=== PATIENT | female | born 1950 | race Caucasian/White ===

== ENCOUNTER → 2016-06-25 | Outpatient (CLI) | payer BC ==
[2016-06-25 07:55] LABS: Basophils # (A) 0.1 k/uL (0-0.2); Basophils % (A) 1 %; CH 28.3; CHCM 32.8; Eosinophils # (A) 0.2 k/uL (0-0.7); Eosinophils % (A) 3 %; HCT 38.4 % (34.0-46.0); HDW 2.59; HGB 12.3 gm/dL (11.4-16.0); Luc # (Auto) 0.14; Luc % (Auto) 2; Lymphocytes # (A) 1.5 k/uL (1.0-4.8); Lymphocytes % (A) 19 %; MCH 27.8 pg (25.0-35.0); MCHC 32.1 g/dL (31.0-37.0); MCV 86.6 fL (80.0-100.0); Mean Platelet Volume 7.3; Monocytes # (A) 0.4 k/uL (0-1.0); Monocytes % (A) 5 %; Neutrophils # (A) 5.4 k/uL (1.3-7.7); Neutrophils % (A) 70 %; RBC 4.44 m/uL (3.80-5.40); RDW 13.5 % (11.5-15.5); WBC 7.7 k/uL (3.8-10.6); WBC (Perox) 8.51
[2016-06-25 08:09] LABS: ALT 53 U/L (9-52); AST 35 U/L (14-36); Alkaline Phosphatase 106 U/L (38-126); Anion Gap 14 mmol/L; Blood Urea Nitrogen 17 mg/dL (7-17); Calcium 9.7 mg/dL (8.4-10.2); Carbon Dioxide 25 mmol/L (22-30); Chloride 105 mmol/L (98-107); Cholesterol 190 mg/dL (<200); Glucose 137 mg/dL (74-99); HDL Cholesterol 42 mg/dL (40-60); Non-African American GFR(MDRD) >60 (>60 ml/min/1.73 sqM); Potassium 5.4 mmol/L (3.5-5.1); Sodium 144 mmol/L (137-145); Total Bilirubin 0.6 mg/dL (0.2-1.3); Total Protein 7.1 g/dL (6.3-8.2); Triglycerides 264 mg/dL (<150)
[2016-06-25 08:53] LABS: Hepatitis C Virus IgG Index 0.01
[2016-06-25 08:55] LABS: Hepatitis C Virus IgG Ab Negative (Negative)
[2016-06-26 08:24] LABS: Hemoglobin A1C 6.6 % (4.2-6.1)
== END | disposition home or self-care (01) ==
LOC: LABWHC1 07:00
PROVIDERS: ATTEND Family Medicine
DX: E11.9 Type 2 diabetes mellitus without complications (principal); Z13.9 Encounter for screening, unspecified
CPT/HCPCS: 36415; 80053; 80061; 82043; 83036; 84443; 85025; 86803

== ENCOUNTER → 2016-07-31 | Outpatient (CLI) | payer BC ==
--- NOTE | 2016-08-03 12:05 | MM ---
Reason for exam: screening (asymptomatic). Last mammogram was performed 1 year ago. History: Patient is postmenopausal. Family history of premenopausal breast cancer in paternal aunt and breast cancer in paternal grandmother. Benign stereotactic core biopsy of the right breast, September 03, 1998. Excisional biopsy of the right breast. Took estrogen for 14 years 3 months. Physical Findings: A clinical breast exam by your physician is recommended on an annual basis and results should be correlated with mammographic findings. MG 3D Screening Mammo W/Cad Bilateral CC and MLO view(s) were taken. Prior study comparison: July 30, 2015, bilateral MG 3d screening mammo w/cad. July 28, 2014, bilateral MG screening mammo w CAD. There are scattered fibroglandular densities. No significant changes when compared with prior studies. ASSESSMENT: Negative, BI-RAD 1 RECOMMENDATION: Routine screening mammogram of both breasts in 1 year.
== END | disposition home or self-care (01) ==
LOC: RADMAMWWP 16:41
PROVIDERS: ATTEND Family Medicine
DX: Z12.31 Encounter for screening mammogram for malignant neoplasm of breast (principal)
CPT/HCPCS: 77063; G0202

== ENCOUNTER → 2016-12-26 | Outpatient (CLI) | payer BC ==
[2016-12-26 09:50] LABS: ALT 56 U/L (9-52); AST 39 U/L (14-36); Alkaline Phosphatase 110 U/L (38-126); Anion Gap 12 mmol/L; Blood Urea Nitrogen 12 mg/dL (7-17); Calcium 9.6 mg/dL (8.4-10.2); Carbon Dioxide 24 mmol/L (22-30); Chloride 107 mmol/L (98-107); Cholesterol 175 mg/dL (<200); Glucose 119 mg/dL (74-99); HDL Cholesterol 37 mg/dL (40-60); Non-African American GFR(MDRD) >60 (>60 ml/min/1.73 sqM); Potassium 4.7 mmol/L (3.5-5.1); Sodium 143 mmol/L (137-145); Total Bilirubin 0.5 mg/dL (0.2-1.3); Total Protein 6.8 g/dL (6.3-8.2)
[2016-12-26 12:15] LABS: Hemoglobin A1C 6.8 % (4.2-6.1)
== END ==
LOC: LABWHC1 08:41
PROVIDERS: ATTEND Family Medicine
DX: E11.9 Type 2 diabetes mellitus without complications (principal)
CPT/HCPCS: 36415; 80053; 80061; 83036

== ENCOUNTER → 2017-07-10 | Outpatient (CLI) | payer BC ==
[2017-07-10 09:50] LABS: Basophils % (A) 0 %; Eosinophils # (A) 0.2 k/uL (0-0.7); Eosinophils % (A) 3 %; HGB 11.9 gm/dL (11.4-16.0); Lymphocytes # (A) 1.8 k/uL (1.0-4.8); Lymphocytes % (A) 23 %; MCHC 32.2 g/dL (31.0-37.0); MCV 86.9 fL (80.0-100.0); Mean Platelet Volume 6.8; Monocytes # (A) 0.3 k/uL (0-1.0); Monocytes % (A) 4 %; Neutrophils # (A) 5.2 k/uL (1.3-7.7); Neutrophils % (A) 69 %; Platelet Count 240 k/uL (150-450); RBC 4.26 m/uL (3.80-5.40); RDW 13.1 % (11.5-15.5); WBC 7.6 k/uL (3.8-10.6)
[2017-07-10 10:11] LABS: ALT 32 U/L (9-52); AST 27 U/L (14-36); Albumin 4.2 g/dL (3.5-5.0); Alkaline Phosphatase 98 U/L (38-126); Anion Gap 12 mmol/L; Blood Urea Nitrogen 17 mg/dL (7-17); Calcium 10.3 mg/dL (8.4-10.2); Carbon Dioxide 28 mmol/L (22-30); Chloride 104 mmol/L (98-107); Cholesterol 121 mg/dL (<200); Creatine Kinase 32 U/L (30-135); Glucose 147 mg/dL (74-99); HDL Cholesterol 47 mg/dL (40-60); LDL Cholesterol,Calculated 47 mg/dL (0-99); Potassium 5.6 mmol/L (3.5-5.1); Sodium 144 mmol/L (137-145); Total Bilirubin 0.4 mg/dL (0.2-1.3); Total Protein 6.7 g/dL (6.3-8.2); Triglycerides 136 mg/dL (<150)
[2017-07-10 20:05] LABS: Hemoglobin A1C 6.3 % (4.0-6.0)
== END | disposition home or self-care (01) ==
LOC: LABWHC1 08:33
PROVIDERS: ATTEND Internal Medicine Interventional Cardiology
DX: E11.9 Type 2 diabetes mellitus without complications (principal); E78.2 Mixed hyperlipidemia
CPT/HCPCS: 36415; 80053; 80061; 82043; 82550; 82570; 83036; 84443; 85025

== ENCOUNTER → 2017-07-30 | Outpatient (CLI) | payer BC ==
[2017-07-30 08:05] LABS: Potassium 4.7 mmol/L (3.5-5.1)
== END | disposition home or self-care (01) ==
LOC: LABWHC1 07:04
PROVIDERS: ATTEND Internal Medicine Interventional Cardiology
DX: E87.5 Hyperkalemia (principal)
CPT/HCPCS: 36415; 80051; 82565; 84520

== ENCOUNTER → 2017-08-23 | Outpatient (CLI) | payer BC ==
--- NOTE | 2017-08-25 08:37 | MM ---
Reason for exam: screening (asymptomatic). Last mammogram was performed 1 year and 1 month ago. History: Patient is postmenopausal. Family history of premenopausal breast cancer in paternal aunt and breast cancer in paternal grandmother. Benign stereotactic core biopsy of the right breast, September 03, 1998. Excisional biopsy of the right breast. Took estrogen for 14 years 3 months. Physical Findings: A clinical breast exam by your physician is recommended on an annual basis and results should be correlated with mammographic findings. MG 3D Screening Mammo W/Cad Bilateral CC and MLO view(s) were taken. Prior study comparison: July 31, 2016, bilateral MG 3d screening mammo w/cad. July 30, 2015, bilateral MG 3d screening mammo w/cad. There are scattered fibroglandular densities. Finding: There are faint grouped/clustered, fine calcifications in the middle, subareolar position of the left breast on MLO view, 7cm from the nipple. Previous mammotome biopsy in the right breast. New finding since July 31, 2016 and July 30, 2015. ASSESSMENT: Incomplete: need additional imaging evaluation, BI-RAD 0 RECOMMENDATION: Special view mammogram of the left breast. [facility] will attempt to contact patient to return for supplemental views.
== END | disposition home or self-care (01) ==
LOC: RADMAMWWP 16:40
PROVIDERS: ATTEND Family Medicine
DX: Z12.31 Encounter for screening mammogram for malignant neoplasm of breast (principal)
CPT/HCPCS: 77063; 77067

== ENCOUNTER → 2017-09-01 | Outpatient (CLI) | payer BC ==
--- NOTE | 2017-09-02 08:26 | MM ---
Reason for exam: additional evaluation requested from abnormal screening. Last mammogram was performed less than 1 month ago. History: Patient is postmenopausal. Family history of premenopausal breast cancer in paternal aunt and breast cancer in paternal grandmother. Benign stereotactic core biopsy of the right breast, September 03, 1998. Excisional biopsy of the right breast. Took estrogen for 14 years 3 months. Physical Findings: Nurse did not find any significant physical abnormalities on exam. MG 3D Work Up W/Cad LT CC with magnification, LM with magnification, and LM view(s) were taken of the left breast. Prior study comparison: August 23, 2017, bilateral MG 3d screening mammo w/cad. July 31, 2016, bilateral MG 3d screening mammo w/cad. There are scattered fibroglandular densities. Finding: There are two fine calcifications in the posterior position of the left breast on MLO view. No significant changes in finding since August 23, 2017. These results were verbally communicated with the patient and result sheet given to the patient on 09/01/17. ASSESSMENT: Probably benign, BI-RAD 3 RECOMMENDATION: Follow-up diagnostic mammogram of the left breast in 6 months. (with magnification views)
== END | disposition home or self-care (01) ==
LOC: RADMAMWWP 14:12
PROVIDERS: ATTEND Family Medicine
DX: R92.8 Other abnormal and inconclusive findings on diagnostic imaging of breast (principal)
CPT/HCPCS: 77065; G0279

== ENCOUNTER → 2018-01-11 | Outpatient (CLI) | payer BC ==
[2018-01-11 07:50] LABS: Albumin 4.2 g/dL (3.5-5.0); Calcium 9.8 mg/dL (8.4-10.2); Potassium 5.4 mmol/L (3.5-5.1); Total Bilirubin 0.5 mg/dL (0.2-1.3); Total Protein 6.7 g/dL (6.3-8.2)
== END | disposition home or self-care (01) ==
LOC: LABWHC1 06:47
PROVIDERS: ATTEND Internal Medicine Interventional Cardiology
DX: E11.9 Type 2 diabetes mellitus without complications (principal); E78.2 Mixed hyperlipidemia
CPT/HCPCS: 36415; 80053; 80061; 83036

== ENCOUNTER → 2018-02-22 | Outpatient (CLI) | payer BC ==
--- NOTE | 2018-02-23 09:07 | MM ---
Reason for exam: follow-up at short interval from prior study. Last mammogram was performed 6 months ago. History: Patient is postmenopausal. Family history of premenopausal breast cancer in paternal aunt and breast cancer in paternal grandmother. Benign stereotactic core biopsy of the right breast, September 03, 1998. Excisional biopsy of the right breast. Took estrogen for 14 years 3 months. Physical Findings: Nurse did not find any significant physical abnormalities on exam. MG 3D Diag Mammo W/Cad LT CC, MLO, and XCCL view(s) were taken of the left breast. Prior study comparison: September 01, 2017, left breast MG 3d work up w/cad LT. August 23, 2017, bilateral MG 3d screening mammo w/cad. There are scattered fibroglandular densities. Benign calcifications bilaterally. No significant new findings when compared with previous films. These results were verbally communicated with the patient and result sheet given to the patient on 02/22/18. ASSESSMENT: Benign, BI-RAD 2 RECOMMENDATION: Follow-up diagnostic mammogram of both breasts in 6 months.
== END | disposition home or self-care (01) ==
LOC: RADMAMWWP 15:31
PROVIDERS: ATTEND Family Medicine
DX: R92.8 Other abnormal and inconclusive findings on diagnostic imaging of breast (principal)
CPT/HCPCS: 77061; 77065

== ENCOUNTER → 2018-04-09 | Outpatient (CLI) | payer BC ==
[2018-04-09 09:01] LABS: Basophils # (A) 0.1 k/uL (0-0.2); Basophils % (A) 1 %; Eosinophils # (A) 0.2 k/uL (0-0.7); Eosinophils % (A) 3 %; HCT 39.6 % (34.0-46.0); HGB 12.8 gm/dL (11.4-16.0); Lymphocytes # (A) 1.8 k/uL (1.0-4.8); Lymphocytes % (A) 23 %; MCH 27.9 pg (25.0-35.0); MCHC 32.2 g/dL (31.0-37.0); MCV 86.7 fL (80.0-100.0); Mean Platelet Volume 6.5; Monocytes # (A) 0.3 k/uL (0-1.0); Monocytes % (A) 4 %; Neutrophils # (A) 5.6 k/uL (1.3-7.7); Neutrophils % (A) 69 %; Platelet Count 268 k/uL (150-450); RBC 4.57 m/uL (3.80-5.40); RDW 13.5 % (11.5-15.5); WBC 8.1 k/uL (3.8-10.6)
[2018-04-09 17:33] LABS: Albumin 4.8 g/dL (3.80-4.90); Albumin/Globulin Ratio 2.53 (1.20-2.10); Globulin 1.9 g/dL (2.1-3.7); LDL Cholesterol,Calculated 42.8 mg/dL (0.0-131.0); Potassium 4.7 mmol/L (3.5-5.5); Total Bilirubin 0.6 mg/dL (0.3-1.2); Total Protein 6.7 g/dL (6.2-8.2); VLDL Calculation 49.2 mg/dL (5.00-40.00)
[2018-04-09 17:50] LABS: Hemoglobin A1C 6.3 % (4.0-6.0)
== END | disposition home or self-care (01) ==
LOC: LABWHC1 08:17
PROVIDERS: ATTEND Family Medicine
DX: E11.9 Type 2 diabetes mellitus without complications (principal)
CPT/HCPCS: 36415; 80053; 80061; 82043; 82570; 83036; 84443; 85025

== ENCOUNTER → 2018-07-20 | Outpatient (CLI) | payer MEDICARE, OTHER ==
[2018-07-20 12:01] LABS: HGB 12.6 gm/dL (11.4-16.0); MCHC 32.4 g/dL (31.0-37.0); MCV 86.3 fL (80.0-100.0); Mean Platelet Volume 6.2; Platelet Count 255 k/uL (150-450); RBC 4.52 m/uL (3.80-5.40); RDW 13.9 % (11.5-15.5)
[2018-07-20 12:25] LABS: Amorphous Sediment,Urine Occasional /hpf; Appearance,Urine Clear (Clear); Bilirubin,Urine Negative (Negative); Blood,Urine Negative (Negative); Calcium Oxalate Crystals,Urine Rare /hpf; Color,Urine Yellow; Glucose,Urine (UA) Negative (Negative); Hyaline Casts,Urine 5 /lpf (0-2); Ketones,Urine Negative (Negative); Leukocyte Esterase,Urine Negative (Negative); Mucus,Urine Moderate /hpf; Nitrite,Urine Negative (Negative); PH, Urine 5.5 (5.0-8.0); Protein,Urine 1+ (Negative); RBC,Urine 1 /hpf (0-5); WBC,Urine 1 /hpf (0-5)
[2018-07-20 16:56] LABS: Albumin 4.5 g/dL (3.80-4.90); Albumin/Globulin Ratio 2.5 (1.60-3.17); Anion Gap 12.7 mmol/L (4.00-12.00); Calcium 9.4 mg/dL (8.7-10.3); Carbon Dioxide 25.3 mmol/L (21.6-31.8); Globulin 1.8 g/dL (1.6-3.3); LDL Cholesterol,Calculated 47.2 mg/dL (0.0-131.0); Potassium 4.5 mmol/L (3.5-5.5); Total Bilirubin 0.5 mg/dL (0.2-1.2); Total Protein 6.3 g/dL (6.2-8.2); VLDL Calculation 40.8 mg/dL (5.00-40.00)
[2018-07-20 18:08] LABS: Hemoglobin A1C 6.2 % (4.0-6.0)
== END | disposition home or self-care (01) ==
LOC: LABWHC1 10:11
PROVIDERS: ATTEND Family Medicine
DX: Z00.01 Encounter for general adult medical examination with abnormal findings (principal); E11.9 Type 2 diabetes mellitus without complications; R53.83 Other fatigue; E66.3 Overweight
CPT/HCPCS: 36415; 80053; 80061; 81001; 83036; 85027

== ENCOUNTER → 2018-09-02 | Outpatient (CLI) | payer MEDICARE, OTHER ==
--- NOTE | 2018-09-02 09:27 | MM ---
Reason for exam: additional evaluation requested from prior study. Last mammogram was performed 6 months ago. History: Patient is postmenopausal. Family history of premenopausal breast cancer in paternal aunt and breast cancer in paternal grandmother. Benign stereotactic core biopsy of the right breast, September 03, 1998. Excisional biopsy of the right breast. Took hormonal contraceptives beginning at age 20. Took estrogen for 14 years 3 months. Physical Findings: Nurse did not find any significant physical abnormalities on exam. MG 3D Diag Mammo W/Cad EMILIE Bilateral CC and MLO view(s) were taken. Prior study comparison: February 22, 2018, left breast MG 3d diag mammo w/cad LT. September 01, 2017, left breast MG 3d work up w/cad LT. The breast tissue is heterogeneously dense. This may lower the sensitivity of mammography. Stable benign calcifications. There is no discrete abnormality. No significant new findings when compared with previous films. These results were verbally communicated with the patient and result sheet given to the patient on 09/02/18. ASSESSMENT: Benign, BI-RAD 2 RECOMMENDATION: Routine screening mammogram of the right breast in 1 year.
== END | disposition home or self-care (01) ==
LOC: RADMAMWWP 08:11
PROVIDERS: ATTEND Family Medicine
DX: R92.8 Other abnormal and inconclusive findings on diagnostic imaging of breast (principal)
CPT/HCPCS: 77066; G0279; 77062

== ENCOUNTER → 2018-11-12 | Outpatient (CLI) | payer MEDICARE, OTHER ==
[2018-11-12 16:16] LABS: Albumin 4.4 g/dL (3.80-4.90); Albumin/Globulin Ratio 2.32 (1.60-3.17); Anion Gap 8.4 mmol/L (4.00-12.00); Calcium 9.6 mg/dL (8.7-10.3); Carbon Dioxide 29.6 mmol/L (21.6-31.8); Globulin 1.9 g/dL (1.6-3.3); LDL Cholesterol,Calculated 69.4 mg/dL (0.0-131.0); Potassium 4.6 mmol/L (3.5-5.5); Total Bilirubin 0.5 mg/dL (0.2-1.2); Total Protein 6.3 g/dL (6.2-8.2); VLDL Calculation 35.6 mg/dL (5.00-40.00)
== END | disposition home or self-care (01) ==
LOC: LABWHC1 08:48
PROVIDERS: ATTEND Internal Medicine Interventional Cardiology
DX: E78.2 Mixed hyperlipidemia (principal)
CPT/HCPCS: 36415; 80053; 80061

== ENCOUNTER 2019-02-28 01:58 | Observation (INO) | payer MEDICARE, OTHER ==
[2019-02-28] MEDS ORDERED: SODIUM CHLORIDE 0.9% 1,000 ML IV STA ×2 (01:59)
[2019-02-28] MEDS ORDERED: LIDOCAINE 1% INJ 10MG/ML (20 ML MDV) SQ ONE (02:09)
--- NOTE | 2019-02-28 02:13 | ED ---
Fall HPI - General Source: patient, EMS, RN notes reviewed, old records reviewed Mode of arrival: EMS <Rosa Duran - Last Filed: 02/28/19 04:05> <Ravi Kuo - Last Filed: 03/03/19 08:03> - General Chief Complaint: Fall Stated Complaint: Syncope Time Seen by Provider: 02/28/19 01:59 - History of Present Illness Initial Comments: Patient is a 69-year-old female presents emergency department today for chief complaint of a syncopal episode. Patient reports that this evening she started about some abdominal pain, felt that she needed to use the restroom. Patient reports that she sat onto the toilet for some time, became somewhat diaphoretic. Patient states that she's been felt better much returned to her bed. She then had a subsequent episode where she felt this needed to call back to the bathroom to try to have a bowel movement. Patient reports that when she got to the restroom she then had a syncopal episode, and hit her head on the edge of the bathtub. Patient was unconscious for unknown amount of time. Patient reports she then awoke, crawled into the bathtub and called her . She denies any cardiac history. Patient denies any recent fever, chills, shortness of breath, chest pain, back pain, nausea vomiting, numbness or tingling, dysuria or hematuria, constipation or diarrhea, headaches or visual changes, or any other current symptoms (Rosa Duran) - Related Data Home Medications Medication Instructions Recorded Confirmed Acitretin [Soriatane] 25 mg PO DAILY 05/03/14 02/28/19 Ramipril 10 mg PO DAILY 05/03/14 02/28/19 Flaxseed [Flaxseed Oil] 1,000 mg PO DAILY 08/12/15 02/28/19 Lactobacillus Acidophilus 1 tab PO DAILY 08/12/15 02/28/19 [Acidophilus] Taclonex 0.005% Lotion 1 applic TOPICAL DAILY 08/12/15 02/28/19 Zinc 50 mg PO HS 08/12/15 02/28/19 Clindamycin Phosphate [Cleocin T] 1 applic TOPICAL BID 02/28/19 02/28/19 Desonide [DesOwen .05%] 1 applic TOPICAL DAILY 02/28/19 02/28/19 Neomycin/Bacit/P-Myx/Hydrocort 1 applic BOTH EYES HS 02/28/19 02/28/19 [Wof-Wpzwa-Atsd-Hc Eye Ointment] Soolantra Cream 1 applic TOPICAL DAILY 02/28/19 02/28/19 Venlafaxine HCl ER [Effexor XR] 75 mg PO DAILY 02/28/19 02/28/19 Previous Rx's Medication Instructions Recorded Bacitracin Oint 1 applic TOPICAL BID applic 03/01/19 Allergies Allergy/AdvReac Type Severity Reaction Status Date / Time No Known Allergies Allergy Verified 02/28/19 07:11 Review of Systems ROS Other: All systems not noted in ROS Statement are negative. <Rosa Duran - Last Filed: 02/28/19 04:05> ROS Other: All systems not noted in ROS Statement are negative. <Ravi Kuo - Last Filed: 03/03/19 08:03> ROS Statement: Those systems with pertinent positive or pertinent negative responses have been documented in the HPI. 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 History of Any Multi-Drug Resistant Organisms: None Reported Past Surgical History: Section, Hernia Repair, Hysterectomy Additional Past Surgical History / Comment(s): umbilcal hernia repair, lt oophorectomy r/t 7 cysts, lt shoulder bone spur/tendon repair,rt breast bx- neg,rt hand sx for dupretyens contracture, bunionectomy Past Anesthesia/Blood Transfusion Reactions: No Reported Reaction Additional Past Anesthesia/Blood Transfusion Reaction / Comment(s): clausterphobia Past Psychological History: Depression Smoking Status: Never smoker Past Alcohol Use History: Rare Past Drug Use History: None Reported - Past Family History Mother Family Medical History: Diabetes Mellitus, Osteoarthritis (OA) Father History Unknown: Yes <Rosa Duran - Last Filed: 02/28/19 04:05> General Exam General appearance: alert, in no apparent distress Head exam: Present: atraumatic, normocephalic, normal inspection Eye exam: Present: normal appearance, PERRL, EOMI, other (Patient is a 4 cm laceration over the right eyebrow and temporal region.). Absent: scleral icterus, conjunctival injection, periorbital swelling ENT exam: Present: normal exam, mucous membranes moist Neck exam: Present: normal inspection. Absent: tenderness, meningismus, lymphadenopathy Respiratory exam: Present: normal lung sounds bilaterally. Absent: respiratory distress, wheezes, rales, rhonchi, stridor Cardiovascular Exam: Present: regular rate, normal rhythm, normal heart sounds. Absent: systolic murmur, diastolic murmur, rubs, gallop, clicks GI/Abdominal exam: Present: soft, normal bowel sounds. Absent: distended, tenderness, guarding, rebound, rigid Extremities exam: Present: normal inspection, full ROM, normal capillary refill. Absent: tenderness, pedal edema, joint swelling, calf tenderness Back exam: Present: normal inspection Neurological exam: Present: alert, oriented X3, CN II-XII intact Psychiatric exam: Present: normal affect Skin exam: Present: warm, dry, intact, normal color. Absent: rash <Rosa Duran - Last Filed: 02/28/19 04:05> - General Exam Comments Initial Comments: This is a 69-year-old female. Alert and oriented 3. No distress. (Rosa Duran) Course Vital Signs 02/28/19 02/28/19 02/28/19 02:03 03:49 06:12 Temperature 98.3 F 98 F Pulse Rate 84 88 99 Respiratory 18 18 18 Rate Blood Pressure 157/92 156/70 141/74 O2 Sat by Pulse 100 99 98 Oximetry Procedures - Laceration Laceration #1 Size (cm): 4 Description: flap, irregular Depth: simple, single layer Anesthetic Used: lidocaine 1% Anesthesia Technique: local infiltration Amount (mls): 3 Pre-repair: wound explored, irrigated extensively Type of Sutures: nylon Size of Sutures: 6-0 Number of Sutures: 7 Technique: simple, interrupted Patient Tolerated Procedure: well, no complications <Rosa Duran - Last Filed: 02/28/19 04:05> Medical Decision Making - Lab Data Result diagrams: 02/28/19 02:19 02/28/19 02:19 - Radiology Data Radiology results: report reviewed <Rosa Duran - Last Filed: 02/28/19 04:05> - Lab Data Result diagrams: 02/28/19 02:19 02/28/19 02:19 <Ravi Kuo - Last Filed: 03/03/19 08:03> - Medical Decision Making 69-year-old female presents emergency department today after syncopal episode. Patient reports that she was walking to her to the bathroom to have a bowel movement, and then passed out. She had her head on the bathtub. She has a 4 cm irregular laceration over the right eyebrow temporal area. This was cleansed and closed with 7 sutures. Patient's main complaint is some neck and shoulder pain from the fall. Patient states x-rays and CT of the brain and C-spine reviewed. This was negative for any acute process. Lab work was obtained. She does have leukocytosis with blood cell count 17,000. Chemistry panels were reviewed, the lateral remarkable. Her troponin test is negative. EKG shows normal sinus rhythm. Patient was reevaluated, states she still feels quite weak. I discussed the findings with the Patient and she states she preferred to stay for cardiac monitoring and she is concerned with her episode of severe diaphoresis. Patient will be admitted at this time, she does not have any chest pain or any other complaints. Discussed can admit her for cardiac monitoring. (Rosa Duran) I saw this patient in conjunction with the physician mechanic assistant. I performed independent history and physical exam. Agree with case management. (Ravi Kuo) - Lab Data Lab Results 02/28/19 02/28/19 02/28/19 Range/Units 02:14 02:19 02:19 WBC 17.1 H (3.8-10.6) k/uL RBC 4.58 (3.80-5.40) m/uL Hgb 12.8 (11.4-16.0) gm/dL Hct 39.9 (34.0-46.0) % MCV 87.1 (80.0-100.0) fL MCH 27.9 (25.0-35.0) pg MCHC 32.0 (31.0-37.0) g/dL RDW 13.3 (11.5-15.5) % Plt Count 259 (150-450) k/uL Neutrophils % 72 % Lymphocytes % 20 % Monocytes % 4 % Eosinophils % 2 % Basophils % 1 % Neutrophils # 12.3 H (1.3-7.7) k/uL Lymphocytes # 3.4 (1.0-4.8) k/uL Monocytes # 0.7 (0-1.0) k/uL Eosinophils # 0.4 (0-0.7) k/uL Basophils # 0.2 (0-0.2) k/uL PT (9.0-12.0) sec INR (<1.2) APTT (22.0-30.0) sec Sodium 139 (137-145) mmol/L Potassium 4.5 (3.5-5.1) mmol/L Chloride 107 (98-107) mmol/L Carbon Dioxide 18 L (22-30) mmol/L Anion Gap 14 mmol/L BUN 28 H (7-17) mg/dL Creatinine 1.04 (0.52-1.04) mg/dL Est GFR (CKD-EPI)AfAm 65 (>60 ml/min/1.73 sqM) Est GFR (CKD-EPI)NonAf 56 (>60 ml/min/1.73 sqM) Glucose 166 H (74-99) mg/dL Calcium 9.5 (8.4-10.2) mg/dL Magnesium 2.2 (1.6-2.3) mg/dL Total Bilirubin 0.7 (0.2-1.3) mg/dL AST 39 H (14-36) U/L ALT 23 (9-52) U/L Alkaline Phosphatase 125 (38-126) U/L Troponin I (0.000-0.034) ng/mL Total Protein 7.5 (6.3-8.2) g/dL Albumin 4.4 (3.5-5.0) g/dL Triglycerides 205 H (<150) mg/dL Cholesterol 150 (<200) mg/dL LDL Cholesterol, Calc 79 (0-99) mg/dL HDL Cholesterol 30 L (40-60) mg/dL 02/28/19 02/28/19 Range/Units 02:19 02:19 WBC (3.8-10.6) k/uL RBC (3.80-5.40) m/uL Hgb (11.4-16.0) gm/dL Hct (34.0-46.0) % MCV (80.0-100.0) fL MCH (25.0-35.0) pg MCHC (31.0-37.0) g/dL RDW (11.5-15.5) % Plt Count (150-450) k/uL Neutrophils % % Lymphocytes % % Monocytes % % Eosinophils % % Basophils % % Neutrophils # (1.3-7.7) k/uL Lymphocytes # (1.0-4.8) k/uL Monocytes # (0-1.0) k/uL Eosinophils # (0-0.7) k/uL Basophils # (0-0.2) k/uL PT 9.9 (9.0-12.0) sec INR 0.9 (<1.2) APTT 20.7 L (22.0-30.0) sec Sodium (137-145) mmol/L Potassium (3.5-5.1) mmol/L Chloride (98-107) mmol/L Carbon Dioxide (22-30) mmol/L Anion Gap mmol/L BUN (7-17) mg/dL Creatinine (0.52-1.04) mg/dL Est GFR (CKD-EPI)AfAm (>60 ml/min/1.73 sqM) Est GFR (CKD-EPI)NonAf (>60 ml/min/1.73 sqM) Glucose (74-99) mg/dL Calcium (8.4-10.2) mg/dL Magnesium (1.6-2.3) mg/dL Total Bilirubin (0.2-1.3) mg/dL AST (14-36) U/L ALT (9-52) U/L Alkaline Phosphatase (38-126) U/L Troponin I <0.012 (0.000-0.034) ng/mL Total Protein (6.3-8.2) g/dL Albumin (3.5-5.0) g/dL Triglycerides (<150) mg/dL Cholesterol (<200) mg/dL LDL Cholesterol, Calc (0-99) mg/dL HDL Cholesterol (40-60) mg/dL 02/28/19 02:23 EKG shows normal sinus rhythm, normal EKG. Ventricular rate of 77 bpm. Verbal is 144 ms. Stress duration is 80 ms. QT QTc is 424/479 ms. (Rosa Duran) - Radiology Data Negative left shoulder exam. No active croup on her disease on chest x-ray. Normal heart. No changes. CT of the brain shows mild atrophy. No acute intracranial normality. No changes. Mild degenerative hypertrophic disc changes and mid cervical spine. No fracture seen. There is 7.5 mm spinal stenosis at C6-C7. No changes noted. (Rosa Duran) Disposition Is patient prescribed a controlled substance at d/c from ED?: No Time of Disposition: 04:11 <Rosa Duran - Last Filed: 02/28/19 04:05> <Ravi Kuo - Last Filed: 03/03/19 08:03> Clinical Impression: Syncope, Laceration of head, Diaphoresis, Leukocytosis Disposition: ADMITTED IP TO THIS HOSP Condition: Stable
[2019-02-28 02:31] LABS: Basophils # (A) 0.2 k/uL (0-0.2); Basophils % (A) 1 %; Eosinophils # (A) 0.4 k/uL (0-0.7); Eosinophils % (A) 2 %; HCT 39.9 % (34.0-46.0); HGB 12.8 gm/dL (11.4-16.0); Lymphocytes # (A) 3.4 k/uL (1.0-4.8); Lymphocytes % (A) 20 %; MCH 27.9 pg (25.0-35.0); MCV 87.1 fL (80.0-100.0); Mean Platelet Volume 7.3; Monocytes # (A) 0.7 k/uL (0-1.0); Monocytes % (A) 4 %; Neutrophils # (A) 12.3 k/uL (1.3-7.7); Neutrophils % (A) 72 %; Platelet Count 259 k/uL (150-450); RBC 4.58 m/uL (3.80-5.40); RDW 13.3 % (11.5-15.5); WBC 17.1 k/uL (3.8-10.6)
[2019-02-28 02:43] LABS: Calcium 9.5 mg/dL (8.4-10.2)
--- NOTE | 2019-02-28 02:45 | XR ---
EXAMINATION TYPE: XR chest 1V DATE OF EXAM: 02/28/2019 COMPARISON: 08/12/2015 HISTORY: Chest pain TECHNIQUE: Single frontal view of the chest is obtained. FINDINGS: Heart and mediastinum are within normal limits. Lungs are clear. Costophrenic angles are c lear. Thoracic aorta is atheromatous. Bony thorax is intact. IMPRESSION: No active cardiopulmonary disease. Normal heart. No change.
[2019-02-28 02:49] LABS: INR 0.9 (<1.2); Prothrombin Time 9.9 sec (9.0-12.0)
--- NOTE | 2019-02-28 02:49 | CT ---
EXAMINATION TYPE: CT brain harley wo con DATE OF EXAM: 02/28/2019 COMPARISON: 05/03/2014 HISTORY: fall Headache. Neck pain. CT DLP: 1217.5 mGycm Automated exposure control for dose reduction was used. TECHNIQUE: CT scan of the head and cervical spine are performed without contrast. FINDINGS: There is some cerebral cortical atrophy. There is no mass effect nor midline shift. There is no sign of intracranial hemorrhage. Calvarium is intact. Cervical vertebra have normal alignment. There is degenerative disc space narrowing from C3 to C7. Th ere is no evidence of a fracture. Facet joints are intact. Skull base appears intact. Anterior aspect of C2 and C1 are not entirely included on the exam. IMPRESSION: Mild atrophy. No acute intracranial abnormality. No change. Mild degenerative hypertrophic disc changes in the mid cervical spine. No fracture seen. There is 7.5 mm spinal stenosis at C6-7. No change.
[2019-02-28 02:59] LABS: Partial Thromboplastin Time 20.7 sec (22.0-30.0)
[2019-02-28 03:01] LABS: Potassium 4.5 mmol/L (3.5-5.1)
[2019-02-28 03:02] LABS: Albumin 4.4 g/dL (3.5-5.0); Magnesium 2.2 mg/dL (1.6-2.3); Total Bilirubin 0.7 mg/dL (0.2-1.3); Total Protein 7.5 g/dL (6.3-8.2)
[2019-02-28] MEDS ORDERED: MORPHINE SULFATE 4 MG/ML SYRINGE IVP STA (03:11)
[2019-02-28] MEDS ORDERED: TOPICAL SKIN ADHESIVE 1 EACH AMP TOPICAL ONE (03:30)
--- NOTE | 2019-02-28 03:45 | XR ---
EXAMINATION TYPE: XR shoulder complete LT DATE OF EXAM: 02/28/2019 COMPARISON: NONE HISTORY: Shoulder pain TECHNIQUE: 3 views FINDINGS: I see no fracture nor dislocation. Joint spaces are fairly normal. There are no pathologic calcifications. IMPRESSION: Negative left shoulder exam.
[2019-02-28] MEDS ORDERED: NITROGLYCERIN SL TABS 0.4 MG TAB SUBLINGUAL PRN (04:12)
[2019-02-28] MEDS ORDERED: ERGOCALCIFEROL 50,000 UNIT CAP PO SCH (04:15)
[2019-02-28] MEDS ORDERED: ACITRETIN PO SCH (09:00)
[2019-02-28] MEDS ORDERED: METFORMIN HCL 1000 MG PO SCH (09:00)
[2019-02-28] MEDS: LISINOPRIL 20 MG TAB PO SCH (09:02)
[2019-02-28] MEDS: VENLAFAXINE HCL ER 75 MG CAP PO SCH (09:02)
[2019-02-28] MEDS: SOOLANTRA 1% TOPICAL SCH (09:15)
[2019-02-28] MEDS: CALCIPOTRIENE TOPICAL SCH (09:15)
[2019-02-28] MEDS: LACTOBACILLUS ACIDOPH & BULGAR 1 EACH PACKET PO SCH (09:15)
[2019-02-28] MEDS: CLEOCIN T TOPICAL SCH ×2 (09:15→20:17)
[2019-02-28] MEDS: BETAMETHASONE DIPROPIONATE TOPICAL SCH (09:15)
[2019-02-28] MEDS: Flaxseed Oil 1,000 MG PO SCH (09:15)
[2019-02-28 11:28] LABS: Glucose,Whole Blood 142 mg/dL (75-99)
[2019-02-28] MEDS: ACETAMINOPHEN TAB 325 MG TAB PO PRN ×3 (11:32→23:50)
[2019-02-28 13:12] LABS: Appearance,Urine Clear (Clear); Bilirubin,Urine Negative (Negative); Blood,Urine Negative (Negative); Color,Urine Yellow; Glucose,Urine (UA) Negative (Negative); Ketones,Urine Negative (Negative); Leukocyte Esterase,Urine Negative (Negative); Nitrite,Urine Negative (Negative); Protein,Urine Trace (Negative); Specific Gravity,Urine 1.017 (1.001-1.035); Urobilinogen,Urine <2.0 mg/dL (<2.0)
[2019-02-28] MEDS: ACITRETIN PO SCH (13:46)
--- NOTE | 2019-02-28 16:27 | P.CRDCN ---
History of Present Illness Consult date: 02/28/19 Requesting physician: Anirudh Hawk Consult reason: sycope Chief complaint: syncope History of present illness: This is a 69-year-old female with history of hypertension, diabetes, hyperlipidemia, nonsmoker. She follows with Dr. Chavis in the office. Who presented to the hospital after experiencing a syncopal episode. According to the patient she became quite nauseated and felt as though she needed to move her bowels, she went into the bathroom and sat down on the toilet when she became extremely diaphoretic, she then went back into her bedroom, and again felt as though she was nauseous and needed to move her bowels so she can walked back into the bathroom, before she even had a chance to sit back down onto the toilet she passed out landing in the tub. She did hit her head on the side of the tub requiring sutures on admission here. She denies any prior syncopal episodes. Her chest x-ray on presentation here did not show any active cardiopulmonary disease. CAT scan of the head and neck and spine revealed mild atrophy, no acute intracranial abnormality. Mild degenerative hypertrophic disc changes and mid apical spine changes. No evidence of fracture. There is a 7.5 mm spinal stenosis noted. Shoulder x-ray is negative. EKG on presentation here showed a normal sinus rhythm with no acute changes. Blood pressure 150/70 with a heart rate in the 80s, 98% on room air. Orthostatics were obtained, blood pressure in lying position 160/70, sitting 143/60, standing 141/60. White blood cell count 17.1, hemoglobin 12.8, platelet count 259. Sodium 139, potassium 4.5, BUN 28 and creatinine 1.0. Troponins are negative 3. At the time of my examination this morning the patient denies any dizziness or lightheadedness, no chest discomfort. She is complaining of some discomfort in her upper shoulder areas from the fall. 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 History of Any Multi-Drug Resistant Organisms: None Reported Past Surgical History: Section, Hernia Repair, Hysterectomy, Orthopedic Surgery, Tonsillectomy Additional Past Surgical History / Comment(s): Umbilical hernia repair, R oophorectomy d/t cysts, L oophorectomy d/t 7# benign tumor, L shoulder bone/spur/tendon surgery, R hand dupretyens contraction, bilateral feet bunionectomies, R breast benign bx, skin cancer removals, liver biopsy Past Anesthesia/Blood Transfusion Reactions: No Reported Reaction, Motion Sickness Additional Past Anesthesia/Blood Transfusion Reaction / Comment(s): clausterphobia Smoking Status: Never smoker - Past Family History Mother Family Medical History: Diabetes Mellitus, Osteoarthritis (OA) Additional Family Medical History / Comment(s): Mother is 88yrs old. Father History Unknown: Yes Additional Family Medical History / Comment(s): Father has L shoulder issues. He is 86yrs old. Medications and Allergies Home Medications Medication Instructions Recorded Confirmed Type Acitretin [Soriatane] 25 mg PO DAILY 05/03/14 02/28/19 History Ramipril 10 mg PO DAILY 05/03/14 02/28/19 History Flaxseed [Flaxseed Oil] 1,000 mg PO DAILY 08/12/15 02/28/19 History Lactobacillus Acidophilus 1 tab PO DAILY 08/12/15 02/28/19 History [Acidophilus] Taclonex 0.005% Lotion 1 applic TOPICAL DAILY 08/12/15 02/28/19 History Zinc 50 mg PO HS 08/12/15 02/28/19 History Clindamycin Phosphate [Cleocin T] 1 applic TOPICAL BID 02/28/19 02/28/19 History Desonide [DesOwen .05%] 1 applic TOPICAL DAILY 02/28/19 02/28/19 History Neomycin/Bacit/P-Myx/Hydrocort 1 applic BOTH EYES HS 02/28/19 02/28/19 History [Brn-Vnpjp-Retu-Hc Eye Ointment] Soolantra Cream 1 applic TOPICAL DAILY 02/28/19 02/28/19 History Venlafaxine HCl ER [Effexor XR] 75 mg PO DAILY 02/28/19 02/28/19 History Allergies Allergy/AdvReac Type Severity Reaction Status Date / Time No Known Allergies Allergy Verified 02/28/19 07:11 Physical Exam Vitals: Vital Signs Temp Pulse Pulse Resp BP BP BP 02/28/19 15:31 98.4 F 82 18 02/28/19 14:10 101 H 141/66 160/72 02/28/19 11:33 98.1 F 89 18 02/28/19 08:00 97.8 F 96 18 02/28/19 06:12 98 F 99 18 141/74 02/28/19 03:49 88 18 156/70 02/28/19 02:03 98.3 F 84 18 157/92 BP BP Pulse Ox 02/28/19 15:31 151/70 98 02/28/19 14:10 143/65 02/28/19 11:33 151/72 96 02/28/19 08:00 157/72 99 02/28/19 06:12 98 02/28/19 03:49 99 02/28/19 02:03 100 Intake and Output 02/28/19 02/28/19 02/28/19 06:59 14:59 22:59 Intake Total 480 Output Total 500 Balance -20 Intake: Oral 480 Output: Urine 500 Other: # Voids 1 Weight 62.596 kg PHYSICAL EXAMINATION: GENERAL: 69-year-old female in no acute distress at the time of my examination HEENT: Head is atraumatic, patient does have a laceration to the right forehead area, sutures and dressing in place normocephalic. Pupils equal, round. Sclera anicteric. Conjunctiva are clear. Mucous membranes of the mouth are moist. Neck is supple. There is no elevated jugular venous pressure. No carotid bruit is heard. HEART EXAMINATION: Heart S1 S2 1 systolic ejection murmur is heard. CHEST EXAMINATION: Lungs are clear to auscultation and precussion. No chest wall tenderness is noted on palpation or with deep breathing. ABDOMEN: Soft, nontender. Bowel sounds are heard. No organomegaly noted. EXTREMITIES: 2+ peripheral pulses with no evidence of peripheral edema and no calf tenderness noted. NEUROLOGIC patient is awake, alert and oriented 3 . . Results 02/28/19 02:19 02/28/19 02:19 Cardiac Enzymes 02/28/19 02/28/19 02/28/19 Range/Units 02:19 02:19 07:39 AST 39 H (14-36) U/L Troponin I <0.012 <0.012 (0.000-0.034) ng/mL 02/28/19 Range/Units 13:50 AST (14-36) U/L Troponin I <0.012 (0.000-0.034) ng/mL Coagulation 02/28/19 Range/Units 02:19 PT 9.9 (9.0-12.0) sec APTT 20.7 L (22.0-30.0) sec CBC 02/28/19 Range/Units 02:19 WBC 17.1 H (3.8-10.6) k/uL RBC 4.58 (3.80-5.40) m/uL Hgb 12.8 (11.4-16.0) gm/dL Hct 39.9 (34.0-46.0) % Plt Count 259 (150-450) k/uL Comprehensive Metabolic Panel 02/28/19 Range/Units 02:19 Sodium 139 (137-145) mmol/L Potassium 4.5 (3.5-5.1) mmol/L Chloride 107 (98-107) mmol/L Carbon Dioxide 18 L (22-30) mmol/L BUN 28 H (7-17) mg/dL Creatinine 1.04 (0.52-1.04) mg/dL Glucose 166 H (74-99) mg/dL Calcium 9.5 (8.4-10.2) mg/dL AST 39 H (14-36) U/L ALT 23 (9-52) U/L Alkaline Phosphatase 125 (38-126) U/L Total Protein 7.5 (6.3-8.2) g/dL Albumin 4.4 (3.5-5.0) g/dL Current Medications Generic Name Dose Route Start Last Admin Trade Name Freq PRN Reason Stop Dose Admin Acetaminophen 650 mg 02/28/19 11:22 02/28/19 11:32 Tylenol Tab PO 650 mg Q6HR PRN Administration Fever and/ or MILD Pain Aspirin 325 mg 03/01/19 09:00 Aspirin PO DAILY [facility] Lactobacillus Acidoph/Bulgaricus 1 each 02/28/19 09:00 02/28/19 09:15 Lactinex PO Not Given DAILY [facility] Lisinopril 40 mg 02/28/19 09:00 02/28/19 09:02 Zestril PO 40 mg DAILY ALEJA Administration Nitroglycerin 0.4 mg 02/28/19 04:12 Nitrostat SUBLINGUAL Q5M PRN Chest Pain Cleocin T ( 1 applic 02/28/19 09:00 02/28/19 09:15 Clindamycin) Lotion TOPICAL Not Given BID ALEJA Flaxseed Oil 1,000 1,000 mg 02/28/19 09:00 02/28/19 09:15 Mg PO Not Given DAILY ALEJA Taclonex 0.005% 1 applic 02/28/19 09:00 02/28/19 09:15 Lotion TOPICAL Not Given DAILY ALEJA Jsq-Hbewd-Chxl-Hc 1 each 02/28/19 21:00 Eye Ointment BOTH EYES HS ALEJA Soolantra 1% Cream 1 each 02/28/19 09:00 02/28/19 09:15 TOPICAL Not Given DAILY ALEJA Soriatane (Acitretin 25 mg 02/28/19 14:00 02/28/19 13:46 ) 25 Mg PO 25 mg DAILY ALEJA Administration Venlafaxine HCl 75 mg 02/28/19 09:00 02/28/19 09:02 Effexor Xr PO 75 mg DAILY ALEJA Administration Zinc Sulfate 220 mg 02/28/19 21:00 Orazinc PO HS ALEJA Intake and Output 02/28/19 02/28/19 02/28/19 06:59 14:59 22:59 Intake Total 480 Output Total 500 Balance -20 Intake: Oral 480 Output: Urine 500 Other: # Voids 1 Weight 62.596 kg 02/28/19 02:19 02/28/19 02:19 EKG Interpretations (text) EKG shows normal sinus rhythm with no acute changes. Assessment and Plan Plan: Assessment and plan #1 syncope, appears to be vasovagal in nature, possibly exacerbated by aortic stenosis #2 hypertension #3 hyperlipidemia #4 diabetes #5 aortic stenosis Plan We will obtain an echocardiogram with Doppler study. We will also request a d- dimer be performed, if the d-dimer is positive we will recommend patient undergo CTA of the chest to rule out possibility of pulmonary embolism. Monitor orthostatics, and continue to monitor for any possible tachycardia or bradycardia arrhythmias. DNP note has been reviewed, I agree with a documented findings and plan of care. Patient was seen and examined.
--- NOTE | 2019-02-28 16:41 | P.HPIM ---
History of Present Illness H&P Date: 02/28/19 Chief Complaint: fall History of presenting complaint: This is a pleasant 69-year-old patient of Dr. Green. Chronic stable medical conditions include diabetes mellitus, hypertension, osteoarthritis, stage II liver disease felt to be from methotrexate is, psoriasic, rosacea hemorrhoids. Yesterday patient was busy and really didn't have a breakfast or lunch. In the evening she had some oatmeal with berries. Did normally freeze the berries for the winter. In the summer. In the middle of the night patient felt really sick ill. He went to the bathroom. Set up the toilet seat. Procardia out into heavy perspiration drenching herself. To the point even the toilet seat got wet. Decided to come back to the bed and go to sleep. After sometime felt still unwell and decided to walked back to the bathroom. He then became more unwell and passed out into the bathtub.. Before that she had some abdominal discomfort. No fever no chills. Is unclear how long she was unconscious for. Patient suffered laceration on the face and got stitches in the ER. There is no fracture detected. Does no incontinence. No weakness on the screwmaker automatic side. No headache no change in speech or chest pain no palpitation. The EMS reports is that patient was found lying in the bathtub. She was able 3. With a [place] Coma Scale of 15. Other than the pain is a laceration for for a total of the symptoms. She is not sure but apparently her Accu-Cheks was around 150s. Patient does state that she had gone on to [facility] for diabetes type 2 that she lost a lot of weight. Subsequently she's gone off the oral medications. Currently lying in bed. Up to the bathroom. No chest pain no palpitation. Telemetry has been negative. Patient also had surgery of the left shoulder point Dr. Nair. Patient is having some pain in the left shoulder. Some trouble lifting it up. Also some numbness in the left thumb. Review of systems: GEN.: Tired EYES: None HEENT: Right forehead laceration NECK: None RESPIRATORY: None CARDIOVASCULAR: None GASTROINTESTINAL: As above GENITOURINARY: None MUSCULOSKELETAL: As above LYMPHATICS: None HEMATOLOGICAL: None PSYCHIATRY: None NEUROLOGICAL: None Social history: Does not smoke or drink alcohol. . 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 Physical examination: VITAL SIGNS: 98.3, 84, 18, 157/92, 100% room air GENERAL: 23.7 BMI laying in bed awake. EYES: Pupils equal. Conjunctiva normal. HEENT: External appearance of nose and ears normal, oral cavity grossly normal, dressing over right forehead and some superficial scratches on the face.. NECK: JVD not raised; masses not palpable. HEART: First and second heart sounds are normal; no edema. LUNGS: Respiratory rate normal; clear to auscultation. ABDOMEN: Soft, nontender, liver spleen not palpable, no masses palpable. PSYCH: Alert and oriented x3; mood and affect normal. NEUROLOGICAL: Cranial nerves grossly intact; no facial asymmetry, power and sensation grossly intact. LYMPHATICS: No lymph nodes palpable in the axilla and neck INVESTIGATIONS, reviewed in the clinical context: White count 17.1 hemoglobin 12.8 platelets 259 potassium 4.5 creatinine 1.04 Troponin I 3 negative Glucose 166 Assessment: -This is a patient was started of with feeling some abdominal discomfort feeling sick with nausea, followed by perspiration, then had a episode of passing out. Could be vasovagal. There is no orthostatic. Patient was not found to be hypoglycemic. No arrhythmia currently documented. No evidence of acute coronary syndrome. No clinical features of seizure activity. Including no incontinence or tongue biting. -Right forehead laceration with stitches and in the ER -Essential hypertension -Primary osteoarthritis -Rosacea - Plan: Cardiology was consulted. Patient is on telemetry. Not orthostatic. Rule out arrhythmia. Encouraged ablate. We'll use pain stressing cream on the facial abrasions. Care was discussed with the patient. Will follow for 24 hours. Hopefully can be discharged tomorrow. Lovenox for DVT prophylaxis. 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 History of Any Multi-Drug Resistant Organisms: None Reported Past Surgical History: Section, Hernia Repair, Hysterectomy, Orthopedic Surgery, Tonsillectomy Additional Past Surgical History / Comment(s): Umbilical hernia repair, R oophorectomy d/t cysts, L oophorectomy d/t 7# benign tumor, L shoulder bone/spur/tendon surgery, R hand dupretyens contraction, bilateral feet bunionectomies, R breast benign bx, skin cancer removals, liver biopsy Past Anesthesia/Blood Transfusion Reactions: No Reported Reaction, Motion Sickness Additional Past Anesthesia/Blood Transfusion Reaction / Comment(s): clausterphobia Smoking Status: Never smoker - Past Family History Mother Family Medical History: Diabetes Mellitus, Osteoarthritis (OA) Additional Family Medical History / Comment(s): Mother is 88yrs old. Father History Unknown: Yes Additional Family Medical History / Comment(s): Father has L shoulder issues. He is 86yrs old. Medications and Allergies Home Medications Medication Instructions Recorded Confirmed Type Acitretin [Soriatane] 25 mg PO DAILY 05/03/14 02/28/19 History Ramipril 10 mg PO DAILY 05/03/14 02/28/19 History Flaxseed [Flaxseed Oil] 1,000 mg PO DAILY 08/12/15 02/28/19 History Lactobacillus Acidophilus 1 tab PO DAILY 08/12/15 02/28/19 History [Acidophilus] Taclonex 0.005% Lotion 1 applic TOPICAL DAILY 08/12/15 02/28/19 History Zinc 50 mg PO HS 08/12/15 02/28/19 History Clindamycin Phosphate [Cleocin T] 1 applic TOPICAL BID 02/28/19 02/28/19 History Desonide [DesOwen .05%] 1 applic TOPICAL DAILY 02/28/19 02/28/19 History Neomycin/Bacit/P-Myx/Hydrocort 1 applic BOTH EYES HS 02/28/19 02/28/19 History [Bxz-Aiieo-Cqbo-Hc Eye Ointment] Soolantra Cream 1 applic TOPICAL DAILY 02/28/19 02/28/19 History Venlafaxine HCl ER [Effexor XR] 75 mg PO DAILY 02/28/19 02/28/19 History Allergies Allergy/AdvReac Type Severity Reaction Status Date / Time No Known Allergies Allergy Verified 02/28/19 07:11 Physical Exam Vitals: Vital Signs Temp Pulse Pulse Resp BP BP BP 02/28/19 15:31 98.4 F 82 18 02/28/19 14:10 101 H 141/66 160/72 02/28/19 11:33 98.1 F 89 18 02/28/19 08:00 97.8 F 96 18 02/28/19 06:12 98 F 99 18 141/74 02/28/19 03:49 88 18 156/70 02/28/19 02:03 98.3 F 84 18 157/92 BP BP Pulse Ox 02/28/19 15:31 151/70 98 02/28/19 14:10 143/65 02/28/19 11:33 151/72 96 02/28/19 08:00 157/72 99 02/28/19 06:12 98 02/28/19 03:49 99 02/28/19 02:03 100 Intake and Output 02/28/19 02/28/19 02/28/19 06:59 14:59 22:59 Intake Total 480 Output Total 500 Balance -20 Intake: Oral 480 Output: Urine 500 Other: # Voids 1 Weight 62.596 kg Results CBC & Chem 7: 02/28/19 02:19 02/28/19 02:19 Labs: Abnormal Lab Results - Last 24 Hours (Table) 02/28/19 02/28/19 02/28/19 Range/Units 02:19 02:19 02:19 WBC 17.1 H (3.8-10.6) k/uL Neutrophils # 12.3 H (1.3-7.7) k/uL APTT 20.7 L (22.0-30.0) sec D-Dimer (<0.60) mg/L FEU Carbon Dioxide 18 L (22-30) mmol/L BUN 28 H (7-17) mg/dL Glucose 166 H (74-99) mg/dL POC Glucose (mg/dL) (75-99) mg/dL AST 39 H (14-36) U/L Urine Protein (Negative) 02/28/19 02/28/19 02/28/19 Range/Units 11:26 12:42 15:12 WBC (3.8-10.6) k/uL Neutrophils # (1.3-7.7) k/uL APTT (22.0-30.0) sec D-Dimer 1.31 H (<0.60) mg/L FEU Carbon Dioxide (22-30) mmol/L BUN (7-17) mg/dL Glucose (74-99) mg/dL POC Glucose (mg/dL) 142 H (75-99) mg/dL AST (14-36) U/L Urine Protein Trace H (Negative) Thrombosis Risk Factor Assmnt - Choose All That Apply Any of the Below Risk Factors Present?: Yes Other Risk Factors: Yes Each Risk Factor Represents 2 Points: Age 61-74 years, Malignancy Other congenital or acquired thrombophilia - If yes, enter type in comment: No Thrombosis Risk Factor Assessment Total Risk Factor Score: 4 Thrombosis Risk Factor Assessment Level: Moderate Risk
[2019-02-28 16:54] LABS: Glucose,Whole Blood 127 mg/dL (75-99)
[2019-02-28] MEDS: BACITRACIN 500 UNIT/GM OINT 28.4 GM TUBE TOPICAL SCH ×2 (18:10→20:13)
[2019-02-28] MEDS: ENOXAPARIN 40 MG/0.4 ML SYRINGE SQ SCH (18:10)
[2019-02-28 20:09] LABS: Glucose,Whole Blood 209 mg/dL (75-99)
[2019-02-28] MEDS ORDERED: ALPRAZolam 0.25 MG TAB PO PRN (20:22)
[2019-02-28] MEDS ORDERED: [UNRECOGNIZED DRUG - OTHER] TOPICAL SCH (21:00)
[2019-02-28] MEDS ORDERED: LIRAGLUTIDE 1.2 MG SQ SCH (21:00)
[2019-02-28] MEDS ORDERED: ZINC SULFATE 220 MG CAP PO SCH (21:00)
[2019-02-28] MEDS ORDERED: POLYMYXIN B BOTH EYES SCH (21:00)
[2019-02-28] MEDS ORDERED: NEOMYCIN BOTH EYES SCH (21:00)
[2019-02-28] MEDS ORDERED: HYDROCORTISONE BOTH EYES SCH (21:00)
[2019-02-28] MEDS ORDERED: BACITRACIN BOTH EYES SCH (21:00)
--- NOTE | 2019-02-28 21:12 | CT ---
EXAMINATION TYPE: CT chest angio for PE DATE OF EXAM: 02/28/2019 COMPARISON: 08/13/2015 HISTORY: elevated d-dimer CT DLP: 329.2 mGycm Automated exposure control for dose reduction was used. CONTRAST: CT Chest for pulmonary embolism performed with with IV Contrast, patient injected with 74cc mL of Iso elida 370. There are 3-D post processed images. FINDINGS: The lungs are clear of infiltrate. There is no pleural effusion. Heart size is normal. There is no pe ricardial effusion. There is normal contrast opacification of the pulmonary arteries. There are no fi lling defects. There are no hilar masses. There is no mediastinal adenopathy. Thoracic aorta appears intact. There is no sign of aneurysm or dissection. There is mild atheromatous change at the aortic a rch. There are spondylotic changes in the thoracic spine. IMPRESSION: Negative CT angiogram of the chest. No evidence of pulmonary embolism. No adverse change compared to old exam.
[2019-03-01 05:35] LABS: Cholesterol 150 mg/dL (<200); HDL Cholesterol 30 mg/dL (40-60); LDL Cholesterol,Calculated 79 mg/dL (0-99); Triglycerides 205 mg/dL (<150)
[2019-03-01 06:04] LABS: Glucose,Whole Blood 142 mg/dL (75-99)
[2019-03-01] MEDS ORDERED: ASPIRIN 325 MG TAB PO SCH (09:00)
[2019-03-01] MEDS: ACITRETIN PO SCH (09:04)
[2019-03-01] MEDS: LISINOPRIL 20 MG TAB PO SCH (09:04)
[2019-03-01] MEDS: BACITRACIN 500 UNIT/GM OINT 28.4 GM TUBE TOPICAL SCH (09:04)
[2019-03-01] MEDS: LACTOBACILLUS ACIDOPH & BULGAR 1 EACH PACKET PO SCH (09:04)
[2019-03-01] MEDS: ENOXAPARIN 40 MG/0.4 ML SYRINGE SQ SCH (09:04)
[2019-03-01] MEDS: VENLAFAXINE HCL ER 75 MG CAP PO SCH (09:05)
[2019-03-01] MEDS: ACETAMINOPHEN TAB 325 MG TAB PO PRN ×2 (09:05→15:13)
[2019-03-01] MEDS: Flaxseed Oil 1,000 MG PO SCH (09:06)
[2019-03-01] MEDS: CALCIPOTRIENE TOPICAL SCH (09:06)
[2019-03-01] MEDS: SOOLANTRA 1% TOPICAL SCH (09:06)
[2019-03-01] MEDS: BETAMETHASONE DIPROPIONATE TOPICAL SCH (09:06)
[2019-03-01] MEDS: CLEOCIN T TOPICAL SCH (09:06)
--- NOTE | 2019-03-01 10:03 | PN ---
PROGRESS NOTE This lady came in with a vasovagal syncope, fell and hurt herself. There is no arrhythmia. There is no tachy or bradyarrhythmia since she has been monitored. She also has aortic stenosis. Vasovagal with aortic stenosis may have had exaggerated fall. She is doing well, maintaining sinus rhythm. No orthostatic changes. Vitals are stable. S1, S2 heard normally. Ejection systolic murmur audible. Second heart sound preserved. Lungs reveal diminished air entry. Abdomen and lower extremity exam unchanged. The patient can be discharged and follow with Dr. Chavis in 2 weeks. No intervention is necessary at this time. MMODL / IJN: [id number] /
--- NOTE | 2019-03-01 11:48 | ECHOF ---
Referral Reason:syncope MEASUREMENTS -------- HEIGHT: 162.6 cm WEIGHT: 62.6 kg BP: IVSd: 0.9 cm (0.6 - 1.1) LVIDd: 3.8 cm (3.9 - 5.3) LVPWd: 1.1 cm (0.6 - 1.1) IVSs: 1.5 cm LVIDs: 1.7 cm LVPWs: 1.6 cm LAESV Index (A-L): 19.74 ml/m Ao Diam: 2.4 cm (2.0 - 3.7) AV Cusp: 1.0 cm (1.5 - 2.6) LA Diam: 3.0 cm (2.7 - 3.8) MV E Dennis: 0.79 m/s MV DecT: 170 ms MV A Dennis: 1.18 m/s MV E/A Ratio: 0.67 AV maxP.96 mmHg AV meanP.33 mmHg RAP: 5.00 mmHg RVSP: 17.58 mmHg TAPSE: 26.55 mm FINDINGS -------- Sinus rhythm. This was a technically good study. The left ventricular size is normal. Left ventricular wall thickness is normal. Overall left vent ricular systolic function is normal with, an EF between 55 - 60 %. The diastolic filling pattern is normal for the age of the patient 10.22. The right ventricle is normal in size. The right ventricular systolic function is normal. The left atrial size is normal. Normal LA size by volume 22+/-6 ml/m2. The right atrial size is normal. Aortic valve is trileaflet and is moderately thickened. There is moderate aortic stenosis present. Peak/mean gradient across the Aortic Valve is 32.96mmHg / 19.33mmHg. The mitral valve is normal. The mitral valve leaflets are mildly thickened. Mild mitral regurgita tion is present. The tricuspid valve appears structurally normal. Mild tricuspid regurgitation present. Right vent ricular systolic pressure is normal at < 35 mmHg. There is no pulmonic regurgitation present. The aortic root size is normal. Normal inferior vena cava with normal inspiratory collapse consistent with estimated right atrial pre ssure of 5 mmHg. There is no pericardial effusion. CONCLUSIONS -------- 1. Sinus rhythm. 2. This was a technically good study. 3. The left ventricular size is normal. 4. Left ventricular wall thickness is normal. 5. Overall left ventricular systolic function is normal with, an EF between 55 - 60 %. 6. The diastolic filling pattern is normal for the age of the patient 10.22 7. The right ventricle is normal in size. 8. The right ventricular systolic function is normal. 9. The left atrial size is normal. 10. Normal LA size by volume 22+/-6 ml/m2. 11. The right atrial size is normal. 12. Aortic valve is trileaflet and is moderately thickened. 13. There is moderate aortic stenosis present. 14. Peak/mean gradient across the Aortic Valve is 32.96mmHg / 19.33mmHg. 15. The mitral valve is normal. 16. The mitral valve leaflets are mildly thickened. 17. Mild mitral regurgitation is present. 18. The tricuspid valve appears structurally normal. 19. Mild tricuspid regurgitation present. 20. Right ventricular systolic pressure is normal at < 35 mmHg. 21. There is no pulmonic regurgitation present. 22. The aortic root size is normal. 23. Normal inferior vena cava with normal inspiratory collapse consistent with estimated right atrial pressure of 5 mmHg. 24. There is no pericardial effusion. CHIEF INVESTMENT OFFICER: Miri Rondon RDCS
[2019-03-01 11:54] LABS: Glucose,Whole Blood 126 mg/dL (75-99)
--- NOTE | 2019-03-01 12:46 | P.CNOR ---
History of Present Illness - [facility] Consult date: 03/01/19 Consult reason: joint pain (Left shoulder pain) History of present illness: The patient is a 69 y/o female who presented to the hospital after sustaining a fall at home yesterday. She did lose consciousness in the bathroom and hit her head on the bathtub. A head/neck CT was performed in the ER and did not show acute bleed or cervical fractures. X-ray of the left shoulder revealed no fracture. She was admitted for further evaluation by internal medicine and cardiology. The patient is cleared for discharge but internal medicine wanted orthopedic clearance before discharge for her left shoulder pain. She underwent a left shoulder arthroscopy by Dr. Rj Nair in 2007. The shoulder was doing well until the fall yesterday. She states she is unable to lift arm without significant pain and she has new numbness in her left thumb. She is also experiencing pain in her neck and bilateral upper shoulders/back. Today, she states she is feeling better overall. Her pain is controlled at this time. 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 History of Any Multi-Drug Resistant Organisms: None Reported Past Surgical History: Section, Hernia Repair, Hysterectomy, Orthopedic Surgery, Tonsillectomy Additional Past Surgical History / Comment(s): Umbilical hernia repair, R oophorectomy d/t cysts, L oophorectomy d/t 7# benign tumor, L shoulder bone/spur/tendon surgery, R hand dupretyens contraction, bilateral feet bunionectomies, R breast benign bx, skin cancer removals, liver biopsy Past Anesthesia/Blood Transfusion Reactions: No Reported Reaction, Motion Sickness Additional Past Anesthesia/Blood Transfusion Reaction / Comm: clausterphobia Smoking Status: Never smoker - Past Family History Mother Family Medical History: Diabetes Mellitus, Osteoarthritis (OA) Additional Family Medical History / Comment(s): Mother is 88yrs old. Father History Unknown: Yes Additional Family Medical History / Comment(s): Father has L shoulder issues. He is 86yrs old. Medications and Allergies Home Medications Medication Instructions Recorded Confirmed Type Acitretin [Soriatane] 25 mg PO DAILY 05/03/14 02/28/19 History Ramipril 10 mg PO DAILY 05/03/14 02/28/19 History Flaxseed [Flaxseed Oil] 1,000 mg PO DAILY 08/12/15 02/28/19 History Lactobacillus Acidophilus 1 tab PO DAILY 08/12/15 02/28/19 History [Acidophilus] Taclonex 0.005% Lotion 1 applic TOPICAL DAILY 08/12/15 02/28/19 History Zinc 50 mg PO HS 08/12/15 02/28/19 History Clindamycin Phosphate [Cleocin T] 1 applic TOPICAL BID 02/28/19 02/28/19 History Desonide [DesOwen .05%] 1 applic TOPICAL DAILY 02/28/19 02/28/19 History Neomycin/Bacit/P-Myx/Hydrocort 1 applic BOTH EYES HS 02/28/19 02/28/19 History [Yrs-Yvnbv-Kvlz-Hc Eye Ointment] Soolantra Cream 1 applic TOPICAL DAILY 02/28/19 02/28/19 History Venlafaxine HCl ER [Effexor XR] 75 mg PO DAILY 02/28/19 02/28/19 History Bacitracin Oint 1 applic TOPICAL BID applic 03/01/19 Rx Allergies Allergy/AdvReac Type Severity Reaction Status Date / Time No Known Allergies Allergy Verified 02/28/19 07:11 Physical Examination The patient is a 69 y/o female who is no acute distress. She is alert and oriented x3. There is a dressing to her right side of her face, which is dry and intact. There is slight paraspinal spasm to the bilateral cervical spine. No step-offs noted to the cervical spine. There is pain to the anterior shoulder to palpation. No instability noted. Active ROM of the left shoulder produces pain at 45 degrees flexion and abduction. No pain on passive ROM of the shoulder. No pain to the right shoulder at this time. Full ROM of the elbow, wrist, and hand present. There is numbness to the left thumb, no other numbness present. Hand is warm and well-perfused. Cap refill <2 seconds. Radial pulse +2. Results CT of the head and neck reveal no acute bleed or acute fractures. - Labs Labs: Abnormal Lab Results - Last 24 Hours (Table) 02/28/19 02/28/19 02/28/19 Range/Units 02:14 12:42 15:12 D-Dimer 1.31 H (<0.60) mg/L FEU POC Glucose (mg/dL) (75-99) mg/dL Triglycerides 205 H (<150) mg/dL HDL Cholesterol 30 L (40-60) mg/dL Urine Protein Trace H (Negative) 02/28/19 02/28/19 03/01/19 Range/Units 16:53 20:08 06:03 D-Dimer (<0.60) mg/L FEU POC Glucose (mg/dL) 127 H 209 H 142 H (75-99) mg/dL Triglycerides (<150) mg/dL HDL Cholesterol (40-60) mg/dL Urine Protein (Negative) 03/01/19 Range/Units 11:53 D-Dimer (<0.60) mg/L FEU POC Glucose (mg/dL) 126 H (75-99) mg/dL Triglycerides (<150) mg/dL HDL Cholesterol (40-60) mg/dL Urine Protein (Negative) H & H 02/28/19 Range/Units 02:19 Hgb 12.8 (11.4-16.0) gm/dL Hct 39.9 (34.0-46.0) % Coagulation 02/28/19 Range/Units 02:19 INR 0.9 (<1.2) Result Diagrams: 02/28/19 02:19 02/28/19 02:19 - Diagnostic results Shoulder x-ray: image reviewed (No acute fractures of dislocation noted. AC arthritis present. ) Assessment and Plan (1) Contusion of left shoulder Status: Acute Code(s): S40.012A - CONTUSION OF LEFT SHOULDER, INITIAL ENCOUNTER SNOMED Code(s): 97013169 (2) Laceration of head Status: Acute Code(s): S01.91XA - LACERATION W/O FOREIGN BODY OF UNSP PART OF HEAD, INIT SNOMED Code(s): 424669126 (3) Syncope Status: Acute Code(s): R55 - SYNCOPE AND COLLAPSE SNOMED Code(s): 545504654 Plan: The clinical and x-ray findings were discussed with the patient. The cast was also discussed with Dr. Rj Nair. She is ok for discharge from an orthopedic standpoint. An arm sling will be ordered for comfort. She was encouraged to rest the shoulder, apply ice/heat, take oral antiinflammatories as needed, and perform gentle pendulum exercises daily. The patient will follow up with Dr. Rj Nair next week as scheduled.
[2019-03-01 13:04] VITALS: BP 156/69; PULSE 86; RESP 18; TEMP 98.3
--- NOTE | 2019-03-01 22:00 | P.DS ---
Providers Date of admission: 02/28/19 04:24 Expected date of discharge: 03/01/19 Attending physician: Anirudh Hawk Consults: 02/28/19 04:12 Consult Physician Urgent Consulting Provider: Angeles Chavis Consult Reason/Comments: Syncope, diaphoresis Do you want consulting provider notified?: Yes 03/01/19 11:26 Consult Physician Routine Consulting Provider: Rj Nair Consult Reason/Comments: left shoulder pain Do you want consulting provider notified?: Yes Primary care physician: Roger Green [facility] Course: Chief Complaint: fall Hospital course: This is a pleasant 69-year-old patient of Dr. Green. Chronic stable medical conditions include diabetes mellitus, hypertension, osteoarthritis, stage II liver disease felt to be from methotrexate is, psoriasic, rosacea hemorrhoids. Yesterday patient was busy and really didn't have a breakfast or lunch. In the evening she had some oatmeal with berries. Did normally freeze the berries for the winter. In the summer. In the middle of the night patient felt really sick ill. He went to the bathroom. on the toilet seat. She broke out out into heavy perspiration drenching herself. To the point even the toilet seat got wet. Decided to come back to the bed and go to sleep. After sometime felt still unwell and decided to walked back to the bathroom. She then became more unwell and passed out into the bathtub.. Before that she had some abdominal discomfort. No fever no chills. Is unclear how long she was unconscious for. Patient suffered laceration on the face and got stitches in the ER. There is no fracture detected. no incontinence. No weakness on any side. No headache no change in speech or chest pain no palpitation. The EMS reports is that patient was found lying in the bathtub. She was an alert oriented 3. With a [place] Coma Scale of 15. Other than the pain offered laceration really no other symptoms. She is not sure but apparently her Accu-Cheks was around 150s. Patient does state that she had gone on to [facility] for diabetes type 2 that she lost a lot of weight. Subsequently she's gone off the oral medications. Currently lying in bed. Up to the bathroom. No chest pain no palpitation. Telemetry has been negative. Patient also had surgery of the left shoulder point Dr. Nair. Patient is having some pain in the left shoulder. Some trouble lifting it up. Also some numbness in the left thumb. Patient seen by Dr. Nair. TO go home on a sling. Seen by Dr. SHERIF Cabrera from cardiology. No arrhythmia. TO be discharged. Chest negative for PE. Today care was discussed at length with the patient. Questions were answered. Also follow-up was arranged. Discussion and discharge planning more than 35 minutes Physical examination: VITAL SIGNS: 98.3, 86, 18, 156/69, 99% room air GENERAL: Laying in bed, comfortable. EYES: Pupils equal. Conjunctiva normal. HEENT: External appearance of nose and ears normal, oral cavity grossly normal, dressing over right forehead and some superficial scratches on the face.. NECK: JVD not raised; masses not palpable. HEART: First and second heart sounds are normal; no edema. LUNGS: Respiratory rate normal; clear to auscultation. ABDOMEN: Soft, nontender, liver spleen not palpable, no masses palpable. PSYCH: Alert and oriented x3; mood and affect normal. Extremity: Some limitation of lifting the left shoulder is some numbness in the left thumb INVESTIGATIONS, reviewed in the clinical context: White count 17.1 hemoglobin 12.8 platelets 259 potassium 4.5 creatinine 1.04 Troponin I 3 negative Glucose 166 Chest CTA, negative for PE. Shoulder x-ray negative for fracture. Discharge diagnosis: -Fall likely vasovagal -Possible early viral gastroenteritis, with significant dyspepsia, precipitating a vasovagal episode -Right forehead laceration with stitches and in the ER -Essential hypertension -Primary osteoarthritis -Rosacea -Chronic left shoulder injury, with some limitation of movement, to follow with Dr. Nair - Disposition: Home Patient Condition at Discharge: Stable Plan - Discharge Summary Discharge Rx Participant: No New Discharge Prescriptions: New Bacitracin Oint 1 applic TOPICAL BID applic Continue Ramipril 10 mg PO DAILY Acitretin [Soriatane] 25 mg PO DAILY Zinc 50 mg PO HS Flaxseed [Flaxseed Oil] 1,000 mg PO DAILY Lactobacillus Acidophilus [Acidophilus] 1 tab PO DAILY Taclonex 0.005% Lotion 1 applic TOPICAL DAILY Soolantra Cream 1 applic TOPICAL DAILY Clindamycin Phosphate [Cleocin T] 1 applic TOPICAL BID Desonide [DesOwen .05%] 1 applic TOPICAL DAILY Neomycin/Bacit/P-Myx/Hydrocort [Woc-Aommw-Zcbo-Hc Eye Ointment] 1 applic BOTH EYES HS Venlafaxine HCl ER [Effexor XR] 75 mg PO DAILY Discharge Medication List Acitretin [Soriatane] 25 mg PO DAILY 05/03/14 [History] Ramipril 10 mg PO DAILY 05/03/14 [History] Flaxseed [Flaxseed Oil] 1,000 mg PO DAILY 08/12/15 [History] Lactobacillus Acidophilus [Acidophilus] 1 tab PO DAILY 08/12/15 [History] Taclonex 0.005% Lotion 1 applic TOPICAL DAILY 08/12/15 [History] Zinc 50 mg PO HS 08/12/15 [History] Clindamycin Phosphate [Cleocin T] 1 applic TOPICAL BID 02/28/19 [History] Desonide [DesOwen .05%] 1 applic TOPICAL DAILY 02/28/19 [History] Neomycin/Bacit/P-Myx/Hydrocort [Tin-Kyvtb-Mkhg-Hc Eye Ointment] 1 applic BOTH EYES HS 02/28/19 [History] Soolantra Cream 1 applic TOPICAL DAILY 02/28/19 [History] Venlafaxine HCl ER [Effexor XR] 75 mg PO DAILY 02/28/19 [History] Bacitracin Oint 1 applic TOPICAL BID applic 03/01/19 [Rx] Follow up Appointment(s)/Referral(s): Angeles Chavis MD [STAFF PHYSICIAN] - 03/09/19 1:30 pm () Luciano Green MD [Primary Care Provider] - 03/10/19 8:20 am (Wednesday) Rj Nair DO [Doctor of Osteopathic Medicine] - 03/10/19 3:00 pm (Wednesday left shoulder pain) Ambulatory/Diagnostic Orders: Ambulatory Miscellaneous Order [MISC.AMB] Location: None Selected Patient Instructions/Handouts: Syncope (GEN) Activity/Diet/Wound Care/Special Instructions: Wear sling to left arm until follow up Discharge Disposition: HOME SELF-CARE
== END 2019-03-01 15:37 | disposition home or self-care (01) ==
LOC: EC 01:58 → 3SCARD 04:24
PROVIDERS: ADMIT Hospitalist; ATTEND Hospitalist
DX: R55 Syncope and collapse (principal); R10.13 Epigastric pain; S01.81XA Laceration without foreign body of other part of head, initial encounter; I10 Essential (primary) hypertension; M19.91 Primary osteoarthritis, unspecified site; L71.9 Rosacea, unspecified; E11.9 Type 2 diabetes mellitus without complications; K76.9 Liver disease, unspecified; R20.0 Anesthesia of skin; I35.0 Nonrheumatic aortic (valve) stenosis; L40.9 Psoriasis, unspecified; E78.5 Hyperlipidemia, unspecified; M48.00 Spinal stenosis, site unspecified; N17.9 Acute kidney failure, unspecified; M54.2 Cervicalgia; M25.512 Pain in left shoulder; M25.511 Pain in right shoulder; S40.012A Contusion of left shoulder, initial encounter; F32.9 Major depressive disorder, single episode, unspecified; W19.XXXA Unspecified fall, initial encounter; Y92.002 Bathroom of unspecified non-institutional (private) residence as the place of occurrence of the external cause; Z79.899 Other long term (current) drug therapy; Z87.01 Personal history of pneumonia (recurrent); Z87.11 Personal history of peptic ulcer disease; Z85.828 Personal history of other malignant neoplasm of skin; Z83.3 Family history of diabetes mellitus; Z82.61 Family history of arthritis
CPT/HCPCS: 96361 ×2; 96372 ×2; 12013; 96374; 99285; 36415; 93005; 93306; 85379; 80061; 80053; 83735; 84484; 85025; 85610; 85730; 81003; 73030; 71045; 72125; 70450; 71275; G0378 ×2; J2270; J2001; J1650 ×2; Q9967

== ENCOUNTER → 2019-07-03 | Outpatient (CLI) | payer MEDICARE, OTHER ==
[2019-07-03 11:53] LABS: Basophils % (A) 0 %; Eosinophils # (A) 0.2 k/uL (0-0.7); Eosinophils % (A) 2 %; HCT 37.9 % (34.0-46.0); HGB 12.3 gm/dL (11.4-16.0); Lymphocytes # (A) 1.5 k/uL (1.0-4.8); Lymphocytes % (A) 18 %; MCH 28.8 pg (25.0-35.0); MCHC 32.4 g/dL (31.0-37.0); MCV 88.8 fL (80.0-100.0); Mean Platelet Volume 7.4; Monocytes # (A) 0.4 k/uL (0-1.0); Monocytes % (A) 5 %; Neutrophils % (A) 73 %; Platelet Count 220 k/uL (150-450); RBC 4.27 m/uL (3.80-5.40); RDW 13.1 % (11.5-15.5); WBC 8.2 k/uL (3.8-10.6)
[2019-07-03 18:15] LABS: African American GFR (CKD) 67.5 (60.0-200.0); Albumin 4.5 g/dL (3.80-4.90); Albumin/Globulin Ratio 2.37 (1.60-3.17); Anion Gap 11.7 mmol/L (4.00-12.00); Calcium 9.7 mg/dL (8.7-10.3); Carbon Dioxide 24.3 mmol/L (21.6-31.8); Chol/HDL Ratio 4.26; Globulin 1.9 g/dL (1.6-3.3); LDL Cholesterol,Calculated 83.4 mg/dL (0.0-131.0); Non-African American GFR(CKD) 58.2 (60.0-200.0); Potassium 5.1 mmol/L (3.5-5.5); Total Bilirubin 0.3 mg/dL (0.2-1.2); Total Protein 6.4 g/dL (6.2-8.2); VLDL Calculation 53.6 mg/dL (5.00-40.00)
[2019-07-03 18:17] LABS: Urine Creatinine 147.2 mg/dL
[2019-07-03 19:05] LABS: Hemoglobin A1C 7.5 % (4.0-6.0)
== END | disposition home or self-care (01) ==
LOC: LABWHC1 10:49
PROVIDERS: ATTEND Family Medicine
DX: E11.9 Type 2 diabetes mellitus without complications (principal)
CPT/HCPCS: 36415; 80053; 80061; 82043; 82570; 83036; 84443; 85025

== ENCOUNTER → 2019-11-14 | Day surgery (SDC) | payer MEDICARE, OTHER ==
[2019-11-10 10:54] VITALS: BMI 23.5
[~2019-11-14] MED LIST: LACTATED RINGERS 1,000 ML IV SCH; PROPOFOL 10 MG/ML 20 ML VIAL IV ONE
[2019-11-14 07:44] LABS: Glucose,Whole Blood 140 mg/dL (75-99)
[2019-11-14 07:55] VITALS: TEMP 97.2
--- NOTE | 2019-11-14 08:11 | P.GSHP ---
History of Present Illness H&P Date: 11/14/19 Chief Complaint: Colon cancer screening Procedure today for colonoscopy. Last colonoscopy approximately 10 years ago. No bowel related complaints. No family history of colon cancer. 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, psoriasis, rosacea, 2008 acute renal disease, duodenal ulcers, hemorrhoids, mono as a teen, hx skin cancer, heart murmer, History of Any Multi-Drug Resistant Organisms: None Reported Past Surgical History: Breast Surgery, Section, Hernia Repair, Hysterectomy, Orthopedic Surgery, Tonsillectomy Additional Past Surgical History / Comment(s): Umbilical hernia repair, nori oophorectomy L shoulder bone/spur/tendon surgery, R hand dupretyens contraction, bilateral feet bunionectomies, R breast biopsy, skin cancer removals, liver biopsy Past Anesthesia/Blood Transfusion Reactions: Motion Sickness Additional Past Anesthesia/Blood Transfusion Reaction / Comment(s): claustrophobia, "I wake up really cold" Smoking Status: Never smoker - Past Family History Mother History Unknown: Yes Family Medical History: Diabetes Mellitus, Osteoarthritis (OA) Additional Family Medical History / Comment(s): . Father History Unknown: Yes Additional Family Medical History / Comment(s): Father has L shoulder issues. He is 86yrs old. Medications and Allergies Home Medications Medication Instructions Recorded Confirmed Type Ramipril 10 mg PO DAILY 05/03/14 11/14/19 History Flaxseed [Flaxseed Oil] 1,000 mg PO DAILY 08/12/15 11/14/19 History Lactobacillus Acidophilus 1 tab PO DAILY 08/12/15 11/14/19 History [Acidophilus] Zinc 50 mg PO DAILY 08/12/15 11/14/19 History Venlafaxine HCl ER [Effexor XR] 75 mg PO DAILY 02/28/19 11/14/19 History ALPRAZolam [Xanax] 0.25 mg PO HS 11/10/19 11/14/19 History Acitretin [Soriatane] 25 mg PO DAILY 11/10/19 11/14/19 History Atorvastatin [Lipitor] 20 mg PO Q48H 11/10/19 11/14/19 History metFORMIN HCL 1,000 mg PO BID 11/10/19 11/14/19 History Allergies Allergy/AdvReac Type Severity Reaction Status Date / Time No Known Allergies Allergy Verified 11/14/19 07:52 Surgical - Exam Vital Signs Temp Pulse BP Pulse Ox 97.2 F L 98 170/78 99 11/14/19 07:53 11/14/19 07:53 11/14/19 07:53 11/14/19 07:53 Physical exam: General: Well-developed, well-nourished HEENT: Normocephalic, sclerae nonicteric Abdomen: Nontender, nondistended Extremities: No edema Neuro: Alert and oriented Results - Labs Abnormal Lab Results - Last 24 Hours (Table) 11/14/19 Range/Units 07:43 POC Glucose (mg/dL) 140 H (75-99) mg/dL Assessment and Plan (1) Colon cancer screening Narrative/Plan: Will proceed with colonoscopy Current Visit: Yes Status: Acute Code(s): Z12.11 - ENCOUNTER FOR SCREENING FOR MALIGNANT NEOPLASM OF COLON SNOMED Code(s): 100907271
--- NOTE | 2019-11-14 08:32 | P.PCN ---
Date of Procedure: 11/14/19 Procedure(s) Performed: PREOPERATIVE DIAGNOSIS: Colon cancer screening POSTOPERATIVE DIAGNOSIS: Tortuous colon unable to reach cecum PROCEDURE: Colonoscopy ANESTHESIA: MAC SURGEON: Erwin Morris M.D. SPECIMENS: None ENDOSCOPIC PROCEDURE: The patient was placed on the endoscopy table in the left decubitus position. The Olympus colonoscope was inserted into the anus and passed under direct visualization to the proximal transverse colon. At about the region of the hepatic flexure we were unable to advance the scope any further despite multiple attempts and position changes. The patient had significant tortuosity in the sigmoid. The transverse descending sigmoid and rectum appeared normal. There was no neoplastic inflammatory or polypoid lesions. There was no visible diverticulosis. Digital rectal examination was normal. The patient was taken to the recovery room in stable condition per anesthesia guidelines. RECOMMENDATIONS: We'll discuss endoscopic findings with the patient. Consider barium enema.
[2019-11-14 08:34] VITALS: RESP 17
[2019-11-14 08:45] VITALS: BP 112/64; PULSE 81
--- NOTE | 2019-11-14 15:22 | FL ---
EXAMINATION TYPE: FL barium enema DATE OF EXAM: 11/14/2019 CLINICAL HISTORY: Incomplete colonoscopy TECHNIQUE: An air contrast barium enema study is performed. COMPARISON: None. FINDINGS: Manager Home view of the abdomen shows overall non-obstructive bowel gas pattern.No evidence of a ny mass or polyp, obstructing or constricting lesion throughout the colon. Mild sigmoid diverticulosi s without diverticulitis. Appendix was filled and appeared normal. IMPRESSION: Mild sigmoid diverticulosis without diverticulitis. Otherwise unremarkable examination.
== END ==
LOC: ORWHC2ENDO 07:22
PROVIDERS: ATTEND Surgery
DX: Z12.11 Encounter for screening for malignant neoplasm of colon (principal); Q43.8 Other specified congenital malformations of intestine; Z53.8 Procedure and treatment not carried out for other reasons; K21.9 Gastro-esophageal reflux disease without esophagitis; E11.9 Type 2 diabetes mellitus without complications; I10 Essential (primary) hypertension; K76.9 Liver disease, unspecified; N28.9 Disorder of kidney and ureter, unspecified; M19.90 Unspecified osteoarthritis, unspecified site; Z87.01 Personal history of pneumonia (recurrent); L40.9 Psoriasis, unspecified; L71.9 Rosacea, unspecified; Z87.19 Personal history of other diseases of the digestive system; K64.9 Unspecified hemorrhoids; Z86.19 Personal history of other infectious and parasitic diseases; Z85.828 Personal history of other malignant neoplasm of skin; R01.1 Cardiac murmur, unspecified; Z90.710 Acquired absence of both cervix and uterus; Z90.722 Acquired absence of ovaries, bilateral; Z98.890 Other specified postprocedural states; F40.240 Claustrophobia; Z83.3 Family history of diabetes mellitus; Z82.61 Family history of arthritis; Z79.84 Long term (current) use of oral hypoglycemic drugs; Z79.899 Other long term (current) drug therapy
CPT/HCPCS: 74270; J2704; G0121

== ENCOUNTER → 2020-02-26 | Outpatient (CLI) | payer MEDICARE, OTHER ==
--- NOTE | 2020-02-27 06:51 | BD ---
EXAMINATION TYPE: Axial Bone Density DATE OF EXAM: 02/26/2020 COMPARISON: 06/25/2015 CLINICAL HISTORY: Height: 64 IN Weight: 139 LBS FRAX RISK QUESTIONS: Secondary Osteoporosis: 3. Menopause before 45: TOTAL HYST AGE 45 5. Chronic liver disease: FATTY LIVER DISEASE RISK FACTORS HISTORY OF: Active: YES Diet low in dairy products/other sources of calcium: YES Postmenopausal woman: TOTAL HYST AGE 45 Take estrogen and/or progesterone medications: NOT NOW TOOK AGE 45 - 47 MEDICATIONS: Additional Medications: SORIATANE, RAMIPRIL, EFFEXOR, FLAX SEED, OMEGA 3, PROBIOTIC, ZINC, XANAX, MET FORMIN EXAM MEASUREMENTS: Bone mineral densitometry was performed using the [employer] System. Bone mineral density as measured about the Lumbar spine is: ----- L1-L4(G/cm2): 1.476 T Score Values are as follows: ----- L2: 2.5 ----- L3: 3.5 ----- L4: 2.8 ----- L1-L4: 2.5 Bone mineral density has: Increased 1.2since study of: 06/25/2015 Bone mineral density about the R hip (g/cm2): 0.759 Bone mineral density about the L hip (g/cm2): 0.848 T Score values are as follows: -----R Neck: -2.0 -----L Neck: -1.4 -----R Total: -1.7 -----L Total: -1.5 Bone mineral density has: Decreased -8.1 SINCE STUDY OF 06/25/2015 IMPRESSION: Osteopenia (T Score between -2.5 and -1) identified in both hips. There is slightly increased risk of fracture and the patient may be considered for treatment. Re-Screen 2-5 years. NOTE: T-SCORE=SD OF THE YOUNG ADULT MEAN.
--- NOTE | 2020-02-27 13:26 | MM ---
Reason for exam: screening (asymptomatic). Last mammogram was performed 1 year and 6 months ago. History: Patient is postmenopausal. Family history of premenopausal breast cancer in paternal aunt and breast cancer in paternal grandmother. Benign stereotactic core biopsy of the right breast, September 03, 1998. Excisional biopsy of the right breast. Took hormonal contraceptives beginning at age 20. Took estrogen for 14 years 3 months. Physical Findings: A clinical breast exam by your physician is recommended on an annual basis and results should be correlated with mammographic findings. MG 3D Screening Mammo W/Cad Bilateral CC and MLO view(s) were taken. Prior study comparison: September 02, 2018, bilateral MG 3d diag mammo w/cad EMILIE. February 22, 2018, left breast MG 3d diag mammo w/cad LT. There are scattered fibroglandular densities. There are benign appearing round, vascular calcifications bilaterally. Previous mammotome biopsy in the right breast. There is chronic nodularity bilaterally. There is no discrete abnormality. ASSESSMENT: Benign, BI-RAD 2 RECOMMENDATION: Routine screening mammogram of both breasts in 1 year.
== END | disposition home or self-care (01) ==
LOC: RADMAMWWP 15:06
PROVIDERS: ATTEND Family Medicine
DX: Z12.31 Encounter for screening mammogram for malignant neoplasm of breast (principal); M85.851 Other specified disorders of bone density and structure, right thigh; M85.852 Other specified disorders of bone density and structure, left thigh; Z85.9 Personal history of malignant neoplasm, unspecified; Z78.0 Asymptomatic menopausal state
CPT/HCPCS: 77063; 77067; 77080

== ENCOUNTER → 2020-03-15 | Outpatient (CLI) | payer MEDICARE, OTHER ==
[2020-03-15 20:43] LABS: Albumin 4.7 g/dL (3.80-4.90); Albumin/Globulin Ratio 2.35 (1.60-3.17); Anion Gap 11.7 mmol/L (4.00-12.00); Calcium 9.8 mg/dL (8.7-10.3); Carbon Dioxide 26.3 mmol/L (21.6-31.8); Chol/HDL Ratio 3.56; Non-African American GFR(CKD) 57.8 (60.0-200.0); Potassium 5.4 mmol/L (3.5-5.5); Total Bilirubin 0.3 mg/dL (0.3-1.2); Total Protein 6.7 g/dL (6.2-8.2)
== END | disposition home or self-care (01) ==
LOC: LABWHC1 11:45
PROVIDERS: ATTEND Nurse Practitioner Adult Health
DX: I10 Essential (primary) hypertension (principal); E78.2 Mixed hyperlipidemia
CPT/HCPCS: 36415; 80053; 80061

== ENCOUNTER → 2020-04-17 | Outpatient (CLI) | payer MEDICARE, OTHER | END | disposition home or self-care (01) | LOC: LABWHC1 16:31 | PROVIDERS: ATTEND Family Medicine | DX: Z20.828 Contact with and (suspected) exposure to other viral communicable diseases (principal) | CPT/HCPCS: 87502; U0003; C9803 ==

== ENCOUNTER → 2020-06-21 | Outpatient (CLI) | payer MEDICARE, OTHER ==
[2020-06-21 09:16] LABS: HCT 37.2 % (34.0-46.0); HGB 12.4 gm/dL (11.4-16.0); MCH 28.3 pg (25.0-35.0); MCHC 33.5 g/dL (31.0-37.0); MCV 84.6 fL (80.0-100.0); Mean Platelet Volume 6.9; Platelet Count 265 k/uL (150-450); RBC 4.39 m/uL (3.80-5.40); RDW 13.7 % (11.5-15.5); WBC 9.9 k/uL (3.8-10.6)
[2020-06-21 17:35] LABS: African American GFR (CKD) 53.8 (60.0-200.0); Albumin 5.1 g/dL (3.80-4.90); Albumin/Globulin Ratio 2.83 (1.60-3.17); Anion Gap 13.1 mmol/L (4.00-12.00); BUN/Creat Ratio 23.33 Ratio (12.00-20.00); Calcium 9.8 mg/dL (8.7-10.3); Carbon Dioxide 23.9 mmol/L (21.6-31.8); Chol/HDL Ratio 3.92; Globulin 1.8 g/dL (1.6-3.3); LDL Cholesterol,Calculated 54.2 mg/dL (0.0-131.0); Non-African American GFR(CKD) 46.4 (60.0-200.0); Potassium 4.6 mmol/L (3.5-5.5); Total Bilirubin 0.4 mg/dL (0.3-1.2); Total Protein 6.9 g/dL (6.2-8.2); VLDL Calculation 50.8 mg/dL (5.00-40.00)
[2020-06-21 19:44] LABS: Urine Creatinine 50.7 mg/dL
[2020-06-21 19:53] LABS: Hemoglobin A1C 6.5 % (4.0-6.0)
== END | disposition home or self-care (01) ==
LOC: LABWHC1 07:56
PROVIDERS: ATTEND Family Medicine
DX: E11.9 Type 2 diabetes mellitus without complications (principal)
CPT/HCPCS: 36415; 80053; 80061; 82043; 82570; 83036; 84443; 85027

== ENCOUNTER 2020-09-08 20:59 | Inpatient (IN) | payer MEDICARE, OTHER ==
[2020-09-08 21:16] LABS: Glucose,Whole Blood 51 mg/dL (75-99)
[2020-09-08 21:16] LABS: Glucose,Whole Blood 52 mg/dL (75-99)
[2020-09-08] MEDS ORDERED: FAMOTIDINE 20 MG/2 ML VIAL IV STA (21:18)
[2020-09-08] MEDS ORDERED: ONDANSETRON 4 MG/2 ML VIAL IVP STA (21:18)
[2020-09-08] MEDS ORDERED: SODIUM CHLORIDE 0.9% 1,000 ML IV STA (21:18)
[2020-09-08] MEDS ORDERED: SODIUM CHLORIDE 0.9% 500 ML 500 ML IV STA (21:18)
[2020-09-08] MEDS ORDERED: DEXTROSE 50% SYRINGE 50 ML IVP STA (21:19)
[2020-09-08 21:31] LABS: Basophils # (A) 0.1 k/uL (0-0.2); Basophils % (A) 1 %; Eosinophils # (A) 0.2 k/uL (0-0.7); Eosinophils % (A) 1 %; HGB 11.7 gm/dL (11.4-16.0); Hypochromasia Slight; Lymphocytes # (A) 2.8 k/uL (1.0-4.8); Lymphocytes % (A) 15 %; MCH 29.1 pg (25.0-35.0); MCHC 32.5 g/dL (31.0-37.0); MCV 89.8 fL (80.0-100.0); Monocytes # (A) 0.7 k/uL (0-1.0); Monocytes % (A) 4 %; Neutrophils % (A) 79 %; Platelet Count 429 k/uL (150-450); RBC 4.01 m/uL (3.80-5.40); WBC 18.9 k/uL (3.8-10.6)
[2020-09-08 21:40] LABS: AST 31 U/L (14-36); African American GFR (CKD) 5 (>60 ml/min/1.73 sqM); Albumin 4.5 g/dL (3.5-5.0); Alkaline Phosphatase 110 U/L (38-126); Blood Urea Nitrogen 60 mg/dL (7-17); Calcium 9.4 mg/dL (8.4-10.2); Chloride 104 mmol/L (98-107); Lipase 215 U/L (23-300); Non-African American GFR(CKD) 4 (>60 ml/min/1.73 sqM); Sodium 139 mmol/L (137-145); Total Bilirubin 0.5 mg/dL (0.2-1.3)
[2020-09-08 21:47] LABS: ALT 19 U/L (4-34)
[2020-09-08 21:48] LABS: Carbon Dioxide <5 mmol/L (22-30); Glucose 45 mg/dL (74-99); Potassium 6.6 mmol/L (3.5-5.1)
[2020-09-08 21:53] LABS: Glucose,Whole Blood 143 mg/dL (75-99)
[2020-09-08] MEDS ORDERED: SODIUM CHLORIDE 0.9% 1,000 ML IV ONE (21:57)
[2020-09-08] MEDS ORDERED: DEXTROSE 50% SYRINGE 50 ML IVP ONE (21:58)
[2020-09-08] MEDS ORDERED: INSULIN REGULAR 100 UNIT/ML VIAL IV ONE (21:58)
[2020-09-08] MEDS ORDERED: SODIUM POLYSTYRENE SULFONATE 15 GM/60 ML BOTTLE PO ONE (21:58)
[2020-09-08] MEDS ORDERED: CALCIUM GLUCONATE 1 GM in SODIUM CHLORIDE 0.9% 100 ML IVPB ONE (21:58)
[2020-09-08 22:12] LABS: INR 0.9 (<1.2)
[2020-09-08 22:20] LABS: Partial Thromboplastin Time 21.7 sec (22.0-30.0)
--- NOTE | 2020-09-08 22:26 | XR ---
EXAMINATION TYPE: XR KUB DATE OF EXAM: 09/08/2020 COMPARISON: NONE HISTORY: Abdominal pain TECHNIQUE: 2 views upright FINDINGS: There is no sign of intestinal obstruction or pneumoperitoneum. Bowel gas pattern is normal . Fecal pattern is normal. Lung bases are clear. There are no pathologic calcifications. IMPRESSION: Nonacute abdomen.
--- NOTE | 2020-09-08 22:58 | ED ---
General Adult HPI - General Source: EMS Mode of arrival: EMS Limitations: no limitations <Shu Olivares - Last Filed: 09/08/20 23:51> <Ravi Kuo - Last Filed: 09/10/20 06:47> - General Chief complaint: Nausea/Vomiting/Diarrhea Stated complaint: Nausea/vomiting post vaccine Time Seen by Provider: 09/08/20 21:06 - History of Present Illness Initial comments: 70-year-old female patient with past medical history significant for diabetes, hypertension, stage II liver disease, GERD, breast cancer presents to the emergency department today for evaluation of nausea, vomiting, dizziness for the last 9 days. States the symptoms have been intermittent. She's had fever on and off. States she did get her second dose of COVID vaccine just prior to symptom onset. She denies any shortness of breath or chest pain. States she is having bilious emesis. Denies any hematemesis. States she's been having black stools. Denies significant abdominal pain. (Shu Olivares) - Related Data Home Medications Medication Instructions Recorded Confirmed Ramipril 10 mg PO DAILY 05/03/14 09/08/20 Venlafaxine HCl ER [Effexor XR] 75 mg PO DAILY 02/28/19 09/08/20 ALPRAZolam [Xanax] 0.125 - 0.25 mg PO HS PRN 11/10/19 09/08/20 Acitretin [Soriatane] 25 mg PO DAILY 11/10/19 09/08/20 Atorvastatin [Lipitor] 20 mg PO Q48H 11/10/19 09/08/20 metFORMIN HCL 1,000 mg PO BID 11/10/19 09/08/20 Allergies Allergy/AdvReac Type Severity Reaction Status Date / Time No Known Allergies Allergy Verified 09/08/20 23:30 Review of Systems ROS Other: All systems not noted in ROS Statement are negative. <Shu Olivares - Last Filed: 09/08/20 23:51> ROS Other: All systems not noted in ROS Statement are negative. <Ravi Kuo - Last Filed: 09/10/20 06:47> ROS Statement: Those systems with pertinent positive or pertinent negative responses have been documented in the HPI. 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, psoriasis, rosacea, 2008 acute renal disease, duodenal ulcers, hemorrhoids, mono as a teen, hx skin cancer, heart murmer, History of Any Multi-Drug Resistant Organisms: None Reported Past Surgical History: Breast Surgery, Section, Hernia Repair, Hysterectomy, Orthopedic Surgery, Tonsillectomy Additional Past Surgical History / Comment(s): Umbilical hernia repair, nori oophorectomy L shoulder bone/spur/tendon surgery, R hand dupretyens contraction, bilateral feet bunionectomies, R breast biopsy, skin cancer removals, liver biopsy, left wrist, Past Anesthesia/Blood Transfusion Reactions: Motion Sickness Additional Past Anesthesia/Blood Transfusion Reaction / Comment(s): claustrophobia, "I wake up really cold" Past Psychological History: Depression Smoking Status: Never smoker Past Alcohol Use History: Rare Past Drug Use History: None Reported - Past Family History Mother History Unknown: Yes Family Medical History: Diabetes Mellitus, Osteoarthritis (OA) Additional Family Medical History / Comment(s): . Father History Unknown: Yes Additional Family Medical History / Comment(s): Father has L shoulder issues. He is 86yrs old. <Shu Olivares M - Last Filed: 09/08/20 23:51> General Exam Limitations: no limitations <Shu Olivares M - Last Filed: 09/08/20 23:51> Course Vital Signs 09/08/20 09/08/20 09/08/20 21:04 21:49 23:16 Temperature 98.3 F 97.4 F L Pulse Rate 100 104 H 93 Pulse Rate [ Green Feed Attendant ] Respiratory 18 20 20 Rate Blood Pressure 161/68 150/70 166/68 Blood Pressure [Left Arm] O2 Sat by Pulse 100 100 100 Oximetry 09/09/20 09/09/20 09/09/20 05:15 08:00 09:00 Temperature 98.0 F Pulse Rate 76 70 90 Pulse Rate [ Green Feed Attendant ] Respiratory 16 16 18 Rate Blood Pressure 156/71 151/78 168/70 Blood Pressure [Left Arm] O2 Sat by Pulse 97 99 96 Oximetry 09/09/20 09/09/20 09/09/20 10:00 10:30 11:30 Temperature 97.6 F Pulse Rate 90 87 90 Pulse Rate [ Green Feed Attendant ] Respiratory 15 20 23 Rate Blood Pressure 150/59 150/59 121/56 Blood Pressure [Left Arm] O2 Sat by Pulse 100 99 100 Oximetry 09/09/20 09/09/20 09/09/20 12:00 12:30 13:00 Temperature Pulse Rate 86 86 92 Pulse Rate [ Green Feed Attendant ] Respiratory 24 23 20 Rate Blood Pressure 121/56 121/56 121/56 Blood Pressure [Left Arm] O2 Sat by Pulse 99 98 95 Oximetry 09/09/20 09/09/20 09/09/20 13:30 14:00 14:30 Temperature Pulse Rate 82 81 87 Pulse Rate [ Green Feed Attendant ] Respiratory 14 15 15 Rate Blood Pressure 100/41 105/45 93/41 Blood Pressure [Left Arm] O2 Sat by Pulse 100 100 100 Oximetry 09/09/20 09/09/20 09/09/20 15:00 15:30 16:00 Temperature Pulse Rate 87 89 84 Pulse Rate [ Green Feed Attendant ] Respiratory 19 17 19 Rate Blood Pressure 88/45 119/48 106/56 Blood Pressure [Left Arm] O2 Sat by Pulse 95 100 100 Oximetry 09/09/20 09/09/20 09/09/20 16:30 17:00 17:30 Temperature Pulse Rate 89 84 83 Pulse Rate [ Green Feed Attendant ] Respiratory 17 14 17 Rate Blood Pressure 107/55 108/51 110/50 Blood Pressure [Left Arm] O2 Sat by Pulse 85 L 100 Oximetry 09/09/20 09/09/20 09/09/20 18:00 19:00 20:00 Temperature 98.0 F 98.2 F Pulse Rate 89 86 82 Pulse Rate [ Green Feed Attendant ] Respiratory 14 18 16 Rate Blood Pressure 113/68 126/78 127/50 Blood Pressure [Left Arm] O2 Sat by Pulse 99 100 Oximetry 09/09/20 21:00 Temperature Pulse Rate Pulse Rate [ 89 Green Feed Attendant ] Respiratory 16 Rate Blood Pressure Blood Pressure 115/61 [Left Arm] O2 Sat by Pulse 100 Oximetry EKG Findings - EKG Comments: EKG Findings:: EKG obtained at 2142 shows sinus tachycardia with a ventricular rate of 107, NJ interval 166, QRS duration 84, QT 356, QTc 475. No evidence of ST elevation or depression <Shu Olivares - Last Filed: 09/08/20 23:51> Medical Decision Making - Lab Data Result diagrams: 09/08/20 21:19 09/08/20 22:39 - Radiology Data Radiology results: report reviewed, image reviewed <Shu Olivares - Last Filed: 09/08/20 23:51> - Lab Data Result diagrams: 09/10/20 04:50 09/10/20 04:50 <Ravi Kuo - Last Filed: 09/10/20 06:47> - Medical Decision Making 70-year-old female patient presents to the emergency department today for evaluation of nausea, vomiting, intermittent fevers over the last 9 days. Symptoms started after receiving her second COVID vaccine. Zickel examination did reveal soft nontender abdomen. Lungs are clear to auscultation with good air movement. She was slightly tachypneic and tachycardic. EKG showed sinus tachycardia with no ST elevation or depression. Labs reviewed and did reveal acute renal failure with elevated BUN at 60, creatinine at 9.04. CO2 is less than 5. Potassium 6.6. She was hypoglycemic and did receive 50% dextrose via IV. VBG was obtained and pH was 6.84, bicarb 3. White blood cell count is 18.9. Urinalysis is negative for UTI. Chest x-ray was negative. COVID-19 test was negative. We did initiate hyper kalemia protocol, she received insulin, dextrose, Kayexalate, and calcium. She was given 2500 mL fluid bolus and started 130 mL/h. She was given IV Rocephin. She was given an amp of bicarb once her VBG results were in. Upon reevaluation patient is resting comfortably in bed. Vital signs remained stable. She'll be admitted to the hospital for further monitoring. Nephrology will be consulted. Case discussed with Dr. Phan. My attending is Dr. Kuo, he was also in to see the patient. (Shu Olivares) I saw this patient in conjunction with the physician outreach assistant. I performed independent history and physical exam. Agree with case management. ( Ravi Kuo) - Lab Data Lab Results 09/08/20 09/08/20 09/08/20 Range/Units 21:12 21:14 21:19 WBC 18.9 H (3.8-10.6) k/uL RBC 4.01 (3.80-5.40) m/uL Hgb 11.7 (11.4-16.0) gm/dL Hct 36.0 (34.0-46.0) % MCV 89.8 (80.0-100.0) fL MCH 29.1 (25.0-35.0) pg MCHC 32.5 (31.0-37.0) g/dL RDW 14.0 (11.5-15.5) % Plt Count 429 (150-450) k/uL MPV 7.0 Neutrophils % 79 % Lymphocytes % 15 % Monocytes % 4 % Eosinophils % 1 % Basophils % 1 % Neutrophils # 15.0 H (1.3-7.7) k/uL Lymphocytes # 2.8 (1.0-4.8) k/uL Monocytes # 0.7 (0-1.0) k/uL Eosinophils # 0.2 (0-0.7) k/uL Basophils # 0.1 (0-0.2) k/uL Hypochromasia Slight PT (9.0-12.0) sec INR (<1.2) APTT (22.0-30.0) sec VBG pH (7.31-7.41) VBG pCO2 (37-51) mmHg VBG HCO3 (24-28) mmol/L Sodium (137-145) mmol/L Potassium (3.5-5.1) mmol/L Chloride (98-107) mmol/L Carbon Dioxide (22-30) mmol/L Anion Gap mmol/L BUN (7-17) mg/dL Creatinine (0.52-1.04) mg/dL Est GFR (CKD-EPI)AfAm (>60 ml/min/1.73 sqM) Est GFR (CKD-EPI)NonAf (>60 ml/min/1.73 sqM) Glucose (74-99) mg/dL POC Glucose (mg/dL) 51 L 52 L (75-99) mg/dL POC Glu School Psychologist ID Malian, Carlyn Malian, Carlyn Lactic Ac Sepsis Rflx Plasma Lactic Acid Eladio (0.7-2.0) mmol/L Calcium (8.4-10.2) mg/dL Phosphorus (2.5-4.5) mg/dL Magnesium (1.6-2.3) mg/dL Total Bilirubin (0.2-1.3) mg/dL AST (14-36) U/L ALT (4-34) U/L Alkaline Phosphatase (38-126) U/L Total Protein (6.3-8.2) g/dL Albumin (3.5-5.0) g/dL Lipase (23-300) U/L Urine Color Urine Appearance (Clear) Urine pH (5.0-8.0) Ur Specific [place] (1.001-1.035) Urine Protein (Negative) Urine Glucose (UA) (Negative) Urine Ketones (Negative) Urine Blood (Negative) Urine Nitrite (Negative) Urine Bilirubin (Negative) Urine Urobilinogen (<2.0) mg/dL Ur Leukocyte Esterase (Negative) Urine RBC (0-5) /hpf Urine WBC (0-5) /hpf Ur Squamous Epith Cells (0-4) /hpf Urine Bacteria (None) /hpf Urine Mucus (None) /hpf Stool Occult Blood (Negative) Coronavirus (PCR) (Not Detectd) 09/08/20 09/08/20 09/08/20 Range/Units 21:19 21:19 21:22 WBC (3.8-10.6) k/uL RBC (3.80-5.40) m/uL Hgb (11.4-16.0) gm/dL Hct (34.0-46.0) % MCV (80.0-100.0) fL MCH (25.0-35.0) pg MCHC (31.0-37.0) g/dL RDW (11.5-15.5) % Plt Count (150-450) k/uL MPV Neutrophils % % Lymphocytes % % Monocytes % % Eosinophils % % Basophils % % Neutrophils # (1.3-7.7) k/uL Lymphocytes # (1.0-4.8) k/uL Monocytes # (0-1.0) k/uL Eosinophils # (0-0.7) k/uL Basophils # (0-0.2) k/uL Hypochromasia PT (9.0-12.0) sec INR (<1.2) APTT (22.0-30.0) sec VBG pH (7.31-7.41) VBG pCO2 (37-51) mmHg VBG HCO3 (24-28) mmol/L Sodium 139 (137-145) mmol/L Potassium 6.6 H* (3.5-5.1) mmol/L Chloride 104 (98-107) mmol/L Carbon Dioxide <5 L* (22-30) mmol/L Anion Gap mmol/L BUN 60 H (7-17) mg/dL Creatinine 9.04 H* (0.52-1.04) mg/dL Est GFR (CKD-EPI)AfAm 5 (>60 ml/min/1.73 sqM) Est GFR (CKD-EPI)NonAf 4 (>60 ml/min/1.73 sqM) Glucose 45 L* (74-99) mg/dL POC Glucose (mg/dL) (75-99) mg/dL POC Glu School Psychologist ID Lactic Ac Sepsis Rflx Plasma Lactic Acid Eladio 10.4 H* (0.7-2.0) mmol/L Calcium 9.4 (8.4-10.2) mg/dL Phosphorus (2.5-4.5) mg/dL Magnesium (1.6-2.3) mg/dL Total Bilirubin 0.5 (0.2-1.3) mg/dL AST 31 (14-36) U/L ALT 19 (4-34) U/L Alkaline Phosphatase 110 (38-126) U/L Total Protein 7.0 (6.3-8.2) g/dL Albumin 4.5 (3.5-5.0) g/dL Lipase 215 (23-300) U/L Urine Color Urine Appearance (Clear) Urine pH (5.0-8.0) Ur Specific [place] (1.001-1.035) Urine Protein (Negative) Urine Glucose (UA) (Negative) Urine Ketones (Negative) Urine Blood (Negative) Urine Nitrite (Negative) Urine Bilirubin (Negative) Urine Urobilinogen (<2.0) mg/dL Ur Leukocyte Esterase (Negative) Urine RBC (0-5) /hpf Urine WBC (0-5) /hpf Ur Squamous Epith Cells (0-4) /hpf Urine Bacteria (None) /hpf Urine Mucus (None) /hpf Stool Occult Blood Negative (Negative) Coronavirus (PCR) (Not Detectd) 09/08/20 09/08/20 09/08/20 Range/Units 21:22 21:22 21:45 WBC (3.8-10.6) k/uL RBC (3.80-5.40) m/uL Hgb (11.4-16.0) gm/dL Hct (34.0-46.0) % MCV (80.0-100.0) fL MCH (25.0-35.0) pg MCHC (31.0-37.0) g/dL RDW (11.5-15.5) % Plt Count (150-450) k/uL MPV Neutrophils % % Lymphocytes % % Monocytes % % Eosinophils % % Basophils % % Neutrophils # (1.3-7.7) k/uL Lymphocytes # (1.0-4.8) k/uL Monocytes # (0-1.0) k/uL Eosinophils # (0-0.7) k/uL Basophils # (0-0.2) k/uL Hypochromasia PT 10.0 (9.0-12.0) sec INR 0.9 (<1.2) APTT 21.7 L (22.0-30.0) sec VBG pH (7.31-7.41) VBG pCO2 (37-51) mmHg VBG HCO3 (24-28) mmol/L Sodium (137-145) mmol/L Potassium (3.5-5.1) mmol/L Chloride (98-107) mmol/L Carbon Dioxide (22-30) mmol/L Anion Gap mmol/L BUN (7-17) mg/dL Creatinine (0.52-1.04) mg/dL Est GFR (CKD-EPI)AfAm (>60 ml/min/1.73 sqM) Est GFR (CKD-EPI)NonAf (>60 ml/min/1.73 sqM) Glucose (74-99) mg/dL POC Glucose (mg/dL) (75-99) mg/dL POC Glu School Psychologist ID Lactic Ac Sepsis Rflx Y Plasma Lactic Acid Eladio (0.7-2.0) mmol/L Calcium (8.4-10.2) mg/dL Phosphorus (2.5-4.5) mg/dL Magnesium (1.6-2.3) mg/dL Total Bilirubin (0.2-1.3) mg/dL AST (14-36) U/L ALT (4-34) U/L Alkaline Phosphatase (38-126) U/L Total Protein (6.3-8.2) g/dL Albumin (3.5-5.0) g/dL Lipase (23-300) U/L Urine Color Urine Appearance (Clear) Urine pH (5.0-8.0) Ur Specific [place] (1.001-1.035) Urine Protein (Negative) Urine Glucose (UA) (Negative) Urine Ketones (Negative) Urine Blood (Negative) Urine Nitrite (Negative) Urine Bilirubin (Negative) Urine Urobilinogen (<2.0) mg/dL Ur Leukocyte Esterase (Negative) Urine RBC (0-5) /hpf Urine WBC (0-5) /hpf Ur Squamous Epith Cells (0-4) /hpf Urine Bacteria (None) /hpf Urine Mucus (None) /hpf Stool Occult Blood (Negative) Coronavirus (PCR) Not Detected (Not Detectd) 09/08/20 09/08/20 09/08/20 Range/Units 21:49 22:39 22:39 WBC (3.8-10.6) k/uL RBC (3.80-5.40) m/uL Hgb (11.4-16.0) gm/dL Hct (34.0-46.0) % MCV (80.0-100.0) fL MCH (25.0-35.0) pg MCHC (31.0-37.0) g/dL RDW (11.5-15.5) % Plt Count (150-450) k/uL MPV Neutrophils % % Lymphocytes % % Monocytes % % Eosinophils % % Basophils % % Neutrophils # (1.3-7.7) k/uL Lymphocytes # (1.0-4.8) k/uL Monocytes # (0-1.0) k/uL Eosinophils # (0-0.7) k/uL Basophils # (0-0.2) k/uL Hypochromasia PT (9.0-12.0) sec INR (<1.2) APTT (22.0-30.0) sec VBG pH 6.84 L* (7.31-7.41) VBG pCO2 21 L (37-51) mmHg VBG HCO3 3 L* (24-28) mmol/L Sodium (137-145) mmol/L Potassium 6.4 H* (3.5-5.1) mmol/L Chloride (98-107) mmol/L Carbon Dioxide (22-30) mmol/L Anion Gap mmol/L BUN (7-17) mg/dL Creatinine (0.52-1.04) mg/dL Est GFR (CKD-EPI)AfAm (>60 ml/min/1.73 sqM) Est GFR (CKD-EPI)NonAf (>60 ml/min/1.73 sqM) Glucose (74-99) mg/dL POC Glucose (mg/dL) 143 H (75-99) mg/dL POC Glu School Psychologist ID Carlyn Ruiz Lactic Ac Sepsis Rflx Plasma Lactic Acid Eladio (0.7-2.0) mmol/L Calcium (8.4-10.2) mg/dL Phosphorus (2.5-4.5) mg/dL Magnesium (1.6-2.3) mg/dL Total Bilirubin (0.2-1.3) mg/dL AST (14-36) U/L ALT (4-34) U/L Alkaline Phosphatase (38-126) U/L Total Protein (6.3-8.2) g/dL Albumin (3.5-5.0) g/dL Lipase (23-300) U/L Urine Color Urine Appearance (Clear) Urine pH (5.0-8.0) Ur Specific [place] (1.001-1.035) Urine Protein (Negative) Urine Glucose (UA) (Negative) Urine Ketones (Negative) Urine Blood (Negative) Urine Nitrite (Negative) Urine Bilirubin (Negative) Urine Urobilinogen (<2.0) mg/dL Ur Leukocyte Esterase (Negative) Urine RBC (0-5) /hpf Urine WBC (0-5) /hpf Ur Squamous Epith Cells (0-4) /hpf Urine Bacteria (None) /hpf Urine Mucus (None) /hpf Stool Occult Blood (Negative) Coronavirus (PCR) (Not Detectd) 09/08/20 09/08/20 09/09/20 Range/Units 23:15 23:16 00:05 WBC (3.8-10.6) k/uL RBC (3.80-5.40) m/uL Hgb (11.4-16.0) gm/dL Hct (34.0-46.0) % MCV (80.0-100.0) fL MCH (25.0-35.0) pg MCHC (31.0-37.0) g/dL RDW (11.5-15.5) % Plt Count (150-450) k/uL MPV Neutrophils % % Lymphocytes % % Monocytes % % Eosinophils % % Basophils % % Neutrophils # (1.3-7.7) k/uL Lymphocytes # (1.0-4.8) k/uL Monocytes # (0-1.0) k/uL Eosinophils # (0-0.7) k/uL Basophils # (0-0.2) k/uL Hypochromasia PT (9.0-12.0) sec INR (<1.2) APTT (22.0-30.0) sec VBG pH (7.31-7.41) VBG pCO2 (37-51) mmHg VBG HCO3 (24-28) mmol/L Sodium (137-145) mmol/L Potassium (3.5-5.1) mmol/L Chloride (98-107) mmol/L Carbon Dioxide (22-30) mmol/L Anion Gap mmol/L BUN (7-17) mg/dL Creatinine (0.52-1.04) mg/dL Est GFR (CKD-EPI)AfAm (>60 ml/min/1.73 sqM) Est GFR (CKD-EPI)NonAf (>60 ml/min/1.73 sqM) Glucose (74-99) mg/dL POC Glucose (mg/dL) 230 H (75-99) mg/dL POC Glu School Psychologist ID Malian, Carlyn Lactic Ac Sepsis Rflx Plasma Lactic Acid Eladio 11.5 H* (0.7-2.0) mmol/L Calcium (8.4-10.2) mg/dL Phosphorus (2.5-4.5) mg/dL Magnesium (1.6-2.3) mg/dL Total Bilirubin (0.2-1.3) mg/dL AST (14-36) U/L ALT (4-34) U/L Alkaline Phosphatase (38-126) U/L Total Protein (6.3-8.2) g/dL Albumin (3.5-5.0) g/dL Lipase (23-300) U/L Urine Color Light Yellow Urine Appearance Cloudy H (Clear) Urine pH 5.5 (5.0-8.0) Ur Specific [place] 1.003 (1.001-1.035) Urine Protein 2+ H (Negative) Urine Glucose (UA) 1+ H (Negative) Urine Ketones 1+ H (Negative) Urine Blood Small H (Negative) Urine Nitrite Negative (Negative) Urine Bilirubin Negative (Negative) Urine Urobilinogen <2.0 (<2.0) mg/dL Ur Leukocyte Esterase Negative (Negative) Urine RBC 11 H (0-5) /hpf Urine WBC 9 H (0-5) /hpf Ur Squamous Epith Cells 2 (0-4) /hpf Urine Bacteria Occasional H (None) /hpf Urine Mucus Rare H (None) /hpf Stool Occult Blood (Negative) Coronavirus (PCR) (Not Detectd) 09/09/20 Range/Units 00:05 WBC (3.8-10.6) k/uL RBC (3.80-5.40) m/uL Hgb (11.4-16.0) gm/dL Hct (34.0-46.0) % MCV (80.0-100.0) fL MCH (25.0-35.0) pg MCHC (31.0-37.0) g/dL RDW (11.5-15.5) % Plt Count (150-450) k/uL MPV Neutrophils % % Lymphocytes % % Monocytes % % Eosinophils % % Basophils % % Neutrophils # (1.3-7.7) k/uL Lymphocytes # (1.0-4.8) k/uL Monocytes # (0-1.0) k/uL Eosinophils # (0-0.7) k/uL Basophils # (0-0.2) k/uL Hypochromasia PT (9.0-12.0) sec INR (<1.2) APTT (22.0-30.0) sec VBG pH (7.31-7.41) VBG pCO2 (37-51) mmHg VBG HCO3 (24-28) mmol/L Sodium (137-145) mmol/L Potassium (3.5-5.1) mmol/L Chloride (98-107) mmol/L Carbon Dioxide (22-30) mmol/L Anion Gap mmol/L BUN (7-17) mg/dL Creatinine (0.52-1.04) mg/dL Est GFR (CKD-EPI)AfAm (>60 ml/min/1.73 sqM) Est GFR (CKD-EPI)NonAf (>60 ml/min/1.73 sqM) Glucose (74-99) mg/dL POC Glucose (mg/dL) (75-99) mg/dL POC Glu School Psychologist ID Lactic Ac Sepsis Rflx Plasma Lactic Acid Eladio (0.7-2.0) mmol/L Calcium (8.4-10.2) mg/dL Phosphorus 7.6 H (2.5-4.5) mg/dL Magnesium 2.1 (1.6-2.3) mg/dL Total Bilirubin (0.2-1.3) mg/dL AST (14-36) U/L ALT (4-34) U/L Alkaline Phosphatase (38-126) U/L Total Protein (6.3-8.2) g/dL Albumin (3.5-5.0) g/dL Lipase (23-300) U/L Urine Color Urine Appearance (Clear) Urine pH (5.0-8.0) Ur Specific [place] (1.001-1.035) Urine Protein (Negative) Urine Glucose (UA) (Negative) Urine Ketones (Negative) Urine Blood (Negative) Urine Nitrite (Negative) Urine Bilirubin (Negative) Urine Urobilinogen (<2.0) mg/dL Ur Leukocyte Esterase (Negative) Urine RBC (0-5) /hpf Urine WBC (0-5) /hpf Ur Squamous Epith Cells (0-4) /hpf Urine Bacteria (None) /hpf Urine Mucus (None) /hpf Stool Occult Blood (Negative) Coronavirus (PCR) (Not Detectd) - Radiology Data One view x-ray of the chest is obtained. Report was reviewed in its entirety. Impression by Dr. Lopez shows no active cardiopulmonary disease. Normal heart. No change. KUB obtained. Report was reviewed in its entirety. Impression by Dr. Lopez shows nonacute abdomen. (Shu Olivares) Disposition Decision to Admit Reason: Admit from EC Decision Date: 09/08/20 Decision Time: 23:53 <Shu Olivares - Last Filed: 09/08/20 23:51> <Ravi Kuo - Last Filed: 09/10/20 06:47> Clinical Impression: Acute renal failure, Lactic acidosis, Sepsis, Hyperkalemia Disposition: ADMITTED IP TO THIS HOSP Condition: Serious
[2020-09-08 23:17] LABS: Glucose,Whole Blood 230 mg/dL (75-99)
[2020-09-08 23:18] LABS: VBG PH 6.84 (7.31-7.41)
[2020-09-08] MEDS ORDERED: SODIUM BICARB 8.4% 50 ML SYR (1 MEQ/ML) IV STA (23:29)
[2020-09-08] MEDS: SODIUM CHLORIDE 0.9% 1,000 ML IV SCH (23:30)
[2020-09-08 23:34] LABS: Appearance,Urine Cloudy (Clear); Bilirubin,Urine Negative (Negative); Blood,Urine Small (Negative); Color,Urine Light Yellow; Glucose,Urine (UA) 1+ (Negative); Ketones,Urine 1+ (Negative); Leukocyte Esterase,Urine Negative (Negative); Nitrite,Urine Negative (Negative); PH, Urine 5.5 (5.0-8.0); Protein,Urine 2+ (Negative); Specific Gravity,Urine 1.003 (1.001-1.035); Urobilinogen,Urine <2.0 mg/dL (<2.0)
[2020-09-08 23:35] LABS: Bacteria,Urine Occasional /hpf; Mucus,Urine Rare /hpf; RBC,Urine 11 /hpf (0-5); Squamous Epithelial Cell,Urine 2 /hpf (0-4); WBC,Urine 9 /hpf (0-5)
--- NOTE | 2020-09-08 23:43 | XR ---
EXAMINATION TYPE: XR chest 1V portable DATE OF EXAM: 09/08/2020 COMPARISON: 02/28/2019 HISTORY: Sepsis TECHNIQUE: Single view FINDINGS: Heart and mediastinum are normal. Lungs are clear of infiltrate. There is no heart failure. There are chest leads. Thoracic aorta is atheromatous. IMPRESSION: No active cardiopulmonary disease. Normal heart. No change.
[2020-09-08] MEDS ORDERED: NALOXONE 0.4 MG/ML 1 ML VIAL IV PRN (23:45)
[2020-09-08] MEDS ORDERED: ONDANSETRON 4 MG/2 ML VIAL IVP PRN (23:45)
[2020-09-08] MEDS ORDERED: ACETAMINOPHEN TAB 325 MG TAB PO PRN (23:45)
[2020-09-09 00:38] LABS: Magnesium 2.1 mg/dL (1.6-2.3); Phosphorus 7.6 mg/dL (2.5-4.5)
--- NOTE | 2020-09-09 01:50 | ED ---
Medical Decision Making - Lab Data Result diagrams: 09/08/20 21:19 09/08/20 22:39 Lab Results 09/08/20 09/08/20 09/08/20 Range/Units 21:12 21:14 21:19 WBC 18.9 H (3.8-10.6) k/uL RBC 4.01 (3.80-5.40) m/uL Hgb 11.7 (11.4-16.0) gm/dL Hct 36.0 (34.0-46.0) % MCV 89.8 (80.0-100.0) fL MCH 29.1 (25.0-35.0) pg MCHC 32.5 (31.0-37.0) g/dL RDW 14.0 (11.5-15.5) % Plt Count 429 (150-450) k/uL MPV 7.0 Neutrophils % 79 % Lymphocytes % 15 % Monocytes % 4 % Eosinophils % 1 % Basophils % 1 % Neutrophils # 15.0 H (1.3-7.7) k/uL Lymphocytes # 2.8 (1.0-4.8) k/uL Monocytes # 0.7 (0-1.0) k/uL Eosinophils # 0.2 (0-0.7) k/uL Basophils # 0.1 (0-0.2) k/uL Hypochromasia Slight PT (9.0-12.0) sec INR (<1.2) APTT (22.0-30.0) sec VBG pH (7.31-7.41) VBG pCO2 (37-51) mmHg VBG HCO3 (24-28) mmol/L Sodium (137-145) mmol/L Potassium (3.5-5.1) mmol/L Chloride (98-107) mmol/L Carbon Dioxide (22-30) mmol/L Anion Gap mmol/L BUN (7-17) mg/dL Creatinine (0.52-1.04) mg/dL Est GFR (CKD-EPI)AfAm (>60 ml/min/1.73 sqM) Est GFR (CKD-EPI)NonAf (>60 ml/min/1.73 sqM) Glucose (74-99) mg/dL POC Glucose (mg/dL) 51 L 52 L (75-99) mg/dL POC Glu Oven Stripper ID Joni Ruizsha Cymro, Carlyn Lactic Ac Sepsis Rflx Plasma Lactic Acid Eladio (0.7-2.0) mmol/L Calcium (8.4-10.2) mg/dL Phosphorus (2.5-4.5) mg/dL Magnesium (1.6-2.3) mg/dL Total Bilirubin (0.2-1.3) mg/dL AST (14-36) U/L ALT (4-34) U/L Alkaline Phosphatase (38-126) U/L Total Protein (6.3-8.2) g/dL Albumin (3.5-5.0) g/dL Lipase (23-300) U/L Urine Color Urine Appearance (Clear) Urine pH (5.0-8.0) Ur Specific [place] (1.001-1.035) Urine Protein (Negative) Urine Glucose (UA) (Negative) Urine Ketones (Negative) Urine Blood (Negative) Urine Nitrite (Negative) Urine Bilirubin (Negative) Urine Urobilinogen (<2.0) mg/dL Ur Leukocyte Esterase (Negative) Urine RBC (0-5) /hpf Urine WBC (0-5) /hpf Ur Squamous Epith Cells (0-4) /hpf Urine Bacteria (None) /hpf Urine Mucus (None) /hpf Stool Occult Blood (Negative) Coronavirus (PCR) (Not Detectd) 09/08/20 09/08/20 09/08/20 Range/Units 21:19 21:19 21:22 WBC (3.8-10.6) k/uL RBC (3.80-5.40) m/uL Hgb (11.4-16.0) gm/dL Hct (34.0-46.0) % MCV (80.0-100.0) fL MCH (25.0-35.0) pg MCHC (31.0-37.0) g/dL RDW (11.5-15.5) % Plt Count (150-450) k/uL MPV Neutrophils % % Lymphocytes % % Monocytes % % Eosinophils % % Basophils % % Neutrophils # (1.3-7.7) k/uL Lymphocytes # (1.0-4.8) k/uL Monocytes # (0-1.0) k/uL Eosinophils # (0-0.7) k/uL Basophils # (0-0.2) k/uL Hypochromasia PT (9.0-12.0) sec INR (<1.2) APTT (22.0-30.0) sec VBG pH (7.31-7.41) VBG pCO2 (37-51) mmHg VBG HCO3 (24-28) mmol/L Sodium 139 (137-145) mmol/L Potassium 6.6 H* (3.5-5.1) mmol/L Chloride 104 (98-107) mmol/L Carbon Dioxide <5 L* (22-30) mmol/L Anion Gap mmol/L BUN 60 H (7-17) mg/dL Creatinine 9.04 H* (0.52-1.04) mg/dL Est GFR (CKD-EPI)AfAm 5 (>60 ml/min/1.73 sqM) Est GFR (CKD-EPI)NonAf 4 (>60 ml/min/1.73 sqM) Glucose 45 L* (74-99) mg/dL POC Glucose (mg/dL) (75-99) mg/dL POC Glu Oven Stripper ID Lactic Ac Sepsis Rflx Plasma Lactic Acid Eladio 10.4 H* (0.7-2.0) mmol/L Calcium 9.4 (8.4-10.2) mg/dL Phosphorus (2.5-4.5) mg/dL Magnesium (1.6-2.3) mg/dL Total Bilirubin 0.5 (0.2-1.3) mg/dL AST 31 (14-36) U/L ALT 19 (4-34) U/L Alkaline Phosphatase 110 (38-126) U/L Total Protein 7.0 (6.3-8.2) g/dL Albumin 4.5 (3.5-5.0) g/dL Lipase 215 (23-300) U/L Urine Color Urine Appearance (Clear) Urine pH (5.0-8.0) Ur Specific [place] (1.001-1.035) Urine Protein (Negative) Urine Glucose (UA) (Negative) Urine Ketones (Negative) Urine Blood (Negative) Urine Nitrite (Negative) Urine Bilirubin (Negative) Urine Urobilinogen (<2.0) mg/dL Ur Leukocyte Esterase (Negative) Urine RBC (0-5) /hpf Urine WBC (0-5) /hpf Ur Squamous Epith Cells (0-4) /hpf Urine Bacteria (None) /hpf Urine Mucus (None) /hpf Stool Occult Blood Negative (Negative) Coronavirus (PCR) (Not Detectd) 09/08/20 09/08/20 09/08/20 Range/Units 21:22 21:22 21:45 WBC (3.8-10.6) k/uL RBC (3.80-5.40) m/uL Hgb (11.4-16.0) gm/dL Hct (34.0-46.0) % MCV (80.0-100.0) fL MCH (25.0-35.0) pg MCHC (31.0-37.0) g/dL RDW (11.5-15.5) % Plt Count (150-450) k/uL MPV Neutrophils % % Lymphocytes % % Monocytes % % Eosinophils % % Basophils % % Neutrophils # (1.3-7.7) k/uL Lymphocytes # (1.0-4.8) k/uL Monocytes # (0-1.0) k/uL Eosinophils # (0-0.7) k/uL Basophils # (0-0.2) k/uL Hypochromasia PT 10.0 (9.0-12.0) sec INR 0.9 (<1.2) APTT 21.7 L (22.0-30.0) sec VBG pH (7.31-7.41) VBG pCO2 (37-51) mmHg VBG HCO3 (24-28) mmol/L Sodium (137-145) mmol/L Potassium (3.5-5.1) mmol/L Chloride (98-107) mmol/L Carbon Dioxide (22-30) mmol/L Anion Gap mmol/L BUN (7-17) mg/dL Creatinine (0.52-1.04) mg/dL Est GFR (CKD-EPI)AfAm (>60 ml/min/1.73 sqM) Est GFR (CKD-EPI)NonAf (>60 ml/min/1.73 sqM) Glucose (74-99) mg/dL POC Glucose (mg/dL) (75-99) mg/dL POC Glu Oven Stripper ID Lactic Ac Sepsis Rflx Y Plasma Lactic Acid Eladio (0.7-2.0) mmol/L Calcium (8.4-10.2) mg/dL Phosphorus (2.5-4.5) mg/dL Magnesium (1.6-2.3) mg/dL Total Bilirubin (0.2-1.3) mg/dL AST (14-36) U/L ALT (4-34) U/L Alkaline Phosphatase (38-126) U/L Total Protein (6.3-8.2) g/dL Albumin (3.5-5.0) g/dL Lipase (23-300) U/L Urine Color Urine Appearance (Clear) Urine pH (5.0-8.0) Ur Specific [place] (1.001-1.035) Urine Protein (Negative) Urine Glucose (UA) (Negative) Urine Ketones (Negative) Urine Blood (Negative) Urine Nitrite (Negative) Urine Bilirubin (Negative) Urine Urobilinogen (<2.0) mg/dL Ur Leukocyte Esterase (Negative) Urine RBC (0-5) /hpf Urine WBC (0-5) /hpf Ur Squamous Epith Cells (0-4) /hpf Urine Bacteria (None) /hpf Urine Mucus (None) /hpf Stool Occult Blood (Negative) Coronavirus (PCR) Not Detected (Not Detectd) 09/08/20 09/08/20 09/08/20 Range/Units 21:49 22:39 22:39 WBC (3.8-10.6) k/uL RBC (3.80-5.40) m/uL Hgb (11.4-16.0) gm/dL Hct (34.0-46.0) % MCV (80.0-100.0) fL MCH (25.0-35.0) pg MCHC (31.0-37.0) g/dL RDW (11.5-15.5) % Plt Count (150-450) k/uL MPV Neutrophils % % Lymphocytes % % Monocytes % % Eosinophils % % Basophils % % Neutrophils # (1.3-7.7) k/uL Lymphocytes # (1.0-4.8) k/uL Monocytes # (0-1.0) k/uL Eosinophils # (0-0.7) k/uL Basophils # (0-0.2) k/uL Hypochromasia PT (9.0-12.0) sec INR (<1.2) APTT (22.0-30.0) sec VBG pH 6.84 L* (7.31-7.41) VBG pCO2 21 L (37-51) mmHg VBG HCO3 3 L* (24-28) mmol/L Sodium (137-145) mmol/L Potassium 6.4 H* (3.5-5.1) mmol/L Chloride (98-107) mmol/L Carbon Dioxide (22-30) mmol/L Anion Gap mmol/L BUN (7-17) mg/dL Creatinine (0.52-1.04) mg/dL Est GFR (CKD-EPI)AfAm (>60 ml/min/1.73 sqM) Est GFR (CKD-EPI)NonAf (>60 ml/min/1.73 sqM) Glucose (74-99) mg/dL POC Glucose (mg/dL) 143 H (75-99) mg/dL POC Glu Oven Stripper ID Cymro, Carlyn Lactic Ac Sepsis Rflx Plasma Lactic Acid Eladio (0.7-2.0) mmol/L Calcium (8.4-10.2) mg/dL Phosphorus (2.5-4.5) mg/dL Magnesium (1.6-2.3) mg/dL Total Bilirubin (0.2-1.3) mg/dL AST (14-36) U/L ALT (4-34) U/L Alkaline Phosphatase (38-126) U/L Total Protein (6.3-8.2) g/dL Albumin (3.5-5.0) g/dL Lipase (23-300) U/L Urine Color Urine Appearance (Clear) Urine pH (5.0-8.0) Ur Specific [place] (1.001-1.035) Urine Protein (Negative) Urine Glucose (UA) (Negative) Urine Ketones (Negative) Urine Blood (Negative) Urine Nitrite (Negative) Urine Bilirubin (Negative) Urine Urobilinogen (<2.0) mg/dL Ur Leukocyte Esterase (Negative) Urine RBC (0-5) /hpf Urine WBC (0-5) /hpf Ur Squamous Epith Cells (0-4) /hpf Urine Bacteria (None) /hpf Urine Mucus (None) /hpf Stool Occult Blood (Negative) Coronavirus (PCR) (Not Detectd) 09/08/20 09/08/20 09/09/20 Range/Units 23:15 23:16 00:05 WBC (3.8-10.6) k/uL RBC (3.80-5.40) m/uL Hgb (11.4-16.0) gm/dL Hct (34.0-46.0) % MCV (80.0-100.0) fL MCH (25.0-35.0) pg MCHC (31.0-37.0) g/dL RDW (11.5-15.5) % Plt Count (150-450) k/uL MPV Neutrophils % % Lymphocytes % % Monocytes % % Eosinophils % % Basophils % % Neutrophils # (1.3-7.7) k/uL Lymphocytes # (1.0-4.8) k/uL Monocytes # (0-1.0) k/uL Eosinophils # (0-0.7) k/uL Basophils # (0-0.2) k/uL Hypochromasia PT (9.0-12.0) sec INR (<1.2) APTT (22.0-30.0) sec VBG pH (7.31-7.41) VBG pCO2 (37-51) mmHg VBG HCO3 (24-28) mmol/L Sodium (137-145) mmol/L Potassium (3.5-5.1) mmol/L Chloride (98-107) mmol/L Carbon Dioxide (22-30) mmol/L Anion Gap mmol/L BUN (7-17) mg/dL Creatinine (0.52-1.04) mg/dL Est GFR (CKD-EPI)AfAm (>60 ml/min/1.73 sqM) Est GFR (CKD-EPI)NonAf (>60 ml/min/1.73 sqM) Glucose (74-99) mg/dL POC Glucose (mg/dL) 230 H (75-99) mg/dL POC Glu Oven Stripper ID Cymro, Carlyn Lactic Ac Sepsis Rflx Plasma Lactic Acid Eladio 11.5 H* (0.7-2.0) mmol/L Calcium (8.4-10.2) mg/dL Phosphorus (2.5-4.5) mg/dL Magnesium (1.6-2.3) mg/dL Total Bilirubin (0.2-1.3) mg/dL AST (14-36) U/L ALT (4-34) U/L Alkaline Phosphatase (38-126) U/L Total Protein (6.3-8.2) g/dL Albumin (3.5-5.0) g/dL Lipase (23-300) U/L Urine Color Light Yellow Urine Appearance Cloudy H (Clear) Urine pH 5.5 (5.0-8.0) Ur Specific [place] 1.003 (1.001-1.035) Urine Protein 2+ H (Negative) Urine Glucose (UA) 1+ H (Negative) Urine Ketones 1+ H (Negative) Urine Blood Small H (Negative) Urine Nitrite Negative (Negative) Urine Bilirubin Negative (Negative) Urine Urobilinogen <2.0 (<2.0) mg/dL Ur Leukocyte Esterase Negative (Negative) Urine RBC 11 H (0-5) /hpf Urine WBC 9 H (0-5) /hpf Ur Squamous Epith Cells 2 (0-4) /hpf Urine Bacteria Occasional H (None) /hpf Urine Mucus Rare H (None) /hpf Stool Occult Blood (Negative) Coronavirus (PCR) (Not Detectd) 09/09/20 Range/Units 00:05 WBC (3.8-10.6) k/uL RBC (3.80-5.40) m/uL Hgb (11.4-16.0) gm/dL Hct (34.0-46.0) % MCV (80.0-100.0) fL MCH (25.0-35.0) pg MCHC (31.0-37.0) g/dL RDW (11.5-15.5) % Plt Count (150-450) k/uL MPV Neutrophils % % Lymphocytes % % Monocytes % % Eosinophils % % Basophils % % Neutrophils # (1.3-7.7) k/uL Lymphocytes # (1.0-4.8) k/uL Monocytes # (0-1.0) k/uL Eosinophils # (0-0.7) k/uL Basophils # (0-0.2) k/uL Hypochromasia PT (9.0-12.0) sec INR (<1.2) APTT (22.0-30.0) sec VBG pH (7.31-7.41) VBG pCO2 (37-51) mmHg VBG HCO3 (24-28) mmol/L Sodium (137-145) mmol/L Potassium (3.5-5.1) mmol/L Chloride (98-107) mmol/L Carbon Dioxide (22-30) mmol/L Anion Gap mmol/L BUN (7-17) mg/dL Creatinine (0.52-1.04) mg/dL Est GFR (CKD-EPI)AfAm (>60 ml/min/1.73 sqM) Est GFR (CKD-EPI)NonAf (>60 ml/min/1.73 sqM) Glucose (74-99) mg/dL POC Glucose (mg/dL) (75-99) mg/dL POC Glu Oven Stripper ID Lactic Ac Sepsis Rflx Plasma Lactic Acid Eladio (0.7-2.0) mmol/L Calcium (8.4-10.2) mg/dL Phosphorus 7.6 H (2.5-4.5) mg/dL Magnesium 2.1 (1.6-2.3) mg/dL Total Bilirubin (0.2-1.3) mg/dL AST (14-36) U/L ALT (4-34) U/L Alkaline Phosphatase (38-126) U/L Total Protein (6.3-8.2) g/dL Albumin (3.5-5.0) g/dL Lipase (23-300) U/L Urine Color Urine Appearance (Clear) Urine pH (5.0-8.0) Ur Specific [place] (1.001-1.035) Urine Protein (Negative) Urine Glucose (UA) (Negative) Urine Ketones (Negative) Urine Blood (Negative) Urine Nitrite (Negative) Urine Bilirubin (Negative) Urine Urobilinogen (<2.0) mg/dL Ur Leukocyte Esterase (Negative) Urine RBC (0-5) /hpf Urine WBC (0-5) /hpf Ur Squamous Epith Cells (0-4) /hpf Urine Bacteria (None) /hpf Urine Mucus (None) /hpf Stool Occult Blood (Negative) Coronavirus (PCR) (Not Detectd) Disposition Clinical Impression: Acute renal failure, Lactic acidosis, Sepsis, Hyperkalemia Disposition: ADMITTED IP TO THIS HOSP Condition: Serious Procedures - Sepsis Sepsis Focused Exam #1 Time Sepsis Criteria Met: 21:20 Sepsis Focused Exam Date: 09/09/20 Sepsis Focused Exam Time: 00:15 Sepsis Focused Exam Complete: Yes Vital Signs & RN Notes Reviewed: Yes Capillary Refill: < 2 Seconds: Fingers, Toes Peripheral Pulses: Normal: Radial (R) Skin Color: Normal for Patient Respiratory Exam: normal lung sounds Cardiovascular Exam: regular rate
[2020-09-09 04:59] LABS: Basophils # (A) 0.1 k/uL (0-0.2); Basophils % (A) 1 %; Eosinophils # (A) 0.1 k/uL (0-0.7); Eosinophils % (A) 1 %; HCT 39.5 % (34.0-46.0); HGB 12.1 gm/dL (11.4-16.0); Hypochromasia Marked; Lymphocytes # (A) 1.4 k/uL (1.0-4.8); Lymphocytes % (A) 5 %; MCH 28.3 pg (25.0-35.0); MCHC 30.7 g/dL (31.0-37.0); Mean Platelet Volume 7.2; Monocytes # (A) 1.5 k/uL (0-1.0); Monocytes % (A) 5 %; Neutrophils # (A) 24.8 k/uL (1.3-7.7); Neutrophils % (A) 88 %; Platelet Count 482 k/uL (150-450); RDW 13.9 % (11.5-15.5); WBC 28.1 k/uL (3.8-10.6)
[2020-09-09 05:22] LABS: AST 30 U/L (14-36); African American GFR (CKD) 5 (>60 ml/min/1.73 sqM); Albumin 4.1 g/dL (3.5-5.0); Alkaline Phosphatase 106 U/L (38-126); Blood Urea Nitrogen 57 mg/dL (7-17); Calcium 8.9 mg/dL (8.4-10.2); Chloride 108 mmol/L (98-107); Glucose 126 mg/dL (74-99); Magnesium 2.6 mg/dL (1.6-2.3); Non-African American GFR(CKD) 4 (>60 ml/min/1.73 sqM); Sodium 144 mmol/L (137-145); Total Bilirubin 0.3 mg/dL (0.2-1.3); Total Protein 6.5 g/dL (6.3-8.2)
[2020-09-09 06:05] LABS: Carbon Dioxide <5 mmol/L (22-30)
[2020-09-09 06:06] LABS: ALT 18 U/L (4-34); Potassium 7.6 mmol/L (3.5-5.1)
[2020-09-09] MEDS ORDERED: SODIUM BICARB 8.4% 50 ML SYR (1 MEQ/ML) IV STA (08:01)
[2020-09-09] MEDS ORDERED: INSULIN REGULAR 100 UNIT/ML VIAL IV ONE ×2 (08:03→13:00)
[2020-09-09] MEDS ORDERED: DEXTROSE 50% SYRINGE 50 ML IVP STA ×2 (08:03→12:48)
[2020-09-09] MEDS: SODIUM CHLORIDE 0.9% 1,000 ML IV SCH ×2 (08:46→14:15)
[2020-09-09] MEDS: DEXTROSE 5% IN WATER 1,000 ML with SODIUM BICARB (1 MEQ/ML) 150 ML IV SCH ×2 (09:05→17:11)
[2020-09-09 10:06] LABS: Glucose,Whole Blood 220 mg/dL (75-99)
[2020-09-09] MEDS ORDERED: VANCOMYCIN IV PER PHARMACY 1 EACH MISC MISCELLANE PRN (10:16)
[2020-09-09] MEDS ORDERED: PIPERACILLIN-TAZOBACTAM 3.375 GM in SODIUM CHLORIDE 0.9% 100 ML IVPB SCH (10:30)
[2020-09-09] MEDS ORDERED: VANCOMYCIN 1,250 MG in SODIUM CHLORIDE 0.9% 250 ML IVPB ONE (10:30)
[2020-09-09] MEDS: PIPERACILLIN-TAZOBACTAM 3.375 GM in SODIUM CHLORIDE 0.9% 100 ML IVPB SCH ×2 (11:08→22:59)
[2020-09-09 12:00] LABS: ALT 18 U/L (4-34); African American GFR (CKD) 5 (>60 ml/min/1.73 sqM); Albumin 3.9 g/dL (3.5-5.0); Blood Urea Nitrogen 61 mg/dL (7-17); Calcium 8.6 mg/dL (8.4-10.2); Chloride 108 mmol/L (98-107); Glucose 255 mg/dL (74-99); Non-African American GFR(CKD) 4 (>60 ml/min/1.73 sqM); Sodium 146 mmol/L (137-145); Total Bilirubin 0.6 mg/dL (0.2-1.3); Total Protein 6.2 g/dL (6.3-8.2)
[2020-09-09 12:12] LABS: AST 44 U/L (14-36); Carbon Dioxide <5 mmol/L (22-30); Potassium 7.9 mmol/L (3.5-5.1)
[2020-09-09 12:13] LABS: Alkaline Phosphatase 87 U/L (38-126)
--- NOTE | 2020-09-09 12:43 | CT ---
EXAMINATION TYPE: CT abdomen pelvis wo con DATE OF EXAM: 09/09/2020 HISTORY: ABD Pain Nausea Vomiting CT DLP: 505.6 mGycm. Automated Exposure Control for Dose Reduction was Utilized. TECHNIQUE: CT scan of the abdomen and pelvis is performed without oral or IV contrast. COMPARISON: Pelvic CT 01/11/2016 FINDINGS: Within the limitations of a non-contrast study, the following observations are made. LUNG BASES: Tiny right greater than left pleural effusions. And trace pericardial effusion. LIVER/GB: Visualized liver heterogeneously hypodense consistent with diffuse fatty infiltration. PANCREAS: No significant abnormality is seen. SPLEEN: No significant abnormality is seen. ADRENALS: No significant abnormality is seen. KIDNEYS: Cortical thinning both kidneys. No renal stones or hydronephrosis seen bilaterally. Moise ca theter in bladder with nondependent air, near complete emptying. BOWEL: Suboptimal evaluation of bowel without enteric contrast. Moderate fluid-filled distention of s tomach. Mild prominence of the duodenal sweep there are second and third portion junction. Mild diffu se prominence of small and large bowel loops throughout the abdomen and pelvis without abnormal dilat ation. Suggestion of mild to moderate wall thickening throughout the colon with some scattered divert icula left and sigmoid colon. No suspicious focal fat stranding. Incidental normal-appearing appendix from base of cecum in the right lower quadrant. GENITAL ORGANS: Uterus surgically absent similar to prior. LYMPH NODES: No greater than 1cm abdominal or pelvic lymph nodes are appreciated. OSSEOUS STRUCTURES: Moderate narrowing both hip joints. Multilevel spurring in the thoracolumbar spin e. Underlying scoliotic curvature.. OTHER: Trace free fluid throughout the pelvis. Slightly more prominent focal fluid collection right p scout axial image 124. Mild calcified plaque of the aorta extends into branch vessels. IMPRESSION: Overall nonspecific bowel gas pattern. Suspect mild diffuse ileus. Suspect mild to modera te uncomplicated acute colitis, correlate clinically.
[2020-09-09 14:49] LABS: AST 35 U/L (14-36); African American GFR (CKD) 5 (>60 ml/min/1.73 sqM); Albumin 3.8 g/dL (3.5-5.0); Alkaline Phosphatase 103 U/L (38-126); Amylase 148 U/L (30-110); Blood Urea Nitrogen 61 mg/dL (7-17); Chloride 103 mmol/L (98-107); Glucose 381 mg/dL (74-99); Lipase 1495 U/L (23-300); Non-African American GFR(CKD) 5 (>60 ml/min/1.73 sqM); Sodium 141 mmol/L (137-145); Total Bilirubin 0.4 mg/dL (0.2-1.3); Total Protein 6.2 g/dL (6.3-8.2)
--- NOTE | 2020-09-09 15:07 | HP ---
HISTORY AND PHYSICAL DATE OF SERVICE: 09/09/2020 CHIEF COMPLAINT: Nausea, vomiting, diarrhea. HISTORY OF PRESENT ILLNESS: This 70-year-old woman with a past medical history of multiple medical problems such as diabetes mellitus, GERD, hypertension, liver disease, history of pneumonia, history of stage II liver disease secondary to methotrexate use being followed Dr. Green in the outpatient setting apparently had a COVID vaccine on the 6th of this month. Subsequently the patient apparently had increasing difficulties like nausea, vomiting and diarrhea. Patient has some fever initially. The patient unable to keep anything down and because of increasing difficulty, the patient came to [facility] and admitted for further evaluation and treatment. The patient also complains some dizziness. The symptoms are rather intermittent. The patient got the second dose of COVID vaccine just prior to the onset of symptoms and on admission the patient had significant renal failure with significant acidosis and as well as hyperkalemia. The patient's lactic acid also elevated. Empiric antibiotics were initiated at this time for possible sepsis and COVID-19 was negative. The urine shows also possible UTI also. There is no history of any rigors. There is no history of headache, loss of consciousness, seizures. White count is also elevated at 18. PAST MEDICAL HISTORY: History of diabetes mellitus, GERD, hypertension, liver disease, DJD, history of renal disease, history of breast surgery, section. MEDICATIONS: Medications are: 1. Metformin. 2. Effexor XR. 3. Ramipril. 4. Lipitor. 5. Acitretin. 6. Xanax. ALLERGIES: None. FAMILY HISTORY: History of diabetes and DJD in the family. SOCIAL HISTORY: No history of alcohol. No history of smoking. REVIEW OF SYSTEMS: ENT: No diminished hearing or diminished vision. CARDIOVASCULAR SYSTEM: No angina. RESPIRATORY SYSTEM: As mentioned earlier. GI: As mentioned earlier. : As mentioned earlier. NERVOUS SYSTEM: As mentioned earlier. ALLERGY/IMMUNOLOGY: No history of asthma. MUSCULOSKELETAL: As mentioned earlier. HEMATOLOGY: No history of anemia. ENDOCRINE: As mentioned earlier. CONSTITUTIONAL: As mentioned earlier. DERMATOLOGY: Negative. RHEUMATOLOGY: Negative. PSYCHIATRY: As mentioned earlier. PHYSICAL EXAMINATION: The patient is alert and oriented x3. Pulse 86, blood pressure 121/56, respiration 24, temperature normal, pulse ox 99% on room air. HEENT: Conjunctivae normal. Oral mucosa moist, dry. NECK: No jugular venous distention. No carotid bruit. No lymph node enlargement. CARDIOVASCULAR: S1, S2 muffled. RESPIRATORY: Breath sounds diminished at the bases. A few scattered rhonchi. ABDOMEN: Soft, mild diffuse discomfort on palpation. No guarding. No rigidity. No mass palpable. LEGS: No edema, no swelling. NERVOUS SYSTEM: Higher functions as mentioned earlier. Moves all 4 limbs. No focal motor or sensory deficits. LYMPHATICS: No lymphadenopathy of the neck, axillae or groin. SKIN: No ulcer, rash or bleeding. JOINTS: No active deforming arthropathy. LABS: WBC 18. APTT is 21.7. Sodium 139, potassium 6.4. UA noted. ASSESSMENT: 1. Acute renal failure possibly prerenal acute tubular necrosis with severe hyperkalemia and metabolic acidosis. 2. Nausea, vomiting, diarrhea, possibly gastritis. 3. Increased WBC possibly sepsis present on admission, undetermined etiology. 4. Hyperkalemia, severe. 5. Diabetes mellitus type 2 with hyperglycemia and hypoglycemia. 6. Elevated plasma lactic acid. 7. Possible urinary tract infection with sepsis, present on admission. 8. Diabetes mellitus type 2. 9. History of recent COVID vaccine administration. 10.Gastroesophageal reflux disease. 11.Hypertension. 12.History of stage II liver disease. 13.Degenerative joint disease. 14.History of pneumonia. 15.History of skin disorder. 16.History of psoriasis. 17.History of duodenal ulcers. 18.Breast surgery. 19.Motion sickness. 20.Claustrophobia. 21.Depression. RECOMMENDATION AND DISCUSSION: In this 70-year-old woman who presented with multiple complex medical issues, we will monitor the patient closely. Otherwise, I would recommend initiate broad-spectrum IV antibiotics. Nephrology consultation. Hyperkalemia regimen, possible hemodialysis, admitted in the ICU and closely monitor IV fluids. I would also recommend infectious disease evaluation and as well as a neurology evaluation also. Hemodialysis catheter has been planned to be inserted. The prognosis guarded because of the multiple complex medical issues and further recommendations to follow. A copy of dictation forwarded to Dr. Green who is the primary physician. MMODL / IJN: [id number] /
[2020-09-09 15:17] LABS: Potassium 6.5 mmol/L (3.5-5.1)
[2020-09-09 15:18] LABS: Carbon Dioxide <5 mmol/L (22-30)
--- NOTE | 2020-09-09 15:24 | P.CNPUL ---
History of Present Illness Consult date: 09/09/20 Requesting physician: Pilar Phan Reason for consult: other Chief complaint: ICU management. Hyperkalemia. History of present illness: 70-year-old female, who was initially admitted through the emergency room, on September 08, via EMS, with nausea, vomiting, and diarrhea. The patient apparently has a history of diabetes, hypertension, breast cancer, and gastroesophageal reflux disease. The patient came in complaining of 9 days of nausea, vomiting, and diarrhea. The patient did receive both of her vaccinations for coronavirus. She apparently denied any shortness of breath or chest pain. She apparently had been having some black tarry stool. She denied any significant abdominal pain. The patient was admitted with a diagnosis of acute renal failure, possible sepsis, lactic acidosis, and hyperkalemia. White count was 28.1, hemoglobin 12.1, hematocrit 39.5, and platelet count 482,000. D-dimer was 10.98. Venous blood gases had a pH of 6.84. Sodium 146, potassium 7.9, chlorides 108, carbon dioxide less than 5. BUN was 61, with a creatinine of 8.48. Glucose initially was 45. Repeat was 255. Lactic acid was 13.7. Urine was cloudy, leukocyte esterase and nitrate were both negative. There was 11 RBCs, 9 WBCs, and occasional bacteria. Coronavirus testing was negative. Chest x-ray was negative. CT of the abdomen and pelvis showed a nonspecific bowel gas pattern, mild diffuse ileus, and moderate uncomplicated acute colitis. Thus far, nephrology, infectious diseases, neurology, and vascular surgery has been consulted. A hemodialysis catheter has not yet been placed. Review of Systems REVIEW OF SYSTEMS: CONSTITUTIONAL: Weakness. NEUROLOGIC: [ Negative.] HEENT: [ Negative.] CARDIAC: [Negative.] PULMONARY: [Negative.] GI: Nausea, vomiting, diarrhea, black stools. : [Negative.] RHEUMATOLOGIC: [ Negative.] IMMUNOLOGIC: [ Negative.] ENDOCRINE: [Negative. 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, psoriasis, rosacea, 2008 acute renal disease, duodenal ulcers, hemorrhoids, mono as a teen, hx skin cancer, heart murmer, History of Any Multi-Drug Resistant Organisms: None Reported Past Surgical History: Breast Surgery, Section, Hernia Repair, Hysterectomy, Orthopedic Surgery, Tonsillectomy Additional Past Surgical History / Comment(s): Umbilical hernia repair, nori oophorectomy L shoulder bone/spur/tendon surgery, R hand dupretyens contraction, bilateral feet bunionectomies, R breast biopsy, skin cancer remov als, liver biopsy, left wrist, Past Anesthesia/Blood Transfusion Reactions: Motion Sickness Additional Past Anesthesia/Blood Transfusion Reaction / Comment(s): claustrophobia, "I wake up really cold" Past Psychological History: Depression Smoking Status: Never smoker Past Alcohol Use History: Rare Past Drug Use History: None Reported - Past Family History Mother History Unknown: Yes Family Medical History: Diabetes Mellitus, Osteoarthritis (OA) Additional Family Medical History / Comment(s): . Father History Unknown: Yes Additional Family Medical History / Comment(s): Father has L shoulder issues. He is 86yrs old. Medications and Allergies Home Medications Medication Instructions Recorded Confirmed Type Ramipril 10 mg PO DAILY 05/03/14 09/08/20 History Venlafaxine HCl ER [Effexor XR] 75 mg PO DAILY 02/28/19 09/08/20 History ALPRAZolam [Xanax] 0.125 - 0.25 mg PO HS PRN 11/10/19 09/08/20 History Acitretin [Soriatane] 25 mg PO DAILY 11/10/19 09/08/20 History Atorvastatin [Lipitor] 20 mg PO Q48H 11/10/19 09/08/20 History metFORMIN HCL 1,000 mg PO BID 11/10/19 09/08/20 History Allergies Allergy/AdvReac Type Severity Reaction Status Date / Time No Known Allergies Allergy Verified 09/08/20 23:30 Physical Exam Osteopathic Statement: *. No significant issues noted on an osteopathic structural exam other than those noted in the History and Physical/Consult. Vitals: Vital Signs Temp Pulse Resp BP Pulse Ox 09/09/20 14:30 87 15 93/41 100 09/09/20 14:00 81 15 105/45 100 09/09/20 13:30 82 14 100/41 100 09/09/20 13:00 92 20 121/56 95 04/19/21 12:30 86 23 121/56 98 09/09/20 12:00 86 24 121/56 99 09/09/20 11:30 90 23 121/56 100 09/09/20 10:30 87 20 150/59 99 09/09/20 10:00 97.6 F 90 15 150/59 100 09/09/20 09:00 90 18 168/70 96 09/09/20 08:00 98.0 F 70 16 151/78 99 09/09/20 05:15 76 16 156/71 97 09/08/20 23:16 97.4 F L 93 20 166/68 100 09/08/20 21:49 104 H 20 150/70 100 09/08/20 21:04 98.3 F 100 18 161/68 100 Intake and Output 09/09/20 09/09/20 09/09/20 06:59 14:59 22:59 Output Total 100 Balance -100 Output: Urine 100 Uretheral (Moise) 100 The patient was seen in room 25, in the ER. She had no acute distress, oriented 3. She did not have any supplemental oxygen. HEENT examination is grossly unremarkable. Neck supple. Full range of motion. No adenopathy thyromegaly or neck vein dist ention. Cardiovascular examination reveals regular rhythm rate. S1-S2 normal. No S3 or S4. No discernible murmur noted. Heart rate 87 bpm. Lungs reveal mostly clear breath sounds. Her sounds are equal bilaterally. Minimal scattered rhonchi. No wheezes or crackles. Abdomen soft bowel sounds are heard. No masses or tenderness. Extremities are intact. No cyanosis clubbing or edema. Skin is without rash or lesion. Neurologic examination is brief but nonfocal. Results - Laboratory Findings CBC and BMP: 09/09/20 04:17 09/09/20 11:30 PT/INR, D-dimer PT 10.0 sec (9.0-12.0) 09/08/20 21:22 INR 0.9 (<1.2) 09/08/20 21:22 D-Dimer 10.98 mg/L FEU (<0.60) H 09/09/20 14:22 Abnormal lab findings: Abnormal Labs 09/08/20 09/08/20 09/08/20 21:12 21:14 21:19 WBC 18.9 H MCHC Plt Count Neutrophils # 15.0 H Monocytes # APTT D-Dimer VBG pH VBG pCO2 VBG HCO3 Sodium Potassium Chloride Carbon Dioxide BUN Creatinine Glucose POC Glucose (mg/dL) 51 L 52 L Plasma Lactic Acid Eladio Phosphorus Magnesium AST Total Protein Urine Appearance Urine Protein Urine Glucose (UA) Urine Ketones Urine Blood Urine RBC Urine WBC Urine Bacteria Urine Mucus 09/08/20 09/08/20 09/08/20 21:19 21:19 21:22 WBC MCHC Plt Count Neutrophils # Monocytes # APTT 21.7 L D-Dimer VBG pH VBG pCO2 VBG HCO3 Sodium Potassium 6.6 H* Chloride Carbon Dioxide <5 L* BUN 60 H Creatinine 9.04 H* Glucose 45 L* POC Glucose (mg/dL) Plasma Lactic Acid Eladio 10.4 H* Phosphorus Magnesium AST Total Protein Urine Appearance Urine Protein Urine Glucose (UA) Urine Ketones Urine Blood Urine RBC Urine WBC Urine Bacteria Urine Mucus 09/08/20 09/08/20 09/08/20 21:49 22:39 22:39 WBC MCHC Plt Count Neutrophils # Monocytes # APTT D-Dimer VBG pH 6.84 L* VBG pCO2 21 L VBG HCO3 3 L* Sodium Potassium 6.4 H* Chloride Carbon Dioxide BUN Creatinine Glucose POC Glucose (mg/dL) 143 H Plasma Lactic Acid Eladio Phosphorus Magnesium AST Total Protein Urine Appearance Urine Protein Urine Glucose (UA) Urine Ketones Urine Blood Urine RBC Urine WBC Urine Bacteria Urine Mucus 09/08/20 09/08/20 09/09/20 23:15 23:16 00:05 WBC MCHC Plt Count Neutrophils # Monocytes # APTT D-Dimer VBG pH VBG pCO2 VBG HCO3 Sodium Potassium Chloride Carbon Dioxide BUN Creatinine Glucose POC Glucose (mg/dL) 230 H Plasma Lactic Acid Eladio 11.5 H* Phosphorus Magnesium AST Total Protein Urine Appearance Cloudy H Urine Protein 2+ H Urine Glucose (UA) 1+ H Urine Ketones 1+ H Urine Blood Small H Urine RBC 11 H Urine WBC 9 H Urine Bacteria Occasional H Urine Mucus Rare H 09/09/20 09/09/20 09/09/20 00:05 04:17 04:17 WBC 28.1 H MCHC 30.7 L Plt Count 482 H Neutrophils # 24.8 H Monocytes # 1.5 H APTT D-Dimer VBG pH VBG pCO2 VBG HCO3 Sodium Potassium 7.6 H* Chloride 108 H Carbon Dioxide <5 L* BUN 57 H Creatinine 8.40 H* Glucose 126 H POC Glucose (mg/dL) Plasma Lactic Acid Eladio Phosphorus 7.6 H Magnesium 2.6 H AST Total Protein Urine Appearance Urine Protein Urine Glucose (UA) Urine Ketones Urine Blood Urine RBC Urine WBC Urine Bacteria Urine Mucus 09/09/20 09/09/20 09/09/20 04:17 09:08 10:04 WBC MCHC Plt Count Neutrophils # Monocytes # APTT D-Dimer VBG pH VBG pCO2 VBG HCO3 Sodium Potassium Chloride Carbon Dioxide BUN Creatinine Glucose POC Glucose (mg/dL) 220 H Plasma Lactic Acid Eladio 12.3 H* 14.0 H* Phosphorus Magnesium AST Total Protein Urine Appearance Urine Protein Urine Glucose (UA) Urine Ketones Urine Blood Urine RBC Urine WBC Urine Bacteria Urine Mucus 09/09/20 09/09/20 09/09/20 11:30 12:09 14:22 WBC MCHC Plt Count Neutrophils # Monocytes # APTT D-Dimer 10.98 H VBG pH VBG pCO2 VBG HCO3 Sodium 146 H Potassium 7.9 H* Chloride 108 H Carbon Dioxide <5 L* BUN 61 H Creatinine 8.48 H* Glucose 255 H POC Glucose (mg/dL) Plasma Lactic Acid Eladio 13.7 H* Phosphorus Magnesium AST 44 H Total Protein 6.2 L Urine Appearance Urine Protein Urine Glucose (UA) Urine Ketones Urine Blood Urine RBC Urine WBC Urine Bacteria Urine Mucus - Diagnostic Findings Chest x-ray: image reviewed Assessment and Plan Assessment: Acute renal failure with hyperkalemia. Anion gap metabolic acidosis, secondary to renal failure. Lactic acidosis. Rule out sepsis, possibly from a urinary source. Severe dehydration secondary to nausea, vomiting, diarrhea. History of hypertension. History of diabetes. History of hyperlipidemia. History of gastroesophageal reflux disease. History of psoriasis. History of rosacea. History of chronic liver disease. History of breast cancer. Plan: Plan dated 09/09/2020. Vascular surgery has been consulted for hemodialysis catheter. She needs emergent hemodialysis, for her severe metabolic acidosis and hyperkalemia. The patient may or may not need admission to the intensive care unit. It depends how she responds to hemodialysis. Currently, her respiratory status is stable. Her blood pressure has been reasonable, although has been a little soft over the last 2 checks. Additional recommendations and suggestions are forthcoming. The patient not wearing any supplemental oxygen. The patient is currently on Zosyn and vancomycin for suspected sepsis. We will continue to follow. Prognosis is guarded. Time with Patient: Greater than 30
[2020-09-09 15:38] LABS: ALT 21 U/L (4-34)
--- NOTE | 2020-09-09 16:03 | P.GSCN ---
History of Present Illness History of present illness: 70-year-old female, I was consulted for urgent placement of dialysis catheter. Patient came with nausea vomiting and fever patient had her second covert vaccine. 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, psoriasis, rosacea, 2008 acute renal disease, duodenal ulcers, hemorrhoids, mono as a teen, hx skin cancer, heart murmer, History of Any Multi-Drug Resistant Organisms: None Reported Past Surgical History: Breast Surgery, Section, Hernia Repair, Hysterectomy, Orthopedic Surgery, Tonsillectomy Additional Past Surgical History / Comment(s): Umbilical hernia repair, nori oophorectomy L shoulder bone/spur/tendon surgery, R hand dupretyens contraction, bilateral feet bunionectomies, R breast biopsy, skin cancer removals, liver biopsy, left wrist, Past Anesthesia/Blood Transfusion Reactions: Motion Sickness Additional Past Anesthesia/Blood Transfusion Reaction / Comm: claustrophobia, "I wake up really cold" Past Psychological History: Depression Smoking Status: Never smoker Past Alcohol Use History: Rare Past Drug Use History: None Reported - Past Family History Mother History Unknown: Yes Family Medical History: Diabetes Mellitus, Osteoarthritis (OA) Additional Family Medical History / Comment(s): . Father History Unknown: Yes Additional Family Medical History / Comment(s): Father has L shoulder issues. He is 86yrs old. Medications and Allergies Home Medications Medication Instructions Recorded Confirmed Type RX: Ramipril 10 mg PO DAILY 05/03/14 09/08/20 History RX: Venlafaxine HCl ER [Effexor XR] 75 mg PO DAILY 02/28/19 09/08/20 History ALPRAZolam [Xanax] 0.125 - 0.25 mg PO HS PRN 11/10/19 09/08/20 History Acitretin [Soriatane] 25 mg PO DAILY 11/10/19 09/08/20 History Atorvastatin [Lipitor] 20 mg PO Q48H 11/10/19 09/08/20 History RX: metFORMIN HCL 1,000 mg PO BID 11/10/19 09/08/20 History Allergies Allergy/AdvReac Type Severity Reaction Status Date / Time No Known Allergies Allergy Verified 09/08/20 23:30 Surgical - Exam Vital Signs Temp Pulse Resp BP Pulse Ox 98.3 F 100 18 161/68 100 09/08/20 21:04 09/08/20 21:04 09/08/20 21:04 09/08/20 21:04 09/08/20 21:04 Results - Labs 09/09/20 04:17 09/09/20 14:22 Abnormal Lab Results - Last 24 Hours (Table) 09/08/20 09/08/20 09/08/20 Range/Units 21:12 21:14 21:19 WBC 18.9 H (3.8-10.6) k/uL MCHC (31.0-37.0) g/dL Plt Count (150-450) k/uL Neutrophils # 15.0 H (1.3-7.7) k/uL Monocytes # (0-1.0) k/uL APTT (22.0-30.0) sec D-Dimer (<0.60) mg/L FEU VBG pH (7.31-7.41) VBG pCO2 (37-51) mmHg VBG HCO3 (24-28) mmol/L Sodium (137-145) mmol/L Potassium (3.5-5.1) mmol/L Chloride (98-107) mmol/L Carbon Dioxide (22-30) mmol/L BUN (7-17) mg/dL Creatinine (0.52-1.04) mg/dL Glucose (74-99) mg/dL POC Glucose (mg/dL) 51 L 52 L (75-99) mg/dL Plasma Lactic Acid Eladio (0.7-2.0) mmol/L Calcium (8.4-10.2) mg/dL Phosphorus (2.5-4.5) mg/dL Magnesium (1.6-2.3) mg/dL AST (14-36) U/L Total Protein (6.3-8.2) g/dL Amylase (30-110) U/L Lipase (23-300) U/L Urine Appearance (Clear) Urine Protein (Negative) Urine Glucose (UA) (Negative) Urine Ketones (Negative) Urine Blood (Negative) Urine RBC (0-5) /hpf Urine WBC (0-5) /hpf Urine Bacteria (None) /hpf Urine Mucus (None) /hpf 09/08/20 09/08/20 09/08/20 Range/Units 21:19 21:19 21:22 WBC (3.8-10.6) k/uL MCHC (31.0-37.0) g/dL Plt Count (150-450) k/uL Neutrophils # (1.3-7.7) k/uL Monocytes # (0-1.0) k/uL APTT 21.7 L (22.0-30.0) sec D-Dimer (<0.60) mg/L FEU VBG pH (7.31-7.41) VBG pCO2 (37-51) mmHg VBG HCO3 (24-28) mmol/L Sodium (137-145) mmol/L Potassium 6.6 H* (3.5-5.1) mmol/L Chloride (98-107) mmol/L Carbon Dioxide <5 L* (22-30) mmol/L BUN 60 H (7-17) mg/dL Creatinine 9.04 H* (0.52-1.04) mg/dL Glucose 45 L* (74-99) mg/dL POC Glucose (mg/dL) (75-99) mg/dL Plasma Lactic Acid Eladio 10.4 H* (0.7-2.0) mmol/L Calcium (8.4-10.2) mg/dL Phosphorus (2.5-4.5) mg/dL Magnesium (1.6-2.3) mg/dL AST (14-36) U/L Total Protein (6.3-8.2) g/dL Amylase (30-110) U/L Lipase (23-300) U/L Urine Appearance (Clear) Urine Protein (Negative) Urine Glucose (UA) (Negative) Urine Ketones (Negative) Urine Blood (Negative) Urine RBC (0-5) /hpf Urine WBC (0-5) /hpf Urine Bacteria (None) /hpf Urine Mucus (None) /hpf 09/08/20 09/08/20 09/08/20 Range/Units 21:49 22:39 22:39 WBC (3.8-10.6) k/uL MCHC (31.0-37.0) g/dL Plt Count (150-450) k/uL Neutrophils # (1.3-7.7) k/uL Monocytes # (0-1.0) k/uL APTT (22.0-30.0) sec D-Dimer (<0.60) mg/L FEU VBG pH 6.84 L* (7.31-7.41) VBG pCO2 21 L (37-51) mmHg VBG HCO3 3 L* (24-28) mmol/L Sodium (137-145) mmol/L Potassium 6.4 H* (3.5-5.1) mmol/L Chloride (98-107) mmol/L Carbon Dioxide (22-30) mmol/L BUN (7-17) mg/dL Creatinine (0.52-1.04) mg/dL Glucose (74-99) mg/dL POC Glucose (mg/dL) 143 H (75-99) mg/dL Plasma Lactic Acid Eladio (0.7-2.0) mmol/L Calcium (8.4-10.2) mg/dL Phosphorus (2.5-4.5) mg/dL Magnesium (1.6-2.3) mg/dL AST (14-36) U/L Total Protein (6.3-8.2) g/dL Amylase (30-110) U/L Lipase (23-300) U/L Urine Appearance (Clear) Urine Protein (Negative) Urine Glucose (UA) (Negative) Urine Ketones (Negative) Urine Blood (Negative) Urine RBC (0-5) /hpf Urine WBC (0-5) /hpf Urine Bacteria (None) /hpf Urine Mucus (None) /hpf 09/08/20 09/08/20 09/09/20 Range/Units 23:15 23:16 00:05 WBC (3.8-10.6) k/uL MCHC (31.0-37.0) g/dL Plt Count (150-450) k/uL Neutrophils # (1.3-7.7) k/uL Monocytes # (0-1.0) k/uL APTT (22.0-30.0) sec D-Dimer (<0.60) mg/L FEU VBG pH (7.31-7.41) VBG pCO2 (37-51) mmHg VBG HCO3 (24-28) mmol/L Sodium (137-145) mmol/L Potassium (3.5-5.1) mmol/L Chloride (98-107) mmol/L Carbon Dioxide (22-30) mmol/L BUN (7-17) mg/dL Creatinine (0.52-1.04) mg/dL Glucose (74-99) mg/dL POC Glucose (mg/dL) 230 H (75-99) mg/dL Plasma Lactic Acid Eladio 11.5 H* (0.7-2.0) mmol/L Calcium (8.4-10.2) mg/dL Phosphorus (2.5-4.5) mg/dL Magnesium (1.6-2.3) mg/dL AST (14-36) U/L Total Protein (6.3-8.2) g/dL Amylase (30-110) U/L Lipase (23-300) U/L Urine Appearance Cloudy H (Clear) Urine Protein 2+ H (Negative) Urine Glucose (UA) 1+ H (Negative) Urine Ketones 1+ H (Negative) Urine Blood Small H (Negative) Urine RBC 11 H (0-5) /hpf Urine WBC 9 H (0-5) /hpf Urine Bacteria Occasional H (None) /hpf Urine Mucus Rare H (None) /hpf 09/09/20 09/09/20 09/09/20 Range/Units 00:05 04:17 04:17 WBC 28.1 H (3.8-10.6) k/uL MCHC 30.7 L (31.0-37.0) g/dL Plt Count 482 H (150-450) k/uL Neutrophils # 24.8 H (1.3-7.7) k/uL Monocytes # 1.5 H (0-1.0) k/uL APTT (22.0-30.0) sec D-Dimer (<0.60) mg/L FEU VBG pH (7.31-7.41) VBG pCO2 (37-51) mmHg VBG HCO3 (24-28) mmol/L Sodium (137-145) mmol/L Potassium 7.6 H* (3.5-5.1) mmol/L Chloride 108 H (98-107) mmol/L Carbon Dioxide <5 L* (22-30) mmol/L BUN 57 H (7-17) mg/dL Creatinine 8.40 H* (0.52-1.04) mg/dL Glucose 126 H (74-99) mg/dL POC Glucose (mg/dL) (75-99) mg/dL Plasma Lactic Acid Eladio (0.7-2.0) mmol/L Calcium (8.4-10.2) mg/dL Phosphorus 7.6 H (2.5-4.5) mg/dL Magnesium 2.6 H (1.6-2.3) mg/dL AST (14-36) U/L Total Protein (6.3-8.2) g/dL Amylase (30-110) U/L Lipase (23-300) U/L Urine Appearance (Clear) Urine Protein (Negative) Urine Glucose (UA) (Negative) Urine Ketones (Negative) Urine Blood (Negative) Urine RBC (0-5) /hpf Urine WBC (0-5) /hpf Urine Bacteria (None) /hpf Urine Mucus (None) /hpf 09/09/20 09/09/20 09/09/20 Range/Units 04:17 09:08 10:04 WBC (3.8-10.6) k/uL MCHC (31.0-37.0) g/dL Plt Count (150-450) k/uL Neutrophils # (1.3-7.7) k/uL Monocytes # (0-1.0) k/uL APTT (22.0-30.0) sec D-Dimer (<0.60) mg/L FEU VBG pH (7.31-7.41) VBG pCO2 (37-51) mmHg VBG HCO3 (24-28) mmol/L Sodium (137-145) mmol/L Potassium (3.5-5.1) mmol/L Chloride (98-107) mmol/L Carbon Dioxide (22-30) mmol/L BUN (7-17) mg/dL Creatinine (0.52-1.04) mg/dL Glucose (74-99) mg/dL POC Glucose (mg/dL) 220 H (75-99) mg/dL Plasma Lactic Acid Eladio 12.3 H* 14.0 H* (0.7-2.0) mmol/L Calcium (8.4-10.2) mg/dL Phosphorus (2.5-4.5) mg/dL Magnesium (1.6-2.3) mg/dL AST (14-36) U/L Total Protein (6.3-8.2) g/dL Amylase (30-110) U/L Lipase (23-300) U/L Urine Appearance (Clear) Urine Protein (Negative) Urine Glucose (UA) (Negative) Urine Ketones (Negative) Urine Blood (Negative) Urine RBC (0-5) /hpf Urine WBC (0-5) /hpf Urine Bacteria (None) /hpf Urine Mucus (None) /hpf 09/09/20 09/09/20 09/09/20 Range/Units 11:30 12:09 14:22 WBC (3.8-10.6) k/uL MCHC (31.0-37.0) g/dL Plt Count (150-450) k/uL Neutrophils # (1.3-7.7) k/uL Monocytes # (0-1.0) k/uL APTT (22.0-30.0) sec D-Dimer 10.98 H (<0.60) mg/L FEU VBG pH (7.31-7.41) VBG pCO2 (37-51) mmHg VBG HCO3 (24-28) mmol/L Sodium 146 H (137-145) mmol/L Potassium 7.9 H* (3.5-5.1) mmol/L Chloride 108 H (98-107) mmol/L Carbon Dioxide <5 L* (22-30) mmol/L BUN 61 H (7-17) mg/dL Creatinine 8.48 H* (0.52-1.04) mg/dL Glucose 255 H (74-99) mg/dL POC Glucose (mg/dL) (75-99) mg/dL Plasma Lactic Acid Eladio 13.7 H* (0.7-2.0) mmol/L Calcium (8.4-10.2) mg/dL Phosphorus (2.5-4.5) mg/dL Magnesium (1.6-2.3) mg/dL AST 44 H (14-36) U/L Total Protein 6.2 L (6.3-8.2) g/dL Amylase (30-110) U/L Lipase (23-300) U/L Urine Appearance (Clear) Urine Protein (Negative) Urine Glucose (UA) (Negative) Urine Ketones (Negative) Urine Blood (Negative) Urine RBC (0-5) /hpf Urine WBC (0-5) /hpf Urine Bacteria (None) /hpf Urine Mucus (None) /hpf 09/09/20 Range/Units 14:22 WBC (3.8-10.6) k/uL MCHC (31.0-37.0) g/dL Plt Count (150-450) k/uL Neutrophils # (1.3-7.7) k/uL Monocytes # (0-1.0) k/uL APTT (22.0-30.0) sec D-Dimer (<0.60) mg/L FEU VBG pH (7.31-7.41) VBG pCO2 (37-51) mmHg VBG HCO3 (24-28) mmol/L Sodium (137-145) mmol/L Potassium 6.5 H* (3.5-5.1) mmol/L Chloride (98-107) mmol/L Carbon Dioxide <5 L* (22-30) mmol/L BUN 61 H (7-17) mg/dL Creatinine 8.03 H* (0.52-1.04) mg/dL Glucose 381 H (74-99) mg/dL POC Glucose (mg/dL) (75-99) mg/dL Plasma Lactic Acid Eladio (0.7-2.0) mmol/L Calcium 8.0 L (8.4-10.2) mg/dL Phosphorus (2.5-4.5) mg/dL Magnesium (1.6-2.3) mg/dL AST (14-36) U/L Total Protein 6.2 L (6.3-8.2) g/dL Amylase 148 H (30-110) U/L Lipase 1495 H (23-300) U/L Urine Appearance (Clear) Urine Protein (Negative) Urine Glucose (UA) (Negative) Urine Ketones (Negative) Urine Blood (Negative) Urine RBC (0-5) /hpf Urine WBC (0-5) /hpf Urine Bacteria (None) /hpf Urine Mucus (None) /hpf Diabetes panel 09/08/20 09/08/20 09/09/20 Range/Units 21:19 22:39 04:17 Sodium 139 144 (137-145) mmol/L Potassium 6.6 H* 6.4 H* 7.6 H* (3.5-5.1) mmol/L Chloride 104 108 H (98-107) mmol/L Carbon Dioxide <5 L* <5 L* (22-30) mmol/L BUN 60 H 57 H (7-17) mg/dL Creatinine 9.04 H* 8.40 H* (0.52-1.04) mg/dL Glucose 45 L* 126 H (74-99) mg/dL Calcium 9.4 8.9 (8.4-10.2) mg/dL AST 31 30 (14-36) U/L ALT 19 18 (4-34) U/L Alkaline Phosphatase 110 106 (38-126) U/L Total Protein 7.0 6.5 (6.3-8.2) g/dL Albumin 4.5 4.1 (3.5-5.0) g/dL 09/09/20 09/09/20 Range/Units 11:30 14:22 Sodium 146 H 141 (137-145) mmol/L Potassium 7.9 H* 6.5 H* (3.5-5.1) mmol/L Chloride 108 H 103 (98-107) mmol/L Carbon Dioxide <5 L* <5 L* (22-30) mmol/L BUN 61 H 61 H (7-17) mg/dL Creatinine 8.48 H* 8.03 H* (0.52-1.04) mg/dL Glucose 255 H 381 H (74-99) mg/dL Calcium 8.6 8.0 L (8.4-10.2) mg/dL AST 44 H 35 (14-36) U/L ALT 18 21 (4-34) U/L Alkaline Phosphatase 87 103 (38-126) U/L Total Protein 6.2 L 6.2 L (6.3-8.2) g/dL Albumin 3.9 3.8 (3.5-5.0) g/dL Calcium panel 09/08/20 09/09/20 09/09/20 Range/Units 21:19 00:05 04:17 Calcium 9.4 8.9 (8.4-10.2) mg/dL Phosphorus 7.6 H (2.5-4.5) mg/dL Albumin 4.5 4.1 (3.5-5.0) g/dL 09/09/20 09/09/20 Range/Units 11:30 14:22 Calcium 8.6 8.0 L (8.4-10.2) mg/dL Phosphorus (2.5-4.5) mg/dL Albumin 3.9 3.8 (3.5-5.0) g/dL Pituitary panel 09/08/20 09/08/20 09/09/20 Range/Units 21:19 22:39 04:17 Sodium 139 144 (137-145) mmol/L Potassium 6.6 H* 6.4 H* 7.6 H* (3.5-5.1) mmol/L Chloride 104 108 H (98-107) mmol/L Carbon Dioxide <5 L* <5 L* (22-30) mmol/L BUN 60 H 57 H (7-17) mg/dL Creatinine 9.04 H* 8.40 H* (0.52-1.04) mg/dL Glucose 45 L* 126 H (74-99) mg/dL Calcium 9.4 8.9 (8.4-10.2) mg/dL 09/09/20 09/09/20 Range/Units 11:30 14:22 Sodium 146 H 141 (137-145) mmol/L Potassium 7.9 H* 6.5 H* (3.5-5.1) mmol/L Chloride 108 H 103 (98-107) mmol/L Carbon Dioxide <5 L* <5 L* (22-30) mmol/L BUN 61 H 61 H (7-17) mg/dL Creatinine 8.48 H* 8.03 H* (0.52-1.04) mg/dL Glucose 255 H 381 H (74-99) mg/dL Calcium 8.6 8.0 L (8.4-10.2) mg/dL Adrenal panel 09/08/20 09/08/20 09/09/20 Range/Units 21:19 22:39 04:17 Sodium 139 144 (137-145) mmol/L Potassium 6.6 H* 6.4 H* 7.6 H* (3.5-5.1) mmol/L Chloride 104 108 H (98-107) mmol/L Carbon Dioxide <5 L* <5 L* (22-30) mmol/L BUN 60 H 57 H (7-17) mg/dL Creatinine 9.04 H* 8.40 H* (0.52-1.04) mg/dL Glucose 45 L* 126 H (74-99) mg/dL Calcium 9.4 8.9 (8.4-10.2) mg/dL Total Bilirubin 0.5 0.3 (0.2-1.3) mg/dL AST 31 30 (14-36) U/L ALT 19 18 (4-34) U/L Alkaline Phosphatase 110 106 (38-126) U/L Total Protein 7.0 6.5 (6.3-8.2) g/dL Albumin 4.5 4.1 (3.5-5.0) g/dL 09/09/20 09/09/20 Range/Units 11:30 14:22 Sodium 146 H 141 (137-145) mmol/L Potassium 7.9 H* 6.5 H* (3.5-5.1) mmol/L Chloride 108 H 103 (98-107) mmol/L Carbon Dioxide <5 L* <5 L* (22-30) mmol/L BUN 61 H 61 H (7-17) mg/dL Creatinine 8.48 H* 8.03 H* (0.52-1.04) mg/dL Glucose 255 H 381 H (74-99) mg/dL Calcium 8.6 8.0 L (8.4-10.2) mg/dL Total Bilirubin 0.6 0.4 (0.2-1.3) mg/dL AST 44 H 35 (14-36) U/L ALT 18 21 (4-34) U/L Alkaline Phosphatase 87 103 (38-126) U/L Total Protein 6.2 L 6.2 L (6.3-8.2) g/dL Albumin 3.9 3.8 (3.5-5.0) g/dL
--- NOTE | 2020-09-09 16:07 | P.PCN ---
Description of Procedure: Preoperative diagnoses is acute chronic renal failure Posterior same potassium of 6.6 Procedure placement of ultrasound-guided dialysis catheter placement right femoral approach Procedure patient was seen in the EC room right groin was prepped and draped applied just R manner 1% lidocaine for infected and ultrasound-guided micropu ncture introducer right femoral vein and micropuncture guidewire was passed. After that dilator was run The Top of Guidewire Then We Passed a Regular Guidewire without Any Resistance. Dilator Was Advanced on the Top of the Guidewire Then Replaced a Dialysis Catheter on the Top of Guidewire Flushed with Heparin Saline and Hep-Lock Secured with 3-0 Nylon Dressing Applied Patient for the Procedure Well
[2020-09-09] MEDS: HEPARIN SODIUM,PORCINE/PF 5,000 UNIT/0.5 ML SYRINGE SQ SCH ×2 (17:12→23:00)
--- NOTE | 2020-09-09 20:22 | CT ---
EXAMINATION TYPE: CT brain wo con DATE OF EXAM: 09/09/2020 HISTORY: weakness, ams. CT DLP: 1070.4 mGycm. Automated Exposure Control for Dose Reduction was Utilized. TECHNIQUE: CT scan of the head is performed without contrast. COMPARISON: 02/28/2019 FINDINGS: There is no acute intracranial hemorrhage, midline shift, or mass effect identified. Mild generalized volume loss. The ventricles, sulci, and cisterns are normal in size and configuration. No abnormal extra-axial fluid collection. No depressed calvarial fracture. Visualized sinuses and mas toid air cells are clear. IMPRESSION: No acute intracranial hemorrhage, midline shift, or mass effect.
[2020-09-09 20:25] LABS: Glucose,Whole Blood 141 mg/dL (75-99)
[2020-09-09] MEDS: INSULIN ASPART (NovoLOG) 100 UNIT/ML VIAL SQ SCH ×2 (20:33→22:53)
--- NOTE | 2020-09-09 20:52 | CONS ---
CONSULTATION REASON FOR CONSULT: Renal failure, hyperkalemia. HISTORY OF PRESENT ILLNESS: Patient is a 70-year-old female who was admitted from the emergency room with complaints of nausea, vomiting. She also had diarrhea with increased weakness for the past 3-4 days prior to admission. The patient states that she was actually sick for about 10 days prior to admission. She did have her second dose of COVID vaccine just prior to the onset of symptoms. Patient denied any fevers. She denies any significant abdominal pain. No history of use of NSAIDs. The patient did admit to having had an episode of acute kidney injury a few years ago with use of NSAIDs. She did admit to decreased urine output prior to admission. On admission, serum creatinine was noted to be at 9.0, and CO2 was less than 5. Potassium was 6.6. The patient does have urine output. She currently has an indwelling Moise catheter. Her lactic acid was elevated at 14 and 13 mmol/L. Patient is maintained on metformin at home 1000 mg b.i.d. for diabetes. Previous creatinine noted to be 1.2 on 06/21/2020. Blood pressure has not been low. It is mostly around 120s to 100 mmHg. Most recent systolic is noted to be 93 mmHg systolic. PAST MEDICAL HISTORY: Significant for hypertension, type 2 diabetes, gastroesophageal reflux disease, osteoarthritis, history of pneumonia, history of methotrexate-induced liver injury, history of psoriasis, rosacea, GI bleed, duodenal ulcers, hemorrhoids. PAST SURGICAL HISTORY: , hernia repair, hysterectomy, tonsillectomy, bilateral oophorectomy, shoulder surgery dupuytren's contracture surgery on the right hand, bilateral bunionectomies on the feet, right breast biopsy, skin cancer removal, liver biopsy. SOCIAL HISTORY: Negative for smoking, drug abuse or alcohol abuse. MEDICATIONS: Medications prior to admission included Effexor, ramipril, Xanax, Soriatane, Lipitor, metformin. ALLERGIES: NONE. REVIEW OF SYSTEMS: As per HPI. Other systems negative. PHYSICAL EXAMINATION: Patient is comfortable, awake. She is not in any acute distress. She appears quite weak. She is alert, oriented x3. Blood pressure was 121/56, heart rate 86 per minute. She is afebrile. EXAMINATION OF THE HEART: S1 and S2. EXAMINATION OF LUNGS: Bilateral breath sounds are heard. ABDOMEN: Soft, non-tender. Examination of lower extremities shows no evidence of edema. 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 Patient moving all 4 extremities. LABS: Sodium 146, potassium 7.9, chloride 108. CO2 less than 5, BUN 61, serum creatinine 8.48, glucose 255. UA shows 2+ protein, glucose. There is 1+ ketone, small blood. COVID PCR is negative. CT of the abdomen showed mild diffuse ileus. ASSESSMENT: 1. Acute kidney injury, acute tubular necrosis, currently nonoliguric, associated with severe volume depletion as well as possible hypotension prior to admission in the setting of use of SAL inhibitors. No evidence of obstruction noted on the CT scan. Currently patient has an indwelling Moise catheter and she has fair amount of urine output. 2. Severe metabolic acidosis. Anion gap could not be calculated. Most likely associated with lactic acidosis, renal failure. Will start patient on IV bicarb. 3. Lactic acidosis associated with current significant hypovolemia, hypoperfusion, as well as metformin, which can cause lactic acidosis. 4. Hyperkalemia associated with acute kidney injury, severe metabolic acidosis. No evidence of obstruction. No evidence of GI bleed. Currently not improving. We will proceed with dialysis. PLAN: Proceed with renal replacement therapy, as serum potassium has not improved and patient remains with intractable acidosis. Hold off on the metformin and ASL inhibitors. Continue with Moise catheter. Repeat labs in a.m. Avoid any nephrotoxic medications. Check phosphorus and CK levels if not done yet. Thank you for this consultation. Will continue to follow the patient with you during her hospitalization. MMODL / IJN: [id number] /
[2020-09-09 21:01] LABS: Glucose,Whole Blood 128 mg/dL (75-99)
[2020-09-09 21:19] LABS: Hepatitis B Surface AB- Quant 3.5 mIU/mL; Hepatitis B Surface Antibody Non-Reactive (Non-Reactive); Hepatitis B Surface Antigen Non-Reactive (Non-Reactive)
[2020-09-09 22:44] LABS: Calcium 7.7 mg/dL (8.4-10.2); Potassium 4.7 mmol/L (3.5-5.1)
[2020-09-09] MEDS: PANTOPRAZOLE 40 MG/10 ML VIAL IVP SCH (23:00)
--- NOTE | 2020-09-09 23:38 | CONS ---
CONSULTATION DATE OF SERVICE: 09/09/2020 REASON FOR CONSULTATION: Sepsis. HISTORY OF PRESENT ILLNESS: The patient is a 70-year-old female with multiple comorbidities, including diabetes, hypertension, history of breast cancer. The patient presented to [facility] ER yesterday evening for evaluation of nausea, vomiting, dizziness and diarrhea. Symptoms had been going on for about 9 days before presentation to the hospital. The patient mentioned symptoms started after she got a second dose of Moderna COVID vaccine. The patient mentioned multiple episodes of vomiting, unable to keep anything down. The patient has been complaining of diarrhea with multiple loose stools. No blood or mucus in the stool. No significant abdominal pain. Some slight discomfort in the epigastric area, more of a burning. The patient denies having any chest pain, shortness of breath or cough and denies high-grade fever. No urinary symptoms. With these symptoms, the patient was evaluated by the ER physician. On arrival in the ER, the patient was afebrile. The patient did have a white count of 18.9 with a repeat this morning of 28.1. D-dimer was elevated at 10.98. The patient did have an elevated BUN and creatinine. The creatinine was 9.04. Lactic acid was 6. AST mildly elevated. Lipase was elevated at 1495. Amylase of 148. Crow PCR was negative. Hepatitis antibody was negative. Urine was negative. The patient did have a chest x-ray; no active cardiopulmonary disease. The patient did have a CT of abdomen and pelvis with evidence of nonspecific colitis. The patient was started on Zosyn. Infectious Disease was consulted for further management of antibiotic therapy. REVIEW OF SYSTEMS: Positive points have been mentioned in the HPI. Rest of the systems are negative. 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 PAST SURGICAL HISTORY: Breast surgery, , hernia repair, hysterectomy, tonsillectomy, bilateral oophorectomy, left foot surgery. SOCIAL HISTORY: No history of smoking. Rarely drinks. No drug use. FAMILY HISTORY: Mother with history of diabetes and osteoarthritis. ALLERGIES: NO KNOWN DRUG ALLERGIES. MEDICATIONS: The patient is currently on Zosyn, Protonix, Zofran, Narcan, vancomycin, Pharmacy to dose, NovoLog, Tylenol. PHYSICAL EXAMINATION: Blood pressure 126/50 with a pulse of 90, temperature 98.7. She is 97% on room air. General description is an elderly female lying in bed in no distress. No tachypnea or accessory muscle of respiration use. HEENT: Examination shows no pallor or scleral icterus. Oral mucous membrane is dry. NECK: Trachea is central. No thyromegaly. LUNGS: Unlabored breathing. Decreased intensity of breath sounds. No wheeze or crackle. HEART: S1, S2. Regular rate and rhythm. ABDOMEN: Soft. No distention. No guarding or rigidity. EXTREMITIES: No edema of the feet. SKIN EXAMINATION: No rash or mass palpable. Neurologically the patient is awake, alert, oriented x3. Mood and affect normal. LABS: Hemoglobin is 12.1, white count 28.1. BUN of 61, creatinine 9.04. Potassium was 6.6, subsequently up to 7.9. Liver enzymes normal. Amylase and lipase elevated. DIAGNOSTIC IMPRESSION AND PLAN: 1. Patient presented to hospital with acute nausea, vomiting, diarrhea in this patient with evidence of sepsis with elevated white count, elevated lactic acid, and now with evidence of colitis, possibly infectious versus non-infectious, as currently no other obvious focus of infection and no need to cover for enteric Gram-negative, and less likely Gram-positive bacteria that we are dealing with. 2. Patient with renal insufficiency and high risk of nephrotoxicity from any nephrotoxic drugs. PLAN: 1. We will obtain a stool culture, stool for C difficile. 2. IV fluids. 3. May continue Zosyn; however, discontinue vancomycin to decrease risk of any further nephrotoxicity. 4. We will follow clinical condition and culture to further adjust medication if needed. Thank you for this consultation. Will follow this patient along with you. MMODL / IJN: [id number] /
[2020-09-10] MEDS: DEXTROSE 5% IN WATER 1,000 ML with SODIUM BICARB (1 MEQ/ML) 150 ML IV SCH ×2 (04:12→08:48)
[2020-09-10 05:25] LABS: Basophils % (A) 0 %; Eosinophils % (A) 0 %; HCT 25.7 % (34.0-46.0); Lymphocytes # (A) 0.9 k/uL (1.0-4.8); Lymphocytes % (A) 10 %; MCH 29.5 pg (25.0-35.0); Mean Platelet Volume 6.8; Monocytes # (A) 0.7 k/uL (0-1.0); Monocytes % (A) 7 %; Neutrophils # (A) 7.5 k/uL (1.3-7.7); Platelet Count 243 k/uL (150-450); RBC 3.14 m/uL (3.80-5.40); RDW 14.2 % (11.5-15.5); WBC 9.2 k/uL (3.8-10.6)
[2020-09-10 05:52] LABS: Calcium 7.2 mg/dL (8.4-10.2); Potassium 3.8 mmol/L (3.5-5.1)
[2020-09-10 06:32] LABS: Glucose,Whole Blood 142 mg/dL (75-99)
[2020-09-10 06:33] LABS: HGB 9.3 gm/dL (11.4-16.0); MCV 81.9 fL (80.0-100.0)
[2020-09-10] MEDS: INSULIN ASPART (NovoLOG) 100 UNIT/ML VIAL SQ SCH ×4 (06:51→20:51)
[2020-09-10] MEDS ORDERED: POTASSIUM CHLORIDE ER 10 MEQ TAB.ER.PRT PO STA (08:36)
[2020-09-10] MEDS: PIPERACILLIN-TAZOBACTAM 3.375 GM in SODIUM CHLORIDE 0.9% 100 ML IVPB SCH ×2 (08:59→21:27)
[2020-09-10] MEDS: PANTOPRAZOLE 40 MG/10 ML VIAL IVP SCH ×2 (09:00→21:27)
[2020-09-10] MEDS: HEPARIN SODIUM,PORCINE/PF 5,000 UNIT/0.5 ML SYRINGE SQ SCH ×2 (09:00→20:51)
[2020-09-10] MEDS: SODIUM CHLORIDE 0.9% 1,000 ML IV SCH ×2 (09:00→21:26)
--- NOTE | 2020-09-10 12:17 | P.PN ---
Subjective Progress Note Date: 09/10/20 Principal diagnosis: Acute renal failure with hyperkalemia, rule out sepsis 70-year-old female, who was initially admitted through the emergency room, on September 08, via EMS, with nausea, vomiting, and diarrhea. The patient apparently has a history of diabetes, hypertension, breast cancer, and gastroesophageal reflux disease. The patient came in complaining of 9 days of nausea, vomiting, and diarrhea. The patient did receive both of her vaccinations for coronavirus. She apparently denied any shortness of breath or chest pain. She apparently had been having some black tarry stool. She denied any significant abdominal pain. The patient was admitted with a diagnosis of acute renal failure, possible sepsis, lactic acidosis, and hyperkalemia. White count was 28.1, hem oglobin 12.1, hematocrit 39.5, and platelet count 482,000. D-dimer was 10.98. Venous blood gases had a pH of 6.84. Sodium 146, potassium 7.9, chlorides 108, carbon dioxide less than 5. BUN was 61, with a creatinine of 8.48. Glucose initially was 45. Repeat was 255. Lactic acid was 13.7. Urine was cloudy, leukocyte esterase and nitrate were both negative. There was 11 RBCs, 9 WBCs, and occasional bacteria. Coronavirus testing was negative. Chest x-ray was negative. CT of the abdomen and pelvis showed a nonspecific bowel gas pattern, mild diffuse ileus, and moderate uncomplicated acute colitis. Thus far, nephrology, infectious diseases, neurology, and vascular surgery has been con sulted. A hemodialysis catheter has not yet been placed. On 09/10/2020 patient seen in follow-up in intensive care unit, she is awake and alert, in no acute distress, she is resting comfortably in bed, appears to be in no acute distress, but appears to be weak, no respiratory difficulty, room air pulse ox is 97%, no vasoactive drips, she is currently on D5W with 3 A of bicarbonate at a rate of 150 ML per hour, no cough, no chest congestion, blood pressure is 102/48, patient is afebrile, blood and urine culture have shown no growth. Today's labs have been reviewed, her lactic acid is now within normal limits, and is down to 1.7, white blood cell, is down to 9.2, hemoglobin is 9.3, d-dimer was 10.9, her electrolytes are now within normal limits, BUN is 1023 and creatinine is 4.65. Hematemesis catheter was placed last night and patient was dialyzed patient's amylase and lipase were elevated at 148 and lipase was 1495, no abdominal discomfort, COVID-19 PCR was negative. Chest x-ray showed no active cardiopulmonary disease. Brain CT showed no acute cranial process. 2 for C. diff was negative. No nausea or vomiting, diarrhea has improved Objective - Vital Signs Vital signs: Vital Signs Temp 98.5 F 09/10/20 09:41 Pulse 92 09/10/20 09:00 Resp 11 L 09/10/20 09:00 BP 102/48 09/10/20 09:00 Pulse Ox 99 09/10/20 09:00 Intake & Output 09/09/20 09/10/20 09/10/20 18:59 06:59 18:59 Intake Total 1450 150 Output Total 2525 435 Balance -1075 -285 Weight 65 kg Intake: IV 1450 150 Dextrose 5% in Water 1, 1350 150 000 ml @ 150 mls/hr IV . Q7H40M ALEJA with Sodium Bicarb (1 Meq/ml) 150 ml Rx#:[id number] Piperacillin-Tazobactam 3 100 .375 gm In Sodium Chloride 0.9% 100 ml @ 25 mls/hr IVPB Q12HR ALEJA Rx #:[id number] Output: Urine 2525 435 Other: Voiding Method Indwelling Catheter Indwelling Catheter - Exam GENERAL EXAM: Alert, active, comfortable in no apparent distress. HEAD: Normocephalic/atraumatic. EYES: Normal reaction of pupils, equal size. Conjunctiva pink, sclera white. NOSE: Clear with pink turbinates. THROAT: No erythema or exudates. NECK: No masses, no JVD, no thyroid enlargement, no adenopathy. CHEST: No chest wall deformity. Symmetrical expansion. LUNGS: Equal air entry with no crackles, no rhonchi, no wheezes. CVS: Regular rate and rhythm, normal S1 and S2, no gallops, no murmurs, no rubs ABDOMEN: Soft, nontender. No hepatosplenomegaly, normal bowel sounds, no guarding or rigidity. EXTREMITIES: No clubbing, no edema, no cyanosis, 2+ pulses and upper and lower extremities. MUSCULOSKELETAL: Muscle strength and tone normal. Right femoral temporary dialysis catheter was noted SPINE: No scoliosis or deformity SKIN: No rashes CENTRAL NERVOUS SYSTEM: Alert and oriented -3. No focal deficits, tone is normal in all 4 extremities. PSYCHIATRIC: Alert and oriented -3. Appropriate affect. Intact judgment and insight. - Labs CBC & Chem 7: 09/10/20 04:50 09/10/20 04:50 Labs: Abnormal Lab Results - Last 24 Hours (Table) 09/09/20 09/09/20 09/09/20 Range/Units 11:30 12:09 14:22 RBC (3.80-5.40) m/uL Hgb (11.4-16.0) gm/dL Hct (34.0-46.0) % Lymphocytes # (1.0-4.8) k/uL D-Dimer 10.98 H (<0.60) mg/L FEU Sodium 146 H (137-145) mmol/L Potassium 7.9 H* (3.5-5.1) mmol/L Chloride 108 H (98-107) mmol/L Carbon Dioxide <5 L* (22-30) mmol/L BUN 61 H (7-17) mg/dL Creatinine 8.48 H* (0.52-1.04) mg/dL Glucose 255 H (74-99) mg/dL POC Glucose (mg/dL) (75-99) mg/dL Plasma Lactic Acid Eladio 13.7 H* (0.7-2.0) mmol/L Calcium (8.4-10.2) mg/dL AST 44 H (14-36) U/L Total Protein 6.2 L (6.3-8.2) g/dL Amylase (30-110) U/L Lipase (23-300) U/L 09/09/20 09/09/20 09/09/20 Range/Units 14:22 16:34 19:42 RBC (3.80-5.40) m/uL Hgb (11.4-16.0) gm/dL Hct (34.0-46.0) % Lymphocytes # (1.0-4.8) k/uL D-Dimer (<0.60) mg/L FEU Sodium (137-145) mmol/L Potassium 6.5 H* (3.5-5.1) mmol/L Chloride (98-107) mmol/L Carbon Dioxide <5 L* (22-30) mmol/L BUN 61 H (7-17) mg/dL Creatinine 8.03 H* (0.52-1.04) mg/dL Glucose 381 H (74-99) mg/dL POC Glucose (mg/dL) (75-99) mg/dL Plasma Lactic Acid Eladio 6.5 H* 6.0 H* (0.7-2.0) mmol/L Calcium 8.0 L (8.4-10.2) mg/dL AST (14-36) U/L Total Protein 6.2 L (6.3-8.2) g/dL Amylase 148 H (30-110) U/L Lipase 1495 H (23-300) U/L 09/09/20 09/09/20 09/09/20 Range/Units 20:23 20:59 22:31 RBC (3.80-5.40) m/uL Hgb (11.4-16.0) gm/dL Hct (34.0-46.0) % Lymphocytes # (1.0-4.8) k/uL D-Dimer (<0.60) mg/L FEU Sodium (137-145) mmol/L Potassium (3.5-5.1) mmol/L Chloride (98-107) mmol/L Carbon Dioxide 19 L (22-30) mmol/L BUN 42 H (7-17) mg/dL Creatinine 4.58 H (0.52-1.04) mg/dL Glucose 142 H (74-99) mg/dL POC Glucose (mg/dL) 141 H 128 H (75-99) mg/dL Plasma Lactic Acid Eladio (0.7-2.0) mmol/L Calcium 7.7 L (8.4-10.2) mg/dL AST (14-36) U/L Total Protein (6.3-8.2) g/dL Amylase (30-110) U/L Lipase (23-300) U/L 09/09/20 09/10/20 09/10/20 Range/Units 23:08 04:50 04:50 RBC 3.14 L (3.80-5.40) m/uL Hgb 9.3 L D (11.4-16.0) gm/dL Hct 25.7 L (34.0-46.0) % Lymphocytes # 0.9 L (1.0-4.8) k/uL D-Dimer (<0.60) mg/L FEU Sodium (137-145) mmol/L Potassium (3.5-5.1) mmol/L Chloride (98-107) mmol/L Carbon Dioxide (22-30) mmol/L BUN 43 H (7-17) mg/dL Creatinine 4.65 H (0.52-1.04) mg/dL Glucose 139 H (74-99) mg/dL POC Glucose (mg/dL) (75-99) mg/dL Plasma Lactic Acid Eladio 2.3 H* (0.7-2.0) mmol/L Calcium 7.2 L (8.4-10.2) mg/dL AST (14-36) U/L Total Protein (6.3-8.2) g/dL Amylase (30-110) U/L Lipase (23-300) U/L 09/10/20 Range/Units 06:31 RBC (3.80-5.40) m/uL Hgb (11.4-16.0) gm/dL Hct (34.0-46.0) % Lymphocytes # (1.0-4.8) k/uL D-Dimer (<0.60) mg/L FEU Sodium (137-145) mmol/L Potassium (3.5-5.1) mmol/L Chloride (98-107) mmol/L Carbon Dioxide (22-30) mmol/L BUN (7-17) mg/dL Creatinine (0.52-1.04) mg/dL Glucose (74-99) mg/dL POC Glucose (mg/dL) 142 H (75-99) mg/dL Plasma Lactic Acid Eladio (0.7-2.0) mmol/L Calcium (8.4-10.2) mg/dL AST (14-36) U/L Total Protein (6.3-8.2) g/dL Amylase (30-110) U/L Lipase (23-300) U/L Microbiology - Last 24 Hours (Table) 09/10/20 04:25 Urine Culture - Preliminary Urine,Voided 09/08/20 22:48 Blood Culture - Preliminary Blood No Growth after 24 hours 09/08/20 22:44 Blood Culture - Preliminary Blood No Growth after 24 hours Assessment and Plan Plan: Assessment: #1. Acute renal failure with hyperkalemia, improved with hemodialysis and BUN is down to 43, and creatinine is down to 4.65 on today's labs, potassium is 3.8 #2. Anion gap metabolic acidosis #3. Lactic acidosis rule out possibility of sepsis, possibly from urinary source #4. Severe dehydration due to nausea vomiting and diarrhea, C. diff was negative #5. Negative COVID-19 test, and no respiratory symptoms #6. Elevated d-dimer, patient has no hypoxia, no respiratory symptoms, doubt possibility of pulmonary embolism, we will obtain lower extremity Dopplers #7. History of hypertension #8. History of diabetes mellitus #9. History of hyperlipidemia #10. History of GERD/reflux #11. History of psoriasis #12. History of rosacea #13. History of chronic liver disease #14. History of breast cancer Plan: Obtain lower extremity Dopplers to rule out possibility of lower extremity DVTs, doubt possibility of pulmonary embolism in the absence of hypoxia, or any r espiratory symptoms, continue with SQ Heparing for DVT prophylaxis, renal profile is improving, blood pressure has improved, we'll discontinue the bicarbonate infusion, we'll switch the IV fluids 2.9 normal saline at 80 ML per hour, continue current antibiotic coverage, no fever, her cultures are negative thus far, C. diff was negative, COVID-19 was negative. Patient is clinically stable to go out of intensive care unit to the regular medical surgical floor today I performed a history & physical examination of the patient and discussed their management with my nurse practitioner, Kylee Turner. I reviewed the nurse practitioner's note and agree with the documented findings and plan of care. Lung sounds are positive for diminished breath sounds. The findings and the impression was discussed with the patient. I attest to the documentation by the nurse practitioner. Time with Patient: Less than 30
[2020-09-10 12:18] LABS: Glucose,Whole Blood 129 mg/dL (75-99)
--- NOTE | 2020-09-10 13:39 | PN ---
PROGRESS NOTE Patient is seen for followup for acute kidney injury and hyperkalemia. She was dialyzed yesterday. Serum potassium has improved with down to 3.8 now and serum creatinine is also better 4.6, but patient did have dialysis yesterday. She has had good urine output now. She is maintained on IV fluids. Overall she is doing much better. No significant diarrhea, nausea or vomiting noted at this time. PHYSICAL EXAMINATION: Blood pressure was 102/48, heart rate 92 per minute. Patient is afebrile. EXAMINATION OF THE HEART: S1, S2. EXAMINATION OF THE LUNGS: Bilateral breath sounds are heard. Decreased breath sounds at bases. Abdomen is soft, nontender. Examination of lower extremities shows no evidence of edema. 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 Patient moving all 4 extremities. LABS: Labs show sodium 137, potassium 3.8, chloride 100, BUN 43, creatinine 4.65, hemoglobin 9.3 g/dL. Lactic acid down to 1.7. ASSESSMENT: 1. Acute kidney injury, acute tubular necrosis, currently nonoliguric and associated with severe volume depletion currently improved. Patient had one treatment of hemodialysis. I will hold off on any further dialysis today and I will continue with IV fluids and repeat labs in a.m. 2. Severe hyperkalemia associated with acute kidney injury and metabolic acidosis currently improved post dialysis. 3. Severe metabolic acidosis and lactic acidosis associated with hypoperfusion, hypovolemia as well as secondary to metformin which can cause lactic acidosis. PLAN: Maintain patient on saline. Hold dialysis today. Continue off of Glucophage and SAL inhibitors. Repeat labs in a.m. Replace potassium cautiously. MMODL / IJN: [id number] /
--- NOTE | 2020-09-10 16:05 | US ---
EXAMINATION TYPE: US venous doppler duplex LE BI DATE OF EXAM: 09/10/2020 2:12 PM COMPARISON: NONE CLINICAL HISTORY: 70-year-old female rule out DVT. Patient stated had reaction to Moderna Vaccination ; denies PE; denies leg; right groin arterial line is present thus limited LEV at this area. SIDE PERFORMED: Bilateral TECHNIQUE: The lower extremity deep venous system is examined utilizing real time linear array sonog more with graded compression, doppler sonography and color-flow sonography. FINDINGS: VESSELS IMAGED: Common Femoral Vein Deep Femoral Vein Greater Saphenous Vein * Femoral Vein Popliteal Vein Small Saphenous Vein * Proximal Calf Veins (* superficial vessels) Right Leg: Negative for DVT; Right CFV not assessed due to arterial line here. Left Leg: Negative for DVT IMPRESSION: The right common femoral vein was not assessed due to the patient's arterial line. Otherwise, no evid ence for DVT within the bilateral lower extremities down to the upper calves.
--- NOTE | 2020-09-10 16:21 | PN ---
PROGRESS NOTE DATE OF SERVICE: 09/10/2020 This 70-year-old woman who was admitted with acute renal failure possibly secondary to nausea, vomiting, diminished p.o. intake, and multiple medications also seen to have hyperkalemia. The patient had multiple medical issues. Patient had also hemodialysis yesterday. The patient is symptomatic. Patient also had features of sepsis possibly from nonspecific colitis, which was also treated with broad-spectrum IV antibiotics. Patient being closely monitored. The patient monitored in ICU overnight at this time. The CT scan of the brain did not show any acute abnormality. All the cultures are negative so far. Multiple consultants are following the patient closely. PAST MEDICAL HISTORY: Reviewed. REVIEW OF SYSTEMS: CARDIOVASCULAR SYSTEM: No angina. RESPIRATORY SYSTEM: As mentioned earlier. GI: As mentioned earlier. : As mentioned earlier. NERVOUS SYSTEM: No numbness or weakness. CURRENT MEDICATIONS: Current medications are reviewed and include: Tylenol, NovoLog, Narcan, Zofran Protonix Zosyn IV. PHYSICAL EXAMINATION: Patient is alert, oriented x2. Pulse 86, blood pressure 111/53, respiration 17, temperature 98.9, pulse ox 100% on room air. HEENT: Conjunctivae normal. NECK: No jugular venous distention. CARDIOVASCULAR: S1, S2 muffled. RESPIRATORY: Breath sounds diminished at the bases. A few scattered rhonchi. ABDOMEN: Soft, nontender. No mass palpable. LEGS: No edema. No swelling. NERVOUS SYSTEM: No focal deficits. LABS: WBC 9.2, hemoglobin 9.3, and lymphocytes 0.9. Creatinine is 4.65. Lactic acid 2.3. ASSESSMENT: 1. Acute renal failure possibly prerenal acute tubular necrosis with severe hyperkalemia, acute metabolic acidosis, status post hemodialysis. 2. Nausea, vomiting, diarrhea, possibly gastritis or colitis. 3. Possible sepsis secondary to colitis. 4. Elevated lactic acid. 5. Hyperkalemia, severe. 6. Diabetes mellitus type 2 with hyperglycemia and hypoglycemia. 7. Possible urinary tract infection with sepsis, present on admission. 8. Diabetes mellitus type 2. 9. History of recent COVID-19 vaccine administration. 10.Gastroesophageal reflux disease. 11.Hypertension. 12.History of stage III liver disease. 13.Degenerative joint disease. 14.History of pneumonia. 15.History of skin disorder. 16.History of psoriasis. 17.History of duodenal ulcer. 18.History of breast surgery. 19.History of motion sickness. 20.History of claustrophobia. 21.History of depression. RECOMMENDATIONS AND DISCUSSION: Recommend to continue current medications, continue symptomatic treatment. Otherwise, further dialysis per Dr. Urrutia. The patient is making significant purnima urine at this time. We will monitor the creatinine closely. Hyperkalemia has . As mentioned earlier, continue the broad-spectrum IV antibiotics and CT scan of the abdomen and pelvis is noted. Guarded prognosis because of multiple complex medical issues. Further recommendations to follow. Repeat labs will be ordered. See orders for details. COVID-19 testing was negative. I would recommend on COVID-19. Further recommendations to follow. MMODL / IJN: [id number] / SIMA
--- NOTE | 2020-09-10 16:46 | PN ---
PROGRESS NOTE DATE OF SERVICE: 09/10/2020 REASON FOR FOLLOW UP: Colitis. INTERVAL HISTORY: Patient is currently afebrile. The patient has been feeling better. She is breathing comfortably. Denies any further nausea or vomiting. No chest pain, shortness of breath or cough. No abdominal pain. PHYSICAL EXAMINATION: Blood pressure 111/53 with a pulse of 83, temperature 99.9. She is 100% on room air. General description is a middle-aged female lying in bed in no distress. RESPIRATORY SYSTEM: Unlabored breathing, clear to auscultation anteriorly. HEART: S1, S2. Regular rate. ABDOMEN: Soft, no tenderness. LABS: Hemoglobin 9.1, white count normalized to 9.2, BUN of 43, creatinine 4.67, . DIAGNOSTIC IMPRESSION AND PLAN: Patient admitted to the hospital with nausea, vomiting, diarrhea. This patient has evidence of on the CT. Stool culture has been requested and was not collected. The patient seemed to have clinically responded to Zosyn that will be continued and monitor clinical course closely. MMODL / IJN: [id number] /
[2020-09-10 17:11] LABS: Glucose,Whole Blood 135 mg/dL (75-99)
[2020-09-10 20:05] LABS: Glucose,Whole Blood 198 mg/dL (75-99)
[2020-09-11 06:41] LABS: Basophils % (A) 0 %; Eosinophils % (A) 1 %; HCT 25.5 % (34.0-46.0); HGB 9.2 gm/dL (11.4-16.0); Lymphocytes # (A) 1.4 k/uL (1.0-4.8); Lymphocytes % (A) 29 %; MCH 29.9 pg (25.0-35.0); MCHC 35.9 g/dL (31.0-37.0); MCV 83.4 fL (80.0-100.0); Mean Platelet Volume 6.8; Monocytes # (A) 0.4 k/uL (0-1.0); Monocytes % (A) 7 %; Neutrophils # (A) 2.9 k/uL (1.3-7.7); Neutrophils % (A) 61 %; Platelet Count 148 k/uL (150-450); RBC 3.06 m/uL (3.80-5.40); RDW 14.1 % (11.5-15.5); WBC 4.7 k/uL (3.8-10.6)
[2020-09-11 07:10] LABS: Glucose,Whole Blood 129 mg/dL (75-99)
[2020-09-11] MEDS: INSULIN ASPART (NovoLOG) 100 UNIT/ML VIAL SQ SCH ×4 (08:22→20:40)
[2020-09-11] MEDS: HEPARIN SODIUM,PORCINE/PF 5,000 UNIT/0.5 ML SYRINGE SQ SCH ×2 (09:01→20:40)
[2020-09-11] MEDS: PIPERACILLIN-TAZOBACTAM 3.375 GM in SODIUM CHLORIDE 0.9% 100 ML IVPB SCH ×2 (09:01→20:50)
[2020-09-11] MEDS: PANTOPRAZOLE 40 MG/10 ML VIAL IVP SCH (09:01)
[2020-09-11] MEDS: SODIUM CHLORIDE 0.9% 1,000 ML IV SCH ×2 (09:02→20:51)
--- NOTE | 2020-09-11 09:58 | P.CNNES ---
History of Present Illness Consult date: 09/11/20 Requesting physician: Roxanna Davidson Reason for Consult: Cerebral thrombosis? History of Present Illness: Patient is a 70-year-old female with past history of diabetes, hypertension, stage II liver disease, history of breast cancer, came to the hospital on 09/08/2020 by ambulance at 9 PM for nausea, vomiting, dizziness for the last 9 days. Patient states that on 08/27/2020, she had a stress test. On 08/30/2020 she received Moderna second vaccine at 3:30 PM. Around 9 PM same day, she started feeling bad, couldn't keep anything down. Her temperature went up to 103. Later the temperature improved, but she could not keep anything down. She laid in the bed rest of the week, did not do much. She was not able to eat or drink much. Only bilious food was coming out. As her symptoms persisted, she decided to come to the ER. She denied any shortness of breath or chest pain. Patient denies any focal symptoms. She was not taking any pain medications during this time. She has been having some mild right temporal headache, which she rates 3/10, but is not unusual for her. Denies any focal symptoms. Blood s ugar was 68 at the scene as per EMS flow sheet. Vital signs on arrival blood pressure 161/68, pulse rate 100 temperature 98.3. Computed tomography scan of the head showed no acute intracranial hemorrhage, midline shift or mass effect. Ultrasound of the lower extremities was negative for DVT in either lower extremities.EKG shows sinus tachycardia. Chest x-ray showed no acute cardiopulmonary disease. Normal heart. Patient's blood test on arrival shows WBC 18.9, hemoglobin 11.7, platelets 429. PT/PTT normal. Patient's blood test shows sodium 139 potassium 6.6, BUN 60, creatinine 9.04, normal hepatic panel. UA shows 1+ ketones, small amount of blood, 2+ glucose, 9 wbc's and occasional bacteria. Crow virus negative. Stool occult blood negative. Patient's baseline renal functions has been normal as of 03/15/2020. Patient has an acute renal failure. Patient has history of diabetes for 20 years. Patient has history of optical migraines. Patient states that in 2019 she had a vasovagal syncope versus hypoglycemic syncope, in which she fell and hit her head on the cast iron. She split her scalp open. Since that time, she has been having occasional headache. Patient says that she has history of kidney failure 1 time before also when she was taking ibuprofen after she underwent surgery for Dupuytren's contracture, but it resolved. Review of Systems As mentioned above in detail. All other review of systems unremarkable. Denies any chest pain, shortness of breath, wheezing or cough. Denies any abdominal pain. She has been having some nausea vomiting but no diarrhea. Denies any loss of vision, double vision, hearing loss. Denies any loss of control of urine. Denies any neck or back pain. 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, psoriasis, rosacea, 2008 acute renal disease, duodenal ulcers, hemorrhoids, mono as a teen, hx skin cancer, heart murmer, History of Any Multi-Drug Resistant Organisms: None Reported Past Surgical History: Breast Surgery, Section, Hernia Repair, Hysterectomy, Orthopedic Surgery, Tonsillectomy Additional Past Surgical History / Comment(s): Umbilical hernia repair, nori oophorectomy L shoulder bone/spur/tendon surgery, R hand dupretyens contraction, bilateral feet bunionectomies, R breast biopsy, skin cancer removals, liver biopsy, left wrist, Past Anesthesia/Blood Transfusion Reactions: Motion Sickness Additional Past Anesthesia/Blood Transfusion Reaction / Comment(s): claustrophobia, "I wake up really cold" Past Psychological History: Depression Smoking Status: Never smoker Past Alcohol Use History: Rare Past Drug Use History: None Reported - Past Family History Mother History Unknown: Yes Family Medical History: Diabetes Mellitus, Osteoarthritis (OA) Additional Family Medical History / Comment(s): . Father History Unknown: Yes Additional Family Medical History / Comment(s): Father has L shoulder issues. He is 86yrs old. Medications and Allergies Home Medications Medication Instructions Recorded Confirmed Type Ramipril 10 mg PO DAILY 05/03/14 09/08/20 History Venlafaxine HCl ER [Effexor XR] 75 mg PO DAILY 02/28/19 09/08/20 History ALPRAZolam [Xanax] 0.125 - 0.25 mg PO HS PRN 06/19/20 04/18/21 History Acitretin [Soriatane] 25 mg PO DAILY 11/10/19 09/08/20 History Atorvastatin [Lipitor] 20 mg PO Q48H 11/10/19 09/08/20 History metFORMIN HCL 1,000 mg PO BID 11/10/19 09/08/20 History Allergies Allergy/AdvReac Type Severity Reaction Status Date / Time No Known Allergies Allergy Verified 09/08/20 23:30 Physical Examination - Vital Signs Vital Signs: Vital Signs Temp Pulse Pulse Pulse Resp BP BP 09/11/20 05:00 98.7 F 77 16 09/10/20 19:33 98.3 F 84 16 09/10/20 16:20 98.2 F 77 14 09/10/20 13:11 98.9 F 86 17 111/53 09/10/20 09:41 98.5 F 09/10/20 09:00 92 11 L 102/48 BP Pulse Ox 09/11/20 05:00 115/53 97 09/10/20 19:33 119/62 100 09/10/20 16:20 120/63 100 09/10/20 13:11 100 09/10/20 09:41 09/10/20 09:00 99 Intake and Output 09/10/20 09/11/20 09/11/20 22:59 06:59 14:59 Intake Total 2130 Output Total 1000 900 Balance -1000 1230 Intake: Intake, IV Titration 1060 Amount Piperacillin-Tazobactam 3 100 .375 gm In Sodium Chloride 0.9% 100 ml @ 25 mls/hr IVPB Q12HR [facility] Rx #:[id number] Sodium Chloride 0.9% 1, 960 000 ml @ 80 mls/hr IV . [id number] [facility] Rx#:[id number] Oral 1070 Output: Urine 1000 900 Uretheral (Moise) 900 Other: Voiding Method Indwelling Catheter Weight 52 kg Patient is an elderly female, in no distress. Patient is alert awake oriented to time place and person. Speech and language functions are normal. Attention, concentration and fund of knowledge is adequate. On cranial examination, pupils are round and reacting to light, visual villarreal are full on confrontation, extraocular muscles are intact with no nystagmus. Face is symmetric, tongue protrudes to the midline. Palatal elevation and sensation normal, hearing and shoulder shrug normal, facial sensation normal. Shoulder shrug normal. On muscle strength testing, there is no pronator drift and the strength is normal in arms and legs distally and proximally. Deep tendon reflexes are (right/left) biceps 1/trace, brachioradialis 1/trace, knee 2/2, ankles 1/1 and plantars downgoing bilaterally. Sensory to touch is equal with no neglect. Cerebellar function showed no ataxia for [id number] testing. No dysdiadochokinesia. Tone and bulk of muscles normal. Gait normal. On general examination, there patient has bilateral carotid bruit, also has mo derate murmur heard at the base, S1-S2 audible. Abdomen is soft nontender. Chest is clear. Peripheral pulses are present. No edema. Results - Laboratory Findings CBC and BMP: 09/11/20 05:36 09/11/20 05:36 Abnormal Lab Findings: Abnormal Labs 09/08/20 09/08/20 09/08/20 21:12 21:14 21:19 WBC 18.9 H RBC Hgb Hct MCHC Plt Count Neutrophils # 15.0 H Lymphocytes # Monocytes # APTT D-Dimer VBG pH VBG pCO2 VBG HCO3 Sodium Potassium Chloride Carbon Dioxide BUN Creatinine Glucose POC Glucose (mg/dL) 51 L 52 L Plasma Lactic Acid Eladio Calcium Phosphorus Magnesium AST Total Protein Amylase Lipase Urine Appearance Urine Protein Urine Glucose (UA) Urine Ketones Urine Blood Urine RBC Urine WBC Urine Bacteria Urine Mucus 09/08/20 09/08/20 09/08/20 21:19 21:19 21:22 WBC RBC Hgb Hct MCHC Plt Count Neutrophils # Lymphocytes # Monocytes # APTT 21.7 L D-Dimer VBG pH VBG pCO2 VBG HCO3 Sodium Potassium 6.6 H* Chloride Carbon Dioxide <5 L* BUN 60 H Creatinine 9.04 H* Glucose 45 L* POC Glucose (mg/dL) Plasma Lactic Acid Eladio 10.4 H* Calcium Phosphorus Magnesium AST Total Protein Amylase Lipase Urine Appearance Urine Protein Urine Glucose (UA) Urine Ketones Urine Blood Urine RBC Urine WBC Urine Bacteria Urine Mucus 09/08/20 09/08/20 09/08/20 21:49 22:39 22:39 WBC RBC Hgb Hct MCHC Plt Count Neutrophils # Lymphocytes # Monocytes # APTT D-Dimer VBG pH 6.84 L* VBG pCO2 21 L VBG HCO3 3 L* Sodium Potassium 6.4 H* Chloride Carbon Dioxide BUN Creatinine Glucose POC Glucose (mg/dL) 143 H Plasma Lactic Acid Eladio Calcium Phosphorus Magnesium AST Total Protein Amylase Lipase Urine Appearance Urine Protein Urine Glucose (UA) Urine Ketones Urine Blood Urine RBC Urine WBC Urine Bacteria Urine Mucus 09/08/20 09/08/20 09/09/20 23:15 23:16 00:05 WBC RBC Hgb Hct MCHC Plt Count Neutrophils # Lymphocytes # Monocytes # APTT D-Dimer VBG pH VBG pCO2 VBG HCO3 Sodium Potassium Chloride Carbon Dioxide BUN Creatinine Glucose POC Glucose (mg/dL) 230 H Plasma Lactic Acid Eladio 11.5 H* Calcium Phosphorus Magnesium AST Total Protein Amylase Lipase Urine Appearance Cloudy H Urine Protein 2+ H Urine Glucose (UA) 1+ H Urine Ketones 1+ H Urine Blood Small H Urine RBC 11 H Urine WBC 9 H Urine Bacteria Occasional H Urine Mucus Rare H 09/09/20 09/09/20 09/09/20 00:05 04:17 04:17 WBC 28.1 H RBC Hgb Hct MCHC 30.7 L Plt Count 482 H Neutrophils # 24.8 H Lymphocytes # Monocytes # 1.5 H APTT D-Dimer VBG pH VBG pCO2 VBG HCO3 Sodium Potassium 7.6 H* Chloride 108 H Carbon Dioxide <5 L* BUN 57 H Creatinine 8.40 H* Glucose 126 H POC Glucose (mg/dL) Plasma Lactic Acid Eladio Calcium Phosphorus 7.6 H Magnesium 2.6 H AST Total Protein Amylase Lipase Urine Appearance Urine Protein Urine Glucose (UA) Urine Ketones Urine Blood Urine RBC Urine WBC Urine Bacteria Urine Mucus 09/09/20 09/09/20 09/09/20 04:17 09:08 10:04 WBC RBC Hgb Hct MCHC Plt Count Neutrophils # Lymphocytes # Monocytes # APTT D-Dimer VBG pH VBG pCO2 VBG HCO3 Sodium Potassium Chloride Carbon Dioxide BUN Creatinine Glucose POC Glucose (mg/dL) 220 H Plasma Lactic Acid Eladio 12.3 H* 14.0 H* Calcium Phosphorus Magnesium AST Total Protein Amylase Lipase Urine Appearance Urine Protein Urine Glucose (UA) Urine Ketones Urine Blood Urine RBC Urine WBC Urine Bacteria Urine Mucus 09/09/20 09/09/20 09/09/20 11:30 12:09 14:22 WBC RBC Hgb Hct MCHC Plt Count Neutrophils # Lymphocytes # Monocytes # APTT D-Dimer 10.98 H VBG pH VBG pCO2 VBG HCO3 Sodium 146 H Potassium 7.9 H* Chloride 108 H Carbon Dioxide <5 L* BUN 61 H Creatinine 8.48 H* Glucose 255 H POC Glucose (mg/dL) Plasma Lactic Acid Eladio 13.7 H* Calcium Phosphorus Magnesium AST 44 H Total Protein 6.2 L Amylase Lipase Urine Appearance Urine Protein Urine Glucose (UA) Urine Ketones Urine Blood Urine RBC Urine WBC Urine Bacteria Urine Mucus 09/09/20 09/09/20 09/09/20 14:22 16:34 19:42 WBC RBC Hgb Hct MCHC Plt Count Neutrophils # Lymphocytes # Monocytes # APTT D-Dimer VBG pH VBG pCO2 VBG HCO3 Sodium Potassium 6.5 H* Chloride Carbon Dioxide <5 L* BUN 61 H Creatinine 8.03 H* Glucose 381 H POC Glucose (mg/dL) Plasma Lactic Acid Eladio 6.5 H* 6.0 H* Calcium 8.0 L Phosphorus Magnesium AST Total Protein 6.2 L Amylase 148 H Lipase 1495 H Urine Appearance Urine Protein Urine Glucose (UA) Urine Ketones Urine Blood Urine RBC Urine WBC Urine Bacteria Urine Mucus 09/09/20 09/09/20 09/09/20 20:23 20:59 22:31 WBC RBC Hgb Hct MCHC Plt Count Neutrophils # Lymphocytes # Monocytes # APTT D-Dimer VBG pH VBG pCO2 VBG HCO3 Sodium Potassium Chloride Carbon Dioxide 19 L BUN 42 H Creatinine 4.58 H Glucose 142 H POC Glucose (mg/dL) 141 H 128 H Plasma Lactic Acid Eladio Calcium 7.7 L Phosphorus Magnesium AST Total Protein Amylase Lipase Urine Appearance Urine Protein Urine Glucose (UA) Urine Ketones Urine Blood Urine RBC Urine WBC Urine Bacteria Urine Mucus 09/09/20 09/10/20 09/10/20 23:08 04:50 04:50 WBC RBC 3.14 L Hgb 9.3 L D Hct 25.7 L MCHC Plt Count Neutrophils # Lymphocytes # 0.9 L Monocytes # APTT D-Dimer VBG pH VBG pCO2 VBG HCO3 Sodium Potassium Chloride Carbon Dioxide BUN 43 H Creatinine 4.65 H Glucose 139 H POC Glucose (mg/dL) Plasma Lactic Acid Eladio 2.3 H* Calcium 7.2 L Phosphorus Magnesium AST Total Protein Amylase Lipase Urine Appearance Urine Protein Urine Glucose (UA) Urine Ketones Urine Blood Urine RBC Urine WBC Urine Bacteria Urine Mucus 09/10/20 09/10/20 09/10/20 06:31 12:16 17:09 WBC RBC Hgb Hct MCHC Plt Count Neutrophils # Lymphocytes # Monocytes # APTT D-Dimer VBG pH VBG pCO2 VBG HCO3 Sodium Potassium Chloride Carbon Dioxide BUN Creatinine Glucose POC Glucose (mg/dL) 142 H 129 H 135 H Plasma Lactic Acid Eladio Calcium Phosphorus Magnesium AST Total Protein Amylase Lipase Urine Appearance Urine Protein Urine Glucose (UA) Urine Ketones Urine Blood Urine RBC Urine WBC Urine Bacteria Urine Mucus 09/10/20 09/11/20 09/11/20 20:04 05:36 05:36 WBC RBC 3.06 L Hgb 9.2 L Hct 25.5 L MCHC Plt Count 148 L Neutrophils # Lymphocytes # Monocytes # APTT D-Dimer VBG pH VBG pCO2 VBG HCO3 Sodium Potassium Chloride Carbon Dioxide BUN Creatinine 4.37 H Glucose POC Glucose (mg/dL) 198 H Plasma Lactic Acid Eladio Calcium Phosphorus Magnesium AST Total Protein Amylase Lipase Urine Appearance Urine Protein Urine Glucose (UA) Urine Ketones Urine Blood Urine RBC Urine WBC Urine Bacteria Urine Mucus 09/11/20 07:09 WBC RBC Hgb Hct MCHC Plt Count Neutrophils # Lymphocytes # Monocytes # APTT D-Dimer VBG pH VBG pCO2 VBG HCO3 Sodium Potassium Chloride Carbon Dioxide BUN Creatinine Glucose POC Glucose (mg/dL) 129 H Plasma Lactic Acid Eladio Calcium Phosphorus Magnesium AST Total Protein Amylase Lipase Urine Appearance Urine Protein Urine Glucose (UA) Urine Ketones Urine Blood Urine RBC Urine WBC Urine Bacteria Urine Mucus Assessment and Plan Assessment: * Mild right-sided temporal headache 3/10, which is chronic and intermittent since her head injury in 2019. No clinical evidence of cerebral sinus throm bosis. Computed tomography scan of head was normal. * Nausea vomiting, likely due to possible colitis. * Acute renal failure, started on hemodialysis * Bilateral carotid bruit * Diabetes * Elevated amylase and lipase * Anemia Plan: * No clinical evidence of cerebral sinus thrombosis. * Patient has bilateral carotid bruit. We will check carotid Doppler. * Creatine kinase normal 76. Hemoglobin A1c 6.5 on 06/21/2020. * Other medical management as per IM/ID. * We will follow.
[2020-09-11 12:04] LABS: Glucose,Whole Blood 119 mg/dL (75-99)
--- NOTE | 2020-09-11 12:14 | US ---
EXAMINATION TYPE: US carotid duplex BILAT DATE OF EXAM: 09/11/2020 COMPARISON: NONE CLINICAL HISTORY: Bilateral bruit. Bruit EXAM MEASUREMENTS: RIGHT: Peak Systolic Velocity (PSV) cm/sec ----- Right CCA: 97.4 ----- Right ICA: 120 ----- Right ECA: 191 ICA/CCA ratio: 1.6 RIGHT: End Diastole cm/sec ----- Right CCA: 20.8 ----- Right ICA: 34.3 ----- Right ECA: 0 LEFT: Peak Systolic Velocity (PSV) cm/sec ----- Left CCA: 101 ----- Left ICA: 141 ----- Left ECA: 155 ICA/CCA ratio: 1.1 LEFT: End Diastole cm/sec ----- Left CCA: 20.3 ----- Left ICA: 51.6 ----- Left ECA: 8.1 VERTEBRALS (direction of flow): Right Vertebral: Antegrade Left Vertebral: Antegrade Rhythm: Normal IMPRESSION: No significant stenosis seen Criteria for Assigning % of Stenosis / Diameter reduction (Estimation based on the indirect measurements of the internal carotid artery velocities (ICA PSV). 1. Normal (no stenosis)=ICA PSV < 125 cm/s: ratio < 2.0: ICA EDV<40 cm/s. 2. Less than 50% stenosis=ICA PSV < 125 cm/s: ratio < 2.0: ICA EDV<40 cm/s. 3. 50 to 69% stenosis=ICA PSV of 125 to 230 cm/s: ration 2.0 ? 4.0: ICA EDV 40-100 cm/s. 4. Greater than 70% stenosis to near occlusion= ICA PSV > 230 cm/s: ratio > 4.0: ICA EDV > 100 cm/s. 5. Near occlusion= ICA PSV velocities may be low or undetectable: variable ratio and ICA EDV. 6. Total occlusion=unable to detect flow.
[2020-09-11 13:02] LABS: ALT 11 U/L (4-34); AST 20 U/L (14-36); African American GFR (CKD) 12 (>60 ml/min/1.73 sqM); Albumin 2.8 g/dL (3.5-5.0); Albumin/Globulin Ratio 1.4; Alkaline Phosphatase 78 U/L (38-126); Anion Gap 7 mmol/L; Blood Urea Nitrogen 37 mg/dL (7-17); Calcium 7.4 mg/dL (8.4-10.2); Carbon Dioxide 31 mmol/L (22-30); Chloride 102 mmol/L (98-107); Glucose 108 mg/dL (74-99); Non-African American GFR(CKD) 10 (>60 ml/min/1.73 sqM); Potassium 3.1 mmol/L (3.5-5.1); Sodium 140 mmol/L (137-145); Total Bilirubin 0.3 mg/dL (0.2-1.3); Total Protein 4.8 g/dL (6.3-8.2)
--- NOTE | 2020-09-11 13:46 | P.PN ---
Subjective Progress Note Date: 09/11/20 Principal diagnosis: Renal failure. 70-year-old female, who was initially admitted through the emergency room, on September 08, via EMS, with nausea, vomiting, and diarrhea. The patient apparently has a history of diabetes, hypertension, breast cancer, and gastroesophageal reflux disease. The patient came in complaining of 9 days of nausea, vomiting, and diarrhea. The patient did receive both of her vaccinations for coronavirus. She apparently denied any shortness of breath or chest pain. She apparently had been having some black tarry stool. She denied any significant abdominal pain. The patient was admitted with a diagnosis of acute renal failure, possible sepsis, lactic acidosis, and hyperkalemia. White count was 28.1, hemoglobin 12.1, hematocrit 39.5, and platelet count 482,000. D-dimer was 10.98. Venous blood gases had a pH of 6.84. Sodium 146, potassium 7.9, chlorides 108, carbon dioxide less than 5. BUN was 61, with a creatinine of 8.48. Glucose initially was 45. Repeat was 255. Lactic acid was 13.7. Urine was cloudy, leukocyte esterase and nitrate were both negative. There was 11 RBCs, 9 WBCs, and occasional bacteria. Coronavirus testing was negative. Chest x-ray was negative. CT of the abdomen and pelvis showed a nonspecific bowel gas pattern, mild diffuse ileus, and moderate uncomplicated acute colitis. Thus far, nephrology, infectious diseases, neurology, and vascular surgery has been consulted. A hemodialysis catheter has not yet been placed. On 09/10/2020 patient seen in follow-up in intensive care unit, she is awake and alert, in no acute distress, she is resting comfortably in bed, appears to be in no acute distress, but appears to be weak, no respiratory difficulty, room air pulse ox is 97%, no vasoactive drips, she is currently on D5W with 3 A of bicarbonate at a rate of 150 ML per hour, no cough, no chest congestion, blood pressure is 102/48, patient is afebrile, blood and urine culture have shown no growth. Today's labs have been reviewed, her lactic acid is now within normal limits, and is down to 1.7, white blood cell, is down to 9.2, hemoglobin is 9.3, d-dimer was 10.9, her electrolytes are now within normal limits, BUN is 1023 and creatinine is 4.65. Hematemesis catheter was placed last night and patient was dialyzed patient's amylase and lipase were elevated at 148 and lipase was 1495, no abdominal discomfort, COVID-19 PCR was negative. Chest x-ray showed no active cardiopulmonary disease. Brain CT showed no acute cranial process. 2 for C. diff was negative. No nausea or vomiting, diarrhea has improved Progress note dated 09/11/2020. 70-year-old female admitted with a diagnosis of acute renal failure with hyperkalemia. The patient had emergent hemodialysis, and is doing better. The patient has multiple medical problems including hypertension, diabetes, hyperlipidemia, psoriasis, rosacea, and breast cancer to name a few problems. Currently, she is resting comfortably. The patient is receiving saline at 80 mL an hour, getting IV Zosyn, and not requiring any supplemental oxygen. White count 4.7, he will benign 0.2, hematocrit 25.5, platelet count 148,000. Sodium 140, potassium 3.1, chlorides 102, CO2, anion gap 7, BUN 37, creatinine 4.28. Objective - Vital Signs Vital signs: Vital Signs Temp 98.5 F 09/11/20 12:16 Pulse 77 09/11/20 12:16 Resp 17 09/11/20 12:16 BP 160/70 09/11/20 12:16 Pulse Ox 100 09/11/20 12:16 Intake & Output 09/10/20 09/11/20 09/11/20 18:59 06:59 18:59 Intake Total 150 2130 Output Total 1835 900 Balance -1685 1230 Weight 52 kg Intake: IV 150 Dextrose 5% in Water 1, 150 000 ml @ 150 mls/hr IV . Q7H40M [facility] with Sodium Bicarb (1 Meq/ml) 150 ml Rx#:[id number] Intake, IV Titration 1060 Amount Piperacillin-Tazobactam 3 100 .375 gm In Sodium Chloride 0.9% 100 ml @ 25 mls/hr IVPB Q12HR [facility] Rx #:[id number] Sodium Chloride 0.9% 1, 960 000 ml @ 80 mls/hr IV . [id number] [facility] Rx#:[id number] Oral 1070 Output: Urine 1835 900 Uretheral (Moise) 900 Other: Voiding Method Indwelling Catheter Indwelling Catheter Indwelling Catheter - Exam No acute distress, oriented 3. No respiratory distress. Not on any supplemental oxygen. HEENT examination is grossly unremarkable. Mucous membranes are moist. No oral lesions. Neck supple. Full range of motion. No adenopathy thyromegaly or neck vein distention. Cardiovascular examination reveals regular rhythm rate. S1-S2 normal. No S3 or S4. No discernible murmur noted. Lungs reveal clear breath sounds. Her sounds are equal bilaterally. No adventitious lung sounds including wheezes rhonchi or crackles. Abdomen soft bowel sounds are heard. No masses or tenderness. Extremities are intact. No cyanosis clubbing or edema. Skin is without rash or lesion. Neurologic examination is brief but nonfocal. - Labs CBC & Chem 7: 09/11/20 05:36 09/11/20 05:36 Labs: Abnormal Lab Results - Last 24 Hours (Table) 09/10/20 09/10/20 09/11/20 Range/Units 17:09 20:04 05:36 RBC (3.80-5.40) m/uL Hgb (11.4-16.0) gm/dL Hct (34.0-46.0) % Plt Count (150-450) k/uL Potassium (3.5-5.1) mmol/L Carbon Dioxide (22-30) mmol/L BUN (7-17) mg/dL Creatinine 4.37 H (0.52-1.04) mg/dL Glucose (74-99) mg/dL POC Glucose (mg/dL) 135 H 198 H (75-99) mg/dL Calcium (8.4-10.2) mg/dL Total Protein (6.3-8.2) g/dL Albumin (3.5-5.0) g/dL 09/11/20 09/11/20 09/11/20 Range/Units 05:36 05:36 07:09 RBC 3.06 L (3.80-5.40) m/uL Hgb 9.2 L (11.4-16.0) gm/dL Hct 25.5 L (34.0-46.0) % Plt Count 148 L (150-450) k/uL Potassium 3.1 L (3.5-5.1) mmol/L Carbon Dioxide 31 H (22-30) mmol/L BUN 37 H (7-17) mg/dL Creatinine 4.28 H (0.52-1.04) mg/dL Glucose 108 H (74-99) mg/dL POC Glucose (mg/dL) 129 H (75-99) mg/dL Calcium 7.4 L (8.4-10.2) mg/dL Total Protein 4.8 L (6.3-8.2) g/dL Albumin 2.8 L (3.5-5.0) g/dL 09/11/20 Range/Units 12:02 RBC (3.80-5.40) m/uL Hgb (11.4-16.0) gm/dL Hct (34.0-46.0) % Plt Count (150-450) k/uL Potassium (3.5-5.1) mmol/L Carbon Dioxide (22-30) mmol/L BUN (7-17) mg/dL Creatinine (0.52-1.04) mg/dL Glucose (74-99) mg/dL POC Glucose (mg/dL) 119 H (75-99) mg/dL Calcium (8.4-10.2) mg/dL Total Protein (6.3-8.2) g/dL Albumin (3.5-5.0) g/dL Microbiology - Last 24 Hours (Table) 09/10/20 04:25 Urine Culture - Final Urine,Voided 09/08/20 22:48 Blood Culture - Preliminary Blood No Growth after 48 hours 09/08/20 22:44 Blood Culture - Preliminary Blood No Growth after 48 hours Assessment and Plan Assessment: Acute renal failure with hyperkalemia. Anion gap metabolic acidosis, secondary to renal failure. Lactic acidosis. Rule out sepsis, possibly from a urinary source. Severe dehydration secondary to nausea, vomiting, diarrhea. History of hypertension. History of diabetes. History of hyperlipidemia. History of gastroesophageal reflux disease. History of psoriasis. History of rosacea. History of chronic liver disease. History of breast cancer. Plan: Plan dated 09/09/2020. Vascular surgery has been consulted for hemodialysis catheter. She needs emergent hemodialysis, for her severe metabolic acidosis and hyperkalemia. The patient may or may not need admission to the intensive care unit. It depends how she responds to hemodialysis. Currently, her respiratory status is stable. Her blood pressure has been reasonable, although has been a little soft over the last 2 checks. Additional recommendations and suggestions are forthcoming. The patient not wearing any supplemental oxygen. The patient is currently on Zosyn and vancomycin for suspected sepsis. We will continue to follow. Prognosis is guarded. Plan dated 09/11/2020. Currently, blood work x-rays, and so forth have all been reviewed. She remains on Zosyn for suspected sepsis and possible urinary tract infection. We will continue to follow as needed. Her respiratory status is stable. Her recent blood work shows a sodium of 140, potassium 3.1, and a BUN and creatinine 37 and 4.28 respectively. We will continue to follow. Respiratory status is stable. She's not requiring any supplemental oxygen. No additional recommendations are made. Prognosis is guarded. Time with Patient: Less than 30
--- NOTE | 2020-09-11 14:15 | PN ---
PROGRESS NOTE DATE OF SERVICE: 09/11/2020 INTERVAL HISTORY: This is a 70-year-old woman who was admitted with acute renal failure possibly secondary to acute tubular necrosis, also severe hyperkalemia. The patient also had nausea vomiting, diarrhea and possibly colitis also. The patient was started on broad- spectrum IV antibiotics. After 1 dialysis, patient improved significantly. Carotid ultrasound did not show any acute abnormality. The venous Doppler was also done yesterday which showed no evidence of DVT. The cultures are negative so far. No chest pain. No palpitations. No fever. PAST MEDICAL HISTORY: Reviewed. REVIEW OF SYSTEMS: CARDIOVASCULAR: No angina. RESPIRATORY: As mentioned earlier. GI: As mentioned earlier. : No dysuria. NERVOUS SYSTEM: No numbness or weakness. MEDICATIONS ARE: Reviewed include Tylenol, NovoLog, Narcan, Zofran, Protonix, Zosyn. The rest of medication doses are reviewed. PHYSICAL EXAM: GENERAL: Patient is alert and oriented times three. VITAL SIGNS: Pulse 77, blood pressure 160/70, respirations 17, temperature 98.4, pulse ox 100% on room air. HEENT: Conjunctivae normal. Oral mucosa moist. NECK: No jugular venous distention. No carotid bruits. RESPIRATORY: Breath sounds diminished at the bases. A few scattered rhonchi. HEART: S1 and S2, muffled. ABDOMEN: Soft, no tenderness. No masses palpable. EXTREMITIES: No edema, no swelling. Dialysis catheter in situ. NERVOUS: No focal deficits. LABS: WBC 4.2, hemoglobin 9.2. Creatinine is 4.37. Other labs are pending. ASSESSMENT: 1. Acute renal failure possibly prerenal acute tubular necrosis with severe hyperkalemia, acute metabolic acidosis, status post hemodialysis. 2. Nausea, vomiting, diarrhea, possibly acute gastritis and colitis. 3. Possible sepsis secondary to colitis. 4. Elevated lactic acid secondary to sepsis. 5. Hyperkalemia severe secondary to renal failure present on admission. 6. Diabetes mellitus type 2 with hyperglycemia and hypoglycemia. 7. Possible acute urinary tract infection with sepsis present on admission. 8. History of recent COVID-19 vaccine administration. 9. Gastroesophageal reflux disease. 10.Hypertension. 11.History of stage III liver disease. 12.Degenerative joint disease. 13.History of pneumonia. 14.History of skin disorder. 15.History of psoriasis. 16.History of duodenal ulcer. 17.History of breast surgery. 18.History of motion sickness. 19.History of claustrophobia. 20.History of depression. RECOMMENDATIONS AND DISCUSSION: Recommend to continue current management and continue symptomatic treatment. The creatinine is still elevated. At this time continue current medications. The patient is making a significant amount of urine at this time. In the last 24 hours, the patient has almost put out 2.7 L of urine. We will continue to monitor. Otherwise repeat labs will be ordered for tomorrow. Continue the rest of the medications. Otherwise, further hemodialysis per Nephrology. Increase ambulation. Continue the DVT prophylaxis. Proton pump inhibitors and empiric antibiotics. Follow the cultures. Follow closely with multiple consultants. Prognosis guarded. Further recommendations to follow. Patient is also receiving 80 cc for IV fluids. MADISON / SHENGN: [id number] /
[2020-09-11 17:10] LABS: Glucose,Whole Blood 129 mg/dL (75-99)
--- NOTE | 2020-09-11 17:15 | PN ---
PROGRESS NOTE DATE OF SERVICE: 09/11/2020 REASON FOR FOLLOWUP: Colitis. INTERVAL HISTORY: The patient is currently afebrile. Patient is feeling better. Breathing comfortably. No chest pain, shortness of breath or cough. No further nausea, vomiting. Did have some diarrhea. PHYSICAL EXAMINATION: Blood pressure 147/71, pulse of 68, temperature 98.6. She is 99% on room air. General description is an elderly female lying in bed in no distress. Respiratory system: Unlabored breathing, clear to auscultation anteriorly. Heart S1, S2. Regular rate and rhythm. Abdomen soft, no tenderness. LABS: Hemoglobin 9.1, white count 4.7, BUN of 37, creatinine 4.2. DIAGNOSTIC IMPRESSION AND PLAN: The patient patient was admitted to the hospital with watery diarrhea with evidence of colitis on the CT. Responded to Zosyn, to continue while monitor clinical course closely. MMODL / IJN: [id number] /
[2020-09-11] MEDS: PANTOPRAZOLE 40 MG TABLET PO SCH (17:28)
[2020-09-11] MEDS ORDERED: Potassium Replacement Protocol 1 EACH MISC MISCELLANE PRN (18:04)
[2020-09-11] MEDS: POTASSIUM CHLORIDE ER 20 MEQ TAB.ER PO SCH ×4 (19:17→23:55)
[2020-09-11 19:52] LABS: African American GFR (CKD) 10.1 (60.0-200.0); Albumin 3.7 g/dL (3.80-4.90); Albumin/Globulin Ratio 2.64 (1.60-3.17); Anion Gap 20.7 mmol/L (4.00-12.00); BUN/Creat Ratio 8.96 Ratio (12.00-20.00); Calcium 7.3 mg/dL (8.7-10.3); Carbon Dioxide 24.3 mmol/L (21.6-31.8); Globulin 1.4 g/dL (1.6-3.3); Non-African American GFR(CKD) 8.7 (60.0-200.0); Potassium 3.8 mmol/L (3.5-5.5); Total Bilirubin 0.3 mg/dL (0.3-1.2); Total Protein 5.1 g/dL (6.2-8.2)
[2020-09-11 20:07] LABS: Glucose,Whole Blood 221 mg/dL (75-99)
--- NOTE | 2020-09-11 20:07 | PN ---
PROGRESS NOTE Patient is seen for followup for acute kidney injury and hyperkalemia. The patient had 1 treatment of dialysis following which her urine output has improved. Potassium has improved. Overall, she states she is feeling better today, although still complaining of some nausea. PHYSICAL EXAMINATION: On examination today, blood pressure was 115/53, heart rate 77 per minute. She is afebrile. Examination of the heart S1, S2. Examination of the lungs, bilateral breath sounds are heard. Abdomen is soft, nontender. Examination of lower extremities shows no evidence of edema. [employer] exam grossly intact. LAB: Show sodium 140, potassium 3.1, chloride 102. BUN 37, creatinine 4.28, hemoglobin 9.2 g/dL. ASSESSMENT: 1. Acute kidney injury most likely acute tubular necrosis, nonoliguric, status post one treatment of hemodialysis. Patient has good urine output. Serum creatinine staying at about 4.2. We will repeat labs in a.m. If she continues to be nauseated, I will arrange for one treatment of hemodialysis tomorrow. Continue to avoid nephrotoxic agents. 24 hour urine output was 2.7 L. 2. Severe metabolic acidosis secondary to lactic acidosis from metformin versus hypotension, hypovolemia currently improved. 3. Hypokalemia with previous hyperkalemia on initial admission. Maintain cautious replacement. 4. Volume depletion currently improved. 5. Diarrhea, improved but still present. PLAN: Continue IV fluids. Repeat labs in a.m. MADISON / STEFAN: [id number] /
[2020-09-12 05:31] LABS: Basophils % (A) 1 %; Eosinophils # (A) 0.1 k/uL (0-0.7); Eosinophils % (A) 1 %; HCT 26.2 % (34.0-46.0); HGB 8.6 gm/dL (11.4-16.0); Lymphocytes # (A) 1.2 k/uL (1.0-4.8); Lymphocytes % (A) 30 %; MCHC 32.7 g/dL (31.0-37.0); MCV 85.8 fL (80.0-100.0); Mean Platelet Volume 6.9; Monocytes # (A) 0.3 k/uL (0-1.0); Monocytes % (A) 7 %; Neutrophils # (A) 2.4 k/uL (1.3-7.7); Neutrophils % (A) 59 %; Platelet Count 129 k/uL (150-450); RBC 3.05 m/uL (3.80-5.40); RDW 14.5 % (11.5-15.5); WBC 4.1 k/uL (3.8-10.6)
[2020-09-12 07:13] LABS: Glucose,Whole Blood 107 mg/dL (75-99)
[2020-09-12] MEDS: INSULIN ASPART (NovoLOG) 100 UNIT/ML VIAL SQ SCH ×4 (07:20→20:28)
[2020-09-12] MEDS: PANTOPRAZOLE 40 MG TABLET PO SCH ×2 (07:37→17:41)
[2020-09-12] MEDS: SODIUM CHLORIDE 0.9% 1,000 ML IV SCH ×2 (08:36→20:29)
[2020-09-12] MEDS: PIPERACILLIN-TAZOBACTAM 3.375 GM in SODIUM CHLORIDE 0.9% 100 ML IVPB SCH ×2 (08:36→20:28)
[2020-09-12 10:11] LABS: Potassium 4.2 mmol/L (3.5-5.1)
[2020-09-12] MEDS: HEPARIN SODIUM,PORCINE/PF 5,000 UNIT/0.5 ML SYRINGE SQ SCH ×2 (11:28→20:28)
[2020-09-12 12:21] LABS: Glucose,Whole Blood 115 mg/dL (75-99)
--- NOTE | 2020-09-12 13:19 | P.PN ---
Subjective Progress Note Date: 09/12/20 Principal diagnosis: Renal failure. 70-year-old female, who was initially admitted through the emergency room, on September 08, via EMS, with nausea, vomiting, and diarrhea. The patient apparently has a history of diabetes, hypertension, breast cancer, and gastroesophageal reflux disease. The patient came in complaining of 9 days of nausea, vomiting, and diarrhea. The patient did receive both of her vaccinations for coronavirus. She apparently denied any shortness of breath or chest pain. She apparently had been having some black tarry stool. She denied any significant abdominal pain. The patient was admitted with a diagnosis of acute renal failure, possible sepsis, lactic acidosis, and hyperkalemia. White count was 28.1, hemoglobin 12.1, hematocrit 39.5, and platelet count 482,000. D-dimer was 10.98. Venous blood gases had a pH of 6.84. Sodium 146, potassium 7.9, chlorides 108, carbon dioxide less than 5. BUN was 61, with a creatinine of 8.48. Glucose initially was 45. Repeat was 255. Lactic acid was 13.7. Urine was cloudy, leukocyte esterase and nitrate were both negative. There was 11 RBCs, 9 WBCs, and occasional bacteria. Coronavirus testing was negative. Chest x-ray was negative. CT of the abdomen and pelvis showed a nonspecific bowel gas pattern, mild diffuse ileus, and moderate uncomplicated acute colitis. Thus far, nephrology, infectious diseases, neurology, and vascular surgery has been consulted. A hemodialysis catheter has not yet been placed. On 09/10/2020 patient seen in follow-up in intensive care unit, she is awake and alert, in no acute distress, she is resting comfortably in bed, appears to be in no acute distress, but appears to be weak, no respiratory difficulty, room air pulse ox is 97%, no vasoactive drips, she is currently on D5W with 3 A of bicarbonate at a rate of 150 ML per hour, no cough, no chest congestion, blood pressure is 102/48, patient is afebrile, blood and urine culture have shown no growth. Today's labs have been reviewed, her lactic acid is now within normal limits, and is down to 1.7, white blood cell, is down to 9.2, hemoglobin is 9.3, d-dimer was 10.9, her electrolytes are now within normal limits, BUN is 1023 and creatinine is 4.65. Hematemesis catheter was placed last night and patient was dialyzed patient's amylase and lipase were elevated at 148 and lipase was 1495, no abdominal discomfort, COVID-19 PCR was negative. Chest x-ray showed no active cardiopulmonary disease. Brain CT showed no acute cranial process. 2 for C. diff was negative. No nausea or vomiting, diarrhea has improved Progress note dated 09/11/2020. 70-year-old female admitted with a diagnosis of acute renal failure with hyperkalemia. The patient had emergent hemodialysis, and is doing better. The patient has multiple medical problems including hypertension, diabetes, hyperlipidemia, psoriasis, rosacea, and breast cancer to name a few problems. Currently, she is resting comfortably. The patient is receiving saline at 80 mL an hour, getting IV Zosyn, and not requiring any supplemental oxygen. White count 4.7, he will benign 0.2, hematocrit 25.5, platelet count 148,000. Sodium 140, potassium 3.1, chlorides 102, CO2, anion gap 7, BUN 37, creatinine 4.28. Progress note dated 09/12/2020. 70-year-old female, with a diagnosis of acute renal failure and hyperkalemia. The patient required emergent hemodialysis, and is doing much better. Currently, she's not receiving any supplemental oxygen. He is getting saline at 80 mL an hour. Labs today show a white count of 4.1, hemoglobin 8.6, hematocrit 26.2, and platelet count 129,000. Sodium 141, potassium 4.2, chlorides 108, CO2 27, anion gap 6, BUN 27, and creatinine 3.56. Objective - Vital Signs Vital signs: Vital Signs Temp 98.1 F 09/12/20 07:39 Pulse 62 09/12/20 08:00 Resp 16 09/12/20 08:00 BP 178/72 09/12/20 07:39 Pulse Ox 99 09/12/20 07:39 Intake & Output 09/11/20 09/12/20 09/12/20 18:59 06:59 18:59 Intake Total 1090 Output Total 1900 Balance -1900 1090 Weight 52.5 kg Intake: Intake, IV Titration 500 Amount Piperacillin-Tazobactam 3 100 .375 gm In Sodium Chloride 0.9% 100 ml @ 25 mls/hr IVPB Q12HR [facility] Rx #:[id number] Sodium Chloride 0.9% 1, 400 000 ml @ 80 mls/hr IV . [id number] [facility] Rx#:[id number] Oral 590 Output: Urine 1900 Uretheral (Moise) 900 Other: Voiding Method Indwelling Catheter Indwelling Catheter Indwelling Catheter # Voids 2 # Bowel Movements 1 - Exam No acute distress, oriented 3. No respiratory distress. Not on any supplemental oxygen. Room air saturation 99%. HEENT examination is grossly unremarkable. Mucous membranes are moist. No oral lesions. Neck supple. Full range of motion. No adenopathy thyromegaly or neck vein distention. Cardiovascular examination reveals regular rhythm rate. S1-S2 normal. No S3 or S4. No discernible murmur noted. Heart rate 62 bpm. Lungs reveal clear breath sounds. Her sounds are equal bilaterally. No adventitious lung sounds including wheezes rhonchi or crackles. Abdomen soft bowel sounds are heard. No masses or tenderness. Extremities are intact. No cyanosis clubbing or edema. Skin is without rash or lesion. Neurologic examination is brief but nonfocal. - Labs CBC & Chem 7: 09/12/20 04:28 09/12/20 04:28 Labs: Abnormal Lab Results - Last 24 Hours (Table) 09/10/20 09/11/20 09/11/20 Range/Units 15:02 17:08 20:05 RBC (3.80-5.40) m/uL Hgb (11.4-16.0) gm/dL Hct (34.0-46.0) % Plt Count (150-450) k/uL Potassium (3.5-5.1) mmol/L Chloride (98-107) mmol/L Anion Gap 20.70 H (4.00-12.00) mmol/L BUN 43.0 H (9.0-27.0) mg/dL Creatinine 4.8 H (0.6-1.5) mg/dL Est GFR (CKD-EPI)AfAm 10.1 L (60.0-200.0) Est GFR (CKD-EPI)NonAf 8.7 L (60.0-200.0) BUN/Creatinine Ratio 8.96 L (12.00-20.00) Ratio Glucose 164 H (70-110) mg/dL POC Glucose (mg/dL) 129 H 221 H (75-99) mg/dL Calcium 7.3 L (8.7-10.3) mg/dL Total Protein 5.1 L (6.2-8.2) g/dL Albumin 3.70 L (3.80-4.90) g/dL Globulin 1.4 L (1.6-3.3) g/dL 09/11/20 09/12/20 09/12/20 Range/Units 21:29 04:28 04:28 RBC 3.05 L (3.80-5.40) m/uL Hgb 8.6 L (11.4-16.0) gm/dL Hct 26.2 L (34.0-46.0) % Plt Count 129 L (150-450) k/uL Potassium 3.3 L (3.5-5.1) mmol/L Chloride 108 H (98-107) mmol/L Anion Gap (4.00-12.00) mmol/L BUN 27 H (9.0-27.0) mg/dL Creatinine 3.56 H (0.6-1.5) mg/dL Est GFR (CKD-EPI)AfAm (60.0-200.0) Est GFR (CKD-EPI)NonAf (60.0-200.0) BUN/Creatinine Ratio (12.00-20.00) Ratio Glucose (70-110) mg/dL POC Glucose (mg/dL) (75-99) mg/dL Calcium (8.7-10.3) mg/dL Total Protein (6.2-8.2) g/dL Albumin (3.80-4.90) g/dL Globulin (1.6-3.3) g/dL 09/12/20 09/12/20 Range/Units 07:11 12:19 RBC (3.80-5.40) m/uL Hgb (11.4-16.0) gm/dL Hct (34.0-46.0) % Plt Count (150-450) k/uL Potassium (3.5-5.1) mmol/L Chloride (98-107) mmol/L Anion Gap (4.00-12.00) mmol/L BUN (9.0-27.0) mg/dL Creatinine (0.6-1.5) mg/dL Est GFR (CKD-EPI)AfAm (60.0-200.0) Est GFR (CKD-EPI)NonAf (60.0-200.0) BUN/Creatinine Ratio (12.00-20.00) Ratio Glucose (70-110) mg/dL POC Glucose (mg/dL) 107 H 115 H (75-99) mg/dL Calcium (8.7-10.3) mg/dL Total Protein (6.2-8.2) g/dL Albumin (3.80-4.90) g/dL Globulin (1.6-3.3) g/dL Microbiology - Last 24 Hours (Table) 09/08/20 22:48 Blood Culture - Preliminary Blood No Growth after 72 hours 09/08/20 22:44 Blood Culture - Preliminary Blood No Growth after 72 hours 09/11/20 07:06 Stool Culture - Preliminary Stool 09/10/20 04:25 Urine Culture - Final Urine,Voided Assessment and Plan Assessment: Acute renal failure with hyperkalemia. Anion gap metabolic acidosis, secondary to renal failure. Lactic acidosis. Rule out sepsis, possibly from a urinary source. Severe dehydration secondary to nausea, vomiting, diarrhea. History of hypertension. History of diabetes. History of hyperlipidemia. History of gastroesophageal reflux disease. History of psoriasis. History of rosacea. History of chronic liver disease. History of breast cancer. Plan: Plan dated 09/09/2020. Vascular surgery has been consulted for hemodialysis catheter. She needs jelani rgent hemodialysis, for her severe metabolic acidosis and hyperkalemia. The patient may or may not need admission to the intensive care unit. It depends how she responds to hemodialysis. Currently, her respiratory status is stable. Her blood pressure has been reasonable, although has been a little soft over the last 2 checks. Additional recommendations and suggestions are forthcoming. The patient not wearing any supplemental oxygen. The patient is currently on Zosyn and vancomycin for suspected sepsis. We will continue to follow. Prognosis is guarded. Plan dated 09/11/2020. Currently, blood work x-rays, and so forth have all been reviewed. She remains on Zosyn for suspected sepsis and possible urinary tract infection. We will continue to follow as needed. Her respiratory status is stable. Her recent blood work shows a sodium of 140, potassium 3.1, and a BUN and creatinine 37 and 4.28 respectively. We will continue to follow. Respiratory status is stable. She's not requiring any supplemental oxygen. No additional recommendations are made. Prognosis is guarded. Plan dated 09/12/2020. The patient appears to be doing much better. Her renal function is improved. The patient has stable vital signs. The patient remains on Zosyn for suspected sepsis. She's getting saline at 80 mL an hour. She's not requiring any supplemental oxygen. We will continue to follow make recommendations we are needed. All her microbiologic studies are negative. Time with Patient: Less than 30
--- NOTE | 2020-09-12 15:24 | PN ---
PROGRESS NOTE DATE OF SERVICE: 09/12/2020. REASON FOR FOLLOWUP: Colitis. INTERVAL HISTORY: The patient is currently afebrile. Patient is breathing comfortably on room air. Patient denies having any chest pain or shortness of breath or cough. Abdominal pain is currently . No vomiting or diarrhea. PHYSICAL EXAMINATION: Blood pressure is General description is an elderly female up in the chair in no distress. RESPIRATORY SYSTEM: Unlabored breathing, clear to auscultation anteriorly. HEART: S1, S2. Regular rate and rhythm. ABDOMEN: Soft, no tenderness. LABS: Hemoglobin 8.6, white count 4.1, BUN of 27, creatinine 3.56. DIAGNOSTIC IMPRESSION AND PLAN: Patient with evidence of colitis and this patient has clinically responded to Zosyn to continue. Hopefully transition to oral antibiotic on discharge. Continue supportive care. MMODL / IJN: [id number] /
[2020-09-12 17:15] LABS: Glucose,Whole Blood 121 mg/dL (75-99)
--- NOTE | 2020-09-12 17:30 | PN ---
PROGRESS NOTE DATE OF SERVICE: 09/12/2020 This 70-year-old woman who was admitted with renal failure possibly secondary to acute tubular necrosis is being closely monitored. Multiple consultants are following the patient closely. The patient is making a significant amount of urine at this time. The dialysis has been discontinued. Patient also had some evidence of colitis. The patient is on broad-spectrum IV antibiotics as well. Multiple consultants are following the patient closely. The cultures are negative so far. No chest pain. No palpitations. No fever. PHYSICAL EXAMINATION: Alert and oriented x3. Pulse is 67, blood pressure 130/74, respiration 15, temperature 98.2, pulse ox 99% on room air. HEENT: Conjunctivae normal. NECK: No jugular venous distention. CARDIOVASCULAR SYSTEM: S1, S2 muffled. RESPIRATORY SYSTEM: Breath sounds diminished at the bases. A few scattered rhonchi and crackles. ABDOMEN: Soft, non-tender. NERVOUS SYSTEM: No focal deficit. LABS: WBC 4.1, hemoglobin is 8.6, creatinine 3.56, which is improving steadily. ASSESSMENT: 1. Acute renal failure, possibly secondary from prerenal acute tubular necrosis with severe hyperkalemia, acute metabolic acidosis, status post hemodialysis. 2. Nausea, vomiting, diarrhea; possibly acute gastritis and colitis. 3. Possible sepsis secondary to colitis. 4. Elevated lactic acid secondary to sepsis. 5. Hyperkalemia, severe, secondary to renal failure, present on admission. 6. Diabetes mellitus, type 2, with hyperglycemia and hypoglycemia. 7. Acute urinary tract infection, present on admission, with sepsis. 8. History of recent COVID-19 vaccine administration. 9. Gastroesophageal reflux disease. 10.Hypertension. 11.History of stage III liver disease. 12.Degenerative joint disease. 13.History of pneumonia. 14.History of skin disorder. 15.History of psoriasis. 16.History of duodenal ulcer. 17.History of breast surgery. 18.History of motion sickness. 19.History of claustrophobia. 20.History of depression. RECOMMENDATIONS AND DISCUSSION: I recommend to continue current medications, continue with the monitoring, symptomatic treatment. As mentioned earlier, continue the antibiotics. Continue the rest of the medications. Continue symptomatic treatment. Closely follow with Nephrology. Guarded prognosis. Further recommendations to follow. MMODL / IJN: [id number] /
--- NOTE | 2020-09-12 17:56 | PN ---
PROGRESS NOTE Patient is seen for followup for acute kidney injury. The patient had severe hyperkalemia and metabolic acidosis with acute kidney injury associated with volume depletion and hypotension and serum creatinine as high as 9 on initial admission. She did have 1 treatment of hemodialysis. Renal function has currently started to improve with good urine output. Creatinine is down to 3.5. Overall, patient states she is feeling better today. PHYSICAL EXAMINATION: Blood pressure was 178/72. This morning, heart rate 57 per minute. She is afebrile. Examination of the heart S1, S2. Examination of the lungs, bilateral breath sounds are heard. Abdomen is soft, nontender. Examination of lower extremity showed evidence of edema. [employer] exam grossly intact. LAB: Show labs show sodium 141, potassium 4.2, chloride 108, BUN 27, creatinine 3.56. ASSESSMENT: 1. Acute kidney injury, prerenal and severe acute tubular necrosis associated with severe hypotension and hypovolemia, status post one treatment of hemodialysis, currently improving. We will continue to hold off on dialysis for now. Continue IV fluids. 2. Metabolic acidosis associated with renal failure, diarrhea, currently improved. 3. Hyperkalemia associated with acute kidney injury, currently improved. 4. Hypertension. Patient was on SAL inhibitors at home. She is advised to monitor her blood pressure at home and adjust dose of her blood pressure medications based on her blood pressure. 5. Severe lactic acidosis associated with possibly metformin use as well as hypotension and hypoperfusion. PLAN: Continue with normal saline. Repeat labs in a.m. No need for dialysis. MMODL / IJN: [id number] /
[2020-09-12 20:03] LABS: Glucose,Whole Blood 155 mg/dL (75-99)
[2020-09-13 07:10] LABS: Glucose,Whole Blood 119 mg/dL (75-99)
[2020-09-13 07:24] VITALS: RESP 15
--- NOTE | 2020-09-13 09:30 | P.PN ---
Subjective Progress Note Date: 09/12/20 Patient was seen for a follow-up. Patient was in the bathroom, then came out and laid down in the bed. Patient's gait appears very normal. Patient states the dizziness has mostly resolved. Patient states she has mild headache, but is not unusual for her and has been present since her minor head injury. Objective - Vital Signs Vital signs: Vital Signs Temp 98.5 F 09/12/20 13:32 Pulse 67 09/12/20 13:32 Resp 15 09/12/20 13:32 BP 133/75 09/12/20 13:32 Pulse Ox 99 09/12/20 13:32 Intake & Output 09/12/20 09/12/20 09/13/20 06:59 18:59 06:59 Intake Total 1090 Output Total 2500 Balance 1090 -2500 Weight 52.5 kg Intake: Intake, IV Titration 500 Amount Piperacillin-Tazobactam 3 100 .375 gm In Sodium Chloride 0.9% 100 ml @ 25 mls/hr IVPB Q12HR [facility] Rx #:[id number] Sodium Chloride 0.9% 1, 400 000 ml @ 80 mls/hr IV . [id number] [facility] Rx#:[id number] Oral 590 Output: Urine 2500 Uretheral (Moise) 1000 Other: Voiding Method Indwelling Catheter Indwelling Catheter # Voids 2 - Exam Patient's mental status, speech and language functions are normal. Muscle strength is normal. Cranial nerves normal. - Labs CBC & Chem 7: 09/12/20 04:28 09/12/20 04:28 Labs: Abnormal Lab Results - Last 24 Hours (Table) 09/11/20 09/12/20 09/12/20 Range/Units 21:29 04:28 04:28 RBC 3.05 L (3.80-5.40) m/uL Hgb 8.6 L (11.4-16.0) gm/dL Hct 26.2 L (34.0-46.0) % Plt Count 129 L (150-450) k/uL Potassium 3.3 L (3.5-5.1) mmol/L Chloride 108 H (98-107) mmol/L BUN 27 H (7-17) mg/dL Creatinine 3.56 H (0.52-1.04) mg/dL POC Glucose (mg/dL) (75-99) mg/dL 09/12/20 09/12/20 09/12/20 Range/Units 07:11 12:19 17:14 RBC (3.80-5.40) m/uL Hgb (11.4-16.0) gm/dL Hct (34.0-46.0) % Plt Count (150-450) k/uL Potassium (3.5-5.1) mmol/L Chloride (98-107) mmol/L BUN (7-17) mg/dL Creatinine (0.52-1.04) mg/dL POC Glucose (mg/dL) 107 H 115 H 121 H (75-99) mg/dL 09/12/20 Range/Units 20:01 RBC (3.80-5.40) m/uL Hgb (11.4-16.0) gm/dL Hct (34.0-46.0) % Plt Count (150-450) k/uL Potassium (3.5-5.1) mmol/L Chloride (98-107) mmol/L BUN (7-17) mg/dL Creatinine (0.52-1.04) mg/dL POC Glucose (mg/dL) 155 H (75-99) mg/dL Microbiology - Last 24 Hours (Table) 09/08/20 22:48 Blood Culture - Preliminary Blood No Growth after 72 hours 09/08/20 22:44 Blood Culture - Preliminary Blood No Growth after 72 hours 09/11/20 07:06 Stool Culture - Preliminary Stool Assessment and Plan Assessment: * Mild right-sided temporal headache 3/10, which is chronic and intermittent since her head injury in 2019. No clinical evidence of cerebral sinus thrombosis. Computed tomography scan of head was normal. * Nausea vomiting, likely due to possible colitis. Resolved now. * Acute renal failure, received 1 session of hemodialysis, and of the renal functions improving. * Bilateral carotid bruit, possibly due to murmur. No stenosis on carotid D oppler. * Diabetes, hemoglobin A1c 6.5. * Elevated amylase and lipase * Anemia Plan: * No clinical evidence of cerebral sinus thrombosis. * Carotid Doppler showed no carotid stenosis. * Creatine kinase normal 76. Hemoglobin A1c 6.5 on 06/21/2020. * Patient's renal functions are remarkably improving, now without dialysis. * Patient's dizziness has resolved. No active neurological issue, therefore we will sign off.
[2020-09-13] MEDS: INSULIN ASPART (NovoLOG) 100 UNIT/ML VIAL SQ SCH ×2 (09:32→12:51)
[2020-09-13] MEDS: PANTOPRAZOLE 40 MG TABLET PO SCH (09:33)
[2020-09-13] MEDS: SODIUM CHLORIDE 0.9% 1,000 ML IV SCH (09:33)
[2020-09-13] MEDS: HEPARIN SODIUM,PORCINE/PF 5,000 UNIT/0.5 ML SYRINGE SQ SCH (09:34)
[2020-09-13] MEDS: PIPERACILLIN-TAZOBACTAM 3.375 GM in SODIUM CHLORIDE 0.9% 100 ML IVPB SCH (09:34)
--- NOTE | 2020-09-13 11:48 | P.PN ---
Subjective Progress Note Date: 09/13/20 Principal diagnosis: Renal failure. 70-year-old female, who was initially admitted through the emergency room, on September 08, via EMS, with nausea, vomiting, and diarrhea. The patient apparently has a history of diabetes, hypertension, breast cancer, and gastroesophageal reflux disease. The patient came in complaining of 9 days of nausea, vomiting, and diarrhea. The patient did receive both of her vaccinations for coronavirus. She apparently denied any shortness of breath or chest pain. She apparently had been having some black tarry stool. She denied any significant abdominal pain. The patient was admitted with a diagnosis of acute renal failure, possible sepsis, lactic acidosis, and hyperkalemia. White count was 28.1, hemoglobin 12.1, hematocrit 39.5, and platelet count 482,000. D-dimer was 10.98. Venous blood gases had a pH of 6.84. Sodium 146, potassium 7.9, chlorides 108, carbon dioxide less than 5. BUN was 61, with a creatinine of 8.48. Glucose initially was 45. Repeat was 255. Lactic acid was 13.7. Urine was cloudy, leukocyte esterase and nitrate were both negative. There was 11 RBCs, 9 WBCs, and occasional bacteria. Coronavirus testing was negative. Chest x-ray was negative. CT of the abdomen and pelvis showed a nonspecific bowel gas pattern, mild diffuse ileus, and moderate uncomplicated acute colitis. Thus far, nephrology, infectious diseases, neurology, and vascular surgery has been consulted. A hemodialysis catheter has not yet been placed. On 09/10/2020 patient seen in follow-up in intensive care unit, she is awake and alert, in no acute distress, she is resting comfortably in bed, appears to be in no acute distress, but appears to be weak, no respiratory difficulty, room air pulse ox is 97%, no vasoactive drips, she is currently on D5W with 3 A of bicarbonate at a rate of 150 ML per hour, no cough, no chest congestion, blood pressure is 102/48, patient is afebrile, blood and urine culture have shown no growth. Today's labs have been reviewed, her lactic acid is now within normal limits, and is down to 1.7, white blood cell, is down to 9.2, hemoglobin is 9.3, d-dimer was 10.9, her electrolytes are now within normal limits, BUN is 1023 and creatinine is 4.65. Hematemesis catheter was placed last night and patient was dialyzed patient's amylase and lipase were elevated at 148 and lipase was 1495, no abdominal discomfort, COVID-19 PCR was negative. Chest x-ray showed no active cardiopulmonary disease. Brain CT showed no acute cranial process. 2 for C. diff was negative. No nausea or vomiting, diarrhea has improved Progress note dated 09/11/2020. 70-year-old female admitted with a diagnosis of acute renal failure with hyperkalemia. The patient had emergent hemodialysis, and is doing better. The patient has multiple medical problems including hypertension, diabetes, hyperlipidemia, psoriasis, rosacea, and breast cancer to name a few problems. Currently, she is resting comfortably. The patient is receiving saline at 80 mL an hour, getting IV Zosyn, and not requiring any supplemental oxygen. White count 4.7, he will benign 0.2, hematocrit 25.5, platelet count 148,000. Sodium 140, potassium 3.1, chlorides 102, CO2, anion gap 7, BUN 37, creatinine 4.28. Progress note dated 09/12/2020. 70-year-old female, with a diagnosis of acute renal failure and hyperkalemia. The patient required emergent hemodialysis, and is doing much better. Currently, she's not receiving any supplemental oxygen. He is getting saline at 80 mL an hour. Labs today show a white count of 4.1, hemoglobin 8.6, hematocrit 26.2, and platelet count 129,000. Sodium 141, potassium 4.2, chlorides 108, CO2 27, anion gap 6, BUN 27, and creatinine 3.56. Progress note dated 09/13/2020. 70-year-old female initially seen with acute renal failure and hyperkalemia. She required emergent hemodialysis. Currently, she seems relatively stable. She is not on any supplemental oxygen and her room air saturations are 99%. Her vital signs are stable including a temperature 90.4, heart rate 71, respiratory rate 15, and a blood pressure of 156/72. No new laboratory data today. Objective - Vital Signs Vital signs: Vital Signs Temp 98.4 F 09/13/20 07:23 Pulse 71 09/13/20 08:00 Resp 15 09/13/20 07:25 BP 156/72 09/13/20 07:23 Pulse Ox 99 09/13/20 07:23 Intake & Output 09/12/20 09/13/20 09/13/20 18:59 06:59 18:59 Intake Total 1600 Output Total 2500 2650 Balance -2500 1600 -2650 Weight 53 kg Intake: Intake, IV Titration 1100 Amount Piperacillin-Tazobactam 3 100 .375 gm In Sodium Chloride 0.9% 100 ml @ 25 mls/hr IVPB Q12HR [facility] Rx #:[id number] Sodium Chloride 0.9% 1, 1000 000 ml @ 80 mls/hr IV . [id number] [facility] Rx#:[id number] Oral 500 Output: Urine 2500 2650 Uretheral (Moise) 1000 Other: Voiding Method Indwelling Catheter Indwelling Catheter Indwelling Catheter - Exam No acute distress, oriented 3. No respiratory distress. Not on any supplemental oxygen. Room air saturation 99%. HEENT examination is grossly unremarkable. Mucous membranes are moist. No oral lesions. Neck supple. Full range of motion. No adenopathy thyromegaly or neck vein distention. Cardiovascular examination reveals regular rhythm rate. S1-S2 normal. No S3 or S4. No discernible murmur noted. Heart rate 62 bpm. Lungs reveal clear breath sounds. Her sounds are equal bilaterally. No adventitious lung sounds including wheezes rhonchi or crackles. Abdomen soft bowel sounds are heard. No masses or tenderness. Extremities are intact. No cyanosis clubbing or edema. Skin is without rash or lesion. Neurologic examination is brief but nonfocal. - Labs CBC & Chem 7: 09/12/20 04:28 09/12/20 04:28 Labs: Abnormal Lab Results - Last 24 Hours (Table) 09/12/20 09/12/20 09/12/20 Range/Units 12:19 17:14 20:01 POC Glucose (mg/dL) 115 H 121 H 155 H (75-99) mg/dL 09/13/20 Range/Units 07:08 POC Glucose (mg/dL) 119 H (75-99) mg/dL Microbiology - Last 24 Hours (Table) 09/08/20 22:48 Blood Culture - Preliminary Blood No Growth after 96 hours 09/08/20 22:44 Blood Culture - Preliminary Blood No Growth after 96 hours Assessment and Plan Assessment: Acute renal failure with hyperkalemia. Anion gap metabolic acidosis, secondary to renal failure. Lactic acidosis. Rule out sepsis, possibly from a urinary source. Severe dehydration secondary to nausea, vomiting, diarrhea. History of hypertension. History of diabetes. History of hyperlipidemia. History of gastroesophageal reflux disease. History of psoriasis. History of rosacea. History of chronic liver disease. History of breast cancer. Plan: Plan dated 09/09/2020. Vascular surgery has been consulted for hemodialysis catheter. She needs emergent hemodialysis, for her severe metabolic acidosis and hyperkalemia. The patient may or may not need admission to the intensive care unit. It depends how she responds to hemodialysis. Currently, her respiratory status is stable. Her blood pressure has been reasonable, although has been a little soft over the last 2 checks. Additional recommendations and suggestions are forthcoming. The patient not wearing any supplemental oxygen. The patient is currently on Zosyn and vancomycin for suspected sepsis. We will continue to follow. Prognosis is guarded. Plan dated 09/11/2020. Currently, blood work x-rays, and so forth have all been reviewed. She remains on Zosyn for suspected sepsis and possible urinary tract infection. We will continue to follow as needed. Her respiratory status is stable. Her recent blood work shows a sodium of 140, potassium 3.1, and a BUN and creatinine 37 and 4.28 respectively. We will continue to follow. Respiratory status is stable. She's not requiring any supplemental oxygen. No additional recommendations are made. Prognosis is guarded. Plan dated 09/12/2020. The patient appears to be doing much better. Her renal function is improved. The patient has stable vital signs. The patient remains on Zosyn for suspected sepsis. She's getting saline at 80 mL an hour. She's not requiring any supplemental oxygen. We will continue to follow make recommendations we are needed. All her microbiologic studies are negative. Plan dated 09/13/2020. The patient is doing very well. The patient is not requiring any supplemental oxygen. We will see in the future only as needed. From the pulmonary and hemodynamic standpoint, she is very stable. No new labs today. Additional recommendations suggestions are forthcoming. We will be happy to come back and see her should her situation change. Time with Patient: Less than 30
[2020-09-13 12:15] LABS: African American GFR (CKD) 21 (>60 ml/min/1.73 sqM); Anion Gap 8 mmol/L; Blood Urea Nitrogen 24 mg/dL (7-17); Calcium 8.3 mg/dL (8.4-10.2); Carbon Dioxide 21 mmol/L (22-30); Chloride 110 mmol/L (98-107); Glucose 124 mg/dL (74-99); Non-African American GFR(CKD) 18 (>60 ml/min/1.73 sqM); Sodium 139 mmol/L (137-145)
[2020-09-13 12:19] LABS: Potassium 3.8 mmol/L (3.5-5.1)
[2020-09-13 12:22] VITALS: BP 165/67; PULSE 63; TEMP 99.2
[2020-09-13 12:25] LABS: Glucose,Whole Blood 111 mg/dL (75-99)
--- NOTE | 2020-09-13 16:16 | PN ---
PROGRESS NOTE DATE OF SERVICE: 09/13/2020. REASON FOR FOLLOWUP: Colitis. INTERVAL COURSE: The patient is currently afebrile. The patient is feeling better. Breathing comfortably. No chest pain, shortness of breath or cough. No abdominal pain. Diarrhea has resolved and did have soft bowel movement. PHYSICAL EXAMINATION: Blood pressure 165/67, pulse of 63, temperature 99.2. She is 98% on room air. General description is an elderly female up in the bed in no distress. RESPIRATORY SYSTEM: Unlabored breathing, clear to auscultation anteriorly. HEART: S1, S2. Regular rate and rhythm. ABDOMEN: Soft, no tenderness. LABS: BUN of 24, creatinine is 2.61. Cultures have been negative. DIAGNOSTIC IMPRESSION AND PLAN: Patient admitted to the hospital with acute nausea, vomiting, diarrhea with evidence of colitis in this patient who has shown overall improvement on Zosyn. Finish therapy short course of oral Augmentin and close outpatient followup. Plan of care was discussed with the nurse practitioner for admitting team working on discharge. MMODL / IJN: [id number] /
--- NOTE | 2020-09-13 16:31 | P.DS ---
Providers Date of admission: 09/09/20 00:06 Expected date of discharge: 09/13/20 Attending physician: Pilar Phan MD Consults: 09/08/20 23:46 Consult Physician Routine Consulting Provider: Christiane Urrutia Consult Reason/Comments: Acute renal failure; hyperkalemia Do you want consulting provider notified?: Yes 09/09/20 10:19 Consult Physician Routine Consulting Provider: Shad Espinal Consult Reason/Comments: Sepsis Do you want consulting provider notified?: Yes 09/09/20 13:02 Consult Physician Routine Consulting Provider: Vicente Stockton Consult Reason/Comments: ICU management Do you want consulting provider notified?: Already Contacted 09/09/20 14:05 Consult Physician Routine Consulting Provider: Lia Appiah Consult Reason/Comments: cerebral thrombosis? Do you want consulting provider notified?: Yes 09/09/20 14:14 Consult Physician Routine Consulting Provider: Naeem Valera Consult Reason/Comments: Hemodiaysis Cath Do you want consulting provider notified?: Already Contacted Primary care physician: Roger Green [facility] Course: Final diagnosis Acute renal failure, possibly secondary from prerenal acute tubular necrosis with severe hyperkalemia, acute metabolic acidosis, status post hemodialysis Nausea, vomiting, diarrhea, possibly acute gastritis and colitis Possible sepsis secondary to colitis Elevated lactic acid secondary to sepsis Hyperkalemia, severe, secondary to renal failure, present on admission diabetes mellitus type 2 with hyperglycemia and hypoglycemia Acute urinary tract infection, present on admission with a sepsis history of recent COVID-19 vaccine administration gastroesophageal reflux disease Hypertension History of stage III liver disease Degenerative joint disease history of pneumonia History of skin disorder history of psoriasis history of duodenal ulcer history of breast surgery history of motion sickness history of claustrophobia History of depression Full code Discharge disposition Patient is being discharged in a stable condition with guarded prognosis to home. Patient will follow-up with Dr. Green in the outpatient setting upon discharge. Patient will continue on a short course of oral antibiotics in the form of Augmentin twice daily for the next one week to complete the course. Patient will need to follow-up with nephrology in the outpatient setting in the next week. Prescriptions provided for repeat labs to monitor kidney functions. Total time taken is greater than 35 minutes. Hospital course This is a 70-year-old woman who was recently admitted with renal failure poss ibly secondary to acute tubular necrosis and was being closely monitored. Patient did receive a temporary dialysis catheter and one dose of hemodialysis and nephrology was following closely. Kidney functions improving and prescription provided for repeat labs in 2-3 days to monitor kidney functions along with electrolytes. Patient instructed to follow-up with nephrology in one week. Patient was maintained on IV Zosyn and infectious disease following and will continue with oral Augmentin twice daily for the next 7 days to complete the course. Dialysis catheter was removed prior to discharge. Currently no reports of chest pain, shortness of breath, or palpitations. Patient is afebrile. No reports of nausea or vomiting and patient is tolerating diet. Patient instructed to continue to monitor blood sugars before meals and at bedtime and keep a diary for primary care follow-up and continue to hold metformin until nephrology follow-up next week. Patient will be discharged home today. Guarded prognosis. On exam vital signs are stable. Cardio S1, S2 are muffled. Respiratory system shows diminished breath sounds at the bases with no wheezing or rhonchi noted. Abdomen is soft and nontender. Nervous system shows no focal deficits. Please refer to medication reconciliation sheet for a list of medications. Patient Condition at Discharge: Stable Plan - Discharge Summary Discharge Rx Participant: No New Discharge Prescriptions: New Pantoprazole [Protonix] 40 mg PO AC-BID 30 Days #60 tablet.dr Sheehan-Pro Clav 875-125Mg [Augmentin 875-125] 1 tab PO Q12HR 7 Days #14 tab Acetaminophen Tab [Tylenol] 650 mg PO Q6HR PRN tab PRN Reason: Mild Pain Or Fever > 100.5 Continue Ramipril 10 mg PO DAILY Acitretin [Soriatane] 25 mg PO DAILY Atorvastatin [Lipitor] 20 mg PO Q48H metFORMIN HCL 1,000 mg PO BID ALPRAZolam [Xanax] 0.125 - 0.25 mg PO HS PRN PRN Reason: Anxiety Discontinued Venlafaxine HCl ER [Effexor XR] 75 mg PO DAILY Discharge Medication List Ramipril 10 mg PO DAILY 05/03/14 [History] ALPRAZolam [Xanax] 0.125 - 0.25 mg PO HS PRN 11/10/19 [History] Acitretin [Soriatane] 25 mg PO DAILY 11/10/19 [History] Atorvastatin [Lipitor] 20 mg PO Q48H 11/10/19 [History] metFORMIN HCL 1,000 mg PO BID 11/10/19 [History] Acetaminophen Tab [Tylenol] 650 mg PO Q6HR PRN tab 09/13/20 [Rx] Amoxic-Pot Clav 875-125Mg [Augmentin 875-125] 1 tab PO Q12HR 7 Days #14 tab 09/13/20 [Rx] Pantoprazole [Protonix] 40 mg PO AC-BID 30 Days #60 tablet. 09/13/20 [Rx] Follow up Appointment(s)/Referral(s): Christiane Urrutia MD [STAFF PHYSICIAN] - 1 Week Luciano Green MD [Primary Care Provider] - 1-2 Days Ambulatory/Diagnostic Orders: Basic Metabolic Panel [LAB.AMB] Time Frame: 2 Days, Location: None Selected Complete Blood Count w/diff [LAB.AMB] Location: None Selected Activity/Diet/Wound Care/Special Instructions: Activity Limited until follow-up Follow-up with primary care provider upon discharge continue with antibiotics for 7 days and then may discontinue Follow-up with nephrology outpatient Repeat labs in 2-3 days to monitor kidney functions Continue with renal diet low potassium, low phosphorus, low sodium Continue to hold metformin until nephrology follow-up Monitor blood pressure Discharge Disposition: HOME SELF-CARE
[2020-09-13 17:31] LABS: Glucose,Whole Blood 131 mg/dL (75-99)
--- NOTE | 2020-09-13 20:31 | PN ---
PROGRESS NOTE Patient is seen for followup for acute kidney injury. She was admitted with history of nausea, vomiting and diarrhea and severe acute kidney injury with creatinine at 9 mg/dL with severe acidosis as well and hyperkalemia. Patient had one treatment of hemodialysis. Her urine output picked up with improvement in blood pressure and IV hydration. She has had good urine output and serum creatinine is down to 2.6 now. Patient's dialysis catheter will be removed today. PHYSICAL EXAMINATION: On examination, she is comfortable. Blood pressure is 156/72, heart rate 71 per minute. She is afebrile. EXAMINATION OF THE HEART: S1 and S2. EXAMINATION OF LUNGS: Bilateral breath sounds are heard. ABDOMEN: Soft, non-tender. Examination of lower extremities shows no evidence of edema. BLOCKER METAL BASE exam is grossly intact. LABS: Sodium 139, potassium 3.8, chloride 110. CO2 is 21, BUN 24, creatinine 2.6. ASSESSMENT: 1. Acute kidney injury, acute tubular necrosis, and associated with severe volume depletion. ATN from hypotension, hypoperfusion, currently improved. Patient is nonoliguric. She had one treatment of hemodialysis. We can discontinue the dialysis catheter. She is currently off of SAL inhibitors. 2. Severe metabolic acidosis with lactic acidosis, possibly related to metformin and to some degree from the hypotension and hypoperfusion as well. Currently resolved. 3. Hyperkalemia on initial admission, improved post dialysis and improving renal function. 4. Generalized debility, currently improving. PLAN: Continue IV fluids until discharge. Encourage increased oral intake. Can discontinue Moise catheter and dialysis catheter. Patient will need followup as outpatient. She is advised to avoid use of NSAIDs. MMODL / IJN: [id number] /
--- NOTE | 2020-09-14 07:22 | OP ---
OPERATIVE REPORT PREOPERATIVE DIAGNOSIS: Acute on chronic renal failure. PROCEDURE PERFORMED: Removal of dialysis catheter right femoral approach. This patient was seen in her room. Right groin was prepped and drapes applied in the usual manner. A stitches were removed from the catheter. Catheter was removed. Pressures were held. Pressure dressing applied. Patient tolerated the procedure well. I advised to have a bedrest for 3 hours. Patient can remove the dressing tomorrow. MMODL / IJN: [id number] /
== END 2020-09-13 18:37 | disposition home or self-care (01) | DRG 871 ==
LOC: EC 20:59 → 3SCARD 09-09 00:06 → 2SICU 09-09 06:09 → 5NMEDONC 09-10 12:50
PROVIDERS: ADMIT Internal Medicine; ATTEND Internal Medicine
PROC: 06HM33Z Insertion of Infusion Device into Right Femoral Vein, Percutaneous Approach (ICD-10-PCS; principal; 2020-09-09)
PROC: 5A1D70Z Performance of Urinary Filtration, Intermittent, Less than 6 Hours Per Day (ICD-10-PCS; principal; 2020-09-09)
PROC: 06PYX3Z Removal of Infusion Device from Lower Vein, External Approach (ICD-10-PCS; 2020-09-13)
DX: A41.9 Sepsis, unspecified organism (principal); N17.0 Acute kidney failure with tubular necrosis; E87.2 Acidosis; K56.7 Ileus, unspecified; N39.0 Urinary tract infection, site not specified; Z85.3 Personal history of malignant neoplasm of breast; Z20.822 Contact with and (suspected) exposure to COVID-19; E11.22 Type 2 diabetes mellitus with diabetic chronic kidney disease; E11.65 Type 2 diabetes mellitus with hyperglycemia; I12.9 Hypertensive chronic kidney disease with stage 1 through stage 4 chronic kidney disease, or unspecified chronic kidney disease; N18.9 Chronic kidney disease, unspecified; D63.1 Anemia in chronic kidney disease; E11.649 Type 2 diabetes mellitus with hypoglycemia without coma; E78.5 Hyperlipidemia, unspecified; E86.0 Dehydration; E86.1 Hypovolemia; E87.5 Hyperkalemia; E87.6 Hypokalemia; F32.9 Major depressive disorder, single episode, unspecified; F40.240 Claustrophobia; K21.9 Gastro-esophageal reflux disease without esophagitis; K52.9 Noninfective gastroenteritis and colitis, unspecified; R51.9 Headache, unspecified; S02.91XS Unspecified fracture of skull, sequela; Z91.81 History of falling; K71.9 Toxic liver disease, unspecified; T45.1X5S Adverse effect of antineoplastic and immunosuppressive drugs, sequela; L40.9 Psoriasis, unspecified; L71.9 Rosacea, unspecified; M19.90 Unspecified osteoarthritis, unspecified site; Z79.899 Other long term (current) drug therapy; Z83.3 Family history of diabetes mellitus; Z85.828 Personal history of other malignant neoplasm of skin; Z87.01 Personal history of pneumonia (recurrent); Z87.11 Personal history of peptic ulcer disease; Z87.828 Personal history of other (healed) physical injury and trauma; Z90.710 Acquired absence of both cervix and uterus; Z90.722 Acquired absence of ovaries, bilateral; Z90.89 Acquired absence of other organs; Z82.61 Family history of arthritis; R09.89 Other specified symptoms and signs involving the circulatory and respiratory systems; K29.00 Acute gastritis without bleeding; T75.3XXA Motion sickness, initial encounter; Z79.4 Long term (current) use of insulin
CPT/HCPCS: 36415; 70450; 71045; 74018; 74176; 80048; 80051; 80053; 81001; 82150; 82272; 82550; 82565; 82803; 83605; 83690; 83735; 84100; 84132; 84520; 85025; 85379; 85610; 85730; 86704; 86706; 87040; 87045; 87046; 87086; 87340; 87635; 93005; 93880; 93970; 96361; 96365; 96367; 96375; 96376; 99285

== ENCOUNTER → 2020-09-16 | Outpatient (CLI) | payer MEDICARE, OTHER ==
[2020-09-16 15:22] LABS: African American GFR (CKD) 30.9 (60.0-200.0); Anion Gap 8.7 mmol/L (4.00-12.00); BUN/Creat Ratio 8.42 Ratio (12.00-20.00); Calcium 9.1 mg/dL (8.7-10.3); Carbon Dioxide 24.3 mmol/L (21.6-31.8); Non-African American GFR(CKD) 26.6 (60.0-200.0); Potassium 3.9 mmol/L (3.5-5.5)
[2020-09-16 15:25] LABS: Basophils # (A) 0.03 X 10*3/uL (0.00-0.10); Basophils % (A) 0.5 %; Eosinophils # (A) 0.28 X 10*3/uL (0.04-0.35); Eosinophils % (A) 4.4 %; HCT 28.6 % (37.2-46.3); HGB 8.9 g/dL (12.0-15.0); Lymphocytes # (A) 1.18 X 10*3/uL (0.90-5.00); Lymphocytes % (A) 18.6 %; MCH 28.1 pg (27.0-32.0); MCHC 31.1 g/dL (32.0-37.0); MCV 90.2 fL (80.0-97.0); Mean Platelet Volume 10.3 fL (9.5-12.2); Monocytes # (A) 0.51 X 10*3/uL (0.20-1.00); Monocytes % (A) 8.1 %; Neutrophils # (A) 4.29 X 10*3/uL (1.80-7.70); Neutrophils % (A) 67.8 %; Platelet Count 190 X 10*3/uL (140-440); RBC 3.17 X 10*6/uL (4.10-5.20); RDW 13.8 % (11.5-14.5); WBC 6.33 X 10*3/uL (4.50-10.00)
== END | disposition home or self-care (01) ==
LOC: LABWHC1 09:07
PROVIDERS: ATTEND Registered Nurse
DX: D64.9 Anemia, unspecified (principal); R79.89 Other specified abnormal findings of blood chemistry
CPT/HCPCS: 36415; 80048; 85025

== ENCOUNTER → 2020-10-04 | Outpatient (CLI) | payer MEDICARE, OTHER ==
[2020-10-04 11:30] LABS: HCT 30.8 % (37.2-46.3); HGB 9.6 g/dL (12.0-15.0); MCH 27.7 pg (27.0-32.0); MCHC 31.2 g/dL (32.0-37.0); Mean Platelet Volume 10.2 fL (9.5-12.2); Platelet Count 257 X 10*3/uL (140-440); RBC 3.46 X 10*6/uL (4.10-5.20); RDW 14.2 % (11.5-14.5); WBC 7.33 X 10*3/uL (4.50-10.00)
[2020-10-04 12:24] LABS: African American GFR (CKD) 59.7 (60.0-200.0); Albumin 4.5 g/dL (3.80-4.90); Albumin/Globulin Ratio 1.96 (1.60-3.17); Anion Gap 10.3 mmol/L (4.00-12.00); BUN/Creat Ratio 24.55 Ratio (12.00-20.00); Calcium 9.4 mg/dL (8.7-10.3); Carbon Dioxide 21.7 mmol/L (21.6-31.8); Chol/HDL Ratio 6.12; Globulin 2.3 g/dL (1.6-3.3); LDL Cholesterol,Calculated 153.4 mg/dL (0.0-131.0); Non-African American GFR(CKD) 51.5 (60.0-200.0); Potassium 4.3 mmol/L (3.5-5.5); Total Bilirubin 0.4 mg/dL (0.3-1.2); Total Protein 6.8 g/dL (6.2-8.2); VLDL Calculation 56.6 mg/dL (5.00-40.00)
== END | disposition home or self-care (01) ==
LOC: LABWHC1 07:13
PROVIDERS: ATTEND Internal Medicine Interventional Cardiology
DX: Z00.01 Encounter for general adult medical examination with abnormal findings (principal); E78.2 Mixed hyperlipidemia
CPT/HCPCS: 36415; 80053; 80061; 85027

== ENCOUNTER → 2020-10-25 | Outpatient (CLI) | payer MEDICARE, OTHER ==
[2020-10-26 13:27] LABS: African American GFR (CKD) 48.8 (60.0-200.0); Albumin 4.2 g/dL (3.80-4.90); Albumin/Globulin Ratio 1.83 (1.60-3.17); Anion Gap 12.8 mmol/L (4.00-12.00); BUN/Creat Ratio 21.54 Ratio (12.00-20.00); Calcium 9.1 mg/dL (8.7-10.3); Carbon Dioxide 22.2 mmol/L (21.6-31.8); Globulin 2.3 g/dL (1.6-3.3); Non-African American GFR(CKD) 42.1 (60.0-200.0); Potassium 4.7 mmol/L (3.5-5.5); Total Bilirubin 0.3 mg/dL (0.3-1.2); Total Protein 6.5 g/dL (6.2-8.2)
== END | disposition home or self-care (01) ==
LOC: LABWHC1 12:07
PROVIDERS: ATTEND Nurse Practitioner Family
DX: N17.9 Acute kidney failure, unspecified (principal)
CPT/HCPCS: 36415; 80053

== ENCOUNTER 2020-12-13 10:32 | Emergency (ER) | payer MEDICARE, OTHER ==
[2020-12-13 10:38] VITALS: BP 170/84; PULSE 92; RESP 20; TEMP 98.2
[2020-12-13] MEDS ORDERED: SODIUM CHLORIDE 0.9% 500 ML 500 ML IV STA (11:05)
[2020-12-13] MEDS ORDERED: KETOROLAC 15 MG/ML 1 ML VIAL IVP STA (11:05)
[2020-12-13] MEDS ORDERED: ONDANSETRON 4 MG/2 ML VIAL IVP STA (11:05)
--- NOTE | 2020-12-13 11:29 | ED ---
Abdominal Pain HPI - General Chief Complaint: Abdominal Pain Stated Complaint: Abd pain Time Seen by Provider: 12/13/20 10:40 Source: patient Mode of arrival: ambulatory Limitations: no limitations - History of Present Illness Initial Comments: Patient is a 70-year-old female with history of diabetes, hypertension, liver and renal disease, presenting to the emergency Department with complaints of right-sided abdominal pain since yesterday. She describes the pain as starting on the right side of her abdomen with radiation towards the right lower anisa drant. She states she has has radiation towards her right side of her back as well. She denies history of kidney stones. She does state recent history of kidney failure, she believes to be from her second Covid vaccine. She had one dialysis treatment while in the hospital, no other dialysis treatment needed at this time. She denies any hematuria, she does report some mild nausea, no vomiting, no fevers or chills. She does have history of C-sections, hysterectomy, umbilical hernia repair. She denies any chest pain or shortness of breath. She has no further complaints at this time. Upon arrival to the ER, her vitals are stable. - Related Data Home Medications Medication Instructions Recorded Confirmed Acitretin [Soriatane] 25 mg PO DAILY 11/10/19 12/13/20 Atorvastatin [Lipitor] 20 mg PO Q48H 11/10/19 12/13/20 metFORMIN HCL [Glucophage] 500 mg PO BID 11/10/19 12/13/20 Acetaminophen [Tylenol 8 Hour] 1,300 mg PO Q8H PRN 12/13/20 12/13/20 Vitamin B Complex 1 cap PO DAILY 12/13/20 12/13/20 Previous Rx's Medication Instructions Recorded Ketorolac [Toradol] 10 mg PO Q8HR #10 tab 12/13/20 Ondansetron Odt [Zofran Odt] 4 mg PO Q8HR PRN #10 tab 12/13/20 Allergies Allergy/AdvReac Type Severity Reaction Status Date / Time No Known Allergies Allergy Verified 12/13/20 13:33 Review of Systems ROS Statement: Those systems with pertinent positive or pertinent negative responses have been documented in the HPI. ROS Other: All systems not noted in ROS Statement are negative. 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, psoriasis, rosacea, 2008 acute renal disease, duodenal ulcers, hemorrhoids, mono as a teen, hx skin cancer, heart murmer, History of Any Multi-Drug Resistant Organisms: None Reported Past Surgical History: Breast Surgery, Section, Hernia Repair, Hysterectomy, Orthopedic Surgery, Tonsillectomy Additional Past Surgical History / Comment(s): Umbilical hernia repair, nori oophorectomy L shoulder bone/spur/tendon surgery, R hand dupretyens contraction, bilateral feet bunionectomies, R breast biopsy, skin cancer removals, liver biopsy, left wrist, Past Anesthesia/Blood Transfusion Reactions: Motion Sickness Additional Past Anesthesia/Blood Transfusion Reaction / Comment(s): claustrophobia, "I wake up really cold" Past Psychological History: Depression Smoking Status: Never smoker Past Alcohol Use History: Rare Past Drug Use History: None Reported - Past Family History Mother History Unknown: Yes Family Medical History: Diabetes Mellitus, Osteoarthritis (OA) Additional Family Medical History / Comment(s): . Father History Unknown: Yes Additional Family Medical History / Comment(s): Father has L shoulder issues. He is 86yrs old. General Exam - General Exam Comments Initial Comments: GENERAL: Patient is well-developed and well-nourished. Patient is nontoxic and in mild d istress. HEAD: Atraumatic, normocephalic. EYES: Pupils equal round and reactive to light, extraocular movements intact, sclera anicteric, conjunctiva are normal. Eyelids were unremarkable. ENT: Nares patent, oropharynx clear without exudates. Moist mucous membranes. NECK: Normal range of motion, supple without lymphadenopathy or JVD. LUNGS: Unlabored respirations. Breath sounds clear to auscultation bilaterally and equal. No wheezes rales or rhonchi. HEART: Regular rate and rhythm without murmurs, rubs or gallops. ABDOMEN: Soft, tender to palpation of the entire right side of the abdomen, some mild right flank pain, normoactive bowel sounds. No guarding, no rebound. No masses appreciated. : Deferred MUSCULOSKELETAL: Normal extremities with adequate strength and normal range of motion, no pitting or edema. No clubbing or cyanosis. NEUROLOGICAL: Patient is alert and oriented x 3. Normal speech, normal gait. PSYCH: Normal mood, normal affect. SKIN: Warm, Dry, normal turgor, no rashes or lesions noted. Limitations: no limitations Course Vital Signs 12/13/20 10:37 Temperature 98.2 F Pulse Rate 92 Respiratory 20 Rate Blood Pressure 170/84 O2 Sat by Pulse 99 Oximetry Medical Decision Making - Medical Decision Making Patient is a 70-year-old female with multiple comorbidities, presenting with right-sided abdominal pain that started last night. Her vitals are stable. No fevers. Patient's labs reveal a normal white count, kidney function is stable with creatinine of 1.26, GFR still lower at 44 over this has been her baseline. Lipase is slightly elevated at 305. Urine shows evidence of blood, no evidence of infection. Noncontrast CT of the abdomen and pelvis reveals a partially obstructed proximal right ureter occult furcation, measuring about 5-6 mm in size, mild right-sided hydronephrosis. She was given fluids, Toradol, does report significant improvement in her symptoms. I discussed these findings with her. Patient will be discharged home with Toradol and Zofran as needed for her symptoms and will follow up with urology. 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 She is agreeable to this plan of care and is stable for discharge. Return parameters were discussed with her and she verbalized understanding. Case discussed Dr. Jennings. - Lab Data Result diagrams: 12/13/20 11:15 12/13/20 11:15 Lab Results 12/13/20 12/13/20 12/13/20 Range/Units 11:15 11:15 11:15 WBC 10.4 (3.8-10.6) k/uL RBC 4.44 (3.80-5.40) m/uL Hgb 12.3 (11.4-16.0) gm/dL Hct 36.7 (34.0-46.0) % MCV 82.7 (80.0-100.0) fL MCH 27.7 (25.0-35.0) pg MCHC 33.5 (31.0-37.0) g/dL RDW 14.0 (11.5-15.5) % Plt Count 232 (150-450) k/uL MPV 7.5 Neutrophils % 80 % Lymphocytes % 13 % Monocytes % 4 % Eosinophils % 2 % Basophils % 0 % Neutrophils # 8.3 H (1.3-7.7) k/uL Lymphocytes # 1.4 (1.0-4.8) k/uL Monocytes # 0.4 (0-1.0) k/uL Eosinophils # 0.2 (0-0.7) k/uL Basophils # 0.0 (0-0.2) k/uL PT 9.7 (9.0-12.0) sec INR 0.9 (<1.2) APTT 22.3 (22.0-30.0) sec Sodium (137-145) mmol/L Potassium (3.5-5.1) mmol/L Chloride (98-107) mmol/L Carbon Dioxide (22-30) mmol/L Anion Gap mmol/L BUN (7-17) mg/dL Creatinine (0.52-1.04) mg/dL Est GFR (CKD-EPI)AfAm (>60 ml/min/1.73 sqM) Est GFR (CKD-EPI)NonAf (>60 ml/min/1.73 sqM) Glucose (74-99) mg/dL Plasma Lactic Acid Eladio (0.7-2.0) mmol/L Calcium (8.4-10.2) mg/dL Total Bilirubin (0.2-1.3) mg/dL AST (14-36) U/L ALT (4-34) U/L Alkaline Phosphatase (38-126) U/L Total Protein (6.3-8.2) g/dL Albumin (3.5-5.0) g/dL Amylase (30-110) U/L Lipase (23-300) U/L Urine Color Yellow Urine Appearance Clear (Clear) Urine pH 5.5 (5.0-8.0) Ur Specific Perry 1.025 (1.001-1.035) Urine Protein Trace H (Negative) Urine Glucose (UA) Negative (Negative) Urine Ketones Negative (Negative) Urine Blood Moderate H (Negative) Urine Nitrite Negative (Negative) Urine Bilirubin Negative (Negative) Urine Urobilinogen <2.0 (<2.0) mg/dL Ur Leukocyte Esterase Trace H (Negative) Urine RBC 42 H (0-5) /hpf Urine WBC 4 (0-5) /hpf Ur Squamous Epith Cells <1 (0-4) /hpf Triple Phos Crystals Occasional H (None) /hpf Urine Mucus Rare H (None) /hpf 12/13/20 12/13/20 Range/Units 11:15 11:15 WBC (3.8-10.6) k/uL RBC (3.80-5.40) m/uL Hgb (11.4-16.0) gm/dL Hct (34.0-46.0) % MCV (80.0-100.0) fL MCH (25.0-35.0) pg MCHC (31.0-37.0) g/dL RDW (11.5-15.5) % Plt Count (150-450) k/uL MPV Neutrophils % % Lymphocytes % % Monocytes % % Eosinophils % % Basophils % % Neutrophils # (1.3-7.7) k/uL Lymphocytes # (1.0-4.8) k/uL Monocytes # (0-1.0) k/uL Eosinophils # (0-0.7) k/uL Basophils # (0-0.2) k/uL PT (9.0-12.0) sec INR (<1.2) APTT (22.0-30.0) sec Sodium 140 (137-145) mmol/L Potassium 4.9 (3.5-5.1) mmol/L Chloride 105 (98-107) mmol/L Carbon Dioxide 24 (22-30) mmol/L Anion Gap 11 mmol/L BUN 27 H (7-17) mg/dL Creatinine 1.26 H (0.52-1.04) mg/dL Est GFR (CKD-EPI)AfAm 51 (>60 ml/min/1.73 sqM) Est GFR (CKD-EPI)NonAf 44 (>60 ml/min/1.73 sqM) Glucose 157 H (74-99) mg/dL Plasma Lactic Acid Eladio 1.8 (0.7-2.0) mmol/L Calcium 9.7 (8.4-10.2) mg/dL Total Bilirubin 0.4 (0.2-1.3) mg/dL AST 22 (14-36) U/L ALT 15 (4-34) U/L Alkaline Phosphatase 118 (38-126) U/L Total Protein 7.0 (6.3-8.2) g/dL Albumin 4.4 (3.5-5.0) g/dL Amylase 85 (30-110) U/L Lipase 305 H (23-300) U/L Urine Color Urine Appearance (Clear) Urine pH (5.0-8.0) Ur Specific Perry (1.001-1.035) Urine Protein (Negative) Urine Glucose (UA) (Negative) Urine Ketones (Negative) Urine Blood (Negative) Urine Nitrite (Negative) Urine Bilirubin (Negative) Urine Urobilinogen (<2.0) mg/dL Ur Leukocyte Esterase (Negative) Urine RBC (0-5) /hpf Urine WBC (0-5) /hpf Ur Squamous Epith Cells (0-4) /hpf Triple Phos Crystals (None) /hpf Urine Mucus (None) /hpf Disposition Clinical Impression: Right ureteral calculus, Hydronephrosis, right Disposition: HOME SELF-CARE Condition: Stable Instructions (If sedation given, give patient instructions): Kidney Stones (ED) Additional Instructions: Please return to the Emergency Department if symptoms worsen or any other concerns. Please take medications as needed for severe pain. May take Zofran for any nausea. Increase your water/fluid intake as discussed. Follow up with urology if symptoms persist. Prescriptions: Ketorolac [Toradol] 10 mg PO Q8HR #10 tab Ondansetron Odt [Zofran Odt] 4 mg PO Q8HR PRN #10 tab PRN Reason: Nausea Is patient prescribed a controlled substance at d/c from ED?: No Referrals: Luciano Green MD [Primary Care Provider] - 1-2 days Pilo Berg MD [STAFF PHYSICIAN] - 1-2 days Time of Disposition: 15:01
[2020-12-13 11:57] LABS: Albumin 4.4 g/dL (3.5-5.0); Calcium 9.7 mg/dL (8.4-10.2); Potassium 4.9 mmol/L (3.5-5.1); Total Bilirubin 0.4 mg/dL (0.2-1.3)
[2020-12-13 12:04] LABS: Basophils % (A) 0 %; Eosinophils # (A) 0.2 k/uL (0-0.7); Eosinophils % (A) 2 %; HCT 36.7 % (34.0-46.0); HGB 12.3 gm/dL (11.4-16.0); Lymphocytes # (A) 1.4 k/uL (1.0-4.8); Lymphocytes % (A) 13 %; MCH 27.7 pg (25.0-35.0); MCHC 33.5 g/dL (31.0-37.0); MCV 82.7 fL (80.0-100.0); Mean Platelet Volume 7.5; Monocytes # (A) 0.4 k/uL (0-1.0); Monocytes % (A) 4 %; Neutrophils # (A) 8.3 k/uL (1.3-7.7); Neutrophils % (A) 80 %; Platelet Count 232 k/uL (150-450); RBC 4.44 m/uL (3.80-5.40); WBC 10.4 k/uL (3.8-10.6)
[2020-12-13 12:18] LABS: Appearance,Urine Clear (Clear); Bilirubin,Urine Negative (Negative); Blood,Urine Moderate (Negative); Color,Urine Yellow; Glucose,Urine (UA) Negative (Negative); Ketones,Urine Negative (Negative); Leukocyte Esterase,Urine Trace (Negative); Mucus,Urine Rare /hpf; Nitrite,Urine Negative (Negative); PH, Urine 5.5 (5.0-8.0); Protein,Urine Trace (Negative); RBC,Urine 42 /hpf (0-5); Specific Gravity,Urine 1.025 (1.001-1.035); Squamous Epithelial Cell,Urine <1 /hpf (0-4); Triple Phosphate Crystal,Urine Occasional /hpf; Urobilinogen,Urine <2.0 mg/dL (<2.0); WBC,Urine 4 /hpf (0-5)
[2020-12-13 12:24] LABS: INR 0.9 (<1.2); Partial Thromboplastin Time 22.3 sec (22.0-30.0); Prothrombin Time 9.7 sec (9.0-12.0)
--- NOTE | 2020-12-13 14:50 | CT ---
EXAMINATION TYPE: CT abdomen pelvis wo con DATE OF EXAM: 12/13/2020 COMPARISON: CT 09/09/2020 HISTORY: Right flank pain CT DLP: 595.4 mGycm Automated exposure control for dose reduction was used. TECHNIQUE: Helical acquisition of images from the lung bases through the pelvis. FINDINGS: Lack of intravenous contrast could compromise sensitivity LUNG BASES: No significant abnormality is appreciated. AORTA: No significant abnormality is appreciated. LIVER/GB: Liver shows low attenuation possibly due to hepatic steatosis, liver is borderline enlarged , gallbladder within normal limits. PANCREAS: No significant abnormality is seen. SPLEEN: No significant abnormality is seen. ADRENALS: No significant abnormality is seen. KIDNEYS: Proximal right ureteral calcification is present measuring approximately 5 to 6 mm in size, there is some mild right-sided hydronephrosis REPRODUCTIVE ORGANS: Not seen. URINARY BLADDER: No significant abnormality is seen. BOWEL: Colonic interposition noted anterior to the liver. The appendix is normal, there is no bowel obstruction. There is some scattered diverticular change. Rectosigmoid colon shows some questionable wall thickening, difficult to exclude a mucosal lesion. FREE AIR: No Free Air is visible. ASCITES: None visible. PELVIC ADENOPATHY: None visualized. RETROPERITONEAL ADENOPATHY: No Retroperitoneal Adenopathy visible. OSSEOUS STRUCTURES: Degenerative disc changes, facet arthropathy, spinal curvature noted in the visu alized spine IMPRESSION: At least partial obstructive proximal right ureteral calcification. Noncontrast exam. Postop changes and additional findings above.
== END 2020-12-13 15:17 | disposition home or self-care (01) ==
LOC: EC 10:32
DX: N13.2 Hydronephrosis with renal and ureteral calculous obstruction (principal); I10 Essential (primary) hypertension; E11.9 Type 2 diabetes mellitus without complications; K21.9 Gastro-esophageal reflux disease without esophagitis; F32.9 Major depressive disorder, single episode, unspecified; Z79.1 Long term (current) use of non-steroidal anti-inflammatories (NSAID); Z79.84 Long term (current) use of oral hypoglycemic drugs; Z79.899 Other long term (current) drug therapy; Z99.2 Dependence on renal dialysis; Z90.710 Acquired absence of both cervix and uterus
CPT/HCPCS: 99284 ×2; 96374 ×2; 96375 ×2; 36415; 80053; 82150; 83605; 83690; 85025; 85610; 85730; 81001; 74176; J2405; J1885

== ENCOUNTER 2020-12-17 14:50 | Day surgery (SDC) | payer MEDICARE, OTHER ==
--- NOTE | 2020-12-17 12:27 | P.GSHP ---
History of Present Illness H&P Date: 12/17/20 Chief Complaint: right ureteral stone This is a 70 yo female with hx of 5mm right sided ureteral stone, She was initially seen in the ED on 12/13 CT was obtained at that time showed evidence of 5mm right sided ureteral stone. She presented to the Urology clinic and has been complaining of flank pain and fevers, she indicated she was febrile at 101.3 last night. She is also been complaining of fatigue and weakness. Discussed with her given her fever and obstructive stone, recommend proceeding with stent placement, discussed with her this is not a permanent fix for her stone, and she will require us ureteroscopy or ESWL in the future to address her stone. - Constitutional Constitutional: Reports chills, Reports fever, Reports weakness - EENT Ears, nose, mouth and throat: Denies headache, Denies sore throat - Cardiovascular Cardiovascular: Denies chest pain, Denies shortness of breath - Respiratory Respiratory: Reports as per HPI - Gastrointestinal Gastrointestinal: Denies abdominal pain, Denies diarrhea, Denies nausea, Denies vomiting - Neurological Neurological: Denies numbness, Denies weakness 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, psoriasis, rosacea, 2008 acute renal disease, duodenal ulcers, hemorrhoids, mono as a teen, hx skin cancer, heart murmer, History of Any Multi-Drug Resistant Organisms: None Reported Past Surgical History: Breast Surgery, Section, Hernia Repair, Hysterectomy, Orthopedic Surgery, Tonsillectomy Additional Past Surgical History / Comment(s): Umbilical hernia repair, nori oophorectomy L shoulder bone/spur/tendon surgery, R hand dupretyens contraction, bilateral feet bunionectomies, R breast biopsy, skin cancer removals, liver biopsy, left wrist, Past Anesthesia/Blood Transfusion Reactions: Motion Sickness Additional Past Anesthesia/Blood Transfusion Reaction / Comment(s): claustrophobia, "I wake up really cold" Past Psychological History: Depression Smoking Status: Never smoker Past Alcohol Use History: Rare Past Drug Use History: None Reported - Past Family History Mother History Unknown: Yes Family Medical History: Diabetes Mellitus, Osteoarthritis (OA) Additional Family Medical History / Comment(s): . Father History Unknown: Yes Additional Family Medical History / Comment(s): Father has L shoulder issues. He is 86yrs old. Medications and Allergies Home Medications Medication Instructions Recorded Confirmed Type Acitretin [Soriatane] 25 mg PO DAILY 11/10/19 12/13/20 History Atorvastatin [Lipitor] 20 mg PO Q48H 11/10/19 12/13/20 History metFORMIN HCL [Glucophage] 500 mg PO BID 11/10/19 12/13/20 History Acetaminophen [Tylenol 8 Hour] 1,300 mg PO Q8H PRN 12/13/20 12/13/20 History Ketorolac [Toradol] 10 mg PO Q8HR #10 tab 12/13/20 Rx Ondansetron Odt [Zofran Odt] 4 mg PO Q8HR PRN #10 tab 12/13/20 Rx Vitamin B Complex 1 cap PO DAILY 12/13/20 12/13/20 History Allergies Allergy/AdvReac Type Severity Reaction Status Date / Time No Known Allergies Allergy Verified 12/13/20 13:33 Surgical - Exam - General well developed, well nourished, moderate distress, moderate pain - Eyes PERRL, normal ocular movement - ENT normal nares, normal mucosa - Respiratory normal expansion, normal respiratory effort - Abdomen Abdomen: soft, non tender - Psychiatric oriented to time, oriented to person, oriented to place Assessment and Plan Assessment: 70-year-old female with history of 5 mm right-sided ureteral stone, she's been febrile secondary to her stone -Or for right-sided stent placement -We'll admitted to the hospital postoperatively
[2020-12-17] MEDS ORDERED: ONDANSETRON 4 MG/2 ML VIAL IVP ONE (15:33)
[2020-12-17] MEDS ORDERED: LACTATED RINGERS 1,000 ML IV ONE ×3 (15:33→16:51)
[2020-12-17] MEDS ORDERED: DEXAMETHASONE SOD PHOSPHATE 4 MG/ML 1 ML VIAL IVP ONE (15:33)
[2020-12-17] MEDS ORDERED: ONDANSETRON 4 MG/2 ML VIAL ONE (15:35)
[2020-12-17 15:44] LABS: Glucose,Whole Blood 105 mg/dL (75-99)
[2020-12-17] MEDS ORDERED: LIDOCAINE 1% INJ 10MG/ML (20 ML MDV) ONE (16:17)
[2020-12-17] MEDS ORDERED: PROPOFOL 10 MG/ML 20 ML VIAL IV ONE (16:17)
[2020-12-17] MEDS ORDERED: SUCCINYLCHOLINE CHLORIDE 100 MG/5 ML SYR IV ONE (16:17)
[2020-12-17] MEDS ORDERED: fentaNYL (PF) 50 MCG/ML 2 ML AMP ONE (16:17)
[2020-12-17] MEDS ORDERED: diphenhydrAMINE 50 MG/ML 1 ML VIAL ONE (16:17)
[2020-12-17] MEDS ORDERED: MIDAZOLAM 2 MG/2 ML VIAL ONE (16:17)
[2020-12-17] MEDS ORDERED: Acetaminophen-Codeine 300-30mg TAB PO PRN (16:25)
[2020-12-17] MEDS ORDERED: ONDANSETRON ODT 4 MG TAB PO PRN (16:25)
[2020-12-17] MEDS ORDERED: ATORVASTATIN 20 MG TAB PO SCH (16:30)
--- NOTE | 2020-12-17 16:44 | P.OP ---
Date of Procedure: 12/17/20 Preoperative Diagnosis: right ureteral stone Postoperative Diagnosis: same Procedure(s) Performed: Cystoscopy, right stent placement Implants: 6 Gu[place]an by 24 cm stent Anesthesia: ABBY Surgeon: Garth Keene Estimated Blood Loss (ml): 1 Pathology: none sent Condition: stable Disposition: PACU Indications for Procedure: This is a 70 yo female with hx of 5mm right sided ureteral stone, She was initially seen in the ED on 12/13 CT was obtained at that time showed evidence of 5mm right sided ureteral stone. She presented to the Urology clinic and has been complaining of flank pain and fevers, she indicated she was febrile at 101.3 last night. She is also been complaining of fatigue and weakness. Discussed with her given her fever and obstructive stone, recommend proceeding with stent placement, discussed with her this is not a permanent fix for her stone, and she will require us ureteroscopy or ESWL in the future to address her stone. Description of Procedure: Patient was brought to the operating room, general anesthesia was induced. She was prepped and draped in sterile fashion a placement dorsal lithotomy position. Cystoscopy fitted with a 21-Guinean sheath was per urethra, cystoscopy was performed showed no abnormality within the bladder. A urine culture was obtained from the bladder. Attention was then carried to the right ureteral orifice which was intubated with an open-ended catheter, the open-ended catheter was advanced into the collecting system, renal aspirate was obtained and sent for culture. Next a sensor wire was advanced through the catheter and the catheter was removed with the wire in place. Next a ureteral stent was passed over the wire, the proximal curl was visualized on fluoroscopy and the distal curl was visualized using the cystoscope. The bladder was emptied and of the case. Patient tolerated the procedure well was taken to PACU in stable condition
[2020-12-17 17:24] LABS: Glucose,Whole Blood 123 mg/dL (75-99)
[2020-12-17] MEDS: SODIUM CHLORIDE 0.9% 1,000 ML IV SCH (18:18)
--- NOTE | 2020-12-17 18:38 | FL ---
Fluoroscopy INDICATION: Pain FINDINGS: Fluoroscopy time: 2 seconds. Images obtained: 1. IMPRESSIONS: 1. Documentation of fluoroscopy.
[2020-12-17] MEDS: KETOROLAC 15 MG/ML 1 ML VIAL IVP SCH ×2 (19:12→22:33)
[2020-12-17 20:33] LABS: Glucose,Whole Blood 221 mg/dL (75-99)
[2020-12-17] MEDS: metFORMIN 500 MG TAB PO SCH (20:36)
[2020-12-17] MEDS: HEPARIN SODIUM,PORCINE/PF 5,000 UNIT/0.5 ML SYRINGE SQ SCH (22:34)
[2020-12-18] MEDS: KETOROLAC 15 MG/ML 1 ML VIAL IVP SCH ×2 (06:08→12:08)
[2020-12-18 06:57] LABS: Glucose,Whole Blood 120 mg/dL (75-99)
[2020-12-18] MEDS: HEPARIN SODIUM,PORCINE/PF 5,000 UNIT/0.5 ML SYRINGE SQ SCH (07:30)
[2020-12-18] MEDS: metFORMIN 500 MG TAB PO SCH (07:30)
[2020-12-18] MEDS ORDERED: ACITRETIN 25 MG PO SCH (09:00)
[2020-12-18 10:38] LABS: Basophils # (A) 0.01 X 10*3/uL (0.00-0.10); Basophils % (A) 0.2 %; Eosinophils # (A) 0 X 10*3/uL (0.04-0.35); Eosinophils % (A) 0 %; HCT 30.2 % (37.2-46.3); HGB 9.5 g/dL (12.0-15.0); Lymphocytes # (A) 0.83 X 10*3/uL (0.90-5.00); Lymphocytes % (A) 12.7 %; MCH 27.1 pg (27.0-32.0); MCHC 31.5 g/dL (32.0-37.0); MCV 86.3 fL (80.0-97.0); Mean Platelet Volume 10.3 fL (9.5-12.2); Monocytes # (A) 0.34 X 10*3/uL (0.20-1.00); Monocytes % (A) 5.2 %; Neutrophils # (A) 5.33 X 10*3/uL (1.80-7.70); Neutrophils % (A) 81.6 %; Platelet Count 203 X 10*3/uL (140-440); RDW 12.9 % (11.5-14.5); WBC 6.53 X 10*3/uL (4.50-10.00)
[2020-12-18 11:33] LABS: Glucose,Whole Blood 78 mg/dL (75-99)
[2020-12-18 11:53] LABS: African American GFR (CKD) 30.9 (60.0-200.0); Anion Gap 13.4 mmol/L (4.00-12.00); BUN/Creat Ratio 17.37 Ratio (12.00-20.00); Calcium 8.6 mg/dL (8.7-10.3); Carbon Dioxide 21.6 mmol/L (21.6-31.8); Non-African American GFR(CKD) 26.6 (60.0-200.0); Potassium 5.1 mmol/L (3.5-5.5)
[2020-12-18] MEDS: SODIUM CHLORIDE 0.9% 1,000 ML IV SCH (12:03)
[2020-12-18 13:44] VITALS: BP 114/63; PULSE 65; RESP 19; TEMP 98.2
--- NOTE | 2020-12-18 19:17 | P.DS ---
Providers Attending physician: Garth Keene MD Primary care physician: [facility] Course: 70 yo female with hx of 6 mm right sided ureteral stone, she has been having intermittent fever for the past 3 days. Patient was taken to the OR on 12/17 for stent placement, please see op note dated 12/17 for full surgery details. She was admitted post surgery for IV abx. She was afebrile post op, she was discharged home on POD #1 with po abx. At time of discharge she was tolerating diet, ambulating and pain was well controlled. She will follow up for right sided ureteroscopy as an outpatient Plan - Discharge Summary Discharge Rx Participant: Yes New Discharge Prescriptions: New Cephalexin [Keflex] 500 mg PO Q8HR 7 Days #21 cap No Action Acitretin [Soriatane] 25 mg PO DAILY Atorvastatin [Lipitor] 20 mg PO Q48H metFORMIN HCL [Glucophage] 500 mg PO BID Vitamin B Complex 1 cap PO DAILY Ketorolac [Toradol] 10 mg PO Q8HR #10 tab Acetaminophen [Tylenol 8 Hour] 1,300 mg PO Q8H PRN PRN Reason: Pain Ondansetron Odt [Zofran Odt] 4 mg PO Q8HR PRN #10 tab PRN Reason: Nausea Discharge Medication List Acitretin [Soriatane] 25 mg PO DAILY 11/10/19 [History] Atorvastatin [Lipitor] 20 mg PO Q48H 11/10/19 [History] metFORMIN HCL [Glucophage] 500 mg PO BID 11/10/19 [History] Acetaminophen [Tylenol 8 Hour] 1,300 mg PO Q8H PRN 12/13/20 [History] Ketorolac [Toradol] 10 mg PO Q8HR #10 tab 12/13/20 [Rx] Ondansetron Odt [Zofran Odt] 4 mg PO Q8HR PRN #10 tab 12/13/20 [Rx] Vitamin B Complex 1 cap PO DAILY 12/13/20 [History] Cephalexin [Keflex] 500 mg PO Q8HR 7 Days #21 cap 12/18/20 [Rx] Follow up Appointment(s)/Referral(s): Garth Keene MD [STAFF PHYSICIAN] - 1 Week (Office will call you with your a ppointment date and time.) Activity/Diet/Wound Care/Special Instructions: It's normal to see blood in the urine increase your fluid intake You will be contacted for your surgery to remove your kidney stones Discharge Disposition: HOME SELF-CARE
== END 2020-12-18 14:57 | disposition home or self-care (01) ==
LOC: OR 14:50 → 4SSUR 16:21 → OR 12-18 14:57
PROVIDERS: ATTEND Urology
DX: N13.2 Hydronephrosis with renal and ureteral calculous obstruction (principal); E11.9 Type 2 diabetes mellitus without complications; K21.9 Gastro-esophageal reflux disease without esophagitis; I10 Essential (primary) hypertension; C22.9 Malignant neoplasm of liver, not specified as primary or secondary; Z92.21 Personal history of antineoplastic chemotherapy; F32.9 Major depressive disorder, single episode, unspecified; L40.9 Psoriasis, unspecified; Z79.899 Other long term (current) drug therapy; N28.9 Disorder of kidney and ureter, unspecified
CPT/HCPCS: 80048; 85025; 87086; 52332; C2625; C1769; J2250; J1200; J1100; J0690; J2405; J2001; J0696; J3010; J1885 ×2; J0330; J2704; J1644 ×2

== ENCOUNTER → 2020-12-27 | Day surgery (SDC) | payer MEDICARE, OTHER ==
[2020-12-25 08:45] VITALS: BMI 24.7
--- NOTE | 2020-12-26 13:48 | P.HPIHPCON ---
History of Present Illness H&P Date: 12/26/20 Chief Complaint: Right-sided ureteral stone This is a 70-year-old female history of a 6 mm right-sided proximal stone, she symptomatic from her stone. Discussed with her the option of ESWL versus ureteroscopy. Discussed the risk and benefit of each procedure. She agreed to proceed with right-sided ureteroscopy with holmium laser. Discussed the risk which includes but not limited to bleeding, infection, injury to the ureter. I discussed also risk of anesthesia. She understood all the risk and agreed to proceed with right-sided ureteroscopy, with holmium laser lithotripsy, stone basketing and stent insertion Consent for Procedure: I have explained the operation/procedure to the patient, including the risks, benefits, side effects, alternative therapies (including not receiving the proposed treatment or service), the likelihood of the patient achieving his/her goals, and potential recuperation problems for the procedure/sedation/analgesia, as well as any blood products, if indicated. I also explained to the patient the risks, benefits and side effects of the alternatives, as well as the risks related to not receiving the proposed procedure, care, treatment, or services. 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, psoriasis, rosacea, 2008 acute renal disease, duodenal ulcers, hemorrhoids, mono as a teen, hx skin cancer, heart murmer, SKIN CANCER History of Any Multi-Drug Resistant Organisms: None Reported Past Surgical History: Breast Surgery, Section, Hernia Repair, Hysterectomy, Orthopedic Surgery, Tonsillectomy Additional Past Surgical History / Comment(s): Umbilical hernia repair, nori oophorectomy L shoulder bone/spur/tendon surgery, R hand dupretyens contraction, bilateral feet bunionectomies, R breast biopsy, skin cancer removals, liver biopsy, left wrist, STENT FOR KIDNEY STONE Past Anesthesia/Blood Transfusion Reactions: Motion Sickness Additional Past Anesthesia/Blood Transfusion Reaction / Comment(s): claustrophobia, "I wake up really cold" Smoking Status: Never smoker - Past Family History Mother History Unknown: Yes Family Medical History: Diabetes Mellitus, Osteoarthritis (OA) Additional Family Medical History / Comment(s): . Father History Unknown: Yes Additional Family Medical History / Comment(s): Father has L shoulder issues. He is 86yrs old. Medications and Allergies Home Medications Medication Instructions Recorded Confirmed Type Acitretin [Soriatane] 25 mg PO DAILY 11/10/19 12/25/20 History Atorvastatin [Lipitor] 20 mg PO Q48H 11/10/19 12/25/20 History metFORMIN HCL [Glucophage] 500 mg PO BID 11/10/19 12/25/20 History Acetaminophen [Tylenol 8 Hour] 1,300 mg PO Q8H PRN 12/13/20 12/25/20 History Vitamin B Complex 1 cap PO DAILY 12/13/20 12/25/20 History Cephalexin [Keflex] 500 mg PO Q8HR 7 Days #21 cap 12/18/20 12/25/20 Rx Allergies Allergy/AdvReac Type Severity Reaction Status Date / Time No Known Allergies Allergy Verified 12/25/20 08:15 Surgical - Exam - General well developed, well nourished, no distress, moderate pain - Eyes PERRL, normal ocular movement - ENT normal nares, normal mucosa - Respiratory normal expansion, normal respiratory effort - Abdomen Abdomen: soft, non tender - Psychiatric oriented to time, oriented to person, oriented to place Assessment and Plan Assessment: 70-year-old female history of right-sided ureteral stone -OR for right-sided ureteroscopy with holmium laser and stent insertion
[~2020-12-27] MED LIST changes: +DEXAMETHASONE SOD PHOSPHATE 10 MG/ML 1 ML VIAL ONE; +DEXAMETHASONE SOD PHOSPHATE 4 MG/ML 1 ML VIAL IVP ONE; +HYDROmorphone 0.5 MG/0.5 ML SYRINGE IVP ONE; +LACTATED RINGERS 1,000 ML IV ONE; -LACTATED RINGERS 1,000 ML IV SCH; +LIDOCAINE 1% (10MG/ML) FOR IV START INTRADERMA ONE; +LIDOCAINE 1% INJ 10MG/ML (20 ML MDV) ONE; +ONDANSETRON 4 MG/2 ML VIAL IVP ONE; +ONDANSETRON 4 MG/2 ML VIAL ONE; +fentaNYL (PF) 50 MCG/ML 2 ML AMP ONE
--- NOTE | 2020-12-27 13:38 | XR ---
EXAMINATION TYPE: XR KUB DATE OF EXAM: 12/27/2020 COMPARISON: 09/08/2020 INDICATION: Preop TECHNIQUE: Single view abdomen supine view FINDINGS: There is a normal bowel gas pattern. Psoas margins are normal. No organomegaly is present. Ureteral stent is present on the right. IMPRESSION: 1. Unremarkable Abdomen
[2020-12-27 13:44] LABS: Glucose,Whole Blood 118 mg/dL (75-99)
--- NOTE | 2020-12-27 16:57 | P.OP ---
Date of Procedure: 12/27/20 Preoperative Diagnosis: Right ureteral stone Postoperative Diagnosis: Same Procedure(s) Performed: Cystoscopy, right ureteroscopy, holmium laser lithotripsy, stone basketing and stent removal Implants: none Anesthesia: ABBY Surgeon: Garth Keene Estimated Blood Loss (ml): 1 Pathology: other (Right ureteral stone) Condition: stable Disposition: PACU Indications for Procedure: This is a 70-year-old female history of a 6 mm right-sided proximal stone, she symptomatic from her stone. She underwent a right-sided stent placement for for concern for sepsis, on December 17. She presents today for definitive stone management Discussed with her the option of ESWL versus ureteroscopy. Discussed the risk and benefit of each procedure. She agreed to proceed with right-sided ureteroscopy with holmium laser. Discussed the risk which includes but not limited to bleeding, infection, injury to the ureter. I discussed also risk of anesthesia. She understood all the risk and agreed to proceed with right-sided ureteroscopy, with holmium laser lithotripsy, stone basketing and stent insertion Operative Findings: Stone within the right UPJ Description of Procedure: Patient was brought to the operating room, general anesthesia was induced. she was prepped and draped in sterile fashion and placed in dorsal lithotomy position. Cystoscopy fitted with a 21-[place] sheath was inserted per urethra, cystoscopy was performed which showed no abnormality within the bladder. Attention was then carried to the right ureteral orifice, the stent was grasped and removed to the meatus. Next a sensor wire was advanced through the stent the stent was removed with the wire in place. Next a flexible ureteroscope was advanced over the wire, ureteroscopy was performed showed no evidence of ureteral stone, the scope was advanced all the way up to the UPJ, and stone was encountered at the UPJ. At this time the cystoscope was withdrawn and a wire was advanced through. Next the 1113 [place] access sheath was passed over the wire under fluoroscopy into the proximal ureter. Next a flexible ureteroscope was inserted through the access sheath, renoscopy was performed which showed a stone in the UPJ. Using the holmium laser the stone was fragmented into small fragments, sizable fragments were removed and sent for analysis. Repeat renoscopy showed no sizable fragments or injury to the kidney, pullback ureteroscopy was performed which showed no ureteral stones or injury to the ureter. The bladder was emptied at the end of the case. There was no ureteral edema, thus a stent was not placed. Patient tolerated the procedure well was taken to PACU in stable condition
[2020-12-27 17:00] VITALS: TEMP 97.1
[2020-12-27 17:40] VITALS: RESP 18
[2020-12-27 18:10] VITALS: BP 168/70; PULSE 85
--- NOTE | 2020-12-28 12:31 | FL ---
Fluoroscopy INDICATION: Pain FINDINGS: Fluoroscopy time: 30 seconds. Images obtained: 1. IMPRESSIONS: 1. Documentation of fluoroscopy.
== END ==
LOC: OR 12:47
PROVIDERS: ATTEND Urology
DX: N20.1 Calculus of ureter (principal); Z96.0 Presence of urogenital implants; E11.9 Type 2 diabetes mellitus without complications; K21.9 Gastro-esophageal reflux disease without esophagitis; I10 Essential (primary) hypertension; K76.9 Liver disease, unspecified; M19.90 Unspecified osteoarthritis, unspecified site; Z87.01 Personal history of pneumonia (recurrent); N28.9 Disorder of kidney and ureter, unspecified; K64.9 Unspecified hemorrhoids; L40.9 Psoriasis, unspecified; L71.9 Rosacea, unspecified; Z86.19 Personal history of other infectious and parasitic diseases; Z85.828 Personal history of other malignant neoplasm of skin; Z98.890 Other specified postprocedural states; Z98.891 History of uterine scar from previous surgery; Z90.710 Acquired absence of both cervix and uterus; Z90.722 Acquired absence of ovaries, bilateral; Z87.442 Personal history of urinary calculi; F40.240 Claustrophobia; Z83.3 Family history of diabetes mellitus; Z82.61 Family history of arthritis; Z79.84 Long term (current) use of oral hypoglycemic drugs; Z79.899 Other long term (current) drug therapy; Z91.09 Other allergy status, other than to drugs and biological substances
CPT/HCPCS: 82365; 74420; 74018; 52353; C1769; J1100 ×2; J0690; J2405; J2001; J3010; J2704; J1170

== ENCOUNTER → 2020-12-27 | Outpatient (CLI) | payer MEDICARE, OTHER | END | disposition home or self-care (01) | LOC: LABWHC1 07:39 | PROVIDERS: ATTEND Nurse Practitioner Family | DX: Z53.9 Procedure and treatment not carried out, unspecified reason (principal) ==

== ENCOUNTER → 2020-12-31 | Outpatient (CLI) | payer MEDICARE, OTHER ==
[2020-12-31 15:33] LABS: Protein/Creatinine Ratio,Urine 0.19
[2020-12-31 18:33] LABS: HCT 34.6 % (37.2-46.3); HGB 10.7 g/dL (12.0-15.0); MCH 26.8 pg (27.0-32.0); MCHC 30.9 g/dL (32.0-37.0); MCV 86.7 fL (80.0-97.0); Mean Platelet Volume 9.8 fL (9.5-12.2); Platelet Count 272 X 10*3/uL (140-440); RBC 3.99 X 10*6/uL (4.10-5.20); RDW 13.4 % (11.5-14.5); WBC 8.98 X 10*3/uL (4.50-10.00)
[2021-01-01 04:08] LABS: % Iron Saturation 14.08 (12.00-45.00); Albumin 4.6 g/dL (3.80-4.90); Albumin/Globulin Ratio 1.77 (1.60-3.17); Anion Gap 13.6 mmol/L (4.00-12.00); Calcium 9.8 mg/dL (8.7-10.3); Carbon Dioxide 21.4 mmol/L (21.6-31.8); Globulin 2.6 g/dL (1.6-3.3); Magnesium 1.8 mg/dL (1.5-2.4); Non-African American GFR(CKD) 57.8 (60.0-200.0); Phosphorus 4.4 mg/dL (2.4-5.1); Potassium 4.9 mmol/L (3.5-5.5); Total Bilirubin 0.3 mg/dL (0.3-1.2); Total Protein 7.2 g/dL (6.2-8.2)
[2021-01-01 04:28] LABS: Ferritin 15.3 ng/mL (10.0-291.0)
== END | disposition home or self-care (01) ==
LOC: LABWHC1 14:35
PROVIDERS: ATTEND Nurse Practitioner Family
DX: N17.9 Acute kidney failure, unspecified (principal); D64.9 Anemia, unspecified; E55.9 Vitamin D deficiency, unspecified; N25.81 Secondary hyperparathyroidism of renal origin; R80.9 Proteinuria, unspecified
CPT/HCPCS: 36415; 80053; 82306; 82570; 82728; 83540; 83550; 83735; 83970; 84100; 84156; 85027

== ENCOUNTER → 2021-02-15 | Outpatient (CLI) | payer MEDICARE, OTHER | LOC: EC 12:56 | PROVIDERS: ATTEND Family Medicine | DX: Z11.52 Encounter for screening for COVID-19 (principal); Z91.048 Other nonmedicinal substance allergy status | CPT/HCPCS: 87635 ==

== ENCOUNTER → 2021-04-07 | Outpatient (CLI) | payer MEDICARE, OTHER ==
[2021-04-07 20:36] LABS: ALT 24 U/L (8-44); AST 20 U/L (13-35); African American GFR (CKD) 75.6 (60.0-200.0); Albumin 4.7 g/dL (3.8-4.9); Albumin/Globulin Ratio 1.96 (1.60-3.17); Alkaline Phosphatase 138 U/L (41-126); BUN/Creat Ratio 21.33 Ratio (12.00-20.00); Blood Urea Nitrogen 19.2 mg/dL (9.0-27.0); Calcium 10.1 mg/dL (8.7-10.3); Carbon Dioxide 18.3 mmol/L (21.6-31.8); Chloride 105 mmol/L (96-109); Chol/HDL Ratio 3.93 Ratio; Globulin 2.4 g/dL (1.6-3.3); Glucose 120 mg/dL (70-110); LDL Cholesterol,Calculated 59.6 mg/dL (0.0-131.0); Non-African American GFR(CKD) 65.2 (60.0-200.0); Potassium 5.2 mmol/L (3.5-5.5); Sodium 142 mmol/L (135-145); Total Protein 7.1 g/dL (6.2-8.2)
== END | disposition home or self-care (01) ==
LOC: LABWHC1 09:42
PROVIDERS: ATTEND Family Medicine
DX: E11.9 Type 2 diabetes mellitus without complications (principal); E78.2 Mixed hyperlipidemia
CPT/HCPCS: 36415; 80053; 80061; 83036

== ENCOUNTER → 2021-05-21 | Outpatient (CLI) | payer MEDICARE, OTHER ==
[2021-05-21 10:35] LABS: HCT 37.8 % (37.2-46.3); HGB 11.9 g/dL (12.0-15.0); MCH 27.8 pg (27.0-32.0); MCHC 31.5 g/dL (32.0-37.0); MCV 88.3 fL (80.0-97.0); Mean Platelet Volume 9.7 fL (9.5-12.2); Platelet Count 264 X 10*3/uL (140-440); RBC 4.28 X 10*6/uL (4.10-5.20); RDW 13.3 % (11.5-14.5); WBC 9.87 X 10*3/uL (4.50-10.00)
[2021-05-21 11:32] LABS: % Iron Saturation 12.24 (12.00-45.00); African American GFR (CKD) 61.3 (60.0-200.0); Albumin 4.6 g/dL (3.8-4.9); Albumin/Globulin Ratio 2.02 (1.60-3.17); Anion Gap 17.7 mmol/L (10.00-18.00); BUN/Creat Ratio 24.49 Ratio (12.00-20.00); Blood Urea Nitrogen 26.2 mg/dL (9.0-27.0); Calcium 9.8 mg/dL (8.7-10.3); Carbon Dioxide 19.2 mmol/L (20.0-27.5); Ferritin 24.1 ng/mL (10.0-291.0); Globulin 2.3 g/dL (1.6-3.3); Magnesium 1.9 mg/dL (1.5-2.4); Non-African American GFR(CKD) 52.9 (60.0-200.0); Phosphorus 4.9 mg/dL (2.4-5.1); Potassium 5.1 mmol/L (3.5-5.5); Total Bilirubin 0.3 mg/dL (0.30-1.20); Total Protein 6.9 g/dL (6.2-8.2)
[2021-05-21 13:36] LABS: Creatinine,Urine Random 112.7 mg/dL
== END | disposition home or self-care (01) ==
LOC: LABWHC1 06:55
PROVIDERS: ATTEND Nurse Practitioner Family
DX: E55.9 Vitamin D deficiency, unspecified (principal); D64.9 Anemia, unspecified; N25.81 Secondary hyperparathyroidism of renal origin; N17.9 Acute kidney failure, unspecified; R80.9 Proteinuria, unspecified
CPT/HCPCS: 36415; 80053; 82306; 82570; 82728; 83540; 83550; 83735; 83970; 84100; 84156; 85027

== ENCOUNTER → 2021-06-17 | Outpatient (CLI) | payer MEDICARE, OTHER ==
--- NOTE | 2021-06-18 14:19 | MM ---
Reason for exam: screening (asymptomatic). Last mammogram was performed 1 year and 4 months ago. History: Patient is postmenopausal and history of other cancer. Family history of premenopausal breast cancer in paternal aunt and breast cancer in paternal grandmother. Benign stereotactic core biopsy of the right breast, September 03, 1998. Excisional biopsy of the right breast. Took hormonal contraceptives beginning at age 20. Took estrogen for 14 years 3 months. Physical Findings: A clinical breast exam by your physician is recommended on an annual basis and results should be correlated with mammographic findings. MG 3D Screening Mammo W/Cad Bilateral CC and MLO view(s) were taken. Prior study comparison: February 26, 2020, bilateral MG 3d screening mammo w/cad. September 02, 2018, bilateral MG 3d diag mammo w/cad [facility]. There are scattered fibroglandular densities. There are benign appearing round vascular calcifications bilaterally. Previous mammotome biopsy in the right breast. There is chronic nodularity bilaterally. There is no discrete abnormality. ASSESSMENT: Benign, BI-RAD 2 RECOMMENDATION: Routine screening mammogram of both breasts in 1 year.
== END | disposition home or self-care (01) ==
LOC: RADMAMWWP 09:16
PROVIDERS: ATTEND Family Medicine
DX: Z12.31 Encounter for screening mammogram for malignant neoplasm of breast (principal); Z78.0 Asymptomatic menopausal state; Z80.3 Family history of malignant neoplasm of breast
CPT/HCPCS: 77063; 77067

== ENCOUNTER → 2021-09-08 | Outpatient (CLI) | payer MEDICARE, OTHER ==
[2021-09-08 10:52] LABS: ALT 59 U/L (8-44); AST 21 U/L (13-35); African American GFR (CKD) 66.6 (60.0-200.0); Albumin 4.5 g/dL (3.8-4.9); Albumin/Globulin Ratio 1.73 (1.60-3.17); Alkaline Phosphatase 153 U/L (41-126); Blood Urea Nitrogen 24.4 mg/dL (9.0-27.0); Calcium 9.8 mg/dL (8.7-10.3); Carbon Dioxide 22.7 mmol/L (20.0-27.5); Chloride 105 mmol/L (96-109); Chol/HDL Ratio 3.55 Ratio; Globulin 2.6 g/dL (1.6-3.3); Glucose 147 mg/dL (70-110); LDL Cholesterol,Calculated 53.5 mg/dL (0.0-131.0); Non-African American GFR(CKD) 57.4 (60.0-200.0); Potassium 5.2 mmol/L (3.5-5.5); Sodium 140 mmol/L (135-145); Total Protein 7.1 g/dL (6.2-8.2)
== END | disposition home or self-care (01) ==
LOC: LABWHC1 07:02
PROVIDERS: ATTEND Internal Medicine Nephrology
DX: L40.0 Psoriasis vulgaris (principal); L71.8 Other rosacea; N18.2 Chronic kidney disease, stage 2 (mild)
CPT/HCPCS: 36415; 80053; 80061

== ENCOUNTER → 2021-10-17 | Outpatient (CLI) | payer MEDICARE, OTHER ==
[2021-10-17 11:18] LABS: ALT 26 U/L (8-44); AST 20 U/L (13-35); Albumin 4.1 g/dL (3.8-4.9); Albumin/Globulin Ratio 1.96 (1.60-3.17); Alkaline Phosphatase 111 U/L (41-126); BUN/Creat Ratio 18.24 Ratio (12.00-20.00); Blood Urea Nitrogen 18.6 mg/dL (9.0-27.0); Carbon Dioxide 24.1 mmol/L (20.0-27.5); Chloride 104 mmol/L (96-109); Chol/HDL Ratio 5.44 Ratio; Globulin 2.1 g/dL (1.6-3.3); Glucose 127 mg/dL (70-110); LDL Cholesterol,Calculated 122.6 mg/dL (0.0-131.0); Non-African American GFR(CKD) 56.1 (60.0-200.0); Potassium 5.1 mmol/L (3.5-5.5); Sodium 140 mmol/L (135-145); Total Bilirubin <0.15 mg/dL (0.30-1.20); Total Protein 6.1 g/dL (6.2-8.2)
[2021-10-17 11:39] LABS: Basophils # (A) 0.06 X 10*3/uL (0.00-0.10); Basophils % (A) 0.8 %; Eosinophils # (A) 0.24 X 10*3/uL (0.04-0.35); Eosinophils % (A) 3.2 %; HCT 34.8 % (37.2-46.3); HGB 10.8 g/dL (12.0-15.0); Immature Grans, Automated 0.7 %; Lymphocytes # (A) 2.04 X 10*3/uL (0.90-5.00); Lymphocytes % (A) 27.2 %; MCH 28.5 pg (27.0-32.0); MCV 91.8 fL (80.0-97.0); Mean Platelet Volume 10.1 fL (9.5-12.2); Monocytes # (A) 0.61 X 10*3/uL (0.20-1.00); Monocytes % (A) 8.1 %; NRBC Per 100 WBC 0 /100 WBCS (0.0-0.0); Neutrophils # (A) 4.49 X 10*3/uL (1.80-7.70); Platelet Count 204 X 10*3/uL (140-440); RBC 3.79 X 10*6/uL (4.10-5.20); RDW 13.2 % (11.5-14.5); WBC 7.49 X 10*3/uL (4.50-10.00)
[2021-10-17 16:55] LABS: Microalbumin Creatinine Ratio <30 mg/g Creat (0-30); Urine Creatinine 91.3 mg/dL (28.0-217.0)
== END | disposition home or self-care (01) ==
LOC: LABWHC1 07:08
PROVIDERS: ATTEND Nurse Practitioner Adult Health
DX: I10 Essential (primary) hypertension (principal); E78.2 Mixed hyperlipidemia; E11.9 Type 2 diabetes mellitus without complications
CPT/HCPCS: 36415; 80053; 80061; 82043; 82570; 83036; 84443; 85025

== ENCOUNTER → 2021-11-21 | Outpatient (CLI) | payer MEDICARE, OTHER ==
[2021-11-21 08:48] LABS: Creatinine,Urine Random 123.2 mg/dL; Protein/Creatinine Ratio,Urine 0.268
[2021-11-21 14:25] LABS: Basophils # (A) 0.04 X 10*3/uL (0.00-0.10); Basophils % (A) 0.5 %; Eosinophils # (A) 0.36 X 10*3/uL (0.04-0.35); Eosinophils % (A) 4.3 %; HCT 35.4 % (37.2-46.3); Immature Grans, Automated 0.4 %; Lymphocytes # (A) 1.57 X 10*3/uL (0.90-5.00); Lymphocytes % (A) 18.9 %; MCH 28.6 pg (27.0-32.0); MCHC 31.1 g/dL (32.0-37.0); MCV 92.2 fL (80.0-97.0); Mean Platelet Volume 10.2 fL (9.5-12.2); Monocytes # (A) 0.54 X 10*3/uL (0.20-1.00); Monocytes % (A) 6.5 %; NRBC Per 100 WBC 0 /100 WBCS (0.0-0.0); Neutrophils # (A) 5.78 X 10*3/uL (1.80-7.70); Neutrophils % (A) 69.4 %; Platelet Count 222 X 10*3/uL (140-440); RBC 3.84 X 10*6/uL (4.10-5.20); RDW 13.7 % (11.5-14.5); WBC 8.32 X 10*3/uL (4.50-10.00)
[2021-11-21 15:10] LABS: Albumin 4.1 g/dL (3.8-4.9); Ferritin 38.7 ng/mL (10.0-291.0)
[2021-11-21 15:29] LABS: % Iron Saturation 15.98 (12.00-45.00); African American GFR (CKD) 59.3 (60.0-200.0); BUN/Creat Ratio 13.36 Ratio (12.00-20.00); Blood Urea Nitrogen 14.7 mg/dL (9.0-27.0); Calcium 9.3 mg/dL (8.7-10.3); Magnesium 2.1 mg/dL (1.5-2.4); Non-African American GFR(CKD) 51.2 (60.0-200.0); Phosphorus 3.8 mg/dL (2.4-5.1); Potassium 5.4 mmol/L (3.5-5.5); Uric Acid 8.2 mg/dL (2.9-7.7)
[2021-11-21 15:50] LABS: Appearance,Urine Turbid (Clear); Bacteria,Urine 4+ /HPF (None Seen); Bilirubin,Urine Negative (Negative); Blood,Urine Trace (Negative); Color,Urine Dark Yellow (Yellow); Ketones,Urine Trace mg/dL (Negative); Nitrite,Urine Positive (Negative); Specific Gravity,Urine 1.016 (1.001-1.030); Urobilinogen,Urine 0.2 (0.2,1.0)
== END | disposition home or self-care (01) ==
LOC: LABWHC1 07:16
PROVIDERS: ATTEND Internal Medicine Nephrology
DX: E55.9 Vitamin D deficiency, unspecified (principal); E21.3 Hyperparathyroidism, unspecified; M10.9 Gout, unspecified; N39.0 Urinary tract infection, site not specified; D64.9 Anemia, unspecified; R80.9 Proteinuria, unspecified; N18.2 Chronic kidney disease, stage 2 (mild); N17.9 Acute kidney failure, unspecified
CPT/HCPCS: 36415; 80048; 81001; 82040; 82306; 82570; 82728; 83540; 83550; 83735; 83970; 84100; 84156; 84550; 85025

== ENCOUNTER → 2022-03-19 | Outpatient (CLI) | payer MEDICARE, OTHER ==
[2022-03-19 15:27] LABS: ALT 28 U/L (8-44); AST 25 U/L (13-35); African American GFR (CKD) 62.3 (60.0-200.0); Albumin 4.6 g/dL (3.8-4.9); Albumin/Globulin Ratio 1.67 (1.60-3.17); Alkaline Phosphatase 133 U/L (41-126); BUN/Creat Ratio 18.19 Ratio (12.00-20.00); Blood Urea Nitrogen 19.1 mg/dL (9.0-27.0); Calcium 9.4 mg/dL (8.7-10.3); Carbon Dioxide 24.3 mmol/L (20.0-27.5); Chloride 104 mmol/L (96-109); Chol/HDL Ratio 3.28 Ratio; Globulin 2.8 g/dL (1.6-3.3); Glucose 166 mg/dL (70-110); LDL Cholesterol,Calculated 47.4 mg/dL (0.0-131.0); Non-African American GFR(CKD) 53.8 (60.0-200.0); Potassium 4.4 mmol/L (3.5-5.5); Sodium 142 mmol/L (135-145); Total Protein 7.3 g/dL (6.2-8.2)
== END | disposition home or self-care (01) ==
LOC: LABWHC1 08:38
PROVIDERS: ATTEND Dermatology
DX: Z08 Encounter for follow-up examination after completed treatment for malignant neoplasm (principal); L40.0 Psoriasis vulgaris; L82.0 Inflamed seborrheic keratosis; L29.8 Other pruritus; L53.8 Other specified erythematous conditions; L57.0 Actinic keratosis; Z85.828 Personal history of other malignant neoplasm of skin
CPT/HCPCS: 36415; 80053; 80061

== ENCOUNTER → 2022-04-23 | Outpatient (CLI) | payer MEDICARE, OTHER ==
[2022-04-23 15:35] LABS: ALT 32 U/L (8-44); AST 27 U/L (13-35); African American GFR (CKD) 66.1 (60.0-200.0); Albumin 4.5 g/dL (3.8-4.9); Albumin/Globulin Ratio 2.05 (1.60-3.17); Alkaline Phosphatase 129 U/L (41-126); Blood Urea Nitrogen 16.4 mg/dL (9.0-27.0); Calcium 9.6 mg/dL (8.7-10.3); Carbon Dioxide 24.6 mmol/L (20.0-27.5); Chloride 104 mmol/L (96-109); Chol/HDL Ratio 3.71 Ratio; Globulin 2.2 g/dL (1.6-3.3); Glucose 162 mg/dL (70-110); LDL Cholesterol,Calculated 59.5 mg/dL (0.0-131.0); Potassium 4.8 mmol/L (3.5-5.5); Sodium 142 mmol/L (135-145); Total Protein 6.7 g/dL (6.2-8.2)
== END | disposition home or self-care (01) ==
LOC: LABWHC1 08:52
PROVIDERS: ATTEND Family Medicine
DX: E11.9 Type 2 diabetes mellitus without complications (principal)
CPT/HCPCS: 36415; 80053; 80061; 83036

== ENCOUNTER → 2022-06-11 | Outpatient (CLI) | payer MEDICARE, OTHER ==
[2022-06-11 13:03] LABS: Appearance,Urine Clear (Clear); Bilirubin,Urine Negative (Negative); Blood,Urine Negative (Negative); Color,Urine Yellow; Glucose,Urine (UA) Negative (Negative); Hyaline Casts,Urine 1 /lpf (0-2); Ketones,Urine Negative (Negative); Leukocyte Esterase,Urine Trace (Negative); Mucus,Urine Rare /hpf; Nitrite,Urine Negative (Negative); Protein,Urine Trace (Negative); RBC,Urine <1 /hpf (0-5); Specific Gravity,Urine 1.024 (1.001-1.035); Squamous Epithelial Cell,Urine <1 /hpf (0-4); Urobilinogen,Urine <2.0 mg/dL (<2.0); WBC,Urine 3 /hpf (0-5)
[2022-06-11 13:26] LABS: Protein/Creatinine Ratio,Urine 0.038
[2022-06-11 21:15] LABS: Basophils # (A) 0.07 X 10*3/uL (0.00-0.10); Basophils % (A) 0.7 %; Eosinophils # (A) 0.24 X 10*3/uL (0.04-0.35); Eosinophils % (A) 2.4 %; HCT 42.8 % (37.2-46.3); HGB 13.1 g/dL (12.0-15.0); Immature Grans, Automated 0.6 %; Lymphocytes # (A) 1.92 X 10*3/uL (0.90-5.00); Lymphocytes % (A) 18.9 %; MCH 28.9 pg (27.0-32.0); MCHC 30.6 g/dL (32.0-37.0); MCV 94.3 fL (80.0-97.0); Monocytes # (A) 0.41 X 10*3/uL (0.20-1.00); NRBC Per 100 WBC 0 /100 WBCS (0.0-0.0); Neutrophils # (A) 7.48 X 10*3/uL (1.80-7.70); Neutrophils % (A) 73.4 %; Platelet Count 290 X 10*3/uL (140-440); RBC 4.54 X 10*6/uL (4.10-5.20); WBC 10.18 X 10*3/uL (4.50-10.00)
[2022-06-12 00:29] LABS: % Iron Saturation 32.39 (12.00-45.00); African American GFR (CKD) 54.1 (60.0-200.0); Albumin 4.7 g/dL (3.8-4.9); Albumin/Globulin Ratio 1.75 (1.60-3.17); Anion Gap 15.6 mmol/L (10.00-18.00); BUN/Creat Ratio 18.9 Ratio (12.00-20.00); Blood Urea Nitrogen 22.3 mg/dL (9.0-27.0); Carbon Dioxide 21.5 mmol/L (20.0-27.5); Globulin 2.7 g/dL (1.6-3.3); Magnesium 1.9 mg/dL (1.5-2.4); Non-African American GFR(CKD) 46.7 (60.0-200.0); Phosphorus 4.2 mg/dL (2.4-5.1); Potassium 5.1 mmol/L (3.5-5.5); Total Bilirubin 0.5 mg/dL (0.30-1.20); Total Protein 7.4 g/dL (6.2-8.2); Uric Acid 7.6 mg/dL (2.9-7.7)
[2022-06-12 00:32] LABS: Ferritin 80.9 ng/mL (10.0-291.0)
== END | disposition home or self-care (01) ==
LOC: LABWHC1 12:21
PROVIDERS: ATTEND Nurse Practitioner Family
DX: N25.81 Secondary hyperparathyroidism of renal origin (principal); N18.31 Chronic kidney disease, stage 3a; D63.1 Anemia in chronic kidney disease; E55.9 Vitamin D deficiency, unspecified; M10.9 Gout, unspecified; R80.9 Proteinuria, unspecified; N39.0 Urinary tract infection, site not specified
CPT/HCPCS: 36415; 80053; 81001; 82306; 82570; 82728; 83540; 83550; 83735; 83970; 84100; 84156; 84550; 85025

== ENCOUNTER → 2022-06-19 | Outpatient (CLI) | payer MEDICARE, OTHER ==
--- NOTE | 2022-06-22 08:43 | MM ---
Reason for Exam: Screening (asymptomatic). Last screening mammogram was performed 12 month(s) ago. Patient History: Menarche at age 14. First Full-Term at age 29. Left ovary removed at age 41. Right ovary removed at age 42. Hysterectomy at age 42. Postmenopausal. Other cancer. Estrogen for 14 years, 3 months, until age 58. Hormonal Contraceptives, from age 20 until age 22. Excisional Biopsy on the Right side. 09/03/1998, Benign Stereotactic Core Biopsy on the right side. Paternal grandmother had breast cancer. Paternal aunt had breast cancer. Risk Values: Alexandria 5 year model risk: 2.9%. NCI Lifetime model risk: 8.3%. Prior Study Comparison: 09/02/2018 Bilateral Diagnostic Mammogram, [facility]. 02/26/2020 Bilateral Screening Mammogram, [facility]. 06/17/2021 Bilateral Screening Mammogram, [facility]. Tissue Density: There are scattered fibroglandular densities. Findings: Analyzed By CAD. There is no suspicious group of microcalcifications or new suspicious mass in either breast. Previous mammotome biopsy right breast. Chronic nodularity bilaterally. Benign-appearing calcifications bilaterally. Overall Assessment: Benign, BI-RAD 2 Management: Screening Mammogram of both breasts in 1 year. A clinical breast exam by your physician is recommended on an annual basis and results should be correlated with mammographic findings. Electronically signed and approved by: Peña Moore D.O.
== END | disposition home or self-care (01) ==
LOC: RADMAMWWP 10:51
PROVIDERS: ATTEND Family Medicine
DX: Z12.31 Encounter for screening mammogram for malignant neoplasm of breast (principal); Z78.0 Asymptomatic menopausal state; Z80.3 Family history of malignant neoplasm of breast
CPT/HCPCS: 77063; 77067

== ENCOUNTER → 2022-08-17 | Outpatient (CLI) | payer MEDICARE ==
--- NOTE | 2022-08-17 14:52 | BD ---
EXAMINATION TYPE: Axial Bone Density DATE OF EXAM: 08/17/2022 CLINICAL HISTORY: 72 years old Female. ICD-10 CODE: M89.9 DISORDER OF BONE Height: 63 Weight: 137.6 FRAX RISK QUESTIONS: Alcohol (3 or more units per day): no Family History (Parent hip fracture): no Glucocorticoids (More than 3mos): no History of Fracture in Adulthood: foot Secondary Osteoporosis: 1. Type 1 Diabetes: no 2. Hyperthyroidism: no 3. Menopause before 45: yes 4. Malnutrition: no 5. Chronic liver disease: no Rheumatoid Arthritis: no Current Tobacco Use: no RISK FACTORS HISTORY OF: Hip Fracture (Right/Left): no Spine Fracture: no History of Wrist Fracture: no Surgery to Spine/Hip(right/left)/Wrist (right/left): no Family History of Osteoporosis: no Active: no Diet low in dairy products/other sources of calcium: yes Postmenopausal woman: yes Take estrogen and/or progesterone medications: no Lost more than 2 inches in height since high school: yes Frequent falls: no Poor Health: no Hyperparathyroidism: no Adrenal Insufficiency: no MEDICATIONS: Prednisone or other steroids: no Thyroid Medications: no Osteoporosis Medications: no Additional Medications: zinc, BP Meds, Cholesterol Meds, Anxiety Meds, [place] 3, Vit D, Additional History: EXAM MEASUREMENTS: Bone mineral densitometry was performed using the [employer] System. Bone mineral density as measured about the Lumbar spine is: ----- L1-L4(G/cm2):1.369 T Score Values are as follows: ----- L1: 0.0 ----- L2: 1.6 ----- L3: 1.3 ----- L4: 3.0 ----- L1-L4: 1.6 Z Score Values are as follows: ----- L1: 1.7 ----- L2: 3.4 ----- L3: 3.0 ----- L4: 4.8 ----- L1-L4: 3.3 Bone mineral density has: decreased -7.2 % since study of: 02/26/2020 Bone mineral density about the R hip (g/cm2): 0.788 Bone mineral density about the L hip (g/cm2): 0.775 T Score values are as follows: -----R Neck: -2.6 -----L Neck: -1.4 -----R Total: -1.8 -----L Total: -1.6 Z Score values are as follows: -----R Neck: -0.8 -----L Neck: 0.4 -----R Total: -0.3 -----L Total: -0.1 Bone mineral density has: decreased -2.1 % since study of: 02/23/2020 FRAX%s: The graph provided illustrates a 23.8% chance for a major osteoporotic fx and a 6.5% chance f or the hips probability for fx in 10 years time. IMPRESSION: Osteopenia (T Score between -2.5 and -1). There is slightly increased risk of fracture and the patient may be considered for treatment. Re-Screen 2-5 years. NOTE: T-SCORE=SD OF THE YOUNG ADULT MEAN.
== END | disposition home or self-care (01) ==
LOC: RADBDWWP 14:07
PROVIDERS: ATTEND Family Medicine
DX: M81.0 Age-related osteoporosis without current pathological fracture (principal); M85.89 Other specified disorders of bone density and structure, multiple sites; Z78.0 Asymptomatic menopausal state
CPT/HCPCS: 77080

== ENCOUNTER → 2022-10-29 | Outpatient (CLI) | payer MEDICARE ==
[2022-10-29 11:10] LABS: Basophils # (A) 0.06 X 10*3/uL (0.00-0.10); Basophils % (A) 0.6 %; Eosinophils # (A) 0.29 X 10*3/uL (0.04-0.35); Eosinophils % (A) 3.1 %; HCT 38.3 % (37.2-46.3); HGB 12.7 d/dL (12.0-15.0); Lymphocytes # (A) 2.24 X 10*3/uL (0.90-5.00); Lymphocytes % (A) 24.1 %; MCH 30.2 pg (27.0-32.0); MCHC 33.2 d/dL (32.0-37.0); MCV 91.2 FL (80.0-97.0); Mean Platelet Volume 9.3 FL (9.5-12.2); Monocytes # (A) 0.55 X 10*3/uL (0.20-1.00); Monocytes % (A) 5.9 %; NRBC Per 100 WBC 0 X 10*3/uL (0.00-0.01); Neutrophils # (A) 6.11 X 10*3/uL (1.80-7.70); Neutrophils % (A) 65.8 %; Platelet Count 249 X 10*3/uL (140-440); RDW 12.7 % (11.5-14.5)
[2022-10-29 11:28] LABS: ALT 34 U/L (8-44); AST 24 U/L (13-35); Albumin 4.4 d/dL (3.8-4.9); Albumin/Globulin Ratio 1.91 Ratio (1.60-3.17); Alkaline Phosphatase 122 U/L (41-126); BUN/Creat Ratio 15.91 Ratio (12.00-20.00); Blood Urea Nitrogen 17.5 mg/dL (9.0-27.0); Calcium 9.9 mg/dL (8.7-10.3); Carbon Dioxide 24.1 mmol/L (21.6-31.8); Chloride 102 mmol/L (96-109); Chol/HDL Ratio 3.85 Ratio; Globulin 2.3 d/dL (1.6-3.3); Glucose 164 mg/dL (70-110); LDL Cholesterol,Calculated 71.9 mg/dL (0.0-131.0); Potassium 5.5 mmol/L (3.5-5.5); Sodium 139 mmol/L (135-145); Total Bilirubin 0.4 mg/dL (0.3-1.2); Total Protein 6.7 d/dL (6.2-8.2)
[2022-10-29 14:16] LABS: Microalbumin Creatinine Ratio <21 mg/g Cr (0-30); Urine Creatinine 56.7 mg/dL (28.0-217.0)
== END | disposition home or self-care (01) ==
LOC: LABWHC1 06:49
PROVIDERS: ATTEND Family Medicine
DX: E11.9 Type 2 diabetes mellitus without complications (principal)
CPT/HCPCS: 36415; 80053; 80061; 82043; 82570; 83036; 84443; 85025

== ENCOUNTER → 2023-01-27 | Outpatient (CLI) | payer MEDICARE ==
[2023-01-27 12:39] LABS: Creatinine,Urine Random 20.3 mg/dL; Protein/Creatinine Ratio,Urine 0.64
[2023-01-27 16:09] LABS: % Iron Saturation 19.75 (12.00-45.00); Albumin 4.7 d/dL (3.8-4.9); BUN/Creat Ratio 11.44 Ratio (12.00-20.00); Blood Urea Nitrogen 10.3 mg/dL (9.0-27.0); Carbon Dioxide 25.3 mmol/L (21.6-31.8); Chloride 98 mmol/L (96-109); Ferritin 69.1 ng/mL (10.0-291.0); Glucose 141 mg/dL (70-110); Iron 62 UG/DL (50-170); Magnesium 1.9 mg/dL (1.5-2.4); Phosphorus 4.1 mg/dL (2.4-5.1); Sodium 137 mmol/L (135-145); Total Iron Binding Capacity 314 UG/DL (228-460); Uric Acid 6.2 mg/dL (2.9-7.7)
[2023-01-27 16:41] LABS: Appearance,Urine Clear (Clear); Bilirubin,Urine Negative (Negative); Blood,Urine Negative (Negative); Color,Urine Yellow (Yellow); Ketones,Urine Negative (Negative); Nitrite,Urine Negative (Negative); PH, Urine 5.5; Specific Gravity,Urine 1.005 (1.001-1.030); Urobilinogen,Urine 0.2 E.U./DL
[2023-01-27 16:44] LABS: Bacteria,Urine None Seen (None Seen)
[2023-01-27 18:06] LABS: Basophils # (A) 0.04 X 10*3/uL (0.00-0.10); Basophils % (A) 0.5 %; Eosinophils # (A) 0.22 X 10*3/uL (0.04-0.35); Eosinophils % (A) 2.7 %; HCT 36.7 % (37.2-46.3); HGB 12.2 d/dL (12.0-15.0); Lymphocytes # (A) 1.48 X 10*3/uL (0.90-5.00); Lymphocytes % (A) 18.1 %; MCHC 33.2 d/dL (32.0-37.0); MCV 90.2 FL (80.0-97.0); Mean Platelet Volume 9.5 FL (9.5-12.2); Monocytes # (A) 0.45 X 10*3/uL (0.20-1.00); Monocytes % (A) 5.5 %; NRBC Per 100 WBC 0 X 10*3/uL (0.00-0.01); Neutrophils # (A) 5.96 X 10*3/uL (1.80-7.70); Neutrophils % (A) 72.8 %; Platelet Count 258 X 10*3/uL (140-440); RBC 4.07 X 10*6/uL (4.10-5.20); RDW 12.3 % (11.5-14.5); WBC 8.18 X 10*3/uL (4.50-10.00)
== END | disposition home or self-care (01) ==
LOC: LABWHC1 10:50
PROVIDERS: ATTEND Nurse Practitioner Family
DX: E55.9 Vitamin D deficiency, unspecified (principal); N25.81 Secondary hyperparathyroidism of renal origin; N18.31 Chronic kidney disease, stage 3a; M10.9 Gout, unspecified; D63.1 Anemia in chronic kidney disease; N39.0 Urinary tract infection, site not specified; R80.9 Proteinuria, unspecified
CPT/HCPCS: 36415; 80048; 81001; 82040; 82306; 82570; 82728; 83540; 83550; 83735; 83970; 84100; 84156; 84550; 85025

== ENCOUNTER → 2023-04-27 | Outpatient (CLI) | payer MEDICARE ==
[2023-04-27 11:19] LABS: ALT 36 U/L (8-44); AST 26 U/L (13-35); Albumin 4.7 g/dL (3.8-4.9); Albumin/Globulin Ratio 2.14 Ratio (1.60-3.17); Alkaline Phosphatase 113 U/L (41-126); Blood Urea Nitrogen 15.6 mg/dL (9.0-27.0); Calcium 10.4 mg/dL (8.7-10.3); Carbon Dioxide 22.6 mmol/L (21.6-31.8); Chloride 98 mmol/L (96-109); Chol/HDL Ratio 3.27 Ratio; Globulin 2.2 g/dL (1.6-3.3); Glucose 185 mg/dL (70-110); LDL Cholesterol,Calculated 78.7 mg/dL (0.0-131.0); Potassium 5.2 mmol/L (3.5-5.5); Sodium 135 mmol/L (135-145); Total Bilirubin 0.3 mg/dL (0.3-1.2); Total Protein 6.9 g/dL (6.2-8.2)
== END | disposition home or self-care (01) ==
LOC: LABWHC1 06:47
PROVIDERS: ATTEND Internal Medicine Interventional Cardiology
DX: E11.9 Type 2 diabetes mellitus without complications (principal); E78.2 Mixed hyperlipidemia
CPT/HCPCS: 36415; 80053; 80061; 83036

== ENCOUNTER → 2023-07-01 | Outpatient (CLI) | payer MEDICARE, OTHER ==
--- NOTE | 2023-07-05 09:13 | MM ---
Reason for Exam: Screening (asymptomatic). Last mammogram was performed 1 year(s) and 1 month(s) ago. Patient History: Menarche at age 14. First Full-Term at age 29. Left ovary removed at age 41. Right ovary removed at age 42. Hysterectomy at age 42. Postmenopausal. Other cancer. Estrogen for 14 years, 3 months, until age 58. Hormonal Contraceptives, from age 20 until age 22. Excisional Biopsy on the Right side. 09/03/1998, Benign Stereotactic Core Biopsy on the right side. Paternal grandmother had breast cancer. Paternal aunt had breast cancer. Risk Values: [place] 5 year model risk: 2.9%. NCI Lifetime model risk: 7.9%. Prior Study Comparison: 02/26/2020 Bilateral Screening Mammogram, [facility]. 06/17/2021 Bilateral Screening Mammogram, [facility]. 06/19/2022 Bilateral MG 3D screening mammo w/cad, [facility]. Tissue Density: The breast tissue is heterogeneously dense. This may lower the sensitivity of mammography. Findings: Analyzed By CAD. There is no suspicious group of microcalcifications or new suspicious mass. Overall Assessment: Benign, BI-RAD 2 Management: Screening Mammogram of both breasts in [address] [facility] will attempt to contact patient to return for supplemental views and ultrasound if indicated. Patient should continue monthly self-breast exams. A clinical breast exam by your physician is recommended on an annual basis. This exam should not preclude additional follow-up of suspicious palpable abnormalities. Note on Alexandria scores and lifetime risk: 1. A Alexandria score greater than 3% is considered moderate risk. If this is the case, consider specialist referral to assess eligibility for a risk reducing agent. 2. If overall lifetime risk for the development of breast cancer is 20% or higher, the patient may qualify for future screening with alternating mammogram and breast MRI. Electronically signed and approved by: Vicente Sun DO
== END | disposition home or self-care (01) ==
LOC: RADMAMWWP 14:29
PROVIDERS: ATTEND Family Medicine
DX: Z12.31 Encounter for screening mammogram for malignant neoplasm of breast (principal); Z80.3 Family history of malignant neoplasm of breast; Z78.0 Asymptomatic menopausal state
CPT/HCPCS: 77063; 77067

== ENCOUNTER → 2023-07-29 | Outpatient (CLI) | payer MEDICARE, OTHER ==
[2023-07-29 10:53] LABS: Basophils # (A) 0.09 X 10*3/uL (0.00-0.10); Basophils % (A) 0.7 %; Eosinophils # (A) 0.29 X 10*3/uL (0.04-0.35); Eosinophils % (A) 2.4 %; HCT 39.4 % (37.2-46.3); HGB 12.8 g/dL (12.0-15.0); Lymphocytes # (A) 3.83 X 10*3/uL (0.90-5.00); Lymphocytes % (A) 31.4 %; MCHC 32.5 g/dL (32.0-37.0); MCV 92.5 FL (80.0-97.0); Mean Platelet Volume 11.1 FL (9.5-12.2); Monocytes # (A) 0.64 X 10*3/uL (0.20-1.00); Monocytes % (A) 5.2 %; NRBC Per 100 WBC 0 X 10*3/uL (0.00-0.01); Neutrophils % (A) 59.8 %; Platelet Count 221 X 10*3/uL (140-440); RBC 4.26 X 10*6/uL (4.10-5.20); RDW 12.5 % (11.5-14.5); WBC 12.21 X 10*3/uL (4.50-10.00)
[2023-07-29 11:25] LABS: % Iron Saturation 16.83 (12.00-45.00); Albumin 4.5 g/dL (3.8-4.9); BUN/Creat Ratio 16.92 Ratio (12.00-20.00); Blood Urea Nitrogen 20.3 mg/dL (9.0-27.0); Calcium 9.6 mg/dL (8.7-10.3); Carbon Dioxide 19.4 mmol/L (21.6-31.8); Chloride 100 mmol/L (96-109); Glucose 202 mg/dL (70-110); Iron 53 UG/DL (50-170); Magnesium 1.6 mg/dL (1.5-2.4); Phosphorus 4.3 mg/dL (2.4-5.1); Potassium 4.1 mmol/L (3.5-5.5); Sodium 136 mmol/L (135-145); Total Iron Binding Capacity 315 UG/DL (228-460); Uric Acid 8.1 mg/dL (2.9-7.7)
[2023-07-29 12:05] LABS: Appearance,Urine Clear (Clear); Bilirubin,Urine Negative (Negative); Blood,Urine Negative (Negative); Color,Urine Dark Yellow (Yellow); Ketones,Urine Trace (Negative); Nitrite,Urine Negative (Negative); Urobilinogen,Urine 0.2 E.U./DL
[2023-07-29 12:18] LABS: Bacteria,Urine Trace (None Seen)
== END | disposition home or self-care (01) ==
LOC: LABWHC1 06:52
PROVIDERS: ATTEND Internal Medicine Nephrology
DX: N18.31 Chronic kidney disease, stage 3a (principal)
CPT/HCPCS: 36415; 80048; 81001; 82040; 82043; 82306; 82570; 82728; 83540; 83550; 83735; 83970; 84100; 84550; 85025

== ENCOUNTER → 2023-08-03 | Outpatient (CLI) | payer MEDICARE, OTHER ==
--- NOTE | 2023-08-04 14:39 | US ---
EXAMINATION TYPE: US kidneys/renal and bladder DATE OF EXAM: 08/03/2023 COMPARISON: NONE CLINICAL INDICATION: Female, 73 years old with history of N18.31 CHRONIC KIDNEY DISEASE; CKD stage 3A . EXAM MEASUREMENTS: Right Kidney: 10.0 x 5.4 x 4.9 cm Left Kidney: 10.3 x 4.2 x 4.9 cm Post Void Residual Volume: 0 mL, bladder appears empty Right Kidney: Cortex appears thin. Anechoic area seen laterally: 1.3 x 1.2 x 1.2 cm. Left Kidney: Cortex appears thin. Anechoic area seen lower pole: 1.3 x 0.9 x 0.8 cm. *Appearance of dromedary hump, normal anatomic variation. Bladder: Appears anechoic. Bilateral Jets seen: Yes Normal Post Void Residual: Yes IMPRESSION: Cortical thinning suggesting chronic medical renal disease. No hydronephrosis.
== END | disposition home or self-care (01) ==
LOC: RADUSWWP 13:11
PROVIDERS: ATTEND Internal Medicine Nephrology
DX: N28.89 Other specified disorders of kidney and ureter (principal); N18.31 Chronic kidney disease, stage 3a
CPT/HCPCS: 76770

== ENCOUNTER → 2023-10-29 | Outpatient (CLI) | payer MEDICARE, OTHER ==
[2023-10-29 11:00] LABS: Basophils # (A) 0.08 X 10*3/uL (0.00-0.10); Basophils % (A) 0.8 %; Eosinophils # (A) 0.38 X 10*3/uL (0.04-0.35); Eosinophils % (A) 3.8 %; HCT 34.7 % (37.2-46.3); HGB 12.1 g/dL (12.0-15.0); Lymphocytes # (A) 3.11 X 10*3/uL (0.90-5.00); Lymphocytes % (A) 31.1 %; MCH 32.2 pg (27.0-32.0); MCHC 34.9 g/dL (32.0-37.0); MCV 92.3 FL (80.0-97.0); Mean Platelet Volume 10.1 FL (9.5-12.2); Monocytes # (A) 0.66 X 10*3/uL (0.20-1.00); Monocytes % (A) 6.6 %; NRBC Per 100 WBC 0 X 10*3/uL (0.00-0.01); Neutrophils # (A) 5.71 X 10*3/uL (1.80-7.70); Neutrophils % (A) 57.1 %; Platelet Count 283 X 10*3/uL (140-440); RBC 3.76 X 10*6/uL (4.10-5.20); RDW 12.9 % (11.5-14.5)
[2023-10-29 11:21] LABS: Microalbumin Creatinine Ratio <8 mg/g Cr (0-30)
[2023-10-29 11:38] LABS: % Iron Saturation 23.36 (12.00-45.00); ALT 27 U/L (8-44); AST 22 U/L (13-35); Albumin 4.4 g/dL (3.8-4.9); Alkaline Phosphatase 95 U/L (41-126); Blood Urea Nitrogen 21.3 mg/dL (9.0-27.0); Calcium 9.6 mg/dL (8.7-10.3); Carbon Dioxide 22.6 mmol/L (21.6-31.8); Chloride 103 mmol/L (96-109); Chol/HDL Ratio 3.47 Ratio; Ferritin 78.4 ng/mL (10.0-291.0); Glucose 169 mg/dL (70-110); Iron 71 UG/DL (50-170); LDL Cholesterol,Calculated 66.3 mg/dL (0.0-131.0); Magnesium 1.7 mg/dL (1.5-2.4); Phosphorus 4.4 mg/dL (2.4-5.1); Potassium 5.2 mmol/L (3.5-5.5); Sodium 139 mmol/L (135-145); Total Bilirubin 0.3 mg/dL (0.3-1.2); Total Iron Binding Capacity 304 UG/DL (228-460); Total Protein 6.4 g/dL (6.2-8.2); Uric Acid 8.2 mg/dL (2.9-7.7)
[2023-10-29 12:15] LABS: Appearance,Urine Clear (Clear); Bilirubin,Urine Negative (Negative); Blood,Urine Negative (Negative); Color,Urine Dark Yellow (Yellow); Ketones,Urine Negative (Negative); Nitrite,Urine Negative (Negative); Specific Gravity,Urine 1.018 (1.001-1.030); Urobilinogen,Urine 0.2 E.U./DL
[2023-10-29 12:21] LABS: Bacteria,Urine None Seen (None Seen)
== END | disposition home or self-care (01) ==
LOC: LABWHC1 06:46
PROVIDERS: ATTEND Internal Medicine Interventional Cardiology
DX: E55.9 Vitamin D deficiency, unspecified (principal); E78.2 Mixed hyperlipidemia; N25.81 Secondary hyperparathyroidism of renal origin; M10.9 Gout, unspecified; N39.0 Urinary tract infection, site not specified; E11.22 Type 2 diabetes mellitus with diabetic chronic kidney disease; N18.31 Chronic kidney disease, stage 3a; D63.1 Anemia in chronic kidney disease; R80.9 Proteinuria, unspecified
CPT/HCPCS: 36415; 80053; 80061; 81001; 82043; 82306; 82570; 82728; 83036; 83540; 83550; 83735; 83970; 84100; 84550; 85025

== ENCOUNTER → 2024-02-26 | Outpatient (CLI) | payer MEDICARE, OTHER ==
[2024-02-26 23:10] LABS: Basophils # (A) 0.06 X 10*3/uL (0.00-0.10); Basophils % (A) 0.8 %; Eosinophils # (A) 0.28 X 10*3/uL (0.04-0.35); Eosinophils % (A) 3.8 %; HCT 32.7 % (37.2-46.3); HGB 10.6 g/dL (12.0-15.0); Lymphocytes # (A) 1.73 X 10*3/uL (0.90-5.00); Lymphocytes % (A) 23.3 %; MCH 30.1 pg (27.0-32.0); MCHC 32.4 g/dL (32.0-37.0); MCV 92.9 FL (80.0-97.0); Mean Platelet Volume 9.8 FL (9.5-12.2); Monocytes % (A) 6.7 %; NRBC Per 100 WBC 0 X 10*3/uL (0.00-0.01); Neutrophils # (A) 4.82 X 10*3/uL (1.80-7.70); Neutrophils % (A) 64.9 %; Platelet Count 226 X 10*3/uL (140-440); RBC 3.52 X 10*6/uL (4.10-5.20); RDW 12.9 % (11.5-14.5); WBC 7.43 X 10*3/uL (4.50-10.00)
[2024-02-26 23:37] LABS: Appearance,Urine Clear (Clear); Bacteria,Urine None Seen (None Seen); Bilirubin,Urine Negative (Negative); Blood,Urine Negative (Negative); Color,Urine Dark Yellow (Yellow); Ketones,Urine Negative (Negative); Nitrite,Urine Negative (Negative); PH, Urine 5.5; Specific Gravity,Urine 1.015 (1.001-1.030); Urobilinogen,Urine 0.2
[2024-02-26 23:40] LABS: % Iron Saturation 24.23 (12.00-45.00); Albumin 4.1 g/dL (3.8-4.9); Blood Urea Nitrogen 17.6 mg/dL (9.0-27.0); Calcium 9.1 mg/dL (8.7-10.3); Carbon Dioxide 23.5 mmol/L (21.6-31.8); Chloride 102 mmol/L (96-109); Glucose 219 mg/dL (70-110); Iron 71 UG/DL (50-170); Magnesium 1.6 mg/dL (1.5-2.4); Phosphorus 3.3 mg/dL (2.4-5.1); Potassium 4.9 mmol/L (3.5-5.5); Sodium 138 mmol/L (135-145); Total Iron Binding Capacity 293 UG/DL (228-460); Uric Acid 7.4 mg/dL (2.9-7.7)
[2024-02-27 08:40] LABS: Microalbumin Creatinine Ratio <11 mg/g Cr (0-30)
== END | disposition home or self-care (01) ==
LOC: LABWHC1 10:05
PROVIDERS: ATTEND Nurse Practitioner Family
DX: N18.2 Chronic kidney disease, stage 2 (mild)
CPT/HCPCS: 36415; 80048; 81001; 82040; 82043; 82306; 82570; 82728; 83540; 83550; 83735; 83970; 84100; 84550; 85025

== ENCOUNTER → 2024-05-02 | Outpatient (CLI) | payer MEDICARE, OTHER ==
[2024-05-02 15:45] LABS: Chol/HDL Ratio 3.78 Ratio
[2024-05-02 15:46] LABS: ALT 34 U/L (8-44); AST 26 U/L (13-35); Albumin 4.4 g/dL (3.8-4.9); Albumin/Globulin Ratio 1.91 Ratio (1.60-3.17); Alkaline Phosphatase 116 U/L (41-126); BUN/Creat Ratio 11.58 Ratio (12.00-20.00); Blood Urea Nitrogen 13.9 mg/dL (9.0-27.0); Calcium 9.7 mg/dL (8.7-10.3); Carbon Dioxide 23.7 mmol/L (21.6-31.8); Chloride 105 mmol/L (96-109); Globulin 2.3 g/dL (1.6-3.3); Glucose 207 mg/dL (70-110); LDL Cholesterol,Calculated 59.5 mg/dL (0.0-131.0); Potassium 5.9 mmol/L (3.5-5.5); Sodium 141 mmol/L (135-145); Total Bilirubin 0.4 mg/dL (0.3-1.2); Total Protein 6.7 g/dL (6.2-8.2)
== END | disposition home or self-care (01) ==
LOC: LABWHC1 10:00
PROVIDERS: ATTEND Internal Medicine Interventional Cardiology
DX: E78.2 Mixed hyperlipidemia (principal); E11.9 Type 2 diabetes mellitus without complications
CPT/HCPCS: 36415; 80053; 80061; 83036

== ENCOUNTER → 2024-08-18 | Outpatient (CLI) | payer MEDICARE, OTHER ==
--- NOTE | 2024-08-18 13:39 | BD ---
EXAMINATION TYPE: Axial Bone Density DATE OF EXAM: 08/18/2024 CLINICAL HISTORY: 74 years old Female. ICD-10 CODE: M89.9 DISORDER OF BONE , Additional History: Height: 63.5 Weight: 137 FRAX RISK QUESTIONS: Family History (Parent hip fracture): no History of Fracture in Adulthood: no Secondary Osteoporosis: no RISK FACTORS HISTORY OF: Surgery to Spine/Hip(right/left)/Wrist (right/left): no MEDICATIONS: Thyroid Medications: no Osteoporosis Medications: no EXAM MEASUREMENTS: Bone mineral densitometry was performed using the [employer] System. Bone mineral density as measured about the Lumbar spine is: ----- L1-L4(G/cm2): 1.513 T Score Values are as follows: ----- L1: 0.9 ----- L2: 2.8 ----- L3: 3.5 ----- L4: 2.6 ----- L1-L4: 2.7 Z Score Values are as follows: ----- L1: 2.7 ----- L2: 4.6 ----- L3: 5.3 ----- L4: 4.4 ----- L1-L4: 4.5 Bone mineral density has: Increased 9.9% since study of: 08/17/2022 Bone mineral density about the R hip (g/cm2): 0.828 Bone mineral density about the L hip (g/cm2): 0.743 T Score values are as follows: -----R Neck: -1.9 -----L Neck: -1.9 -----R Total: -1.4 -----L Total: -2.1 Z Score values are as follows: -----R Neck: 0.0 -----L Neck: 0.0 -----R Total: 0.2 -----L Total: -0.4 Bone mineral density has: Decreased -0.3% since study of: 08/17/2022 FRAX%s: The graph provided illustrates a 11.8% chance for a major osteoporotic fx and a 2.5% chance f or the hips probability for fx in 10 years time. IMPRESSION: Osteopenia (T Score between -2.5 and -1). There is slightly increased risk of fracture and the patient may be considered for treatment. Re-Screen 2-5 years. NOTE: T-SCORE=SD OF THE YOUNG ADULT MEAN. [facility], , 08/18/2024 1:37 PM
== END | disposition home or self-care (01) ==
LOC: RADBDWWP 12:19
PROVIDERS: ATTEND Family Medicine
DX: M85.89 Other specified disorders of bone density and structure, multiple sites (principal)
CPT/HCPCS: 77080

== ENCOUNTER → 2024-09-27 | Outpatient (CLI) | payer MEDICARE, OTHER ==
[2024-09-27 18:59] LABS: Basophils # (A) 0.07 X 10*3/uL (0.00-0.10); Basophils % (A) 0.8 %; Eosinophils # (A) 0.29 X 10*3/uL (0.04-0.35); Eosinophils % (A) 3.5 %; HCT 37.9 % (37.2-46.3); HGB 12.1 g/dL (12.0-15.0); Lymphocytes # (A) 2.06 X 10*3/uL (0.90-5.00); Lymphocytes % (A) 24.7 %; MCHC 31.9 g/dL (32.0-37.0); MCV 93.8 FL (80.0-97.0); Mean Platelet Volume 9.8 FL (9.5-12.2); Monocytes # (A) 0.44 X 10*3/uL (0.20-1.00); Monocytes % (A) 5.3 %; NRBC Per 100 WBC 0 X 10*3/uL (0.00-0.01); Neutrophils # (A) 5.41 X 10*3/uL (1.80-7.70); Platelet Count 252 X 10*3/uL (140-440); RBC 4.04 X 10*6/uL (4.10-5.20); RDW 12.5 % (11.5-14.5); WBC 8.33 X 10*3/uL (4.50-10.00)
[2024-09-27 19:30] LABS: Albumin 4.2 g/dL (3.8-4.9); Blood Urea Nitrogen 16.7 mg/dL (9.0-27.0); Calcium 9.6 mg/dL (8.7-10.3); Chloride 104 mmol/L (96-109); Ferritin 88.7 ng/mL (10.0-291.0); Glucose 124 mg/dL (70-110); Iron 77 UG/DL (50-170); Magnesium 1.7 mg/dL (1.5-2.4); Phosphorus 3.4 mg/dL (2.4-5.1); Potassium 5.1 mmol/L (3.5-5.5); Sodium 139 mmol/L (135-145); Total Iron Binding Capacity 308 UG/DL (228-460)
== END | disposition home or self-care (01) ==
LOC: LABWHC1 14:11
PROVIDERS: ATTEND Internal Medicine Nephrology
DX: N18.2 Chronic kidney disease, stage 2 (mild) (principal); E55.9 Vitamin D deficiency, unspecified; N25.81 Secondary hyperparathyroidism of renal origin; M10.9 Gout, unspecified; D63.1 Anemia in chronic kidney disease; N39.0 Urinary tract infection, site not specified; R80.9 Proteinuria, unspecified
CPT/HCPCS: 36415; 80048; 82040; 82306; 82728; 83540; 83550; 83735; 83970; 84100; 84550; 85025

== ENCOUNTER → 2024-09-28 | Outpatient (CLI) | payer MEDICARE, OTHER ==
[2024-09-28 18:38] LABS: Microalbumin Creatinine Ratio <17 mg/g Cr (0-30); Urine Creatinine 68.8 mg/dL (28.0-217.0)
[2024-09-28 19:54] LABS: Appearance,Urine Clear (Clear); Bilirubin,Urine Negative (Negative); Blood,Urine Negative (Negative); Color,Urine Yellow (Yellow); Ketones,Urine Negative (Negative); Nitrite,Urine Negative (Negative); Specific Gravity,Urine 1.013 (1.001-1.030); Urobilinogen,Urine 0.2 E.U./DL
== END | disposition home or self-care (01) ==
LOC: LABWHC1 13:28
PROVIDERS: ATTEND Internal Medicine Nephrology
DX: N18.2 Chronic kidney disease, stage 2 (mild) (principal); E55.9 Vitamin D deficiency, unspecified; N25.81 Secondary hyperparathyroidism of renal origin; M10.9 Gout, unspecified; N39.0 Urinary tract infection, site not specified; D64.9 Anemia, unspecified; R80.9 Proteinuria, unspecified
CPT/HCPCS: 81003; 82043; 82570